=== PATIENT | female | born 1940 | race Caucasian/White ===

== ENCOUNTER 2019-09-22 22:35 | Observation (INO) ==
[2019-09-22] MEDS ORDERED: ASPIRIN CHEW 324 MG PO STA (23:23)
[2019-09-22] MEDS ORDERED: NITROGLYCERIN 2% OINTMENT 30GM TUBE EXT ONE (23:24)
[2019-09-22 23:33] LABS: Basophils # (auto) 0.02 K/uL (0-0.2); Basophils % (auto) 0.3 %; Eosinophils # (auto) 0.06 K/uL (0-0.5); Eosinophils % (auto) 0.8 %; Hematocrit (blood only) 38.9 % (37-47); Hemoglobin 13.8 g/dL (12.0-16.0); Immature Granulocytes # (auto) 0.02 K/uL (0.00-0.02); Immature Granulocytes % (auto) 0.3 %; Lymphocytes # (auto) 2.88 K/uL (1.2-3.4); Lymphocytes % (auto) 36.9 %; Mean Corpuscular Hemoglobin 33.6 pg (25-34); Mean Corpuscular Hgb Conc 35.5 g/dL (32-36); Mean Corpuscular Volume 94.6 fL (80-100); Mean Platelet Volume 9.5 fL (7.4-10.4); Monocytes # (auto) 0.71 K/uL (0.11-0.59); Monocytes % (auto) 9.1 %; Neutrophils # (auto) 4.12 K/uL (1.4-6.5); Neutrophils % (auto) 52.6 %; Platelet Count 228 K/uL (130-400); RDW Coefficient of Variation 13.1 % (11.5-14.5); Red Blood Count 4.11 M/uL (4.2-5.4); White Blood Count 7.81 K/uL (4.8-10.8)
[2019-09-22 23:41] LABS: Alanine Aminotransferase 44 U/L (12-78); Albumin Level 3.9 gm/dl (3.4-5.0); Aspartate Aminotransferase 22 U/L (15-37); BUN Creatinine Ratio 26.7 (10-20); Blood Urea Nitrogen 23 mg/dl (7-18); Calcium 8.7 mg/dl (8.5-10.1); Carbon Dioxide 24 mmol/L (21-32); Chloride 108 mmol/L (98-107); Est GFR (Non-African American) 64.7; Glucose 95 mg/dl (70-99); Lipase 141 U/L (73-393); Potassium 3.7 mmol/L (3.5-5.1); Prothrombin Time 10.8 Seconds (9.0-12.0); Sodium 140 mmol/L (136-145)
[2019-09-22 23:46] LABS: Albumin Globulin Ratio 1.1 (0.9-2); Alkaline Phosphatase 70 U/L (45-117); Bilirubin,Total 0.7 mg/dl (0.2-1); Globulin 3.5 gm/dl (2.5-4.0); Total Protein 7.4 gm/dl (6.4-8.2); Troponin I < 0.015 ng/ml (0-0.045)
--- NOTE | 2019-09-23 01:57 | Emergency Department Note ---
History of Present Illness General Chief complaint: Illness Stated complaint: DIZZY,SOB,MED CHANGE Time Seen by Provider: 09/22/19 22:58 Source: patient Mode of arrival: ambulatory Limitations: no limitations History of Present Illness Provider complaint: Dizziness, weakness, chest discomfort, shortness of breath Onset (ago): hour(s) 4 This patient is an 79-year-old female who presents to the emergency department with several hours of weakness, dizziness, shortness of breath and chest dis comfort. Patient states she called her son and asked him to call the ambulance for her because she felt it was time to "finally have this checked out." Patient states she did not have chest pain at the time but took a nitroglycerin tablet. She has a history of hypertension and seizures. The patient is concerned because her Keppra was recently switched from brand name to generic, she thinks this may be causing her symptoms. She admits that she does not know what aggravates her symptoms. She denies any current chest pain but upon sitting up for physical exam complained of slight burning. Patient denies any recent fevers, cough, abdominal pain, vomiting or diarrhea. Home Medications Home Medications Medication Instructions Recorded Confirmed Type levetiracetam [Keppra] 250 mg PO BID 02/22/19 09/22/19 History levothyroxine 88 mcg PO QAM 02/22/19 09/22/19 History amlodipine [Norvasc] 5 mg PO QAM 05/13/19 09/22/19 History lisinopril 20 mg PO QAM 05/13/19 09/22/19 History ferrous sulfate 325 mg PO QPM 06/29/19 09/22/19 History nitroglycerin 0.4 mg SUBLINGUAL UD PRN 09/22/19 09/22/19 History Allergies Allergy/AdvReac Type Severity Reaction Status Date / Time hydralazine Allergy Severe COULD NOT Verified 09/22/19 23:00 TALK OR BREATHE, EVERYTHING WENT TO BLACK atenolol [From Tenormin] Allergy Unknown Unknown Verified 09/22/19 23:00 Past Med/Surg History Medical History Anemia Chronic back pain Degenerative disc disease History of colon cancer 02/2019--sx Hypothyroidism Migraine Osteoarthritis Seizure last grand mal was in 2012--on keppra--follows with Dr. Dockery in [place] Surgical History History of bilateral salpingo-oophorectomy (BSO) History of colon resection 04/2019 @ [facility] – [place] d/t large mass History of colonoscopy with polypectomy History of hysterectomy History of sinus surgery History of wisdom tooth extraction Social History Preferred Language: Kinyarwanda Communication Ability: Effective Clinic Coordinator Required: No Beliefs That Will Affect Care: None Current Living Situation: Alone Feels Safe at Home: Yes Smoking Status: Never smoker Second Hand Exposure: Yes (father smoked/son smoked/brother smoked) ; Hx Alcohol Use: No Hx Substance Use: No Review of Systems See HPI for pertinent positives & negatives. and A total of 10 systems reviewed and were otherwise negative Physical Exam Vital Signs Vital Signs - 24 hr 09/22/19 22:39 09/22/19 23:00 09/22/19 23:14 Temperature 36.6 C Temperature Source Oral Pulse Rate 73 68 82 Pulse Rate from SpO2 Sensor 75 Pulse Rhythm Regular Regular Pulse Strength Normal Respiratory Rate 18 18 13 Respiratory Effort / Characteristics Non-Labored Spontaneous Respiratory Depth Normal Respiratory Pattern Regular Blood Pressure 204/84 H 195/85 H Blood Pressure Mean 124 115 Blood Pressure Position Sitting Pulse Oximetry 98 94 95 Oxygen Delivery Method Room Air Room Air Sepsis Recent Fever Within 48 Hours No Sepsis Action Taken by Nursing No Action Required 09/22/19 23:30 09/23/19 00:00 09/23/19 00:30 Temperature Temperature Source Pulse Rate 69 67 67 Pulse Rate from SpO2 Sensor 69 67 67 Pulse Rhythm Pulse Strength Respiratory Rate 21 21 14 Respiratory Effort / Characteristics Respiratory Depth Respiratory Pattern Blood Pressure 168/91 H 159/79 H 150/77 H Blood Pressure Mean 120 112 90 Blood Pressure Position Pulse Oximetry 98 97 97 Oxygen Delivery Method Sepsis Recent Fever Within 48 Hours Sepsis Action Taken by Nursing 09/23/19 01:00 09/23/19 01:30 09/23/19 02:00 Temperature Temperature Source Pulse Rate 73 69 70 Pulse Rate from SpO2 Sensor 73 70 70 Pulse Rhythm Pulse Strength Respiratory Rate 19 15 21 Respiratory Effort / Characteristics Respiratory Depth Respiratory Pattern Blood Pressure 156/83 H 149/81 H 163/85 H Blood Pressure Mean 98 104 105 Blood Pressure Position Pulse Oximetry 93 96 94 Oxygen Delivery Method Sepsis Recent Fever Within 48 Hours Sepsis Action Taken by Nursing Vital signs reviewed. Noted to be hypertensive General: Well-appearing 79 yo female, in no significant distress. HEENT: No scleral icterus, PERRLA, neck supple. Atraumatic. Cardiovascular: Regular rate and rhythm, no extra sounds. Pulmonary: Clear to auscultation bilaterally, normal work of breathing. Abdomen: Soft, nontender, nondistended, positive bowel sounds. Musculoskeletal: Atraumatic, no peripheral edema. Neurologic: Patient awake alert and oriented x 3, answers questions appropriately. Skin: Warm, dry, no rash Course Administered Medications Discontinued Medications Aspirin (Aspirin) 324 mg PO NOW STA Stop: 09/22/19 23:24 Last Admin: 09/22/19 23:32 Dose: 324 mg Documented by: [id number] Nitroglycerin (Nitro-Bid 2%) 1 inch EXT NOW ONE Stop: 09/22/19 23:25 Last Admin: 09/22/19 23:32 Dose: 1 inch Documented by: [id number] Medical Decision Making Differential Diagnosis Differential includes acute coronary syndrome, myocardial infarction, CVA, TIA, anemia, infection, pneumonia, UTI, pyelonephritis, poor nutrition, dehydration, electrolyte disturbance,hypoglycemia. Medical Records Attestation: I reviewed the patient's medical records. Home Medications Current Medication List: was personally reviewed by me Laboratory Data Attestation: I reviewed the patient's lab results. Result diagrams: 09/22/19 23:10 09/22/19 23:10 Lab Results 09/22/19 09/22/19 09/22/19 Range/Units 23:10 23:10 23:10 WBC 7.81 (4.8-10.8) K/uL RBC 4.11 L (4.2-5.4) M/uL Hgb 13.8 (12.0-16.0) g/dL Hct 38.9 (37-47) % MCV 94.6 (80-100) fL MCH 33.6 (25-34) pg MCHC 35.5 (32-36) g/dL RDW Std Deviation 45.0 (36.4-46.3) fL RDW Coeff of Valerie 13.1 (11.5-14.5) % Plt Count 228 (130-400) K/uL MPV 9.5 (7.4-10.4) fL Immature Gran % (Auto) 0.3 % Neut % (Auto) 52.6 % Lymph % (Auto) 36.9 % [place] % (Auto) 9.1 % Eos % (Auto) 0.8 % Baso % (Auto) 0.3 % Immature Gran # (Auto) 0.02 (0.00-0.02) K/uL Neut # (Auto) 4.12 (1.4-6.5) K/uL Lymph # (Auto) 2.88 (1.2-3.4) K/uL [place] # (Auto) 0.71 H (0.11-0.59) K/uL Eos # (Auto) 0.06 (0-0.5) K/uL Baso # (Auto) 0.02 (0-0.2) K/uL PT 10.8 (9.0-12.0) Seconds INR 1.0 (0.9-1.1) APTT 29.0 (21.0-31.0) Seconds PTT Ratio 1.0 Sodium 140 (136-145) mmol/L Potassium 3.7 (3.5-5.1) mmol/L Chloride 108 H (98-107) mmol/L Carbon Dioxide 24 (21-32) mmol/L Anion Gap 8.0 (3-11) BUN 23 H (7-18) mg/dl Creatinine 0.85 (0.6-1.2) mg/dl Est Cr Clr Drug Dosing Not Reportable Est GFR ( Amer) 75.0 Est GFR (Non-Af Amer) 64.7 BUN/Creatinine Ratio 26.7 H (10-20) Glucose 95 (70-99) mg/dl Calcium 8.7 (8.5-10.1) mg/dl Total Bilirubin 0.7 (0.2-1) mg/dl AST 22 (15-37) U/L ALT 44 (12-78) U/L Alkaline Phosphatase 70 (45-117) U/L Troponin I < 0.015 (0-0.045) ng/ml Total Protein 7.4 (6.4-8.2) gm/dl Albumin 3.9 (3.4-5.0) gm/dl Globulin 3.5 (2.5-4.0) gm/dl Albumin/Globulin Ratio 1.1 (0.9-2) Lipase 141 (73-393) U/L Urine Color Urine Appearance (Clear) Urine pH (4.5-7.5) Ur Specific [place] (1.000-1.030) Urine Protein (Negative) Urine Glucose (UA) (Negative) Urine Ketones (Negative) Urine Blood (Negative) Urine Nitrite (Negative) Urine Bilirubin (Negative) Urine Urobilinogen (Negative) Ur Leukocyte Esterase (Negative) Urine WBC (Auto) (0-5) /hpf Urine RBC (Auto) (0-4) /hpf U Hyaline Cast (Auto) (0-5) /lpf U Epithel Cells (Auto) (0-5) /lpf Urine Bacteria (Auto) (Negative) 09/22/19 Range/Units 23:10 WBC (4.8-10.8) K/uL RBC (4.2-5.4) M/uL Hgb (12.0-16.0) g/dL Hct (37-47) % MCV (80-100) fL MCH (25-34) pg MCHC (32-36) g/dL RDW Std Deviation (36.4-46.3) fL RDW Coeff of Valerie (11.5-14.5) % Plt Count (130-400) K/uL MPV (7.4-10.4) fL Immature Gran % (Auto) % Neut % (Auto) % Lymph % (Auto) % [place] % (Auto) % Eos % (Auto) % Baso % (Auto) % Immature Gran # (Auto) (0.00-0.02) K/uL Neut # (Auto) (1.4-6.5) K/uL Lymph # (Auto) (1.2-3.4) K/uL [place] # (Auto) (0.11-0.59) K/uL Eos # (Auto) (0-0.5) K/uL Baso # (Auto) (0-0.2) K/uL PT (9.0-12.0) Seconds INR (0.9-1.1) APTT (21.0-31.0) Seconds PTT Ratio Sodium (136-145) mmol/L Potassium (3.5-5.1) mmol/L Chloride (98-107) mmol/L Carbon Dioxide (21-32) mmol/L Anion Gap (3-11) BUN (7-18) mg/dl Creatinine (0.6-1.2) mg/dl Est Cr Clr Drug Dosing Est GFR ( Amer) Est GFR (Non-Af Amer) BUN/Creatinine Ratio (10-20) Glucose (70-99) mg/dl Calcium (8.5-10.1) mg/dl Total Bilirubin (0.2-1) mg/dl AST (15-37) U/L ALT (12-78) U/L Alkaline Phosphatase (45-117) U/L Troponin I (0-0.045) ng/ml Total Protein (6.4-8.2) gm/dl Albumin (3.4-5.0) gm/dl Globulin (2.5-4.0) gm/dl Albumin/Globulin Ratio (0.9-2) Lipase (73-393) U/L Urine Color Yellow Urine Appearance Clear (Clear) Urine pH 5.5 (4.5-7.5) Ur Specific [place] 1.022 (1.000-1.030) Urine Protein Negative (Negative) Urine Glucose (UA) Negative (Negative) Urine Ketones Negative (Negative) Urine Blood Negative (Negative) Urine Nitrite Negative (Negative) Urine Bilirubin Negative (Negative) Urine Urobilinogen Negative (Negative) Ur Leukocyte Esterase 2+ H (Negative) Urine WBC (Auto) >30 H (0-5) /hpf Urine RBC (Auto) 0-4 (0-4) /hpf U Hyaline Cast (Auto) 1-5 (0-5) /lpf U Epithel Cells (Auto) 20-30 H (0-5) /lpf Urine Bacteria (Auto) Negative (Negative) Imaging Data Attestation: I personally reviewed and interpreted this imaging study as follows: My Impression: Chest x-ray to my interpretation reveals no evidence of acute failure, infiltrate ECG Data Attestation: I personally reviewed and interpreted this ECG as follows: Indication: + chest pain Rate (beats per minute): 67 Rhythm: + sinus rhythm ECG Intervals/blocks: + First degree AV block and + Left bundle branch block ECG Stanton: + Left axis deviation ECG Findings: + Q waves (Inferior); no PACs and no PVCs Comparison ECG Date: from (05-13-19) Change: no significant change Blood Pressure Blood Pressure Findings: Elevated blood pressure Blood Pressure Disposition: further management by hospitalist MDM Narrative An order for cardiac monitoring was placed and the patient is found to be in a sinus rhythm with first-degree AV block at 68 bpm. This patient was evaluated and appeared to be in no significant distress. Patient was given 324 mg of aspirin to chew. IV access was obtained and laboratory work was drawn. The patient was placed on patient monitor. Chest x- ray was performed and reveals no evidence of acute abnormality. EKG reveals a left bundle branch block which is unchanged from previous. Laboratory work reveals a negative troponin. The patient will be evaluated by the hospitalist service for further evaluation and management. She is aware of the plan and agrees. Impression & Plan Hypertension, Substernal chest pain Discharge Plan Visit Data Chief Complaint: Illness Stated Complaint: DIZZY,SOB,MED CHANGE ED Provider: Maru Ruiz Discharge Problem: Hypertension, Substernal chest pain Discharge Instructions Interventions: ED Discharge Assessment Last Done: 09/23/19 04:01 Forms Stand Alone Forms: [employer] Prescriptions Prescriptions: No Action levothyroxine 88 mcg Tablet 88 mcg PO QAM RF: 0 levetiracetam [Keppra] 250 mg Tablet 250 mg PO BID RF: 0 lisinopril 20 mg tablet 20 mg PO QAM RF: 0 amlodipine [Norvasc] 5 mg tablet 5 mg PO QAM RF: 0 nitroglycerin 0.4 mg tablet, sublingual 0.4 mg sublingual UD PRN (Reason: Chest Pain) RF: 0 ferrous sulfate 325 mg (65 mg iron) Tablet 325 mg PO QPM RF: 0 Referrals Referrals: Akil Angela [Primary Care Provider] - Discharge Problem: Hypertension Qualifiers: Hypertension type: essential hypertension Qualified Code(s): I10 - Essential (primary) hypertension
[2019-09-23 02:06] LABS: Appearance Urine Clear (Clear); Bacteria Urine Automated Negative (Negative); Bilirubin Urine Negative (Negative); Blood Urine Negative (Negative); Color Urine Yellow; Epithelial Cell Urine Auto 20-30 /lpf (0-5); Glucose Urine UA Negative (Negative); Ketones Urine Negative (Negative); Leukocyte Esterase Urine 2+ (Negative); Nitrite Urine Negative (Negative); Protein Urine Negative (Negative); RBC Urine Automated 0-4 /hpf (0-4); Specific Gravity Urine 1.022 (1.000-1.030); Urobilinogen Urine Negative (Negative); WBC Urine Automated >30 /hpf (0-5); pH Urine 5.5 (4.5-7.5)
--- NOTE | 2019-09-23 02:50 | History & Physical Report ---
Date of Service September 23, 2019 Assessment & Plan (1) Chest pain: 79 yo F w/ pMHx. anemia, hypothyroid, migraines, and seizures presenting with shortness of breath the has been progressively worsening since April. EKG shows LBB that has been present on prior EKG's from April 2019. Nl Tropo cathryn, negative perfusion. History is consistent with anxiety attack but will want to rule out a cardiac origin. It is also possible that this could be a medication side effect since Amlodipine or Lisinopril were added recently, but this is less likely since she does not have symptoms consistent with angioedema. PE is less likely due to normal heart rate, no calf pain, cords, redness, and Homans negative. - serial Troponin levels to rule out ACS - consider low dose Benzodiazepine or Hydroxyzine for anxiety - Well's score of 1 for prior cancer, if concerns develop for PE consider CT chest DVT: Lovenox Diet: regular Code: full (2) Hypothyroidism: (3) History of colon cancer: (4) Anemia: (5) Seizure disorder: (6) Hypertension: History of Present Illness Chief Complaint: shortness of breath Primary Care Provider: Akil Angela Natasha Schrader is a 79 yo F w/ a pMHx. of colon cancer, anemia, hypothyroid, migraine, and seizures who is presenting for shortness of breath, dizziness, shaky and tingling in her feet. She started feeling short of breath at 7-10 PM. She has had this feeling before starting in April and it has occurred more frequently since then. She was sitting at her sofa when it happened. She described it as feeling like her throat is closing and felt that afraid. She was not able to catch her breath and was breathing fast. She did not have any associated chest pain. She had no swelling of her tongue or lips. She did not have pleuritic chest pain. She also brought up that she had chest pain last night w/o activity not related to eating that can last from hours to days. The pain is not worse while walking. She has seen Dr. Carter with Cardiology a couple months ago and was prescribed Nitroglycerine, which has not improving her symptoms when she takes it. Natasha Schrader has been anxious about a neighbor breaking into her house, she thinks that her neighbor may be making drugs. She has informed the police and they told her to get a -bolt. This causes her to be more anxious at night. Her also 2 years prior and she misses him. She has not thoughts of hurting herself. No tobacco use no ETOH use Prior EKG in May 13 2019 showed LBBB Allergies Allergy/AdvReac Type Severity Reaction Status Date / Time hydralazine Allergy Severe COULD NOT Verified 09/22/19 23:00 TALK OR BREATHE, EVERYTHING WENT TO BLACK atenolol [From Tenormin] Allergy Unknown Unknown Verified 09/22/19 23:00 Home Medications Home Medications Medication Instructions Recorded Confirmed Type levetiracetam [Keppra] 250 mg PO BID 02/22/19 09/22/19 History levothyroxine 88 mcg PO QAM 02/22/19 09/22/19 History amlodipine [Norvasc] 5 mg PO QAM 05/13/19 09/22/19 History lisinopril 20 mg PO QAM 05/13/19 09/22/19 History ferrous sulfate 325 mg PO QPM 06/29/19 09/22/19 History nitroglycerin 0.4 mg SUBLINGUAL UD PRN 09/22/19 09/22/19 History Past Med/Surg History Medical History Anemia Chronic back pain Degenerative disc disease History of colon cancer 02/2019--sx Hypothyroidism Migraine Osteoarthritis Seizure last grand mal was in 2012--on keppra--follows with Dr. 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 Beliefs That Will Affect Care: None Current Living Situation: Alone Feels Safe at Home: Yes Smoking Status: Never smoker Second Hand Exposure: Yes (father smoked/son smoked/brother smoked) ; Hx Alcohol Use: No Hx Substance Use: No Review of Systems Review of Systems: Constitutional: admits subjective fevers and chills at night with some sweating that has been going on for a long time, fatigue, denies nausea or vomiting, or change in weight not related to diet or exercise Neuro: Denies syncope, presyncope, slurring of speech, focal weakness ENT: admits sore throat Cardiac: admits chest pain (yesterday) but denies palpitation Pulmonary: admits cough with a small amount of while sputum that did not have an odor Heme: denies bruising GI: admits indigestion, diarrhea, constipation : denies urgency, frequency, or dysuria Physical Exam Constitutional: well developed and well nourished; no acute distress Eyes: PERRL, conjunctivae normal, anicteric sclerae ENMT: external ear and nose normal, oropharynx normal Neck: normal visual inspection Respiratory: normal respiratory effort, lungs clear to auscultation Cardiovascular: RRR, no murmur, no edema Vessels: no JVD Gastrointestinal (Abdomen): normal bowel sounds, soft, nontender, no hepatosplenomegaly Skin: no rashes, warm and dry Psychiatric: A+Ox3, euthymic affect Results & Data Results & Data ([facility]) Vital Signs (Past 12 Hours) Vital Signs Temp Pulse Resp BP Pulse Ox 09/23/19 01:30 69 15 149/81 H 96 09/23/19 01:00 73 19 156/83 H 93 09/23/19 00:30 67 14 150/77 H 97 09/23/19 00:00 67 21 159/79 H 97 09/22/19 23:30 69 21 168/91 H 98 09/22/19 23:14 82 13 195/85 H 95 09/22/19 23:00 68 18 94 09/22/19 22:39 36.6 C 73 18 204/84 H 98 Code Status & VTE Plan VTE Prophylaxis Plan VTE Prophylaxis will be ordered: Yes Supervising Physician Co-Signing Physician Notes Dr. Vargas Resident Activity Tracking Resident Involvement: Resident Care Provided Care Provided: Adult Hospital Medicine
--- NOTE | 2019-09-23 04:09 | Billing Data ---
Date of Service September 23, 2019 Coding Level of Care Code 13709 OBS Care - Level 2
[2019-09-23] MEDS ORDERED: MAGNESIUM HYDROXIDE SUSP 30 ML UDC PO PRN (04:33)
[2019-09-23] MEDS ORDERED: ACETAMINOPHEN 325 MG TAB PO PRN (04:33)
[2019-09-23] MEDS ORDERED: ONDANSETRON INJ 2 MG/ML 2 ML VIAL IV PRN (04:33)
[2019-09-23] MEDS ORDERED: ALUMINUM/MAGNESIUM SUSP 30 ML UDC PO PRN (04:33)
[2019-09-23] MEDS ORDERED: POLYETHYLENE (MIRALAX) 17 GM PACK PO PRN (04:33)
[2019-09-23] MEDS: PATIENT'S HEIGHT AND/OR WEIGHT NEEDED SCH ×2 (05:00→05:07)
[2019-09-23 05:28] LABS: Magnesium 2.1 mg/dl (1.8-2.4); Phosphorus 4.1 mg/dl (2.5-4.9); Troponin I < 0.015 ng/ml (0-0.045)
[2019-09-23] MEDS ORDERED: LEVOTHYROXINE SODIUM 88 MCG TABLET PO SCH (06:30)
--- NOTE | 2019-09-23 06:50 | XRay Report ---
XR chest 1V portable CLINICAL HISTORY: 79 years-old Female presenting with Chest Pain. TECHNIQUE: Portable upright AP view of the chest was obtained. COMPARISON: 05/13/2019. FINDINGS: Atherosclerosis of the aortic arch. Cardiac silhouette enlarged. No focal opacity. No large effusion or pneumothorax. Degenerative changes of the thoracic spine. Upper abdomen normal. IMPRESSION: 1. Cardiomegaly. No other convincing evidence of acute cardiopulmonary disease. ACT 112: Negative or not required by law. Electronically signed by: Quentin Live M.D. 09/23/2019 6:48 AM
[2019-09-23] MEDS ORDERED: ENOXAPARIN INJ 40 MG/0.4 ML SYR SQ SCH (08:00)
--- NOTE | 2019-09-23 08:47 | Electrocardiogram Report ---
Test Reason : Blood Pressure : / mmHG Vent. Rate : 067 BPM Atrial Rate : 067 BPM P-R Int : 236 ms QRS Dur : 144 ms QT Int : 438 ms P-R-T Axes : 056 -33 119 degrees QTc Int : 462 ms Sinus rhythm with 1st degree A-V block Left bundle branch block Abnormal ECG When compared with ECG of 13-MAY-2019 15:32, No significant change was found Confirmed by Seth Warren ([id number]) on 09/23/2019 8:47:28 AM Referred By: REFERRED SELF Confirmed By:Seth Warren
--- NOTE | 2019-09-23 08:58 | Electrocardiogram Report ---
Test Reason : Blood Pressure : / mmHG Vent. Rate : 066 BPM Atrial Rate : 066 BPM P-R Int : 238 ms QRS Dur : 146 ms QT Int : 458 ms P-R-T Axes : 066 -37 118 degrees QTc Int : 480 ms Sinus rhythm with 1st degree A-V block Left bundle branch block Abnormal ECG When compared with ECG of 22-SEP-2019 23:06, No significant change was found Confirmed by Seth Warren ([id number]) on 09/23/2019 8:58:08 AM Referred By: REFERRED SELF Confirmed By:Seth Warren
[2019-09-23] MEDS ORDERED: lisinopriL 20 MG TAB PO SCH (09:00)
[2019-09-23] MEDS ORDERED: AMLODIPINE BESYLATE 5 MG TAB PO SCH (09:00)
[2019-09-23] MEDS ORDERED: levETIRAcetam 250 MG TAB PO SCH (09:00)
--- NOTE | 2019-09-23 11:37 | XCELERA ---
[id number]
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
[2019-09-23] MEDS ORDERED: FERROUS SULFATE 325 MG TAB PO SCH (17:00)
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
== END 2019-09-23 18:29 | disposition home or self-care (01) ==
LOC: 2W 22:35 → ED 22:35 → SUATTDRO 09-23 03:19

== ENCOUNTER 2023-01-23 18:05 | Inpatient (IN) ==
--- NOTE | 2023-01-23 19:24 | Emergency Department Note ---
Impression & Plan AMS (altered mental status), Dementia ED Provider Note ED Provider Note NAME: JULIAN MCFADDEN AGE:82 SEX: Female : 1940 ARRIVES VIA: Police INFORMANT: Patient ED PROVIDER(s): Madhavi Hernandez DO CHIEF COMPLAINT: Altered mental status, unable to care for self this is an 82-year-old female brought in by police after family was concern for continued decline in her cognition and inability to care for self. Please have been called several times on the patient as she will wander into other people's property, and yesterday attempted to kidnap a 3-year-old from a local park. Son is her power of daycare director at bedside and states she also attempts to walk into oncoming traffic, she will not take her medications as prescribed. He states he has been trying to get her into a facility with the aid of her PCP for several years. No recent trauma or falls. PAST MEDICAL HISTORY:See Below PAST SURGICAL HISTORY:See Below FAMILY HISTORY:See Below SOCIAL HISTORY:See Below HOME MEDICATIONS:See Below ALLERGIES:See Below VITALS:See Below PHYSICAL EXAMINATION: GENERAL: alert, well appearing, well nourished, no distress, non-toxic EYE EXAM: normal conjunctiva, PERRL and EOM's grossly intact OROPHARYNX: no exudate, no erythema, lips, buccal mucosa, and tongue normal and mucous membranes are moist NECK: supple, no nuchal rigidity, no adenopathy, non-tender LUNGS: Clear to auscultation. Normal chest wall mechanics, no w/r/r HEART: no murmurs, S1 normal and S2 normal ABDOMEN: abdomen soft, non-tender, normo-active bowel sounds, no masses, no rebound or guarding. BACK: Back is symmetrical on inspection and there is no deformity, no midline tenderness, no CVA tenderness. SKIN: no rashes, petechiae, orbruising UPPER EXTREMITIES: upper extremities are grossly normal. FROM, nml pulses b/l. LOWER EXTREMITIES: No pitting edema. FROM, nml pulses b/l. NEURO EXAM: Normal sensorium, cranial nerves II-XII grossly intact, normal speech, no facial droop,nogross weakness of arms, no gross weakness of legs. Gross sensation intact. No ataxia. Vital Signs: reviewed and remarkable Differential Diagnosis: Infection, JESSICA, dehydration, electrolyte abnormality, CVA, ICH, worsening dementia, noncompliance, as well as others were considered MEDICAL DECISION MAKING: This is an 82-year-old female who presents emergency department with police after she was made a 302 due to endangering others. Family states she does have dementia and they have been trying to get her placed for several years. Labs are drawn and sent, IV established, EKG and chest x-ray performed at bedside interpreted by me and patient monitor on telemetry. She was given 0.5 mg of IV Ativan to help keep her, she had been attempting to leave the room in the department. Patient sent for CT head which was reassuring also. Urine collected and did not show obvious infection. Family in agreement with plan for inpatient treatment with ultimate placement in a long-term care facility. 302 denied by me as this is not psychiatric in nature and the patient would not benefit from primary mental health treatment. Consultation(s): 2201: Discussed with Dr. Vargas, [facility] hospitalist team. ER Treatment Provided: See below Diagnostics Interpreted By Me: -ECG: Normal sinus at 62, first-degree AV block, left axis, interventricular conduction delay, normal QTc, nonspecific ST/T wave changes; this is unchanged from January 05, 2023 -Cardiac Monitoring: An order was placed for continuous cardiac monitoring. The monitor shows a rate of 68 with normal sinus rhythm. -Laboratory studies: As stated above and show below. -Imaging studies: X-ray Chest: A single view study of the chest was reviewed and was negative for cardiomegaly, focal infiltrate, effusion, pulmonary edema, or w paola mediastinum. 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 BROWN Surgical History History of bilateral salpingo-oophorectomy (BSO) History of cataract surgery [place] of [place] [facility] [place] History of colonoscopy with polypectomy History of hysterectomy History of sinus surgery History of wisdom tooth extraction Family History Son Family history of diabetes mellitus Other No family history of adverse response to anesthesia Social History Smoking Status: Never smoker Second Hand Exposure: Yes (as a child); Do You Dip or Chew Tobacco: No; Hx Alcohol Use: No Hx Substance Use: No Preferred Language: Malaysian Communication Ability: Effective Chaperone Required: No Beliefs That Will Affect Care: None marital status: / Current Living Situation: Family Current Living Situation Comment: son and DIL live with pt How many Children do You have: 1 Feels Safe at Home: Yes Assistive Devices: Glasses Allergies Allergies Allergy/AdvReac Type Severity Reaction Status Date / Time hydralazine Allergy Severe COULD NOT Verified 12/26/22 11:23 TALK OR BREATHE, EVERYTHING WENT TO BLACK atenolol [From Tenormin] Allergy Unknown Unknown Verified 12/26/22 11:23 diclofenac [From Voltaren] Allergy Unknown DOES NOT Verified 12/26/22 11:23 KNOW REACTION Home Meds Home Medications Medication Instructions Recorded Confirmed amlodipine 5 mg tablet (Norvasc) 5 mg PO QAM 05/13/19 01/23/23 nitroglycerin 0.4 mg sublingual 0.4 mg sublingual UD PRN Chest Pain 09/22/19 01/23/23 tablet levothyroxine 100 mcg tablet 100 mcg PO QAM 12/13/22 01/23/23 levetiracetam 250 mg tablet 250 mg PO BID 01/23/23 01/23/23 quetiapine 25 mg tablet 25 mg PO DAILY 01/23/23 01/23/23 Previous Rx's Medication Instructions Recorded docusate sodium 100 mg capsule 100 mg PO DAILY #30 caps 06/12/22 (Colace) sennosides 8.6 mg capsule (senna) 8.6 mg PO DAILY PRN constipation 06/12/22 #30 caps aspirin 325 mg tablet 325 mg PO DAILY #30 tabs 01/05/23 Results & Data (ED) Vital Signs Vital Signs - 24 hr 01/23/23 18:07 01/23/23 18:41 01/23/23 20:00 Temperature 36.3 C L Temperature Source Oral Pulse Rate 75 Pulse Rate [Right] 67 Pulse Rhythm Regular Pulse Rhythm [Right] Pulse Strength Normal Respiratory Rate 20 17 Respiratory Effort / Characteristics Non-Labored Spontaneous Respiratory Depth Normal Blood Pressure 224/95 H Blood Pressure [Right Arm] 194/95 H Blood Pressure Mean 138 Blood Pressure Mean [Right Arm] 128 Blood Pressure Position Sitting Blood Pressure Position [Right Arm] Sitting Pulse Oximetry 98 97 Oxygen Delivery Method Room Air Room Air Room Air Sepsis Recent Fever Within 48 Hours No Sepsis New/Unexplained Change in Mental Status No Sepsis Action Taken by Nursing No Action Required 01/23/23 20:07 01/23/23 23:15 Temperature Temperature Source Pulse Rate Pulse Rate [Right] 62 Pulse Rhythm Pulse Rhythm [Right] Regular Pulse Strength Respiratory Rate 17 Respiratory Effort / Characteristics Respiratory Depth Normal Blood Pressure Blood Pressure [Right Arm] 168/73 H Blood Pressure Mean Blood Pressure Mean [Right Arm] 104 Blood Pressure Position Blood Pressure Position [Right Arm] Pulse Oximetry 95 Oxygen Delivery Method Room Air Sepsis Recent Fever Within 48 Hours Sepsis New/Unexplained Change in Mental Status Sepsis Action Taken by Nursing Laboratory Data 01/23/23 19:45 01/23/23 19:45 Lab Results 01/23/23 01/23/23 01/23/23 Range/Units 19:45 19:45 19:45 WBC 6.91 (4.8-10.8) K/ul RBC 3.99 L (4.20-5.40) M/uL Hgb 13.5 (12.0-16.0) g/dl Hct 38.0 (37.0-47.0) % MCV 95.2 (80.0-100.0) fL MCH 33.8 (25.0-34.0) pg MCHC 35.5 (32.0-36.0) g/dL RDW Std Deviation 42.9 (36.4-46.3) fL RDW Coeff of Valerie 12.3 (11.5-14.5) % Plt Count 219 (130-400) K/uL MPV 9.9 (9.4-12.4) fL Immature Gran % (Auto) 0.3 % Neut % (Auto) 57.7 % Lymph % (Auto) 30.4 % [place] % (Auto) 10.0 % Eos % (Auto) 1.2 % Baso % (Auto) 0.4 % Neut # (Auto) 3.99 (1.40-6.50) K/uL Lymph # (Auto) 2.10 (1.20-3.40) K/uL [place] # (Auto) 0.69 H (0.11-0.59) K/uL Eos # (Auto) 0.08 (0.00-0.50) K/uL Baso # (Auto) 0.03 (0.00-0.20) K/uL Immature Gran # (Auto) 0.02 (0.01-0.20) K/uL PT 10.9 (9.0-12.0) Seconds INR 1.0 (0.9-1.1) Sodium 135 L (136-145) mmol/L Potassium 3.7 (3.5-5.1) mmol/L Chloride 104 (98-107) mmol/L Carbon Dioxide 24 (21-32) mmol/L Anion Gap 7 (3-11) BUN 22 (6-23) mg/dl Creatinine 0.79 (0.6-1.2) mg/dl Est Cr Clr Drug Dosing 54.5 ml/min Est GFR ( Amer) 80.2 ml/min Est GFR (Non-Af Amer) 69.2 ml/min BUN/Creatinine Ratio 27.8 H (10-20) Glucose 115 H (70-99(Fasting)) mg/dl Calcium 8.8 (8.6-10.3) mg/dl Magnesium 2.1 (1.7-2.4) mg/dl Total Bilirubin 0.7 (0.2-1.0) mg/dl AST 16 (13-39) U/L ALT 15 (7-52) U/L Alkaline Phosphatase 54 (34-104) U/L Troponin I High Sens 4.9 (0-14) pg/ml Total Protein 6.5 (6.0-8.3) gm/dl Albumin 4.1 (3.4-5.0) gm/dl Globulin 2.4 L (2.5-4.0) gm/dl Albumin/Globulin Ratio 1.7 (0.9-2) Lipase 40 (11-82) U/L TSH (0.300-4.500) uIu/ml Free T4 (0.61-1.60) ng/dl Urine Color Urine Appearance (Clear) Urine pH (4.5-7.5) Ur Specific [place] (1.000-1.030) Urine Protein (Negative) Urine Glucose (UA) (Negative) Urine Ketones (Negative) Urine Blood (Negative) Urine Nitrite (Negative) Urine Bilirubin (Negative) Urine Urobilinogen (Negative) Ur Leukocyte Esterase (Negative) Urine WBC (Auto) (0-5) /hpf Urine RBC (Auto) (0-4) /hpf U Hyaline Cast (Auto) (0-5) /lpf U Epithel Cells (Auto) (0-5) /lpf Urine Bacteria (Auto) (Negative) Urine Opiates Screen (Neg) Ur Methadone, Qual (Neg) Urine Barbiturates (Neg) Ur Phencyclidine (PCP) (Neg) U Amphetamin/Meth Scrn (Neg) MDMA (Ecstasy) Screen (Neg) U Benzodiazepines Scrn (Neg) Ur Cocaine Metabolite (Neg) U Marijuana (THC) Screen (Neg) Ethyl Alcohol mg/dL (<10.0) mg/dl Lyme Disease IgG Ab (Negative) Lyme Disease IgM Ab (Negative) 01/23/23 01/23/23 01/23/23 Range/Units 19:45 19:45 19:45 WBC (4.8-10.8) K/ul RBC (4.20-5.40) M/uL Hgb (12.0-16.0) g/dl Hct (37.0-47.0) % MCV (80.0-100.0) fL MCH (25.0-34.0) pg MCHC (32.0-36.0) g/dL RDW Std Deviation (36.4-46.3) fL RDW Coeff of Valerie (11.5-14.5) % Plt Count (130-400) K/uL MPV (9.4-12.4) fL Immature Gran % (Auto) % Neut % (Auto) % Lymph % (Auto) % [place] % (Auto) % Eos % (Auto) % Baso % (Auto) % Neut # (Auto) (1.40-6.50) K/uL Lymph # (Auto) (1.20-3.40) K/uL [place] # (Auto) (0.11-0.59) K/uL Eos # (Auto) (0.00-0.50) K/uL Baso # (Auto) (0.00-0.20) K/uL Immature Gran # (Auto) (0.01-0.20) K/uL PT (9.0-12.0) Seconds INR (0.9-1.1) Sodium (136-145) mmol/L Potassium (3.5-5.1) mmol/L Chloride (98-107) mmol/L Carbon Dioxide (21-32) mmol/L Anion Gap (3-11) BUN (6-23) mg/dl Creatinine (0.6-1.2) mg/dl Est Cr Clr Drug Dosing ml/min Est GFR ( Amer) ml/min Est GFR (Non-Af Amer) ml/min BUN/Creatinine Ratio (10-20) Glucose (70-99(Fasting)) mg/dl Calcium (8.6-10.3) mg/dl Magnesium (1.7-2.4) mg/dl Total Bilirubin (0.2-1.0) mg/dl AST (13-39) U/L ALT (7-52) U/L Alkaline Phosphatase (34-104) U/L Troponin I High Sens (0-14) pg/ml Total Protein (6.0-8.3) gm/dl Albumin (3.4-5.0) gm/dl Globulin (2.5-4.0) gm/dl Albumin/Globulin Ratio (0.9-2) Lipase (11-82) U/L TSH 5.019 H (0.300-4.500) uIu/ml Free T4 0.81 (0.61-1.60) ng/dl Urine Color Urine Appearance (Clear) Urine pH (4.5-7.5) Ur Specific [place] (1.000-1.030) Urine Protein (Negative) Urine Glucose (UA) (Negative) Urine Ketones (Negative) Urine Blood (Negative) Urine Nitrite (Negative) Urine Bilirubin (Negative) Urine Urobilinogen (Negative) Ur Leukocyte Esterase (Negative) Urine WBC (Auto) (0-5) /hpf Urine RBC (Auto) (0-4) /hpf U Hyaline Cast (Auto) (0-5) /lpf U Epithel Cells (Auto) (0-5) /lpf Urine Bacteria (Auto) (Negative) Urine Opiates Screen (Neg) Ur Methadone, Qual (Neg) Urine Barbiturates (Neg) Ur Phencyclidine (PCP) (Neg) U Amphetamin/Meth Scrn (Neg) MDMA (Ecstasy) Screen (Neg) U Benzodiazepines Scrn (Neg) Ur Cocaine Metabolite (Neg) U Marijuana (THC) Screen (Neg) Ethyl Alcohol mg/dL < 10.0 (<10.0) mg/dl Lyme Disease IgG Ab Negative (Negative) Lyme Disease IgM Ab Negative (Negative) 01/23/23 01/23/23 Range/Units 21:20 21:20 WBC (4.8-10.8) K/ul RBC (4.20-5.40) M/uL Hgb (12.0-16.0) g/dl Hct (37.0-47.0) % MCV (80.0-100.0) fL MCH (25.0-34.0) pg MCHC (32.0-36.0) g/dL RDW Std Deviation (36.4-46.3) fL RDW Coeff of Valerie (11.5-14.5) % Plt Count (130-400) K/uL MPV (9.4-12.4) fL Immature Gran % (Auto) % Neut % (Auto) % Lymph % (Auto) % [place] % (Auto) % Eos % (Auto) % Baso % (Auto) % Neut # (Auto) (1.40-6.50) K/uL Lymph # (Auto) (1.20-3.40) K/uL [place] # (Auto) (0.11-0.59) K/uL Eos # (Auto) (0.00-0.50) K/uL Baso # (Auto) (0.00-0.20) K/uL Immature Gran # (Auto) (0.01-0.20) K/uL PT (9.0-12.0) Seconds INR (0.9-1.1) Sodium (136-145) mmol/L Potassium (3.5-5.1) mmol/L Chloride (98-107) mmol/L Carbon Dioxide (21-32) mmol/L Anion Gap (3-11) BUN (6-23) mg/dl Creatinine (0.6-1.2) mg/dl Est Cr Clr Drug Dosing ml/min Est GFR ( Amer) ml/min Est GFR (Non-Af Amer) ml/min BUN/Creatinine Ratio (10-20) Glucose (70-99(Fasting)) mg/dl Calcium (8.6-10.3) mg/dl Magnesium (1.7-2.4) mg/dl Total Bilirubin (0.2-1.0) mg/dl AST (13-39) U/L ALT (7-52) U/L Alkaline Phosphatase (34-104) U/L Troponin I High Sens (0-14) pg/ml Total Protein (6.0-8.3) gm/dl Albumin (3.4-5.0) gm/dl Globulin (2.5-4.0) gm/dl Albumin/Globulin Ratio (0.9-2) Lipase (11-82) U/L TSH (0.300-4.500) uIu/ml Free T4 (0.61-1.60) ng/dl Urine Color Yellow Urine Appearance Clear (Clear) Urine pH 6.5 (4.5-7.5) Ur Specific [place] 1.011 (1.000-1.030) Urine Protein Negative (Negative) Urine Glucose (UA) Negative (Negative) Urine Ketones Negative (Negative) Urine Blood Negative (Negative) Urine Nitrite Negative (Negative) Urine Bilirubin Negative (Negative) Urine Urobilinogen Negative (Negative) Ur Leukocyte Esterase 2+ H (Negative) Urine WBC (Auto) 10-30 H (0-5) /hpf Urine RBC (Auto) 0-4 (0-4) /hpf U Hyaline Cast (Auto) 0 (0-5) /lpf U Epithel Cells (Auto) 5-10 H (0-5) /lpf Urine Bacteria (Auto) Negative (Negative) Urine Opiates Screen Neg (Neg) Ur Methadone, Qual Neg (Neg) Urine Barbiturates Neg (Neg) Ur Phencyclidine (PCP) Neg (Neg) U Amphetamin/Meth Scrn Neg (Neg) MDMA (Ecstasy) Screen Neg (Neg) U Benzodiazepines Scrn Neg (Neg) Ur Cocaine Metabolite Neg (Neg) U Marijuana (THC) Screen Neg (Neg) Ethyl Alcohol mg/dL (<10.0) mg/dl Lyme Disease IgG Ab (Negative) Lyme Disease IgM Ab (Negative) Administered Medications Sodium Chloride (Nss) 1,000 mls @ 125 mls/hr IV .Q8H NEHEMIAS Stop: 02/22/23 21:59 Last Admin: 01/23/23 22:26 Dose: 125 mls/hr Documented By: WCS Discontinued Medications Lorazepam (Lorazepam 2 Mg/1 Ml Vial) 0.5 mg IV NOW STA Stop: 01/23/23 19:08 Last Admin: 01/23/23 19:50 Dose: 0.5 mg Documented By: S Imaging Data Radiologist's Impression: Chest X-Ray 01/23/23 18:35 SINGLE VIEW CHEST CLINICAL HISTORY: Change in mental status. FINDINGS: An AP, portable, upright chest radiograph is compared to study dated 01/05/2023. The heart is enlarged but noting atherosclerotic calcification of the thoracic aorta. The pulmonary vasculature is noncongested. Chronic interstitial thickening since the previous. There is mild bibasilar scarring/atelectasis. The lungs and pleural spaces are otherwise clear. No pneumothorax is seen. The skeletal structures are osteopenic. The bony thorax is grossly intact. IMPRESSION: Cardiomegaly with no active disease in the chest. ACT 112: Negative or not required by law. Electronically signed by: Emir Matthews M.D. 01/23/2023 10:[address] 01/23/23 18:35 CT SCAN OF THE BRAIN WITHOUT IV CONTRAST CLINICAL HISTORY: Change in mental status COMPARISON STUDY: CT of the brain dated 01/05/2023. TECHNIQUE: Unenhanced axial CT scan of the brain is performed from the vertex to the skull base. A dose lowering technique was utilized adhering to the principles of ALARA. CT DOSE: 703.85 mGy.cm FINDINGS: Brain parenchyma: There is age-related involutional change noting mild subcortical and periventricular microangiopathic disease. There is no hemorrhage, mass effect, or evidence of acute territorial ischemia by CT criteria. Gutierrez-white matter differentiation is preserved. No extra-axial fluid collection is seen. Ventricles, sulci, cisterns: Prominent secondary to involutional change. Intracranial vasculature: There is atherosclerotic calcification of the cavernous carotid and vertebral arteries. Calvarium: Unremarkable. Sinuses and mastoids: The paranasal sinuses are clear. The mastoid air cells are well pneumatized. Orbits: The bony orbits are grossly intact. There are bilateral ocular lens implants. IMPRESSION: There is no hemorrhage, mass effect, or evidence of acute territorial ischemia by CT criteria. ACT 112: Negative or not required by law. Electronically signed by: Emir Matthews M.D. 01/23/2023 9:58 PM Discharge Plan Visit Data Chief Complaint: Confusion ED Provider: Madhavi Hernandez Discharge Problem: AMS (altered mental status), Dementia Forms Stand Alone Forms: [facility] Prescriptions Prescriptions: No Action amlodipine [Norvasc] 5 mg tablet 5 mg PO QAM Rx Instructions: filled 11/19/22 for 90 days nitroglycerin 0.4 mg tablet, sublingual 0.4 mg sublingual UD PRN (Reason: Chest Pain) levothyroxine 100 mcg tablet 100 mcg PO QAM Rx Instructions: filled 11/12/22 for 90 days aspirin 325 mg tablet 325 mg PO DAILY Qty: 30 0RF Rx Instructions: Enteric-coated. With food quetiapine 25 mg tablet 25 mg PO DAILY levetiracetam 250 mg tablet 250 mg PO BID docusate sodium [Colace] 100 mg capsule 100 mg PO DAILY Qty: 30 0RF senna 8.6 mg capsule 8.6 mg PO DAILY PRN (Reason: constipation) Qty: 30 0RF Referrals Referrals: PCP,NO [Physician] -
[2023-01-23] MEDS: LORazepam 2 MG/1 ML VIAL IV STA (19:50)
[2023-01-23 20:07] LABS: Basophils # (auto) 0.03 K/uL (0.00-0.20); Basophils % (auto) 0.4 %; Eosinophils # (auto) 0.08 K/uL (0.00-0.50); Eosinophils % (auto) 1.2 %; Hemoglobin 13.5 g/dl (12.0-16.0); Immature Granulocytes # (auto) 0.02 K/uL (0.01-0.20); Immature Granulocytes % (auto) 0.3 %; Lymphocytes % (auto) 30.4 %; Mean Corpuscular Hemoglobin 33.8 pg (25.0-34.0); Mean Corpuscular Hgb Conc 35.5 g/dL (32.0-36.0); Mean Corpuscular Volume 95.2 fL (80.0-100.0); Mean Platelet Volume 9.9 fL (9.4-12.4); Monocytes # (auto) 0.69 K/uL (0.11-0.59); Neutrophils # (auto) 3.99 K/uL (1.40-6.50); Neutrophils % (auto) 57.7 %; Platelet Count 219 K/uL (130-400); RDW Coefficient of Variation 12.3 % (11.5-14.5); RDW Standard Deviation 42.9 fL (36.4-46.3); Red Blood Count 3.99 M/uL (4.20-5.40); White Blood Count 6.91 K/ul (4.8-10.8)
[2023-01-23 20:32] LABS: Troponin I High Sensitivity 4.9 pg/ml (0-14)
[2023-01-23 20:34] LABS: Albumin Level 4.1 gm/dl (3.4-5.0); Bilirubin,Total 0.7 mg/dl (0.2-1.0); Calcium 8.8 mg/dl (8.6-10.3); Magnesium 2.1 mg/dl (1.7-2.4); Potassium 3.7 mmol/L (3.5-5.1)
[2023-01-23 20:36] LABS: Lyme Ab IgG w/WB Rflx Negative (Negative); Lyme Ab IgM w/WB Rflx Negative (Negative)
[2023-01-23 20:40] LABS: Albumin Globulin Ratio 1.7 (0.9-2); BUN Creatinine Ratio 27.8 (10-20); Creatinine Clr Calc Pharmacy 54.5 ml/min; Est GFR (African American) 80.2 ml/min; Est GFR (Non-African American) 69.2 ml/min; Globulin 2.4 gm/dl (2.5-4.0); Thyroid Stimulating Hormone 5.019 uIu/ml (0.300-4.500); Total Protein 6.5 gm/dl (6.0-8.3)
[2023-01-23 20:44] LABS: Prothrombin Time 10.9 Seconds (9.0-12.0)
[2023-01-23 21:15] LABS: T4 Free Thyroxine 0.81 ng/dl (0.61-1.60)
--- NOTE | 2023-01-23 21:58 | CT Scan Report ---
CT SCAN OF THE BRAIN WITHOUT IV CONTRAST CLINICAL HISTORY: Change in mental status COMPARISON STUDY: CT of the brain dated 01/05/2023. TECHNIQUE: Unenhanced axial CT scan of the brain is performed from the vertex to the skull base. A do se lowering technique was utilized adhering to the principles of ALARA. CT DOSE: 703.85 mGy.cm FINDINGS: Brain parenchyma: There is age-related involutional change noting mild subcortical and periventricula r microangiopathic disease. There is no hemorrhage, mass effect, or evidence of acute territorial isc hemia by CT criteria. Gutierrez-white matter differentiation is preserved. No extra-axial fluid collection is seen. Ventricles, sulci, cisterns: Prominent secondary to involutional change. Intracranial vasculature: There is atherosclerotic calcification of the cavernous carotid and vertebr al arteries. Calvarium: Unremarkable. Sinuses and mastoids: The paranasal sinuses are clear. The mastoid air cells are well pneumatized. Orbits: The bony orbits are grossly intact. There are bilateral ocular lens implants. IMPRESSION: There is no hemorrhage, mass effect, or evidence of acute territorial ischemia by CT quynh chapman. ACT 112: Negative or not required by law. Electronically signed by: Emir Matthews M.D. 01/23/2023 9:58 PM
[2023-01-23 22:05] LABS: Appearance Urine Clear (Clear); Bacteria Urine Automated Negative (Negative); Bilirubin Urine Negative (Negative); Blood Urine Negative (Negative); Cast Urine Automated 0 /lpf (0-5); Color Urine Yellow; Glucose Urine UA Negative (Negative); Ketones Urine Negative (Negative); Leukocyte Esterase Urine 2+ (Negative); Nitrite Urine Negative (Negative); Protein Urine Negative (Negative); RBC Urine Automated 0-4 /hpf (0-4); Specific Gravity Urine 1.011 (1.000-1.030); Urobilinogen Urine Negative (Negative); pH Urine 6.5 (4.5-7.5)
--- NOTE | 2023-01-23 22:05 | XRay Report ---
SINGLE VIEW CHEST CLINICAL HISTORY: Change in mental status. FINDINGS: An AP, portable, upright chest radiograph is compared to study dated 01/05/2023. The heart i s enlarged but noting atherosclerotic calcification of the thoracic aorta. The pulmonary vasculature is noncongested. Chronic interstitial thickening since the previous. There is mild bibasilar scarring /atelectasis. The lungs and pleural spaces are otherwise clear. No pneumothorax is seen. The skeletal structures are osteopenic. The bony thorax is grossly intact. IMPRESSION: Cardiomegaly with no active disease in the chest. ACT 112: Negative or not required by law. Electronically signed by: Emir Matthews M.D. 01/23/2023 10:04 PM
[2023-01-23] MEDS: SODIUM CHLORIDE 0.9% 1,000 ML IV SCH (22:26)
[2023-01-23 22:30] LABS: Amphetamines+Metham, Urine Neg (Neg); Barbiturates, Urine Neg (Neg); Benzodiazepine, Urine Neg (Neg); Cocaine, Urine Neg (Neg); MDMA (Ecstacy), Urine Neg (Neg); Marijuana, Urine Neg (Neg); Methadone, Urine Neg (Neg); Opiate, Urine Neg (Neg); Phencyclidine, Urine Neg (Neg)
--- NOTE | 2023-01-23 22:50 | History & Physical Report ---
Date of Service January 23, 2023 Assessment & Plan (1) Dementia: (2) Seizure disorder: (3) Hypertension: (4) Hypothyroidism: (5) Patient incapable of making informed decisions: Plan 82 y/o female with PMH of HTN, seizures on keppra, late onset dementia with hallucinations and hypothyroidism.She was brought by police after family was concern about continue decline in her cognition and inability to take care of herself Late onset dementia with hallucinations -Acute on chronic -Patient has worsen over the years -incapable of making informed decision by his own -Will admit her on Med-surge -Case management consulted -PT/OT consulted -Seroquel was started on last PCP visit, patient hasn't been taken yet. Will start Seroquel 50 mg qhs -Will continue home medications Patient incapable of making decisions -Patient requires placement as per PCP note -no capable of making her own decision -as above hyponatremia acute finding Na: 135 NSS 125 ml/hr Follow labs am hypertension Will continue Amlodipine 5mg and Lisinopril 20 mg hypothyroidism will continue Synthroid 88mcg Code: full code DVT prophylaxis: Lovenox 40mg daily diet: [employer] Case management: yes PT/OT: yes History of Present Illness Primary Care Provider: Mara Bardales, DO 82 y/o female with PMH of HTN, seizures on keppra, late onset dementia with hallucinations and hypothyroidism.She was brought by police after family was concern about continue decline in her cognition and inability to take care of herself. Patient life by his own, police has been involved several times because she wander into the other people's property. Yesterday patient attempted to kidnap a 3 year old from a local park. Patient very unstable and incapable of making informed decisions. She will not take her medications as prescribed. Son is her power of insurance defense attorney had been trying to placed her on a facility for several years but unable to do it outpatient. As per PCP records patient requires placement, she is incapable of making informed decisions and is not safe to send her home or let her sign out AMA. PAtient evaluated at bed side found in no acute distress, disoriented x3, with her son. Ct head without any acute changes. CXR with no acute disease. Will admit patient for further management and evaluation of case management Allergies Allergy/AdvReac Type Severity Reaction Status Date / Time hydralazine Allergy Severe COULD NOT Verified 12/26/22 11:23 TALK OR BREATHE, EVERYTHING WENT TO BLACK atenolol [From Tenormin] Allergy Unknown Unknown Verified 12/26/22 11:23 diclofenac [From Voltaren] Allergy Unknown DOES NOT Verified 12/26/22 11:23 KNOW REACTION Home Medications Medication Instructions Recorded Confirmed Type amlodipine 5 mg tablet (Norvasc) 5 mg PO QAM 05/13/19 01/23/23 History nitroglycerin 0.4 mg sublingual 0.4 mg sublingual UD PRN Chest Pain 09/22/19 01/23/23 History tablet docusate sodium 100 mg capsule 100 mg PO DAILY #30 caps 06/12/22 01/23/23 Rx (Colace) sennosides 8.6 mg capsule (senna) 8.6 mg PO DAILY PRN constipation 06/12/22 01/23/23 Rx #30 caps levothyroxine 100 mcg tablet 100 mcg PO QAM 12/13/22 01/23/23 History aspirin 325 mg tablet 325 mg PO DAILY #30 tabs 01/05/23 01/23/23 Rx levetiracetam 250 mg tablet 250 mg PO BID 01/23/23 01/23/23 History quetiapine 25 mg tablet 25 mg PO DAILY 01/23/23 01/23/23 History Past Med/Surg History Medical History Chronic back pain Degenerative disc disease Hearing deficit History of anemia History of colon cancer 02/2019--sx HTN (hypertension) Hypothyroidism Memory problem 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 BROWN Surgical History History of bilateral salpingo-oophorectomy (BSO) History of cataract surgery History of colon resection 04/2019 @ [facility] [place] d/t large mass History of colonoscopy with polypectomy History of hysterectomy History of sinus surgery History of wisdom tooth extraction Family History Son Family history of diabetes mellitus Other No family history of adverse response to anesthesia Social History Smoking Status: Never smoker Second Hand Exposure: Yes (as a child); Do You Dip or Chew Tobacco: No; Hx Alcohol Use: Yes Hx Substance Use: No Preferred Language: Vietnamese Communication Ability: Effective Employment Recruiter Required: No Beliefs That Will Affect Care: Restoration Restoration Beliefs: PROTESTANT marital status: / Current Living Situation: Alone Current Living Situation Comment: son and DIL live with pt How many Children do You have: 1 Feels Safe at Home: Yes Assistive Devices: Cane Review of Systems Review of Systems: as per hpi Physical Exam Constitutional: WD/WN, vitals as above ENMT: external ear and nose normal, oropharynx normal Respiratory: normal respiratory effort, lungs clear to auscultation Cardiovascular: RRR, no murmur, no edema Gastrointestinal (Abdomen): normal bowel sounds, soft, nontender, no hepatosplenomegaly Neurologic: PERRL, EOMI, accommodation nl, no face palsy, no dysarthria Psychiatric: Orientation: alert; + not oriented x 3 Results & Data Results & Data Vital Signs (Past 12 Hours) Vital Signs Temp Pulse Pulse Resp BP BP Pulse Ox 01/23/23 20:00 01/23/23 18:41 67 17 194/95 H 97 01/23/23 18:07 36.3 C L 75 20 224/95 H 98 O2 Del Method 01/23/23 20:00 Room Air 01/23/23 18:41 Room Air 01/23/23 18:07 Room Air Supervising Physician Co-Signing Physician Notes Patient seen and examined, chart reviewed, case discussed with Dr. Melendez and I agree with the assessment and plan as above. 82yo female with dementia, progressive functional decline. Patient is unable to care for herself and has had continued functional decline. Patient with increasingly strange and unsafe behavior - recently tried to kidnap a 3 year old from a park. She presents with her son and [id number]. Son has been trying to arrange placement for his mother on an outpatient basis but has been having difficulty On exam patient is resting comfortably, NAD Skin - intact, no rash HEENT - NC/AT, MMM, Neck supple] Heart - +S1/S2, regular, no m/r/g Lungs - CTA Abd - soft, NT/ND Ext - warm, well perfused Labs and images reviewed 82yo female with progressive cognitive decline. No obvious reversible cause identified -Admit to medical -PT/OT, CM assessment for placement needs -Remainder as above Resident Activity Tracking Resident Involvement: Resident Care Provided Care Provided: Adult [facility]
[2023-01-24] MEDS ORDERED: ONDANSETRON INJ 2 MG/ML 2 ML VIAL IV PRN (01:14)
[2023-01-24] MEDS: LEVOTHYROXINE SODIUM 100 MCG TABLET PO SCH (05:24)
[2023-01-24] MEDS: ENOXAPARIN INJ 40 MG/0.4 ML SYR SQ SCH (05:26)
[2023-01-24 07:05] LABS: Mean Corpuscular Hemoglobin 33.2 pg (25.0-34.0); Mean Corpuscular Volume 94.8 fL (80.0-100.0); Mean Platelet Volume 9.8 fL (9.4-12.4); Platelet Count 225 K/uL (130-400); RDW Coefficient of Variation 12.2 % (11.5-14.5); RDW Standard Deviation 42.5 fL (36.4-46.3); Red Blood Count 4.22 M/uL (4.20-5.40); White Blood Count 6.98 K/ul (4.8-10.8)
[2023-01-24 07:22] LABS: Albumin Globulin Ratio 1.6 (0.9-2); Albumin Level 4.2 gm/dl (3.4-5.0); BUN Creatinine Ratio 22.6 (10-20); Calcium 8.6 mg/dl (8.6-10.3); Creatinine Clr Calc Pharmacy 67.3 ml/min; Est GFR (African American) 96.6 ml/min; Est GFR (Non-African American) 83.4 ml/min; Globulin 2.6 gm/dl (2.5-4.0); Potassium 3.3 mmol/L (3.5-5.1); Total Protein 6.8 gm/dl (6.0-8.3)
--- NOTE | 2023-01-24 08:42 | Hospitalist Progress Note ---
Date of Service January 24, 2023 Assessment & Plan (1) Dementia: Plan: 82 y/o female with PMH of HTN, seizures on keppra, late onset dementia with hallucinations and hypothyroidism, hx CRC cancer s/p resection Brought by police after family was concern about continue decline in her cognition and inability to take care of herself and possibly attempting to steal child (reports the child's mother was neglecting child/asked to sit on lap) Late onset dementia with hallucinations Acute on chronic, apparently worsened over the years. Incapable of making informed decision by themselves CT head negative for acute stroke on admission Seroquel started at PCP visit however patient hadn't started -patient reports poor sleep/on/off, possible depression w/ of 50+ years passing about 5 years ago. 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 The vessel is reconstituted distally, and this finding is of indeterminate chronicity. Discussed w/ Dr Jha, nothing to do except medical management/BP control/statin/antiplatelet -patient on aspirin 325mg daily, continued while inpatient -will check lipid panel/start atorvastatin 20mg HS for now/adjustment pending lipid panel in AM Remains on amlodipine 5mg BP control -- BPs better but still elevated APPEARS HAD BEEN ON LISINOPRIL IN THE PAST, NO RECENT FILLS. Will start 5mg PO daily/titrate as able Monitor (3) Seizure disorder: Plan: Seizures - hx of such, Na 135 on admission, ?if having episodes at home. no evidence on exam. continue home keppra (4) Hypothyroidism: Plan: Hypothyroidism TSH elevated to 5.019 but T4 wnl. Her Synthroid was increased to 100mcg on admission will decrease back to 88mcg daily, encourage compliance (5) Patient incapable of making informed decisions: Plan: Patient incapable of making decisions -Patient requires placement as per PCP note -no capable of making her own decision -as above (6) History of colon cancer: Plan: s/p resection ?need for MRI brain if needed Plan continued inpatient stay psych/liason consulted as well start statin/BP control given vertebral artery stenosis on prior imaging, check lipid panel in AM/adjustment in statin if needed attempting to get copy of most recent PCP note today for review will plan to call son for update this evening vs tomorrow pending course Admission and Anticipated Discharge Date Admission Date: January 23, 2023 Supervising Physician Co-Signing Physician Notes The patient was not seen by me. The chart was reviewed. Case discussed with JEREMY Hoang. Agree with assessment and plan Subjective Eval this afternoon, sitting up in chair eating lunch. Ok appetite, doesn't really like the chicken. She is aware people are worried about her safety, lives alone. She states she is in [employer], year 2022 but month is September. She reports when asked about possible depression, that she might have some depression but no SI/HI. She doesn't want this conversation shared with psych as it is "her business" however discussed needing further eval/treatment to see if she is able to safely return home. She notes poor sleep at baseline, but does get around 6 or so hours when all said and done but it is on/off sleep and not good quality. She mentions a gentleman's name, thought it was son. Asked further and she was talking about her , who about 5 years ago. They were ~50 years. No smoking history. Denies active drinking but did endorse she used to like to drink. Will plan to start thiamine replacement as well. Denies any fever/chills, chest pain, shortness of breath, abdominal pain. Appears to have abdominal hernia, no warmth/tenderness. Denies known surgery to [facility], however listed colon resection in her history. Hx colorectal ca. 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 The vessel is reconstituted distally, and this finding is of indeterminate chronicity." in December of this year but never agreed to admission. Physical Exam Physical Exam: elderly female sitting up in chair, eating lunch, NAD head normocephalic, atraumatic, mmm, trachea midline resp even/unlabored, diminished slightly in the bases without w/c/r, on room air cv- regular rate/rhythm, +systolic murmur, no pitting edema/calf tenderness gi- +BS, slight distension but soft/NT, +HERNIA left of midline, no warmth/erythema/tenderness to palpation gu- no castle msk/neuro- ambulating in the halls witnessed earlier, strength intact bilaterally, no slurred speech/facial droop psych- alert to person, knows in hospital in [place], but initially thought year 2002 vs 2022 and that the month was May wanting to get up out of bed/walk skin- no obvious lesions/rashes Results & Data Results & Data Vital Signs (Past 12 Hours) Vital Signs Temp Pulse Pulse Pulse Resp BP BP 01/24/23 08:14 36.5 C 67 20 176/69 H 01/24/23 01:11 36.6 C 62 18 01/24/23 00:53 59 L 18 155/86 H 01/24/23 00:20 58 L 18 01/23/23 23:15 62 17 BP Pulse Ox O2 Del Method 01/24/23 08:14 93 Room Air 01/24/23 01:11 188/74 H 92 Room Air 01/24/23 00:53 94 Room Air 01/24/23 00:20 95 Room Air 01/23/23 23:15 168/73 H 95 Room Air Laboratory Results 01/24/23 01/24/23 01/24/23 Range/Units 06:23 06:23 06:23 WBC 6.98 (4.8-10.8) K/ul RBC 4.22 (4.20-5.40) M/uL Hgb 14.0 (12.0-16.0) g/dl Hct 40.0 (37.0-47.0) % MCV 94.8 (80.0-100.0) fL MCH 33.2 (25.0-34.0) pg MCHC 35.0 (32.0-36.0) g/dL RDW Std Deviation 42.5 (36.4-46.3) fL RDW Coeff of Valerie 12.2 (11.5-14.5) % Plt Count 225 (130-400) K/uL MPV 9.8 (9.4-12.4) fL Immature Gran % (Auto) % Neut % (Auto) % Lymph % (Auto) % [place] % (Auto) % Eos % (Auto) % Baso % (Auto) % Neut # (Auto) (1.40-6.50) K/uL Lymph # (Auto) (1.20-3.40) K/uL [place] # (Auto) (0.11-0.59) K/uL Eos # (Auto) (0.00-0.50) K/uL Baso # (Auto) (0.00-0.20) K/uL Immature Gran # (Auto) (0.01-0.20) K/uL PT (9.0-12.0) Seconds INR (0.9-1.1) Sodium 138 (136-145) mmol/L Potassium 3.3 L (3.5-5.1) mmol/L Chloride 107 (98-107) mmol/L Carbon Dioxide 22 (21-32) mmol/L Anion Gap 9 (3-11) BUN 14 (6-23) mg/dl Creatinine 0.62 (0.6-1.2) mg/dl Est Cr Clr Drug Dosing 67.3 ml/min Est GFR ( Amer) 96.6 ml/min Est GFR (Non-Af Amer) 83.4 ml/min BUN/Creatinine Ratio 22.6 H (10-20) Glucose 138 H (70-99(Fasting)) mg/dl Calcium 8.6 (8.6-10.3) mg/dl Magnesium 2.0 (1.7-2.4) mg/dl Total Bilirubin 1.0 (0.2-1.0) mg/dl AST 17 (13-39) U/L ALT 16 (7-52) U/L Alkaline Phosphatase 52 (34-104) U/L Troponin I High Sens (0-14) pg/ml Total Protein 6.8 (6.0-8.3) gm/dl Albumin 4.2 (3.4-5.0) gm/dl Globulin 2.6 (2.5-4.0) gm/dl Albumin/Globulin Ratio 1.6 (0.9-2) Lipase (11-82) U/L Vitamin B12 211 (180-914) pg/ml TSH (0.300-4.500) uIu/ml Free T4 (0.61-1.60) ng/dl Free T3 (2.3-4.2) pg/ml Urine Color Urine Appearance (Clear) Urine pH (4.5-7.5) Ur Specific [place] (1.000-1.030) Urine Protein (Negative) Urine Glucose (UA) (Negative) Urine Ketones (Negative) Urine Blood (Negative) Urine Nitrite (Negative) Urine Bilirubin (Negative) Urine Urobilinogen (Negative) Ur Leukocyte Esterase (Negative) Urine WBC (Auto) (0-5) /hpf Urine RBC (Auto) (0-4) /hpf U Hyaline Cast (Auto) (0-5) /lpf U Epithel Cells (Auto) (0-5) /lpf Urine Bacteria (Auto) (Negative) Urine Opiates Screen (Neg) Ur Methadone, Qual (Neg) Urine Barbiturates (Neg) Ur Phencyclidine (PCP) (Neg) U Amphetamin/Meth Scrn (Neg) MDMA (Ecstasy) Screen (Neg) U Benzodiazepines Scrn (Neg) Ur Cocaine Metabolite (Neg) U Marijuana (THC) Screen (Neg) Ethyl Alcohol mg/dL (<10.0) mg/dl Lyme Disease IgG Ab (Negative) Lyme Disease IgM Ab (Negative) 01/23/23 01/23/23 01/23/23 Range/Units 21:20 21:20 19:45 WBC (4.8-10.8) K/ul RBC (4.20-5.40) M/uL Hgb (12.0-16.0) g/dl Hct (37.0-47.0) % MCV (80.0-100.0) fL MCH (25.0-34.0) pg MCHC (32.0-36.0) g/dL RDW Std Deviation (36.4-46.3) fL RDW Coeff of Valerie (11.5-14.5) % Plt Count (130-400) K/uL MPV (9.4-12.4) fL Immature Gran % (Auto) % Neut % (Auto) % Lymph % (Auto) % [place] % (Auto) % Eos % (Auto) % Baso % (Auto) % Neut # (Auto) (1.40-6.50) K/uL Lymph # (Auto) (1.20-3.40) K/uL [place] # (Auto) (0.11-0.59) K/uL Eos # (Auto) (0.00-0.50) K/uL Baso # (Auto) (0.00-0.20) K/uL Immature Gran # (Auto) (0.01-0.20) K/uL PT (9.0-12.0) Seconds INR (0.9-1.1) Sodium (136-145) mmol/L Potassium (3.5-5.1) mmol/L Chloride (98-107) mmol/L Carbon Dioxide (21-32) mmol/L Anion Gap (3-11) BUN (6-23) mg/dl Creatinine (0.6-1.2) mg/dl Est Cr Clr Drug Dosing ml/min Est GFR ( Amer) ml/min Est GFR (Non-Af Amer) ml/min BUN/Creatinine Ratio (10-20) Glucose (70-99(Fasting)) mg/dl Calcium (8.6-10.3) mg/dl Magnesium (1.7-2.4) mg/dl Total Bilirubin (0.2-1.0) mg/dl AST (13-39) U/L ALT (7-52) U/L Alkaline Phosphatase (34-104) U/L Troponin I High Sens (0-14) pg/ml Total Protein (6.0-8.3) gm/dl Albumin (3.4-5.0) gm/dl Globulin (2.5-4.0) gm/dl Albumin/Globulin Ratio (0.9-2) Lipase (11-82) U/L Vitamin B12 (180-914) pg/ml TSH (0.300-4.500) uIu/ml Free T4 (0.61-1.60) ng/dl Free T3 2.93 (2.3-4.2) pg/ml Urine Color Yellow Urine Appearance Clear (Clear) Urine pH 6.5 (4.5-7.5) Ur Specific [place] 1.011 (1.000-1.030) Urine Protein Negative (Negative) Urine Glucose (UA) Negative (Negative) Urine Ketones Negative (Negative) Urine Blood Negative (Negative) Urine Nitrite Negative (Negative) Urine Bilirubin Negative (Negative) Urine Urobilinogen Negative (Negative) Ur Leukocyte Esterase 2+ H (Negative) Urine WBC (Auto) 10-30 H (0-5) /hpf Urine RBC (Auto) 0-4 (0-4) /hpf U Hyaline Cast (Auto) 0 (0-5) /lpf U Epithel Cells (Auto) 5-10 H (0-5) /lpf Urine Bacteria (Auto) Negative (Negative) Urine Opiates Screen Neg (Neg) Ur Methadone, Qual Neg (Neg) Urine Barbiturates Neg (Neg) Ur Phencyclidine (PCP) Neg (Neg) U Amphetamin/Meth Scrn Neg (Neg) MDMA (Ecstasy) Screen Neg (Neg) U Benzodiazepines Scrn Neg (Neg) Ur Cocaine Metabolite Neg (Neg) U Marijuana (THC) Screen Neg (Neg) Ethyl Alcohol mg/dL (<10.0) mg/dl Lyme Disease IgG Ab (Negative) Lyme Disease IgM Ab (Negative) 01/23/23 01/23/23 01/23/23 Range/Units 19:45 19:45 19:45 WBC (4.8-10.8) K/ul RBC (4.20-5.40) M/uL Hgb (12.0-16.0) g/dl Hct (37.0-47.0) % MCV (80.0-100.0) fL MCH (25.0-34.0) pg MCHC (32.0-36.0) g/dL RDW Std Deviation (36.4-46.3) fL RDW Coeff of Valerie (11.5-14.5) % Plt Count (130-400) K/uL MPV (9.4-12.4) fL Immature Gran % (Auto) % Neut % (Auto) % Lymph % (Auto) % [place] % (Auto) % Eos % (Auto) % Baso % (Auto) % Neut # (Auto) (1.40-6.50) K/uL Lymph # (Auto) (1.20-3.40) K/uL [place] # (Auto) (0.11-0.59) K/uL Eos # (Auto) (0.00-0.50) K/uL Baso # (Auto) (0.00-0.20) K/uL Immature Gran # (Auto) (0.01-0.20) K/uL PT (9.0-12.0) Seconds INR (0.9-1.1) Sodium (136-145) mmol/L Potassium (3.5-5.1) mmol/L Chloride (98-107) mmol/L Carbon Dioxide (21-32) mmol/L Anion Gap (3-11) BUN (6-23) mg/dl Creatinine (0.6-1.2) mg/dl Est Cr Clr Drug Dosing ml/min Est GFR ( Amer) ml/min Est GFR (Non-Af Amer) ml/min BUN/Creatinine Ratio (10-20) Glucose (70-99(Fasting)) mg/dl Calcium (8.6-10.3) mg/dl Magnesium (1.7-2.4) mg/dl Total Bilirubin (0.2-1.0) mg/dl AST (13-39) U/L ALT (7-52) U/L Alkaline Phosphatase (34-104) U/L Troponin I High Sens (0-14) pg/ml Total Protein (6.0-8.3) gm/dl Albumin (3.4-5.0) gm/dl Globulin (2.5-4.0) gm/dl Albumin/Globulin Ratio (0.9-2) Lipase (11-82) U/L Vitamin B12 (180-914) pg/ml TSH 5.019 H (0.300-4.500) uIu/ml Free T4 0.81 (0.61-1.60) ng/dl Free T3 (2.3-4.2) pg/ml Urine Color Urine Appearance (Clear) Urine pH (4.5-7.5) Ur Specific [place] (1.000-1.030) Urine Protein (Negative) Urine Glucose (UA) (Negative) Urine Ketones (Negative) Urine Blood (Negative) Urine Nitrite (Negative) Urine Bilirubin (Negative) Urine Urobilinogen (Negative) Ur Leukocyte Esterase (Negative) Urine WBC (Auto) (0-5) /hpf Urine RBC (Auto) (0-4) /hpf U Hyaline Cast (Auto) (0-5) /lpf U Epithel Cells (Auto) (0-5) /lpf Urine Bacteria (Auto) (Negative) Urine Opiates Screen (Neg) Ur Methadone, Qual (Neg) Urine Barbiturates (Neg) Ur Phencyclidine (PCP) (Neg) U Amphetamin/Meth Scrn (Neg) MDMA (Ecstasy) Screen (Neg) U Benzodiazepines Scrn (Neg) Ur Cocaine Metabolite (Neg) U Marijuana (THC) Screen (Neg) Ethyl Alcohol mg/dL < 10.0 (<10.0) mg/dl Lyme Disease IgG Ab Negative (Negative) Lyme Disease IgM Ab Negative (Negative) 01/23/23 01/23/23 01/23/23 Range/Units 19:45 19:45 19:45 WBC 6.91 (4.8-10.8) K/ul RBC 3.99 L (4.20-5.40) M/uL Hgb 13.5 (12.0-16.0) g/dl Hct 38.0 (37.0-47.0) % MCV 95.2 (80.0-100.0) fL MCH 33.8 (25.0-34.0) pg MCHC 35.5 (32.0-36.0) g/dL RDW Std Deviation 42.9 (36.4-46.3) fL RDW Coeff of Valerie 12.3 (11.5-14.5) % Plt Count 219 (130-400) K/uL MPV 9.9 (9.4-12.4) fL Immature Gran % (Auto) 0.3 % Neut % (Auto) 57.7 % Lymph % (Auto) 30.4 % [place] % (Auto) 10.0 % Eos % (Auto) 1.2 % Baso % (Auto) 0.4 % Neut # (Auto) 3.99 (1.40-6.50) K/uL Lymph # (Auto) 2.10 (1.20-3.40) K/uL [place] # (Auto) 0.69 H (0.11-0.59) K/uL Eos # (Auto) 0.08 (0.00-0.50) K/uL Baso # (Auto) 0.03 (0.00-0.20) K/uL Immature Gran # (Auto) 0.02 (0.01-0.20) K/uL PT 10.9 (9.0-12.0) Seconds INR 1.0 (0.9-1.1) Sodium 135 L (136-145) mmol/L Potassium 3.7 (3.5-5.1) mmol/L Chloride 104 (98-107) mmol/L Carbon Dioxide 24 (21-32) mmol/L Anion Gap 7 (3-11) BUN 22 (6-23) mg/dl Creatinine 0.79 (0.6-1.2) mg/dl Est Cr Clr Drug Dosing 54.5 ml/min Est GFR ( Amer) 80.2 ml/min Est GFR (Non-Af Amer) 69.2 ml/min BUN/Creatinine Ratio 27.8 H (10-20) Glucose 115 H (70-99(Fasting)) mg/dl Calcium 8.8 (8.6-10.3) mg/dl Magnesium 2.1 (1.7-2.4) mg/dl Total Bilirubin 0.7 (0.2-1.0) mg/dl AST 16 (13-39) U/L ALT 15 (7-52) U/L Alkaline Phosphatase 54 (34-104) U/L Troponin I High Sens 4.9 (0-14) pg/ml Total Protein 6.5 (6.0-8.3) gm/dl Albumin 4.1 (3.4-5.0) gm/dl Globulin 2.4 L (2.5-4.0) gm/dl Albumin/Globulin Ratio 1.7 (0.9-2) Lipase 40 (11-82) U/L Vitamin B12 (180-914) pg/ml TSH (0.300-4.500) uIu/ml Free T4 (0.61-1.60) ng/dl Free T3 (2.3-4.2) pg/ml Urine Color Urine Appearance (Clear) Urine pH (4.5-7.5) Ur Specific [place] (1.000-1.030) Urine Protein (Negative) Urine Glucose (UA) (Negative) Urine Ketones (Negative) Urine Blood (Negative) Urine Nitrite (Negative) Urine Bilirubin (Negative) Urine Urobilinogen (Negative) Ur Leukocyte Esterase (Negative) Urine WBC (Auto) (0-5) /hpf Urine RBC (Auto) (0-4) /hpf U Hyaline Cast (Auto) (0-5) /lpf U Epithel Cells (Auto) (0-5) /lpf Urine Bacteria (Auto) (Negative) Urine Opiates Screen (Neg) Ur Methadone, Qual (Neg) Urine Barbiturates (Neg) Ur Phencyclidine (PCP) (Neg) U Amphetamin/Meth Scrn (Neg) MDMA (Ecstasy) Screen (Neg) U Benzodiazepines Scrn (Neg) Ur Cocaine Metabolite (Neg) U Marijuana (THC) Screen (Neg) Ethyl Alcohol mg/dL (<10.0) mg/dl Lyme Disease IgG Ab (Negative) Lyme Disease IgM Ab (Negative) Diagnostic Findings Chest X-Ray 01/23/23 18:35 SINGLE VIEW CHEST CLINICAL HISTORY: Change in mental status. FINDINGS: An AP, portable, upright chest radiograph is compared to study dated 01/05/2023. The heart is enlarged but noting atherosclerotic calcification of the thoracic aorta. The pulmonary vasculature is noncongested. Chronic interstitial thickening since the previous. There is mild bibasilar scarring/atelectasis. The lungs and pleural spaces are otherwise clear. No pneumothorax is seen. The skeletal structures are osteopenic. The bony thorax is grossly intact. IMPRESSION: Cardiomegaly with no active disease in the chest. ACT 112: Negative or not required by law. Electronically signed by: Emir Matthews M.D. 01/23/2023 10:[address] 01/23/23 18:35 CT SCAN OF THE BRAIN WITHOUT IV CONTRAST CLINICAL HISTORY: Change in mental status COMPARISON STUDY: CT of the brain dated 01/05/2023. TECHNIQUE: Unenhanced axial CT scan of the brain is performed from the vertex to the skull base. A dose lowering technique was utilized adhering to the principles of ALARA. CT DOSE: 703.85 mGy.cm FINDINGS: Brain parenchyma: There is age-related involutional change noting mild subcortical and periventricular microangiopathic disease. There is no hemorrhage, mass effect, or evidence of acute territorial ischemia by CT criteria. Gutierrez-white matter differentiation is preserved. No extra-axial fluid collection is seen. Ventricles, sulci, cisterns: Prominent secondary to involutional change. Intracranial vasculature: There is atherosclerotic calcification of the cavernous carotid and vertebral arteries. Calvarium: Unremarkable. Sinuses and mastoids: The paranasal sinuses are clear. The mastoid air cells are well pneumatized. Orbits: The bony orbits are grossly intact. There are bilateral ocular lens implants. IMPRESSION: There is no hemorrhage, mass effect, or evidence of acute territorial ischemia by CT criteria. ACT 112: Negative or not required by law. Electronically signed by: Emir Matthews M.D. 01/23/2023 9:58 PM PG Care Time/CCT Total # of Minutes Spent Total Time Spent with Patient: Total time spent is greater than 50% in coordination of care (as documented) at patient's floor/unit and/or counseling patient: Coding Level of Care Code 69464 SUB INP/OBS CARE 3/50MIN Diagnoses Dementia F03.90 Hypertension I10 Seizure disorder G40.909 Hypothyroidism E03.9 Patient incapable of making informed decisions Z78.9 History of colon cancer Z85.038
--- NOTE | 2023-01-24 08:43 | Electrocardiogram Report ---
Test Reason : Blood Pressure : / mmHG Vent. Rate : 062 BPM Atrial Rate : 062 BPM P-R Int : 256 ms QRS Dur : 144 ms QT Int : 448 ms P-R-T Axes : 064 -36 117 degrees QTc Int : 454 ms Sinus rhythm with 1st degree A-V block Left axis deviation Left bundle branch block Inferior infarct , age undetermined Abnormal ECG When compared with ECG of 05-JAN-2023 16:20, Inferior infarct is now Present Confirmed by Mauricio Navarrete ([id number]) on 01/24/2023 8:43:38 AM Referred By: REFERRED SELF Confirmed By:Mauricio Navarrete
[2023-01-24] MEDS: levETIRAcetam 250 MG TAB PO SCH (09:30)
[2023-01-24] MEDS: DOCUSATE SODIUM 100 MG CAP PO SCH (09:30)
[2023-01-24] MEDS: amLODIPine BESYLATE 5 MG TAB PO SCH (09:30)
[2023-01-24] MEDS: ASPIRIN 325 MG ECTAB PO SCH (09:30)
[2023-01-24] MEDS: POTASSIUM CHLORIDE PWD 20 MEQ PACK PO ONE (10:08)
--- NOTE | 2023-01-24 15:31 | XRay Report ---
KUB CLINICAL HISTORY: Constipation. FINDINGS: 2 AP, portable, supine abdominal radiographs are compared to study dated 03/11/2019 and cor related with abdominal CT dated 06/01/2022. There is a nonobstructed abdominal bowel gas pattern. Ther e is rectosigmoid fecal retention noted in mild to moderate colonic fecal retention. No evidence of i ntraperitoneal free air is seen on these supine images. Suture material projects over the right midab domen. There are no abnormal abdominal calcifications. The skeletal structures are osteopenic and david ear intact. Moderate lumbosacral spondylosis is observed. IMPRESSION: No acute abnormality is identified. See above. Electronically signed by: Emir Matthews M.D. 01/24/2023 3:29 PM
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
[2023-01-24] MEDS: lisinopril 5 MG TAB PO SCH (16:19)
[2023-01-24] MEDS: OLANZapine 10 MG/2.1 ML SDV IM STA (16:28)
[2023-01-24] MEDS: ATORVASTATIN 20 MG TAB PO SCH (19:25)
[2023-01-24] MEDS: QUEtiapine FUMARATE 25 MG TABLET PO SCH (19:25)
[2023-01-24] MEDS: MELATONIN 3 MG TAB PO SCH (19:25)
[2023-01-24] MEDS: THIAMINE HCL 200 MG in SODIUM CHLORIDE 0.9% 50 ML IV SCH (19:25)
--- NOTE | 2023-01-24 19:47 | Billing Data ---
Date of Service January 23, 2023 Coding Level of Care Code 51528 INT INP/OBS CARE
[2023-01-25] MEDS: ACETAMINOPHEN 325 MG TAB PO PRN (03:34)
[2023-01-25] MEDS ORDERED: LEVOTHYROXINE SODIUM 88 MCG TABLET PO SCH (06:30)
--- NOTE | 2023-01-25 08:08 | Hospitalist Progress Note ---
Date of Service January 25, 2023 Assessment & Plan (1) Dementia: Plan: 82 y/o female with PMH of HTN, seizures on keppra, late onset dementia with hallucinations and hypothyroidism, hx CRC cancer s/p resection Brought by police after family was concern about continue decline in her cognition and inability to take care of herself and possibly attempting to steal child (reports the child's mother was neglecting child/asked to sit on lap) Late onset dementia with hallucinations Acute on chronic, apparently worsened over the years. Incapable of making informed decision by themselves CT head negative for acute stroke on admission Seroquel started at PCP visit however patient hadn't started -patient reports poor sleep/on/off, possible depression w/ of 50+ years passing about 5 years ago. -plan to start seroquel 50mg HS for tonight , will add melatonin 3mg HS as well TSH checked, elevated but normal T4/t3 - continue home dose Synthroid B12 checked, LOW end of normal at 211 -- to prevent irritation with IM injection will start 1000mcg daily --> would continue at discharge Check KUB to r/o constipation contributing as well (does have large abd hernia to L midline, no warmth/erythema/tenderness reported - hx crc s/p resection per chart) added miralax, continue. monitor BM. 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 Depressed affect today, messaged psych for additional assistance Discussed w/ son last evening, events of manipulation over the past several years, well documented. See notes in physical chart from son. Reviewed outpt PCP note w/ resident service/PSH and documented at length patient without decision making capacity/unable to make decisions herself, unable to leave. 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 The vessel is reconstituted distally, and this finding is of indeterminate chronicity. Remains on amlodipine 5mg Discussed w/ Dr Jha, nothing to do except medical management/BP control/statin/antiplatelet APPEARED HAD BEEN ON LISINOPRIL IN THE PAST, NO RECENT FILLS. --> Started Lisinopril 5mg PO daily for now Asked RN to provide this morning BP 144/83 Continue aspirin 325mg as already on at home (unclear if was taking though as she does not know her medication) Lipid panel w/ elevated TRG 188, cholesterol 185, LDL 116 will increase atorvastatin to 40mg HS for tonight given elevation BP control -- BPs better but still elevated -- monitor/further adjustments as needed (3) Seizure disorder: Plan: Seizures hx of such, Na 135 on admission, ?if having episodes at home. no evidence on exam. continue home keppra Na 137 on repeat (4) Hypothyroidism: Plan: Hypothyroidism TSH elevated to 5.019 but T4 wnl. Continue Synthroid 100mcg daily, ensure taking properly (5) Patient incapable of making informed decisions: Plan: Patient incapable of making decisions -Patient requires placement as per PCP note -no capable of making her own decision -as above (6) History of colon cancer: Plan: s/p resection ?need for MRI brain if needed to r/o mets causing this however appears acute on chronic issue w/ paranoid/behavioral issues underlying, psych consulted as above Plan continued inpatient stay, continue seroquel/melatonin HS, psych consulted started statin/BP control given as above -- increased statin given lipid panel and vertebral artery stenosis on prior imaging updated son evening 01/24 -of note, him and will be visiting but other family out of state have all requested patient not visit them/issues in the past/fights etc. Copied son's report of reported interactions/issues with patient on chart including multiple interactions with police (patient well known to multiple police departments, attempted to abduct 3yo from park, harassing little league/etc) PT/OT consulted CM to follow, benefit from locked dementia unit Admission and Anticipated Discharge Date Admission Date: January 23, 2023 Supervising Physician Co-Signing Physician Notes The patient was not seen by me. The chart was reviewed. Case discussed with JEREMY Hoang. Agree with assessment and plan Subjective eval this morning around 1130, resting in bed. took seroquel/melatonin last night and did get some sleep. depressed affect, reports she thinks she took her pills but I discussed RN said she declined. ENcouraged her to take as elevated BP can make her feel poorly. She is depressed about still being in the hospital. Messaged psych as well for update/further recs appreciated. Physical Exam Physical Exam: elderly female resting in bed, withdrawn/depressed affect, does not really want to participate in much ROS/interactive, no slurred speech/facial droop, said she tok her medications this morning but discussed she did not and RN to administer head normocephalic, atraumatic, mmm, trachea midline resp even/unlabored, diminished slightly in the bases without w/c/r, on room air cv- regular rate/rhythm, +systolic murmur, no pitting edema/calf tenderness gi- +BS, slight distension but soft/NT, +HERNIA left of midline, no warmth/erythema/tenderness to palpation gu- no castle msk/neuro- ambulating in the halls witnessed earlier, strength intact bilaterally, no slurred speech/facial droop psych- alert to person, knows in [facility] [employer], not oriented to time/events, dementia, no SI/HI reported but depressed/withdrawn affect skin- no obvious lesions/rashes Results & Data Results & Data Vital Signs (Past 12 Hours) Vital Signs Temp Pulse Resp BP Pulse Ox O2 Del Method 01/24/23 21:51 36.5 C 66 16 169/83 H 96 Room Air Laboratory Results 01/25/23 01/25/23 01/25/23 Range/Units 09:19 09:19 09:19 WBC 5.95 (4.8-10.8) K/ul RBC 4.12 L (4.20-5.40) M/uL Hgb 13.6 (12.0-16.0) g/dl Hct 39.2 (37.0-47.0) % MCV 95.1 (80.0-100.0) fL MCH 33.0 (25.0-34.0) pg MCHC 34.7 (32.0-36.0) g/dL RDW Std Deviation 43.4 (36.4-46.3) fL RDW Coeff of Valerie 12.5 (11.5-14.5) % Plt Count 206 (130-400) K/uL MPV 9.6 (9.4-12.4) fL Sodium 137 (136-145) mmol/L Potassium 3.6 (3.5-5.1) mmol/L Chloride 105 (98-107) mmol/L Carbon Dioxide 24 (21-32) mmol/L Anion Gap 8 (3-11) BUN 17 (6-23) mg/dl Creatinine 0.86 (0.6-1.2) mg/dl Est Cr Clr Drug Dosing 48.5 ml/min Est GFR ( Amer) 72.4 ml/min Est GFR (Non-Af Amer) 62.5 ml/min BUN/Creatinine Ratio 19.8 (10-20) Glucose 139 H (70-99(Fasting)) mg/dl Estimat Average Glucose Pending Hemoglobin A1c Pending Calcium 8.6 (8.6-10.3) mg/dl Total Bilirubin 1.0 (0.2-1.0) mg/dl AST 18 (13-39) U/L ALT 18 (7-52) U/L Alkaline Phosphatase 49 (34-104) U/L Total Protein 6.4 (6.0-8.3) gm/dl Albumin 3.9 (3.4-5.0) gm/dl Globulin 2.5 (2.5-4.0) gm/dl Albumin/Globulin Ratio 1.6 (0.9-2) Triglycerides 188 H (0-150) mg/dl Cholesterol 185 (0-200) mg/dl LDL Cholesterol, Calc 116 mg/dl VLDL Cholesterol, Calc 38 H (0-30) mg/dl HDL Cholesterol 31 mg/dl Cholesterol/HDL Ratio 6.0 H (0-5) Vitamin B1 Folate (>5.38) ng/ml 01/25/23 01/25/23 Range/Units 09:19 09:19 WBC (4.8-10.8) K/ul RBC (4.20-5.40) M/uL Hgb (12.0-16.0) g/dl Hct (37.0-47.0) % MCV (80.0-100.0) fL MCH (25.0-34.0) pg MCHC (32.0-36.0) g/dL RDW Std Deviation (36.4-46.3) fL RDW Coeff of Valerie (11.5-14.5) % Plt Count (130-400) K/uL MPV (9.4-12.4) fL Sodium (136-145) mmol/L Potassium (3.5-5.1) mmol/L Chloride (98-107) mmol/L Carbon Dioxide (21-32) mmol/L Anion Gap (3-11) BUN (6-23) mg/dl Creatinine (0.6-1.2) mg/dl Est Cr Clr Drug Dosing ml/min Est GFR ( Amer) ml/min Est GFR (Non-Af Amer) ml/min BUN/Creatinine Ratio (10-20) Glucose (70-99(Fasting)) mg/dl Estimat Average Glucose Hemoglobin A1c Calcium (8.6-10.3) mg/dl Total Bilirubin (0.2-1.0) mg/dl AST (13-39) U/L ALT (7-52) U/L Alkaline Phosphatase (34-104) U/L Total Protein (6.0-8.3) gm/dl Albumin (3.4-5.0) gm/dl Globulin (2.5-4.0) gm/dl Albumin/Globulin Ratio (0.9-2) Triglycerides (0-150) mg/dl Cholesterol (0-200) mg/dl LDL Cholesterol, Calc mg/dl VLDL Cholesterol, Calc (0-30) mg/dl HDL Cholesterol mg/dl Cholesterol/HDL Ratio (0-5) Vitamin B1 Pending Folate 15.28 (>5.38) ng/ml PG Care Time/CCT Total # of Minutes Spent Total Time Spent with Patient: Total time spent is greater than 50% in coordination of care (as documented) at patient's floor/unit and/or counseling patient: Coding Level of Care Code 11002 SUB INP/OBS CARE 3/50MIN Diagnoses Dementia F03.90 Hypertension I10 Seizure disorder G40.909 Hypothyroidism E03.9 Patient incapable of making informed decisions Z78.9 History of colon cancer Z85.038
[2023-01-25 09:37] LABS: Hematocrit (blood only) 39.2 % (37.0-47.0); Hemoglobin 13.6 g/dl (12.0-16.0); Mean Corpuscular Hgb Conc 34.7 g/dL (32.0-36.0); Mean Corpuscular Volume 95.1 fL (80.0-100.0); Mean Platelet Volume 9.6 fL (9.4-12.4); Platelet Count 206 K/uL (130-400); RDW Coefficient of Variation 12.5 % (11.5-14.5); RDW Standard Deviation 43.4 fL (36.4-46.3); Red Blood Count 4.12 M/uL (4.20-5.40); White Blood Count 5.95 K/ul (4.8-10.8)
[2023-01-25 09:56] LABS: Albumin Globulin Ratio 1.6 (0.9-2); Albumin Level 3.9 gm/dl (3.4-5.0); BUN Creatinine Ratio 19.8 (10-20); Calcium 8.6 mg/dl (8.6-10.3); Creatinine Clr Calc Pharmacy 48.5 ml/min; Est GFR (African American) 72.4 ml/min; Est GFR (Non-African American) 62.5 ml/min; Globulin 2.5 gm/dl (2.5-4.0); Potassium 3.6 mmol/L (3.5-5.1); Total Protein 6.4 gm/dl (6.0-8.3)
[2023-01-25] MEDS: LEVOTHYROXINE SODIUM 100 MCG TABLET PO SCH (11:32)
[2023-01-25] MEDS: CYANOCOBALAMIN (B-12) 500 MCG TABLET PO SCH (11:36)
[2023-01-25] MEDS: POLYETHYLENE (MIRALAX) 17 GM PACK PO SCH (13:43)
[2023-01-25] MEDS: ATORVASTATIN 40 MG TAB PO SCH (19:44)
[2023-01-26 07:32] LABS: Hematocrit (blood only) 37.3 % (37.0-47.0); Hemoglobin 13.3 g/dl (12.0-16.0); Mean Corpuscular Hemoglobin 33.5 pg (25.0-34.0); Mean Corpuscular Hgb Conc 35.7 g/dL (32.0-36.0); Mean Platelet Volume 9.8 fL (9.4-12.4); Platelet Count 193 K/uL (130-400); RDW Coefficient of Variation 12.6 % (11.5-14.5); RDW Standard Deviation 43.4 fL (36.4-46.3); Red Blood Count 3.97 M/uL (4.20-5.40); White Blood Count 7.89 K/ul (4.8-10.8)
[2023-01-26 07:47] LABS: Estimated Average Glucose 111 mg/dl; Hemoglobin A1C 5.5 % (4.5-5.6)
[2023-01-26 07:51] LABS: Albumin Globulin Ratio 1.5 (0.9-2); Albumin Level 3.7 gm/dl (3.4-5.0); BUN Creatinine Ratio 27.2 (10-20); Bilirubin,Total 0.9 mg/dl (0.2-1.0); Calcium 8.4 mg/dl (8.6-10.3); Creatinine Clr Calc Pharmacy 51.5 ml/min; Est GFR (African American) 77.8 ml/min; Est GFR (Non-African American) 67.2 ml/min; Globulin 2.5 gm/dl (2.5-4.0); Potassium 4.1 mmol/L (3.5-5.1); Total Protein 6.2 gm/dl (6.0-8.3)
--- NOTE | 2023-01-26 08:37 | Hospitalist Progress Note ---
Date of Service January 26, 2023 Assessment & Plan (1) Dementia: Plan: 82 y/o female with PMH of HTN s/eizures on keppra, late onset dementia with hallucinations and hypothyroidism, hx CRC cancer s/p resection Brought by police after family was concern about continue decline in her cognition and inability to take care of herself and possibly attempting to steal child (reports the child's mother was neglecting child/asked to sit on lap) Late onset dementia with hallucinations Acute on chronic, apparently worsened over the years. Incapable of making informed decision by themselves CT head negative for acute stroke on admission Seroquel started at PCP visit however patient hadn't started -patient reports poor sleep/on/off, possible depression w/ of 50+ years passing about 5 years ago. -plan to start seroquel 50mg HS TSH wnl B12 LOW normal at 211 --> PO started and would continue at dc. 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 See notes in physical chart from son. Reviewed outpt PCP note w/ resident service/PSH and documented at length patient without decision making capacity/unable to make decisions herself, unable to leave. Continue seroquel 50mg HS, melatonin 3mg HS Depressed affect but slept well, cooperative with exam today. Lisinopril continued at 5mg, added for BP control, statin for stenosis intracranial vertebral artery Fall precautions DVT proph: Lovenox SQ PT/OT consulted, CM to follow. 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 The vessel is reconstituted distally, and this finding is of indeterminate chronicity. Discussed w/ Dr Jha, nothing to do except medical management/BP control/statin/antiplatelet Remains on amlodipine 5mg Was on lisinopril in the past, restarted at 5mg daily Continue ASA as already on (unclear if previously was taking) Lipid panel w/ elevated LDL/TRG- statin added/would continue at dc BPs improved/stable Currently 147/73 this morning but will monitor for need for further adjustments (3) Seizure disorder: Plan: Seizures hx of such, Na 135 on admission, ?if having episodes at home. no evidence on exam. continue home keppra Na 137 on repeat (4) Hypothyroidism: Plan: Hypothyroidism TSH elevated to 5.019 but T4 wnl. Continue Synthroid 100mcg daily, ensure taking properly (5) Patient incapable of making informed decisions: Plan: Patient incapable of making decisions -Patient requires placement as per PCP note -no capable of making her own decision -as above (6) History of colon cancer: Plan: s/p resection ?need for MRI brain if needed to r/o mets causing this however appears acute on chronic issue w/ paranoid/behavioral issues underlying, psych consulted as above Plan continued inpatient stay, continue seroquel/melatonin HS, psych consulted started statin/BP control given as above -- increased statin given lipid panel and vertebral artery stenosis on prior imaging BPs controlled, seems calmer/more cooperative but still skeptical of medical care. Unsafe to return home by herself at present time. Outpatient provider with extensive capacity assessment and patient without capacity at present. PT/OT/CM to follow Admission and Anticipated Discharge Date Admission Date: January 23, 2023 Supervising Physician Co-Signing Physician Notes The patient was not seen by me. The chart was reviewed. Case discussed with JEREMY Hoang. Agree with assessment and plan Subjective Went to bathroom on the floor, wanting to take a nap. Doesn't want meds in IV, thiamine switched to oral. Reports good sleep overnight, just feeling "blah" but that she feels like this a lot of days at home. Witnessed aide getting up to use restroom. Got back to the chair without much issue and is currently sitting up and waiting for lunch. Reports she is hungry at present. Discussed can call kitchen if needed for any changes to her meals as wanted/able to provide. DIscussed about talking with someone about depression/starting medication. She inquires "why would I want to do that". I asked about depression since her 's passing, which she replies "well that was 5 years ago". Discussed if she changes her mind or is feeling depressed that we have resources. Seems more calm during encounter, less agitation but does not like excessive questioning. Physical Exam Physical Exam: elderly female sitting up in chair, just got back from bathroom, depressed affect but more calm/cooperative head normocephalic, atraumatic, mmm, trachea midline resp even/unlabored, diminished slightly in the bases without w/c/r, on room air cv- regular rate/rhythm, +systolic murmur, no pitting edema/calf tenderness gi- +BS, slight distension but soft/NT, +HERNIA left of midline, no warmth/erythema/tenderness to palpation gu- no castle msk/neuro- ambulating in the halls witnessed earlier, strength intact bilaterally, no slurred speech/facial droop psych- alert to person, knows in [facility] [employer], not oriented to time/events, dementia, no SI/HI reported but depressed/withdrawn affect skin- no obvious lesions/rashes Results & Data Results & Data Vital Signs (Past 12 Hours) Vital Signs Temp Pulse Resp BP Pulse Ox O2 Del Method 01/26/23 08:15 36.5 C 63 16 147/73 H 95 Room Air 01/25/23 20:48 36.6 C 67 16 119/69 94 Room Air Laboratory Results 01/26/23 01/26/23 01/25/23 Range/Units 06:38 06:38 09:19 WBC 7.89 (4.8-10.8) K/ul RBC 3.97 L (4.20-5.40) M/uL Hgb 13.3 (12.0-16.0) g/dl Hct 37.3 (37.0-47.0) % MCV 94.0 (80.0-100.0) fL MCH 33.5 (25.0-34.0) pg MCHC 35.7 (32.0-36.0) g/dL RDW Std Deviation 43.4 (36.4-46.3) fL RDW Coeff of Valerie 12.6 (11.5-14.5) % Plt Count 193 (130-400) K/uL MPV 9.8 (9.4-12.4) fL Sodium 137 (136-145) mmol/L Potassium 4.1 (3.5-5.1) mmol/L Chloride 108 H (98-107) mmol/L Carbon Dioxide 24 (21-32) mmol/L Anion Gap 5 (3-11) BUN 22 (6-23) mg/dl Creatinine 0.81 (0.6-1.2) mg/dl Est Cr Clr Drug Dosing 51.5 ml/min Est GFR ( Amer) 77.8 ml/min Est GFR (Non-Af Amer) 67.2 ml/min BUN/Creatinine Ratio 27.2 H (10-20) Glucose 85 (70-99(Fasting)) mg/dl Estimat Average Glucose 111 mg/dl Hemoglobin A1c 5.5 (4.5-5.6) % Calcium 8.4 L (8.6-10.3) mg/dl Total Bilirubin 0.9 (0.2-1.0) mg/dl AST 17 (13-39) U/L ALT 17 (7-52) U/L Alkaline Phosphatase 48 (34-104) U/L Total Protein 6.2 (6.0-8.3) gm/dl Albumin 3.7 (3.4-5.0) gm/dl Globulin 2.5 (2.5-4.0) gm/dl Albumin/Globulin Ratio 1.5 (0.9-2) Triglycerides (0-150) mg/dl Cholesterol (0-200) mg/dl LDL Cholesterol, Calc mg/dl VLDL Cholesterol, Calc (0-30) mg/dl HDL Cholesterol mg/dl Cholesterol/HDL Ratio (0-5) Vitamin B1 Folate (>5.38) ng/ml 01/25/23 01/25/23 01/25/23 Range/Units 09:19 09:19 09:19 WBC 5.95 (4.8-10.8) K/ul RBC 4.12 L (4.20-5.40) M/uL Hgb 13.6 (12.0-16.0) g/dl Hct 39.2 (37.0-47.0) % MCV 95.1 (80.0-100.0) fL MCH 33.0 (25.0-34.0) pg MCHC 34.7 (32.0-36.0) g/dL RDW Std Deviation 43.4 (36.4-46.3) fL RDW Coeff of Valerie 12.5 (11.5-14.5) % Plt Count 206 (130-400) K/uL MPV 9.6 (9.4-12.4) fL Sodium 137 (136-145) mmol/L Potassium 3.6 (3.5-5.1) mmol/L Chloride 105 (98-107) mmol/L Carbon Dioxide 24 (21-32) mmol/L Anion Gap 8 (3-11) BUN 17 (6-23) mg/dl Creatinine 0.86 (0.6-1.2) mg/dl Est Cr Clr Drug Dosing 48.5 ml/min Est GFR ( Amer) 72.4 ml/min Est GFR (Non-Af Amer) 62.5 ml/min BUN/Creatinine Ratio 19.8 (10-20) Glucose 139 H (70-99(Fasting)) mg/dl Estimat Average Glucose mg/dl Hemoglobin A1c (4.5-5.6) % Calcium 8.6 (8.6-10.3) mg/dl Total Bilirubin 1.0 (0.2-1.0) mg/dl AST 18 (13-39) U/L ALT 18 (7-52) U/L Alkaline Phosphatase 49 (34-104) U/L Total Protein 6.4 (6.0-8.3) gm/dl Albumin 3.9 (3.4-5.0) gm/dl Globulin 2.5 (2.5-4.0) gm/dl Albumin/Globulin Ratio 1.6 (0.9-2) Triglycerides 188 H (0-150) mg/dl Cholesterol 185 (0-200) mg/dl LDL Cholesterol, Calc 116 mg/dl VLDL Cholesterol, Calc 38 H (0-30) mg/dl HDL Cholesterol 31 mg/dl Cholesterol/HDL Ratio 6.0 H (0-5) Vitamin B1 Folate 15.28 (>5.38) ng/ml 01/25/23 Range/Units 09:19 WBC (4.8-10.8) K/ul RBC (4.20-5.40) M/uL Hgb (12.0-16.0) g/dl Hct (37.0-47.0) % MCV (80.0-100.0) fL MCH (25.0-34.0) pg MCHC (32.0-36.0) g/dL RDW Std Deviation (36.4-46.3) fL RDW Coeff of Valerie (11.5-14.5) % Plt Count (130-400) K/uL MPV (9.4-12.4) fL Sodium (136-145) mmol/L Potassium (3.5-5.1) mmol/L Chloride (98-107) mmol/L Carbon Dioxide (21-32) mmol/L Anion Gap (3-11) BUN (6-23) mg/dl Creatinine (0.6-1.2) mg/dl Est Cr Clr Drug Dosing ml/min Est GFR ( Amer) ml/min Est GFR (Non-Af Amer) ml/min BUN/Creatinine Ratio (10-20) Glucose (70-99(Fasting)) mg/dl Estimat Average Glucose mg/dl Hemoglobin A1c (4.5-5.6) % Calcium (8.6-10.3) mg/dl Total Bilirubin (0.2-1.0) mg/dl AST (13-39) U/L ALT (7-52) U/L Alkaline Phosphatase (34-104) U/L Total Protein (6.0-8.3) gm/dl Albumin (3.4-5.0) gm/dl Globulin (2.5-4.0) gm/dl Albumin/Globulin Ratio (0.9-2) Triglycerides (0-150) mg/dl Cholesterol (0-200) mg/dl LDL Cholesterol, Calc mg/dl VLDL Cholesterol, Calc (0-30) mg/dl HDL Cholesterol mg/dl Cholesterol/HDL Ratio (0-5) Vitamin B1 Pending Folate (>5.38) ng/ml PG Care Time/CCT Total # of Minutes Spent Total Time Spent with Patient: Total time spent is greater than 50% in coordination of care (as documented) at patient's floor/unit and/or counseling patient: Coding Level of Care Code 24712 SUB INP/OBS CARE 2/35MIN Diagnoses Dementia F03.90 Hypertension I10 Seizure disorder G40.909 Hypothyroidism E03.9 Patient incapable of making informed decisions Z78.9 History of colon cancer Z85.038
[2023-01-26] MEDS: THIAMINE HCL 100 MG TAB PO SCH (20:05)
[2023-01-27 07:18] LABS: Hematocrit (blood only) 37.7 % (37.0-47.0); Hemoglobin 13.4 g/dl (12.0-16.0); Mean Corpuscular Hemoglobin 33.9 pg (25.0-34.0); Mean Corpuscular Hgb Conc 35.5 g/dL (32.0-36.0); Mean Corpuscular Volume 95.4 fL (80.0-100.0); Mean Platelet Volume 9.3 fL (9.4-12.4); Platelet Count 202 K/uL (130-400); RDW Coefficient of Variation 12.6 % (11.5-14.5); RDW Standard Deviation 43.8 fL (36.4-46.3); Red Blood Count 3.95 M/uL (4.20-5.40); White Blood Count 5.75 K/ul (4.8-10.8)
[2023-01-27 08:15] LABS: Albumin Globulin Ratio 1.5 (0.9-2); Albumin Level 3.8 gm/dl (3.4-5.0); BUN Creatinine Ratio 22.2 (10-20); Bilirubin,Total 0.8 mg/dl (0.2-1.0); Calcium 8.4 mg/dl (8.6-10.3); Creatinine Clr Calc Pharmacy 51.5 ml/min; Est GFR (African American) 77.8 ml/min; Est GFR (Non-African American) 67.2 ml/min; Globulin 2.5 gm/dl (2.5-4.0); Potassium 4.1 mmol/L (3.5-5.1); Total Protein 6.3 gm/dl (6.0-8.3)
[2023-01-27] MEDS: SENNA 8.6 MG TAB PO PRN (08:18)
--- NOTE | 2023-01-27 19:19 | Hospitalist Progress Note ---
Date of Service January 27, 2023 Assessment & Plan (1) Dementia: Plan: Ongoing hallucinations in the setting of baseline dementia. Had been admitted after she was brought by police to [facility] due to family concern about continued cognitive decline and inability to take care of herself. Also there was a report of her trying to kidnap a child? Patient remains w/o capacity. Continue seroquel 50mg HS, melatonin 3mg HS. If daytime hallucinations remain consider small AM dose of seroquel. Most recent EKG with normal QTc. (2) Hypertension: Plan: Remains on amlodipine 5mg and lisinopril 5mg daily BPs reasonably controlled today No changes in meds (3) Seizure disorder: Plan: Continue keppra No recent seizures by report (4) Hypothyroidism: Plan: Continue Synthroid 100mcg daily Most recent TSH was 5 Would check another TSH in a few weeks after she has been compliant with such due to hospitalization and ultimately needing placement (5) Patient incapable of making informed decisions: Plan: Patient without capacity (6) History of colon cancer: Plan: s/p resection in the past (7) Vertebral artery stenosis: Plan: cont asa cont statin Plan DVT proph - lovenox daily dispo planning for placement appreciate SW assistance Admission and Anticipated Discharge Date Admission Date: January 23, 2023 Subjective unable to provide any meaningful history she was confused, stating "God is taking me today" she pointed to the TV - the relaxation channel was one (it was a waterfall scene) - and she stated that God was talking through the TV she asked to say a prayer she also asked that "Father Chandu" be contacted from the local [employer] [facility] she reported feeling poorly but could not tell me details Review of Systems Review of Systems: Unobtainable due to cognitive status Physical Exam Physical Exam: gen - lying still in bed looking up at the ceiling, confused mouth - MM slightly dry heart - RRR, s1 s2 lungs - CTA b/l abd - soft NT ND BS+ ext - no edema, pulses 2+ b/l psych - oriented to person only Results & Data Results & Data Vital Signs (Past 12 Hours) Vital Signs Temp Pulse Resp BP Pulse Ox O2 Del Method 01/27/23 14:43 36.4 C L 63 18 148/78 H 93 Room Air 01/27/23 09:01 Room Air 01/27/23 08:17 36.3 C L 58 L 16 153/81 H 96 Room Air Laboratory Results Laboratory Results - last 24 hr 01/27/23 01/27/23 06:50 06:50 WBC 5.75 RBC 3.95 L Hgb 13.4 Hct 37.7 MCV 95.4 MCH 33.9 MCHC 35.5 RDW Std Deviation 43.8 RDW Coeff of Valerie 12.6 Plt Count 202 MPV 9.3 L Sodium 138 Potassium 4.1 Chloride 109 H Carbon Dioxide 24 Anion Gap 5 BUN 18 Creatinine 0.81 Est Cr Clr Drug Dosing 51.5 Est GFR ( Amer) 77.8 Est GFR (Non-Af Amer) 67.2 BUN/Creatinine Ratio 22.2 H Glucose 86 Calcium 8.4 L Total Bilirubin 0.8 AST 16 ALT 17 Alkaline Phosphatase 46 Total Protein 6.3 Albumin 3.8 Globulin 2.5 Albumin/Globulin Ratio 1.5 PG Care Time/CCT Total # of Minutes Spent Total Time Spent with Patient: Total time spent is greater than 50% in coordination of care (as documented) at patient's floor/unit and/or counseling patient: Coding Level of Care Code 51317 SUB INP/OBS CARE 2/35MIN Diagnoses Dementia F03.90 Hypertension I10 Seizure disorder G40.909 Hypothyroidism E03.9 Patient incapable of making informed decisions Z78.9 History of colon cancer Z85.038 Vertebral artery stenosis I65.09
[2023-01-28 07:41] LABS: Albumin Level 3.8 gm/dl (3.4-5.0); Bilirubin,Total 0.7 mg/dl (0.2-1.0); Calcium 8.6 mg/dl (8.6-10.3); Potassium 4.2 mmol/L (3.5-5.1)
[2023-01-28 07:47] LABS: Albumin Globulin Ratio 1.5 (0.9-2); BUN Creatinine Ratio 20.5 (10-20); Creatinine Clr Calc Pharmacy 57.2 ml/min; Est GFR (African American) 88.3 ml/min; Est GFR (Non-African American) 76.2 ml/min; Globulin 2.6 gm/dl (2.5-4.0); Total Protein 6.4 gm/dl (6.0-8.3)
[2023-01-28 08:17] LABS: Hematocrit (blood only) 39.9 % (37.0-47.0); Hemoglobin 13.7 g/dl (12.0-16.0); Mean Corpuscular Hemoglobin 33.4 pg (25.0-34.0); Mean Corpuscular Hgb Conc 34.3 g/dL (32.0-36.0); Mean Corpuscular Volume 97.3 fL (80.0-100.0); Mean Platelet Volume 9.7 fL (9.4-12.4); Platelet Count 209 K/uL (130-400); RDW Coefficient of Variation 12.5 % (11.5-14.5); RDW Standard Deviation 44.9 fL (36.4-46.3); White Blood Count 6.89 K/ul (4.8-10.8)
--- NOTE | 2023-01-28 20:45 | Hospitalist Progress Note ---
Date of Service January 28, 2023 Assessment & Plan (1) Dementia: Plan: Ongoing hallucinations and agitation in the setting of baseline dementia. Earlier today apparently she was seeing her in the room (has been several years). These hallucinations continue despite use of seroquel at HS. Had been admitted after she was brought by police to [facility] due to family concern about continued cognitive decline and inability to take care of herself. Also there was a report of her trying to kidnap a child? Staff here at [facility] called the police and confirmed there are NO outstanding charges against the patient. Patient remains w/o capacity. Continue seroquel 50mg HS, melatonin 3mg HS. Add AM dose of seroquel - 25mg. Most recent EKG with normal QTc. (2) Hypertension: Plan: Remains on amlodipine 5mg and lisinopril 5mg daily BPs remain high Increase lisinopril to 10mg daily consider clonidine - this may help with agitation as well (3) Seizure disorder: Plan: Continue keppra No recent seizures by report (4) Hypothyroidism: Plan: Continue Synthroid 100mcg daily Most recent TSH was 5 Would check another TSH in a few weeks after she has been compliant with such due to hospitalization and ultimately needing placement (5) Patient incapable of making informed decisions: Plan: Patient without capacity (6) History of colon cancer: Plan: s/p resection in the past (7) Vertebral artery stenosis: Plan: cont asa cont statin Plan DVT proph - lovenox daily dispo planning for placement appreciate SW assistance son updated at bedside today labs remain stable Admission and Anticipated Discharge Date Admission Date: January 23, 2023 Subjective patient slept overnight per staff however, throughout the day today, she has been agitated walking the hallways constantly asking to leave/go home when I came to see her she said "are you the Cruz?" she asked me why she couldn't leave she did not realize she was in the hospital son was at bedside eating fair Review of Systems 2 Review of Systems: GI - denies abd pain pulm - denies cough or dyspnea Physical Exam Physical Exam: gen - sitting in chair, anxious, talking fast at times, confused mouth - MMM heart - RRR, s1 s2 lungs - CTA b/l abd - soft NT ND BS+ ext - no edema, pulses 2+ b/l psych - oriented to person only Results & Data Results & Data Vital Signs (Past 12 Hours) Vital Signs Temp Pulse Resp BP Pulse Ox O2 Del Method 01/28/23 19:55 36.4 C 65 16 153/78 H 96 Room Air 01/28/23 15:27 36.4 C L 61 18 136/69 98 Room Air Laboratory Results Laboratory Results - last 24 hr 01/28/23 01/28/23 07:13 07:13 WBC 6.89 RBC 4.10 L Hgb 13.7 Hct 39.9 MCV 97.3 MCH 33.4 MCHC 34.3 RDW Std Deviation 44.9 RDW Coeff of Valerie 12.5 Plt Count 209 MPV 9.7 Sodium 138 Potassium 4.2 Chloride 109 H Carbon Dioxide 23 Anion Gap 6 BUN 15 Creatinine 0.73 Est Cr Clr Drug Dosing 57.2 Est GFR ( Amer) 88.3 Est GFR (Non-Af Amer) 76.2 BUN/Creatinine Ratio 20.5 H Glucose 83 Calcium 8.6 Total Bilirubin 0.7 AST 21 ALT 20 Alkaline Phosphatase 53 Total Protein 6.4 Albumin 3.8 Globulin 2.6 Albumin/Globulin Ratio 1.5 PG Care Time/CCT Total # of Minutes Spent Total Time Spent with Patient: Total time spent is greater than 50% in coordination of care (as documented) at patient's floor/unit and/or counseling patient: Coding Level of Care Code 82839 SUB INP/OBS CARE 2/35MIN Diagnoses Dementia F03.90 Hypertension I10 Seizure disorder G40.909 Hypothyroidism E03.9 Patient incapable of making informed decisions Z78.9 History of colon cancer Z85.038 Vertebral artery stenosis I65.09
[2023-01-29] MEDS: QUEtiapine FUMARATE 25 MG TABLET PO SCH (11:18)
--- NOTE | 2023-01-29 20:43 | Hospitalist Progress Note ---
Date of Service January 29, 2023 Assessment & Plan (1) Dementia: Plan: Earlier in the stay had visual hallucinations and agitation in the setting of baseline dementia. Improved with seroquel 25mg AM and seroquel 50mg HS. Had been admitted after she was brought by police to [facility] due to family concern about continued cognitive decline and inability to take care of herself. Also there was a report of her trying to kidnap a child? Staff here at [facility] called the police and confirmed there are NO outstanding charges against the patient. Patient remains w/o capacity. Continue seroquel 50mg HS, melatonin 3mg HS, and AM dose of seroquel 25mg. Most recent EKG with normal QTc. Will recheck QTc on EKG tomorrow. No changes in meds today. (2) Hypertension: Plan: BPs slowly improving with larger dose of lisinopril 10mg and amlodipine 5mg (3) Seizure disorder: Plan: Continue keppra No recent seizures by report (4) Hypothyroidism: Plan: Continue Synthroid 100mcg daily Most recent TSH was 5 Would check another TSH in a few weeks after she has been compliant with such due to hospitalization and ultimately needing placement (5) Patient incapable of making informed decisions: Plan: Patient without capacity (6) History of colon cancer: Plan: s/p resection in the past (7) Vertebral artery stenosis: Plan: cont asa cont statin Plan DVT proph - lovenox daily attempted to call pt's son, Juan, this evening phone rang and range - unable to leave message; no one answered per case management she may have a bed at [facility] tomorrow Admission and Anticipated Discharge Date Admission Date: January 23, 2023 Subjective per nursing staff - due to use of seroquel 25mg this am - the day was more calm for Ms Schrader still impulsive at times but pleasant and cooperative eating ok last BM 01/27/23 during my rounds she was resting in bed stated she was "terrible" - she reported feeling this way because "she's still here - I want to go home" denies pain in any location Review of Systems Review of Systems: GI - no abd pain/nausea or emesis pulm - no cough/congestion/dyspnea CV - no orthopnea/no chest pain Physical Exam Physical Exam: gen - resting comfortably in bed, NAD, pleasant, cooperative mouth - MMM heart - RRR, s1 s2 lungs - CTA b/l abd - soft NT ND BS+ ext - no edema, pulses 2+ b/l psych - oriented to person only Results & Data Results & Data Vital Signs (Past 12 Hours) Vital Signs Temp Pulse Resp BP BP Pulse Ox O2 Del Method 01/29/23 20:17 36.4 C L 67 18 153/88 H 95 Room Air 01/29/23 15:27 36.4 C L 67 18 166/76 H 98 Room Air 01/29/23 10:29 144/75 H PG Care Time/CCT Total # of Minutes Spent Total Time Spent with Patient: Total time spent is greater than 50% in coordination of care (as documented) at patient's floor/unit and/or counseling patient: Coding Level of Care Code 53928 SUB INP/OBS CARE 1/25MIN Diagnoses Dementia F03.90 Hypertension I10 Seizure disorder G40.909 Hypothyroidism E03.9 Patient incapable of making informed decisions Z78.9 History of colon cancer Z85.038 Vertebral artery stenosis I65.09
[2023-01-30] MEDS: lisinopril 10 MG TAB PO SCH (09:51)
[2023-01-30] MEDS: SENNA 8.6 MG TAB PO SCH (11:39)
--- NOTE | 2023-01-30 18:43 | Hospitalist Progress Note ---
Date of Service January 30, 2023 Assessment & Plan (1) Dementia: Plan: Earlier in the stay had visual hallucinations and agitation in the setting of baseline dementia. Improved with seroquel 25mg AM and seroquel 50mg HS. Had been admitted after she was brought by police to [facility] due to family concern about continued cognitive decline and inability to take care of herself. Also there was a report of her trying to kidnap a child? Staff here at [facility] called the police and confirmed there are NO outstanding charges against the patient. Patient remains w/o capacity. Continue seroquel 50mg HS, melatonin 3mg HS, and AM dose of seroquel 25mg. Most recent EKG with normal QTc. EKG today - QTc is mildly longer (470s) but is acceptable. LBBB is chronic/old. No changes in meds today. (2) Hypertension: Plan: BPs again labile If BPs are still high tomorrow increase amlodipine to 10mg/day Cont lisinopril 10mg/day (3) Seizure disorder: Plan: Continue keppra No recent seizures by report (4) Hypothyroidism: Plan: Continue Synthroid 100mcg daily Most recent TSH was 5 Would check another TSH in a few weeks after she has been compliant with such due to hospitalization and ultimately needing placement (5) Patient incapable of making informed decisions: Plan: Patient without capacity (6) History of colon cancer: Plan: s/p resection in the past (7) Vertebral artery stenosis: Plan: cont asa cont statin Plan DVT proph - lovenox daily called & spoke with pt's son Juna by phone today update given completed a [id number] today with pt's insurance, [employer] unfortunately skilled care was DENIED by insurance case management made aware to [facility] dementia unit on 02/02/23 Admission and Anticipated Discharge Date Admission Date: January 23, 2023 Subjective patient was lying in bed during the visit she knew she was in the hospital she could not tell me why she was here she thought it was Thursday she kept asking "why can't I go home?" tried to explain that she hadn't been doing well at home and that she needed to get additional help she was perseverating on this topic denied any physical complaints Physical Exam Physical Exam: gen - resting comfortably in bed, NAD, cooperative with the exam mouth - MMM heart - RRR, s1 s2, no murmur lungs - CTA b/l abd - soft NT ND BS+ ext - no edema, pulses 2+ b/l psych - oriented to person only and place Results & Data Results & Data Vital Signs (Past 12 Hours) Vital Signs Temp Pulse Resp BP Pulse Ox O2 Del Method 01/30/23 14:29 36.4 C L 65 16 180/85 H 98 Room Air 01/30/23 08:24 36.6 C 65 16 110/71 95 Room Air Laboratory Results Laboratory Results - last 24 hr 01/25/23 09:19 Vitamin B1 80 H PG Care Time/CCT Total # of Minutes Spent Total Time Spent with Patient: Total time spent is greater than 50% in coordination of care (as documented) at patient's floor/unit and/or counseling patient: Coding Level of Care Code 08245 SUB INP/OBS CARE 2/35MIN Diagnoses Dementia F03.90 Hypertension I10 Seizure disorder G40.909 Hypothyroidism E03.9 Patient incapable of making informed decisions Z78.9 History of colon cancer Z85.038 Vertebral artery stenosis I65.09
[2023-01-30] MEDS: OLANZapine 10 MG/2.1 ML SDV IM PRN (19:40)
[2023-01-31] MEDS: OLANZapine 10 MG/2.1 ML SDV IM STA (00:26)
[2023-01-31] MEDS: amLODIPine BESYLATE 5 MG TAB PO ONE (09:10)
--- NOTE | 2023-01-31 09:19 | Electrocardiogram Report ---
Test Reason : Blood Pressure : / mmHG Vent. Rate : 067 BPM Atrial Rate : 067 BPM P-R Int : 250 ms QRS Dur : 144 ms QT Int : 450 ms P-R-T Axes : 075 -26 119 degrees QTc Int : 475 ms Sinus rhythm with sinus arrhythmia with 1st degree A-V block Left bundle branch block Abnormal ECG When compared with ECG of 23-JAN-2023 20:03, No significant change was found Confirmed by Seth Warren ([id number] on 01/31/2023 9:18:40 AM Referred By: REFERRED SELF Confirmed By:Seth Warren
--- NOTE | 2023-01-31 17:44 | Hospitalist Progress Note ---
Date of Service January 31, 2023 Assessment & Plan (1) Dementia: Plan: Earlier in the stay had visual hallucinations and agitation in the setting of baseline dementia. She improved with seroquel 25mg AM and seroquel 50mg HS. Unfortunately she had agitation overnight requiring IM zyprexa. Required such again this am. Nurses report she had refused ALL of her night-time PO meds last night. Will await any recommendations from psych. Continue seroquel 50mg HS, melatonin 3mg HS, and AM dose of seroquel 25mg. Most recent EKG with normal QTc. EKG today - QTc is mildly longer (470s) but is acceptable. LBBB is chronic/old. Had been admitted after she was brought by police to [facility] due to family concern about continued cognitive decline and inability to take care of herself. Also there was a report of her trying to kidnap a child at a local park? Staff here at [facility] called the police and confirmed there are NO outstanding charges against the patient. (2) Dementia with behavioral disturbance: Plan: see above plan to give her HS dose of seroquel at 7-730pm rather than 9pm (3) Hypertension: Plan: BPs remain labile and high Increase amlodipine to 10mg daily Cont lisinopril (4) Seizure disorder: Plan: Continue keppra No recent seizures by report (5) Hypothyroidism: Plan: Continue Synthroid 100mcg daily Most recent TSH was 5 Would check another TSH in a few weeks after she has been compliant with such due to hospitalization and ultimately needing placement (6) Patient incapable of making informed decisions: Plan: Patient without capacity (7) History of colon cancer: Plan: s/p resection in the past (8) Vertebral artery stenosis: Plan: cont asa cont statin Plan DVT proph - lovenox daily called & spoke with pt's son Juan by phone on 01/30/23 update given completed a [id number] with pt's insurance, [employer], on 01/30/23 unfortunately skilled care was DENIED by insurance case management made aware however, she will have a bed in the [facility] dementia unit on 02/02/23 Admission and Anticipated Discharge Date Admission Date: January 23, 2023 Subjective overnight patient was agitated requiring IM doses of zyprexa she kept telling the nurses that she wanted to go home/wanted to leave she ultimately did calm down and went to sleep in the middle of the night this am, however, she is again agitated telling staff she wants to leave when I arrived to her room she was standing by the door she said "come on, let's go" the psychiatric nurse was present and mentioned she had just received IM zyprexa again Review of Systems Review of Systems: Unobtainable due to cognitive status Physical Exam Physical Exam: gen - NAD, standing in the room, ultimately walked back to the bed mouth - MMM heart - RRR, s1 s2, no murmur lungs - CTA b/l abd - soft NT ND BS+ ext - no edema, pulses 2+ b/l psych - oriented to person only today, was cooperative with the exam Results & Data Results & Data Vital Signs (Past 12 Hours) Vital Signs Temp Pulse Resp BP Pulse Ox O2 Del Method 01/31/23 15:08 36.4 C L 75 14 128/71 97 Room Air 01/31/23 06:59 36.5 C 64 18 194/73 H 94 Room Air PG Care Time/CCT Total # of Minutes Spent Total Time Spent with Patient: Total time spent is greater than 50% in coordination of care (as documented) at patient's floor/unit and/or counseling patient: Coding Level of Care Code 96285 SUB INP/OBS CARE 2/35MIN Diagnoses Dementia F03.90 Dementia with behavioral disturbance F03.918 Hypertension I10 Seizure disorder G40.909 Hypothyroidism E03.9 Patient incapable of making informed decisions Z78.9 History of colon cancer Z85.038 Vertebral artery stenosis I65.09
[2023-02-01] MEDS: amLODIPine BESYLATE 5 MG TAB PO SCH (08:17)
[2023-02-01 08:21] LABS: BUN Creatinine Ratio 18.5 (10-20); Calcium 8.7 mg/dl (8.6-10.3); Creatinine Clr Calc Pharmacy 64.2 ml/min; Est GFR (African American) 95.2 ml/min; Est GFR (Non-African American) 82.1 ml/min
--- NOTE | 2023-02-01 20:18 | Hospitalist Progress Note ---
Date of Service February 01, 2023 Assessment & Plan (1) Dementia: Plan: Earlier in the stay had visual hallucinations and agitation in the setting of baseline dementia. She improved with seroquel 25mg AM and seroquel 50mg HS. Unfortunately she had agitation on 01/30 PM and 01/31 AM requiring IM zyprexa. Did not need any prn IM zyprexa overnight though. She was cooperative throughout the day today and during my visit. Continue seroquel 50mg HS, melatonin 3mg HS, and AM dose of seroquel 25mg. Most recent EKG with normal QTc. Repeat EKG - QTc is mildly longer (470s) but is acceptable. LBBB is chronic/old. Had been admitted after she was brought by police to [facility] due to family concern about continued cognitive decline and inability to take care of herself. Also there was a report of her trying to kidnap a child at a local park? Staff here at [facility] called the police and confirmed there are NO outstanding charges against the patient. (2) Dementia with behavioral disturbance: Plan: see above (3) Hypertension: Plan: BPs remain labile and high Increased amlodipine to 10mg daily Bps improved Cont lisinopril (4) Seizure disorder: Plan: Continue keppra No recent seizures by report (5) Hypothyroidism: Plan: Continue Synthroid 100mcg daily Most recent TSH was 5 Certainly w/ her dementia could have missed a few doses at home Would check another TSH in a few weeks and increase her synthroid if necessary at that time (6) Patient incapable of making informed decisions: Plan: Patient without capacity (7) History of colon cancer: Plan: s/p resection in the past (8) Vertebral artery stenosis: Plan: cont asa cont statin Plan DVT proph - lovenox daily called & spoke with pt's son Juan by phone on 01/30/23 update given completed a [id number] with pt's insurance, [employer], on 01/30/23 unfortunately skilled care was DENIED by insurance case management made aware however, she will have a bed in the [facility] dementia unit on 02/02/23 Admission and Anticipated Discharge Date Admission Date: January 23, 2023 Subjective no issues overnight was resting in bed during visit thinks I am a prosthetic lab technician, but knows she is in "[facility]" again asks about discharge denies complaints of pain in any location eating well last BM 01/31 (large) overnight did not require any prn IM antipsychotics Physical Exam Physical Exam: gen - NAD, laying in bed comfortably, oriented to person/place/year but confused mouth - MMM heart - RRR, s1 s2, no murmur lungs - CTA b/l abd - soft NT ND BS+ ext - no edema, pulses 2+ b/l psych - cooperative, no agitation Results & Data Results & Data Vital Signs (Past 12 Hours) Vital Signs Temp Pulse Resp BP Pulse Ox O2 Del Method 02/01/23 15:00 36.6 C 68 18 110/54 L 97 Room Air Laboratory Results Laboratory Results - last 24 hr 02/01/23 07:45 Sodium 138 Potassium 4.0 Chloride 109 H Carbon Dioxide 25 Anion Gap 4 BUN 12 Creatinine 0.65 Est Cr Clr Drug Dosing 64.2 Est GFR ( Amer) 95.2 Est GFR (Non-Af Amer) 82.1 BUN/Creatinine Ratio 18.5 Glucose 89 Calcium 8.7 PG Care Time/CCT Total # of Minutes Spent Total Time Spent with Patient: Total time spent is greater than 50% in coordination of care (as documented) at patient's floor/unit and/or counseling patient: Coding Level of Care Code 90010 SUB INP/OBS CARE 1/25MIN Diagnoses Dementia F03.90 Dementia with behavioral disturbance F03.918 Hypertension I10 Seizure disorder G40.909 Hypothyroidism E03.9 Patient incapable of making informed decisions Z78.9 History of colon cancer Z85.038 Vertebral artery stenosis I65.09
--- NOTE | 2023-02-03 07:09 | Hospitalist Progress Note ---
Date of Service February 02, 2023 Assessment & Plan (1) Dementia: Plan: Earlier in the stay had significant visual hallucinations and agitation in the setting of baseline dementia. Still has these symptoms but overall improved with seroquel 25mg AM and seroquel 50mg HS. Unfortunately she had agitation on 915 PM and 916 AM requiring IM zyprexa. Did not need any prn IM zyprexa since then, however. She was cooperative throughout the day today and during my visit. Continue seroquel 50mg HS, melatonin 3mg HS, and AM dose of seroquel 25mg. Most recent EKG with normal QTc. Repeat EKG - QTc is mildly longer (470s) but is acceptable. LBBB is chronic/old. Had been admitted after she was brought by police to [facility] due to family concern about continued cognitive decline and inability to take care of herself. Also there was a report of her trying to kidnap a child at a local park? Staff here at [facility] called the police and confirmed there are NO outstanding charges against the patient. (2) Dementia with behavioral disturbance: Plan: see above (3) Hypertension: Plan: BPs had been high/labile Increased amlodipine to 10mg daily - Bps improved Cont lisinopril (4) Seizure disorder: Plan: Continue keppra No recent seizures by report (5) Hypothyroidism: Plan: Continue Synthroid 100mcg daily Most recent TSH was 5 Certainly w/ her dementia could have missed a few doses at home Would check another TSH in a few weeks and increase her synthroid if necessary at that time (6) Patient incapable of making informed decisions: Plan: Patient without capacity (7) History of colon cancer: Plan: s/p resection in the past (8) Vertebral artery stenosis: Plan: cont asa cont statin Plan DVT proph - lovenox daily we were hopeful for [facility] dementia unit placement today but this did not occur pt's son reports he met with admin at [facility] today - there are considerable financial barriers at this time to allow placement placement will be delayed as a result Admission and Anticipated Discharge Date Admission Date: January 23, 2023 Subjective patient sitting in chair by the window during my visit she got up from the chair on her own accord without any balance issues or difficulty denies any complaints she is pleasantly confused cooperative during the visit while I was visiting with her the pt's son and daughter in law arrived for a visit son reports that due to financial issues there will be a considerable delay in getting her to [facility] Review of Systems Review of Systems: neuro - denies headache cv - denies chest pain pulm - no dyspnea GI - no pain psych - reports distress because she "saw her today and they won't let me go see him" (he is ) Physical Exam Physical Exam: gen - NAD, sitting in chair by window, oriented to person/place but otherwise confused; she keeps thinking that I am a cushion padder and that I am there to give her blessings mouth - MMM heart - RRR, s1 s2, no murmur lungs - CTA b/l abd - soft NT ND BS+; hernia present - reducible, nontender over this region ext - no edema, pulses 2+ b/l psych - cooperative, no agitation - but confused Results & Data Results & Data Vital Signs (Past 12 Hours) Vital Signs Temp Pulse Pulse Resp BP Pulse Ox O2 Del Method 02/02/23 20:19 36.2 C L 79 16 153/77 H 94 Room Air 02/02/23 14:09 36.6 C 70 18 165/66 H 97 Room Air 02/02/23 07:20 36.6 C 62 16 147/78 H 94 Room Air PG Care Time/CCT Total # of Minutes Spent Total Time Spent with Patient: Total time spent is greater than 50% in coordination of care (as documented) at patient's floor/unit and/or counseling patient: Coding Level of Care Code 30663 SUB INP/OBS CARE 1/25MIN Diagnoses Dementia F03.90 Dementia with behavioral disturbance F03.918 Hypertension I10 Seizure disorder G40.909 Hypothyroidism E03.9 Patient incapable of making informed decisions Z78.9 History of colon cancer Z85.038 Vertebral artery stenosis I65.09
--- NOTE | 2023-02-03 16:07 | Hospitalist Progress Note ---
Date of Service February 03, 2023 Assessment & Plan (1) Dementia: Plan: Earlier in the stay had significant visual hallucinations and agitation in the setting of baseline dementia. Still has these symptoms but overall improved with seroquel 25mg AM and seroquel 50mg HS. Unfortunately she had agitation on 915 PM and 16 AM requiring IM zyprexa. Did not need any prn IM zyprexa since then, however. She was cooperative throughout the day today and during my visit. Continue seroquel 50mg HS, melatonin 3mg HS, and AM dose of seroquel 25mg. Most recent EKG with normal QTc. Repeat EKG - QTc is mildly longer (470s) but is acceptable. LBBB is chronic/old. Had been admitted after she was brought by police to [facility] due to family concern about continued cognitive decline and inability to take care of herself. Also there was a report of her trying to kidnap a child at a local park? Staff here at [facility] called the police and confirmed there are NO outstanding charges against the patient. (2) Dementia with behavioral disturbance: Plan: see above (3) Hypertension: Plan: BPs had been high/labile Increased amlodipine to 10mg daily - Bps improved Cont lisinopril (4) Seizure disorder: Plan: Continue keppra No recent seizures by report (5) Hypothyroidism: Plan: Continue Synthroid 100mcg daily Most recent TSH was 5 Certainly w/ her dementia could have missed a few doses at home Would check another TSH in a few weeks and increase her synthroid if necessary at that time (6) Patient incapable of making informed decisions: Plan: Patient without capacity (7) History of colon cancer: Plan: s/p resection in the past (8) Vertebral artery stenosis: Plan: cont asa cont statin Plan DVT proph - lovenox daily ct manager working on placement Admission and Anticipated Discharge Date Admission Date: January 23, 2023 Subjective patient is not able to hold a conversation but does not appear to be in any distress. Mumbling mostly unintelligibly Review of Systems Review of Systems: All systems reviewed & are unremarkable except as noted in Subjective Physical Exam Physical Exam: general: Awake, mumbling mostly unintelligibly Heart: S1, S2/regular rate and rhythm, no murmur rubs or gallops Lungs: Clear to auscultation bilaterally. Normal effort Abdomen: Soft/nontender/nondistended. No hepatosplenomegaly Extremities: No clubbing/cyanosis. No edema Behavior: Appropriate, cooperative Results & Data Results & Data Vital Signs (Past 12 Hours) Vital Signs Temp Pulse Resp BP Pulse Ox O2 Del Method 02/03/23 15:56 37 C 72 18 145/76 H 97 Room Air 02/03/23 08:18 36.6 C 67 18 133/73 92 Room Air PG Care Time/CCT Total # of Minutes Spent Total Time Spent with Patient: Total time spent is greater than 50% in coordination of care (as documented) at patient's floor/unit and/or counseling patient: Coding Level of Care Code 77400 SUB INP/OBS CARE 2/35MIN Diagnoses Dementia F03.90 Dementia with behavioral disturbance F03.918 Hypertension I10 Seizure disorder G40.909 Hypothyroidism E03.9 Patient incapable of making informed decisions Z78.9 History of colon cancer Z85.038 Vertebral artery stenosis I65.09
--- NOTE | 2023-02-04 15:16 | Hospitalist Progress Note ---
Date of Service February 04, 2023 Assessment & Plan (1) Dementia: Plan: Earlier in the stay had significant visual hallucinations and agitation in the setting of baseline dementia. Still has these symptoms but overall improved with seroquel 25mg AM and seroquel 50mg HS. Unfortunately she had agitation on 915 PM and 16 AM requiring IM zyprexa. Did not need any prn IM zyprexa since then, however. She was cooperative throughout the day today and during my visit. Continue seroquel 50mg HS, melatonin 3mg HS, and AM dose of seroquel 25mg. Most recent EKG with normal QTc. Repeat EKG - QTc is mildly longer (470s) but is acceptable. LBBB is chronic/old. Had been admitted after she was brought by police to [facility] due to family concern about continued cognitive decline and inability to take care of herself. Also there was a report of her trying to kidnap a child at a local park? Staff here at [facility] called the police and confirmed there are NO outstanding charges against the patient. (2) Dementia with behavioral disturbance: Plan: see above (3) Hypertension: Plan: BPs had been high/labile Increased amlodipine to 10mg daily - Bps improved but still with some high numbers Cont lisinopril (4) Seizure disorder: Plan: Continue keppra No recent seizures by report (5) Hypothyroidism: Plan: Continue Synthroid 100mcg daily Most recent TSH was 5 Certainly w/ her dementia could have missed a few doses at home Would check another TSH in a few weeks and increase her synthroid if necessary at that time (6) Patient incapable of making informed decisions: Plan: Patient without capacity (7) History of colon cancer: Plan: s/p resection in the past (8) Vertebral artery stenosis: Plan: cont asa cont statin Plan DVT proph - lovenox daily wholesale manager working on placement Admission and Anticipated Discharge Date Admission Date: January 23, 2023 Subjective Patient has no complaints today. Pleasantly confused. Review of Systems Review of Systems: All systems reviewed & are unremarkable except as noted in Subjective Physical Exam Physical Exam: general: Awake, mumbling, pleasantly confused. She says that she saw her today on top of the roof of the next building when she looked out of the window Heart: S1, S2/regular rate and rhythm, no murmur rubs or gallops Lungs: Clear to auscultation bilaterally. Normal effort Abdomen: Soft/nontender/nondistended. No hepatosplenomegaly Extremities: No clubbing/cyanosis. No edema Behavior: Appropriate, cooperative Results & Data Results & Data Vital Signs (Past 12 Hours) Vital Signs Temp Pulse Resp BP Pulse Ox O2 Del Method 02/04/23 15:01 36.6 C 73 16 171/84 H 97 Room Air 02/04/23 07:43 36.6 C 64 16 133/74 97 Room Air PG Care Time/CCT Total # of Minutes Spent Total Time Spent with Patient: Total time spent is greater than 50% in coordination of care (as documented) at patient's floor/unit and/or counseling patient: Coding Level of Care Code 93320 SUB INP/OBS CARE 2/35MIN Diagnoses Dementia F03.90 Dementia with behavioral disturbance F03.918 Hypertension I10 Seizure disorder G40.909 Hypothyroidism E03.9 Patient incapable of making informed decisions Z78.9 History of colon cancer Z85.038 Vertebral artery stenosis I65.09
--- NOTE | 2023-02-05 14:57 | Hospitalist Progress Note ---
Date of Service February 05, 2023 Assessment & Plan (1) Dementia: Plan: Earlier in the stay had significant visual hallucinations and agitation in the setting of baseline dementia. Still has these symptoms but overall improved with seroquel 25mg AM and seroquel 50mg HS. Unfortunately she had agitation on 915 PM and 16 AM requiring IM zyprexa. Did not need any prn IM zyprexa since then, however. She was cooperative throughout the day today and during my visit. Continue seroquel 50mg HS, melatonin 3mg HS, and AM dose of seroquel 25mg. Most recent EKG with normal QTc. Repeat EKG - QTc is mildly longer (470s) but is acceptable. LBBB is chronic/old. Had been admitted after she was brought by police to [facility] due to family concern about continued cognitive decline and inability to take care of herself. Also there was a report of her trying to kidnap a child at a local park? Staff here at [facility] called the police and confirmed there are NO outstanding charges against the patient. (2) Dementia with behavioral disturbance: Plan: see above (3) Hypertension: Plan: BPs had been high/labile Increased amlodipine to 10mg daily - Bps improved but still with some high numbers Cont lisinopril (4) Seizure disorder: Plan: Continue keppra No recent seizures by report (5) Hypothyroidism: Plan: Continue Synthroid 100mcg daily Most recent TSH was 5 Certainly w/ her dementia could have missed a few doses at home Would check another TSH in a few weeks and increase her synthroid if necessary at that time (6) Patient incapable of making informed decisions: Plan: Patient without capacity (7) History of colon cancer: Plan: s/p resection in the past (8) Vertebral artery stenosis: Plan: cont asa cont statin Plan DVT proph - lovenox daily ict managers working on placement Admission and Anticipated Discharge Date Admission Date: January 23, 2023 Subjective Patient feels well. Denies chest pain or shortness of breath. Review of Systems Review of Systems: All systems reviewed & are unremarkable except as noted in Subjective Physical Exam Physical Exam: general: Awake, mumbling, pleasantly confused. She says that she saw her today on top of the roof of the next building when she looked out of the window Heart: S1, S2/regular rate and rhythm, no murmur rubs or gallops Lungs: Clear to auscultation bilaterally. Normal effort Abdomen: Soft/nontender/nondistended. No hepatosplenomegaly Extremities: No clubbing/cyanosis. No edema Behavior: Appropriate, cooperative Results & Data Results & Data Vital Signs (Past 12 Hours) Vital Signs Temp Pulse Resp BP Pulse Ox O2 Del Method 02/05/23 14:09 36.5 C 69 16 105/53 L 96 Room Air 02/05/23 07:13 36.5 C 63 17 113/64 94 Room Air PG Care Time/CCT Total # of Minutes Spent Total Time Spent with Patient: Total time spent is greater than 50% in coordination of care (as documented) at patient's floor/unit and/or counseling patient: Coding Level of Care Code 80982 SUB INP/OBS CARE 1/25MIN Diagnoses Dementia F03.90 Dementia with behavioral disturbance F03.918 Hypertension I10 Seizure disorder G40.909 Hypothyroidism E03.9 Patient incapable of making informed decisions Z78.9 History of colon cancer Z85.038 Vertebral artery stenosis I65.09
--- NOTE | 2023-02-06 16:30 | Hospitalist Progress Note ---
Date of Service February 06, 2023 Assessment & Plan (1) Dementia: Plan: Earlier in the stay had significant visual hallucinations and agitation in the setting of baseline dementia. Still has these symptoms but overall improved with seroquel 25mg AM and seroquel 50mg HS. Unfortunately she had agitation on 915 PM and 16 AM requiring IM zyprexa. Did not need any prn IM zyprexa since then, however. She was cooperative throughout the day today and during my visit. Continue seroquel 50mg HS, melatonin 3mg HS, and AM dose of seroquel 25mg. Most recent EKG with normal QTc. Repeat EKG - QTc is mildly longer (470s) but is acceptable. LBBB is chronic/old. Had been admitted after she was brought by police to [facility] due to family concern about continued cognitive decline and inability to take care of herself. Also there was a report of her trying to kidnap a child at a local park? Staff here at [facility] called the police and confirmed there are NO outstanding charges against the patient. (2) Dementia with behavioral disturbance: Plan: see above (3) Hypertension: Plan: BPs had been high/labile Increased amlodipine to 10mg daily - Bps improved but still with some high numbers Cont lisinopril (4) Seizure disorder: Plan: Continue keppra No recent seizures by report (5) Hypothyroidism: Plan: Continue Synthroid 100mcg daily Most recent TSH was 5 Certainly w/ her dementia could have missed a few doses at home Would check another TSH in a few weeks and increase her synthroid if necessary at that time (6) Patient incapable of making informed decisions: Plan: Patient without capacity (7) History of colon cancer: Plan: s/p resection in the past (8) Vertebral artery stenosis: Plan: cont asa cont statin Plan DVT proph - lovenox daily manager export working on placement Admission and Anticipated Discharge Date Admission Date: January 23, 2023 Subjective when asked if there was anything bothering her today. She stated, "you all are ". Patient was not as friendly today with me. Not particularly agitated though. Review of Systems Review of Systems: All systems reviewed & are unremarkable except as noted in Subjective Physical Exam Physical Exam: Patient did not allow me to examine her General appearance: Awake, conversant, sitting on the bedside chair. Appearing calm and composed. However making some hostile remarks. Not agitated. Results & Data Results & Data Vital Signs (Past 12 Hours) Vital Signs Temp Pulse Resp BP Pulse Ox O2 Del Method 02/06/23 08:31 36.9 C 74 16 137/80 96 Room Air PG Care Time/CCT Total # of Minutes Spent Total Time Spent with Patient: Total time spent is greater than 50% in coordination of care (as documented) at patient's floor/unit and/or counseling patient: Coding Level of Care Code 11735 SUB INP/OBS CARE 06/11MIN Diagnoses Dementia F03.90 Dementia with behavioral disturbance F03.918 Hypertension I10 Seizure disorder G40.909 Hypothyroidism E03.9 Patient incapable of making informed decisions Z78.9 History of colon cancer Z85.038 Vertebral artery stenosis I65.09
--- NOTE | 2023-02-07 11:57 | Hospitalist Progress Note ---
Date of Service February 07, 2023 Assessment & Plan (1) Dementia: Plan: Earlier in the stay had significant visual hallucinations and agitation in the setting of baseline dementia. Still has these symptoms but overall improved with seroquel 25mg AM and seroquel 50mg HS. Unfortunately she had agitation on 915 PM and 16 AM requiring IM zyprexa. Did not need any prn IM zyprexa since then, however. She was cooperative throughout the day today and during my visit. Continue seroquel 50mg HS, melatonin 3mg HS, and AM dose of seroquel 25mg. Most recent EKG with normal QTc. Repeat EKG - QTc is mildly longer (470s) but is acceptable. LBBB is chronic/old. Had been admitted after she was brought by police to [facility] due to family concern about continued cognitive decline and inability to take care of herself. Also there was a report of her trying to kidnap a child at a local park? Staff here at [facility] called the police and confirmed there are NO outstanding charges against the patient. (2) Dementia with behavioral disturbance: Plan: see above (3) Hypertension: Plan: BPs had been high/labile Increased amlodipine to 10mg daily Cont lisinopril (4) Seizure disorder: Plan: Continue keppra No recent seizures by report (5) Hypothyroidism: Plan: Continue Synthroid 100mcg daily Most recent TSH was 5 Certainly w/ her dementia could have missed a few doses at home Would check another TSH in a few weeks and increase her synthroid if necessary at that time (6) Patient incapable of making informed decisions: Plan: Patient without capacity (7) History of colon cancer: Plan: s/p resection in the past (8) Vertebral artery stenosis: Plan: cont asa cont statin Plan DVT proph - lovenox daily operations project manager working on placement Admission and Anticipated Discharge Date Admission Date: January 23, 2023 Subjective patient does not have any major complaints. Denies any chest pain or shortness of breath. She allowed me to examine her today Review of Systems Review of Systems: All systems reviewed & are unremarkable except as noted in Subjective Physical Exam Physical Exam: general: Awake, conversant Heart: S1, S2/regular rate and rhythm, no murmur rubs or gallops Lungs: Clear to auscultation bilaterally. Normal effort Abdomen: Soft/nontender/nondistended. No hepatosplenomegaly Extremities: No clubbing/cyanosis. No edema Behavior: Appropriate, cooperative Results & Data Results & Data Vital Signs (Past 12 Hours) Vital Signs Temp Pulse Resp BP Pulse Ox O2 Del Method 02/07/23 07:57 36.5 C 70 18 138/70 97 Room Air PG Care Time/CCT Total # of Minutes Spent Total Time Spent with Patient: Total time spent is greater than 50% in coordination of care (as documented) at patient's floor/unit and/or counseling patient: Coding Level of Care Code 03238 SUB INP/OBS CARE 2/35MIN Diagnoses Dementia F03.90 Dementia with behavioral disturbance F03.918 Hypertension I10 Seizure disorder G40.909 Hypothyroidism E03.9 Patient incapable of making informed decisions Z78.9 History of colon cancer Z85.038 Vertebral artery stenosis I65.09
--- NOTE | 2023-02-08 13:35 | Hospitalist Progress Note ---
Date of Service February 08, 2023 Assessment & Plan (1) Dementia: Plan: Earlier in the stay had significant visual hallucinations and agitation in the setting of baseline dementia. Still has these symptoms but overall improved with seroquel 25mg AM and seroquel 50mg HS. Unfortunately she had agitation on 915 PM and 16 AM requiring IM zyprexa. Did not need any prn IM zyprexa since then, however. She was cooperative throughout the day today and during my visit. Continue seroquel 50mg HS, melatonin 3mg HS, and AM dose of seroquel 25mg. Most recent EKG with normal QTc. Repeat EKG - QTc is mildly longer (470s) but is acceptable. LBBB is chronic/old. Had been admitted after she was brought by police to [facility] due to family concern about continued cognitive decline and inability to take care of herself. Also there was a report of her trying to kidnap a child at a local park? Staff here at [facility] called the police and confirmed there are NO outstanding charges against the patient. (2) Dementia with behavioral disturbance: Plan: see above (3) Hypertension: Plan: BPs had been high/labile Increased amlodipine to 10mg daily Cont lisinopril (4) Seizure disorder: Plan: Continue keppra No recent seizures by report (5) Hypothyroidism: Plan: Continue Synthroid 100mcg daily Most recent TSH was 5 Certainly w/ her dementia could have missed a few doses at home Would check another TSH in a few weeks and increase her synthroid if necessary at that time (6) Patient incapable of making informed decisions: Plan: Patient without capacity (7) History of colon cancer: Plan: s/p resection in the past (8) Vertebral artery stenosis: Plan: cont asa cont statin Plan DVT proph - lovenox daily control officer manager working on placement Admission and Anticipated Discharge Date Admission Date: January 23, 2023 Subjective patient feels well Review of Systems Review of Systems: All systems reviewed & are unremarkable except as noted in Subjective Physical Exam Physical Exam: general: sleeping, easily arousable Heart: S1, S2/regular rate and rhythm, no murmur rubs or gallops Lungs: Clear to auscultation bilaterally. Normal effort Abdomen: Soft/nontender/nondistended. No hepatosplenomegaly Extremities: No clubbing/cyanosis. No edema Behavior: Appropriate, cooperative Results & Data Results & Data Vital Signs (Past 12 Hours) Vital Signs Temp Pulse Resp BP Pulse Ox O2 Del Method 02/08/23 08:08 36.3 C L 74 18 149/81 H 96 Room Air PG Care Time/CCT Total # of Minutes Spent Total Time Spent with Patient: Total time spent is greater than 50% in coordination of care (as documented) at patient's floor/unit and/or counseling patient: Coding Level of Care Code 75920 SUB INP/OBS CARE 2/35MIN Diagnoses Dementia F03.90 Dementia with behavioral disturbance F03.918 Hypertension I10 Seizure disorder G40.909 Hypothyroidism E03.9 Patient incapable of making informed decisions Z78.9 History of colon cancer Z85.038 Vertebral artery stenosis I65.09
--- NOTE | 2023-02-09 15:09 | Hospitalist Progress Note ---
Date of Service February 09, 2023 Assessment & Plan (1) Dementia: Plan: Earlier in the stay had significant visual hallucinations and agitation in the setting of baseline dementia. Had been admitted after she was brought by police to [facility] due to family concern about continued cognitive decline and inability to take care of herself. Also there was a report of her trying to kidnap a child at a local park? Staff here at [facility] called the police and confirmed there are NO outstanding charges against the patient. Unfortunately she had agitation on 01/30 PM and 01/31 AM requiring IM zyprexa. Did not need any prn IM zyprexa since then, however. Remains cooperative Overall improved with seroquel 25mg AM and seroquel 50mg HS. Continue seroquel 50mg HS, melatonin 3mg HS, and AM dose of seroquel 25mg. Most recent EKG with normal QTc. Repeat EKG - QTc is mildly longer (470s) but is acceptable. LBBB is chronic/old. (2) Dementia with behavioral disturbance: Plan: see above (3) Hypertension: Plan: BPs now controlled with increased dose of amlodipine to 10mg daily Cont lisinopril (4) Seizure disorder: Plan: Continue keppra No recent seizures by report (5) Hypothyroidism: Plan: Continue Synthroid 100mcg daily Most recent TSH was 5 Certainly w/ her dementia could have missed a few doses at home Would check another TSH in a few weeks and increase her synthroid if necessary a t that time (6) Patient incapable of making informed decisions: Plan: Patient without capacity (7) History of colon cancer: Plan: s/p resection in the past (8) Vertebral artery stenosis: Plan: cont asa cont statin Plan DVT proph - lovenox daily duty manager working on placement-[employer] approved, awaiting acceptance at [facility] Admission and Anticipated Discharge Date Admission Date: January 23, 2023 Subjective Pt anxious to be discharged to home Denies pain or any other problems. Is eating, moving bowels Physical Exam Physical Exam: Pt would not let me touch her for physical exam-states "I don't see why it's any of your business what my heart sounds like." Constitutional: WD/WN, vitals as above Respiratory: normal respiratory effort Results & Data Results & Data Vital Signs (Past 12 Hours) Vital Signs Temp Pulse Pulse Resp BP Pulse Ox O2 Del Method 02/09/23 14:06 36.5 C 70 17 132/78 97 Room Air 02/09/23 08:14 36.7 C 64 16 126/72 93 Room Air PG Care Time/CCT Total # of Minutes Spent Total Time Spent with Patient: Total time spent is greater than 50% in coordination of care (as documented) at patient's floor/unit and/or counseling patient: Coding Level of Care Code 99311 SUB INP/OBS CARE 06/11MIN Diagnoses Dementia F03.90 Dementia with behavioral disturbance F03.918 Hypertension I10 Seizure disorder G40.909 Hypothyroidism E03.9 Patient incapable of making informed decisions Z78.9 History of colon cancer Z85.038 Vertebral artery stenosis I65.09
--- NOTE | 2023-02-10 13:08 | Hospitalist Progress Note ---
Date of Service February 10, 2023 Assessment & Plan (1) Syncope: Plan: Occurred while moving bowels after getting up quickly from bed and running to toilet with loose bowels on floor Likely orthostatic hypotension as cause given atypical antipsychotics CT head neg, ECG without ischemia, trop neg, labs otherwise fairly unremarkable Avoid getting up quickly atypical antipsychotics known for causing orthostasis but unfortunately she is needing these for her significant dementia with behavioral disturbance 1:1 as needed to prevent falls -trend troponin x more -monitor on tele (2) Dementia: Plan: Earlier in the stay had significant visual hallucinations and agitation in the setting of baseline dementia. Had been admitted after she was brought by police to [facility] due to family concern about continued cognitive decline and inability to take care of herself. Also there was a report of her trying to kidnap a child at a local park? Staff here at [facility] called the police and confirmed there are NO outstanding charges against the patient. Unfortunately she had agitation on 01/30 PM and 01/31 AM requiring IM zyprexa. Needed more IM Zyprexa on evening of 02/09 and AM of 02/10 for significant cait tation Overall improved with seroquel 25mg AM and seroquel 50mg HS. Continue seroquel 50mg HS, melatonin 3mg HS, and AM dose of seroquel 25mg. Most recent EKG with normal QTc.LBBB is chronic/old. (3) Dementia with behavioral disturbance: Plan: see above (4) Hypertension: Plan: BPs now controlled with increased dose of amlodipine to 10mg daily Cont lisinopril (5) Seizure disorder: Plan: Continue keppra No recent seizures by report do not suspect seizure during episode of syncope on 02/10 (6) Hypothyroidism: Plan: Continue Synthroid 100mcg daily Most recent TSH was 5 Certainly w/ her dementia could have missed a few doses at home Would check another TSH in a few weeks and increase her synthroid if necessary at that time (7) Patient incapable of making informed decisions: Plan: Patient without capacity (8) History of colon cancer: Plan: s/p resection in the past CT head here neg for mets (9) Vertebral artery stenosis: Plan: cont asa cont statin Plan DVT proph - lovenox daily 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 A code purple was called. I came within a couple of minutes and patient was brought from bathroom to the bed where she had a pulse, was breathing but was lethargic. She was moaning and did respond to some questions. BP was 150s systolic, glucose 128, HR 70s in NSR on monitor. She was noted by the RN with her in the bathroom that she said she felt like she was going to pass out right before the even happened. ECG with LBBB, 1st degree AVB in SR, no ischemic changes. Labs drawn and rev iewed, nothing of great significance. CT head reviewed and neg for acute. After about 10-15 min, she was more awake and alert and said "I don't feel well." She was given a bolus of NS 1L, vitals remained stable, and was transferred to PCU. Of note, this AM she was given IM Zyprexa for significant agitation Physical Exam Constitutional: well developed and + lethargic; no acute distress Eyes: PERRL, conjunctivae normal, anicteric sclerae Respiratory: normal respiratory effort, lungs clear to auscultation Cardiovascular: RRR, no murmur, no edema Gastrointestinal (Abdomen): normal bowel sounds, soft, nontender, no hepatosplenomegaly Neurologic: CN's II-XI intact bilaterally and moves all extremities; no focal motor deficits Psychiatric: Orientation: alert and oriented to person Results & Data Results & Data Vital Signs (Past 12 Hours) Vital Signs Temp Pulse Resp BP Pulse Ox O2 Del Method 02/10/23 08:03 36.4 C L 64 15 147/66 H 96 Room Air Laboratory Results CBC, CMP, troponin, magnesium reviewed PG Care Time/CCT Total # of Minutes Spent Total Time Spent with Patient: Total time spent is greater than 50% in coordination of care (as documented) at patient's floor/unit and/or counseling patient: Coding Level of Care Code 64898 SUB INP/OBS CARE 3/50MIN Diagnoses Syncope R55 Dementia F03.90 Dementia with behavioral disturbance F03.918 Hypertension I10 Seizure disorder G40.909 Hypothyroidism E03.9 Patient incapable of making informed decisions Z78.9 History of colon cancer Z85.038 Vertebral artery stenosis I65.09
[2023-02-10] MEDS: SODIUM CHLORIDE 0.9% 1,000 ML IV ONE (13:42)
[2023-02-10 13:43] LABS: Basophils # (auto) 0.06 K/uL (0.00-0.20); Basophils % (auto) 0.5 %; Eosinophils # (auto) 0.17 K/uL (0.00-0.50); Eosinophils % (auto) 1.4 %; Hematocrit (blood only) 40.2 % (37.0-47.0); Hemoglobin 14.3 g/dl (12.0-16.0); Immature Granulocytes # (auto) 0.04 K/uL (0.01-0.20); Immature Granulocytes % (auto) 0.3 %; Lymphocytes # (auto) 4.62 K/uL (1.20-3.40); Lymphocytes % (auto) 39.1 %; Mean Corpuscular Hemoglobin 33.8 pg (25.0-34.0); Mean Corpuscular Hgb Conc 35.6 g/dL (32.0-36.0); Mean Platelet Volume 9.4 fL (9.4-12.4); Monocytes # (auto) 0.97 K/uL (0.11-0.59); Monocytes % (auto) 8.2 %; Neutrophils # (auto) 5.97 K/uL (1.40-6.50); Neutrophils % (auto) 50.5 %; Platelet Count 261 K/uL (130-400); RDW Coefficient of Variation 12.2 % (11.5-14.5); RDW Standard Deviation 42.7 fL (36.4-46.3); Red Blood Count 4.23 M/uL (4.20-5.40); White Blood Count 11.83 K/ul (4.8-10.8)
[2023-02-10 13:46] LABS: Albumin Globulin Ratio 1.6 (0.9-2); Albumin Level 4.6 gm/dl (3.4-5.0); BUN Creatinine Ratio 14.6 (10-20); Bilirubin,Total 0.7 mg/dl (0.2-1.0); Creatinine Clr Calc Pharmacy 50.9 ml/min; Est GFR (African American) 76.7 ml/min; Est GFR (Non-African American) 66.2 ml/min; Globulin 2.8 gm/dl (2.5-4.0); Magnesium 2.1 mg/dl (1.7-2.4); Potassium 3.4 mmol/L (3.5-5.1); Total Protein 7.4 gm/dl (6.0-8.3)
[2023-02-10 13:50] LABS: Troponin I High Sensitivity 5.3 pg/ml (0-14)
--- NOTE | 2023-02-10 13:57 | CT Scan Report ---
CT OF THE HEAD WITHOUT CONTRAST CLINICAL HISTORY: Syncope. COMPARISON STUDY: Head CT January 23, 2023. CT DOSE: 547.75 mGy.cm TECHNIQUE: Helical axial images of the head were obtained without IV contrast. Automated exposure con trol was utilized for the study. A dose lowering technique was utilized adhering to the principles o f ALARA. FINDINGS: No acute intracranial hemorrhage, midline shift or mass effect is present. The ventricular system is stable. White matter hypodensities are unchanged and favor small vessel disease. The basal cisterns are patent. No extra-axial collections are present. There are no findings to suggest acute d ural sinus thrombosis or acute territorial infarct. No significant calvarial abnormalities are presen t. Visualized portions of the sinuses and mastoid air cells are clear. IMPRESSION: No acute intracranial findings. No change in appearance of the brain. ACT 112: Negative or not required by law. Electronically signed by: Milton John M.D. 02/10/2023 1:55 PM
[2023-02-11] MEDS: QUEtiapine FUMARATE 25 MG TABLET PO SCH (08:25)
--- NOTE | 2023-02-11 12:18 | Hospitalist Progress Note ---
Date of Service February 11, 2023 Assessment & Plan (1) Dementia: Plan: Earlier in the stay had significant visual hallucinations and agitation in the setting of baseline dementia. Had been admitted after she was brought by police to [facility] due to family concern about continued cognitive decline and inability to take care of herself. Also there was a report of her trying to kidnap a child at a local park? Staff here at [facility] called the police and confirmed there are NO outstanding charges against the patient. Unfortunately she had agitation on 01/30 PM and 01/31 AM requiring IM zyprexa. 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 [facility] (2) Syncope: Plan: Occurred while moving bowels after getting up quickly from bed and running to toilet with loose bowels on floor Likely orthostatic hypotension as cause given atypical antipsychotics CT head neg, ECG without ischemia, trop neg, labs otherwise fairly unremarkable Avoid getting up quickly atypical antipsychotics known for causing orthostasis but unfortunately she is needing these for her significant dementia with behavioral disturbance -no significant events on tele x 24 hrs -can downgrade off tele (3) Dementia with behavioral disturbance: Plan: see above (4) Hypertension: Plan: BPs now controlled with increased dose of amlodipine to 10mg daily Cont lisinopril (5) Seizure disorder: Plan: Continue keppra No recent seizures by report do not suspect seizure during episode of syncope on 02/10 (6) Hypothyroidism: Plan: Continue Synthroid 100mcg daily Most recent TSH was 5 Certainly w/ her dementia could have missed a few doses at home Would check another TSH in a few weeks and increase her synthroid if necessary at that time (7) Patient incapable of making informed decisions: Plan: Patient without capacity (8) History of colon cancer: Plan: s/p resection in the past CT head here neg for mets (9) Vertebral artery stenosis: Plan: cont asa cont statin Plan DVT proph - lovenox daily 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 Discussed care with son Juan on 02/11. He is working on gathering up all the financial records needed by [facility] Admission and Anticipated Discharge Date Admission Date: January 23, 2023 Subjective Pt feeling very well today, no outbursts or agitation, not requiring a 1:1. SHe has been ambulating around the [place] with nurses. Tele with one burst of PAT and otherwise SR normal rates 1st degree AVB Physical Exam Constitutional: WD/WN, vitals as above well developed; no acute distress Respiratory: normal respiratory effort, lungs clear to auscultation normal respiratory effort Cardiovascular: RRR, no murmur, no edema Gastrointestinal (Abdomen): normal bowel sounds, soft, nontender, no hepatosplenomegaly Neurologic: moves all extremities; no focal motor deficits Psychiatric: Orientation: alert and oriented to person Results & Data Results & Data Vital Signs (Past 12 Hours) Vital Signs Temp Pulse Pulse Resp BP Pulse Ox O2 Del Method 02/11/23 11:33 36.6 C 74 20 127/69 95 Room Air 02/11/23 09:35 Room Air 02/11/23 08:08 36.7 C 71 18 141/65 H 94 Room Air 02/11/23 07:43 76 02/11/23 04:22 36.6 C 71 20 163/6 H 96 Room Air Laboratory Results no labs PG Care Time/CCT Total # of Minutes Spent Total Time Spent with Patient: Total time spent is greater than 50% in coordination of care (as documented) at patient's floor/unit and/or counseling patient: Coding Level of Care Code 57002 SUB INP/OBS CARE 1/25MIN Diagnoses Dementia F03.90 Syncope R55 Dementia with behavioral disturbance F03.918 Hypertension I10 Seizure disorder G40.909 Hypothyroidism E03.9 Patient incapable of making informed decisions Z78.9 History of colon cancer Z85.038 Vertebral artery stenosis I65.09
--- NOTE | 2023-02-12 14:26 | Hospitalist Progress Note ---
Date of Service February 12, 2023 Assessment & Plan (1) Dementia: Plan: Earlier in the stay had significant visual hallucinations and agitation in the setting of baseline dementia. Had been admitted after she was brought by police to [facility] due to family concern about continued cognitive decline and inability to take care of herself. Also there was a report of her trying to kidnap a child at a local park? Staff here at [facility] called the police and confirmed there are NO outstanding charges against the patient. Unfortunately she had agitation on 01/30 PM and 01/31 AM requiring IM zyprexa. 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 [facility] (2) Syncope: Plan: Occurred while moving bowels after getting up quickly from bed and running to toilet with loose bowels on floor Likely orthostatic hypotension as cause given atypical antipsychotics CT head neg, ECG without ischemia, trop neg, labs otherwise fairly unremarkable Avoid getting up quickly atypical antipsychotics known for causing orthostasis but unfortunately she is needing these for her significant dementia with behavioral disturbance -no significant events on tele x 24 hrs - downgraded off tele (3) Dementia with behavioral disturbance: Plan: see above (4) Hypertension: Plan: BPs now controlled with increased dose of amlodipine to 10mg daily Cont lisinopril (5) Seizure disorder: Plan: Continue keppra No recent seizures by report do not suspect seizure during episode of syncope on 02/10 (6) Hypothyroidism: Plan: Continue Synthroid 100mcg daily Most recent TSH was 5 Certainly w/ her dementia could have missed a few doses at home Would check another TSH in a few weeks and increase her synthroid if necessary at that time (7) Patient incapable of making informed decisions: Plan: Patient without capacity (8) History of colon cancer: Plan: s/p resection in the past CT head here neg for mets (9) Vertebral artery stenosis: Plan: cont asa cont statin Plan DVT proph - lovenox daily 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 Discussed care with son Juan on 02/11. He is working on gathering up all the financial records needed by [facility] Admission and Anticipated Discharge Date Admission Date: January 23, 2023 Subjective Pt ambulating halls frequently, on 1:! because she wandered down to the elevators today. SHe is very pleasant, confused, shows me a card from her cousin with a flower delivery and asks how they knew she was in the hospital. Asks me if she was here to have surgery. Denies lightheadedness, pain. Physical Exam Constitutional: WD/WN, vitals as above well developed; no acute distress Respiratory: normal respiratory effort, lungs clear to auscultation normal respiratory effort Cardiovascular: RRR, no murmur, no edema Neurologic: moves all extremities; no focal motor deficits Psychiatric: Orientation: alert and oriented to person Results & Data Results & Data Vital Signs (Past 12 Hours) Vital Signs Temp Pulse Resp BP Pulse Ox O2 Del Method 02/12/23 08:08 37 C 79 20 126/77 96 Room Air PG Care Time/CCT Total # of Minutes Spent Total Time Spent with Patient: Total time spent is greater than 50% in coordination of care (as documented) at patient's floor/unit and/or counseling patient: Coding Level of Care Code 46984 SUB INP/OBS CARE 06/11MIN Diagnoses Dementia F03.90 Syncope R55 Dementia with behavioral disturbance F03.918 Hypertension I10 Seizure disorder G40.909 Hypothyroidism E03.9 Patient incapable of making informed decisions Z78.9 History of colon cancer Z85.038 Vertebral artery stenosis I65.09
--- NOTE | 2023-02-12 22:16 | Electrocardiogram Report ---
Test Reason : Blood Pressure : / mmHG Vent. Rate : 071 BPM Atrial Rate : 071 BPM P-R Int : 214 ms QRS Dur : 144 ms QT Int : 460 ms P-R-T Axes : 087 043 129 degrees QTc Int : 499 ms Sinus rhythm with 1st degree A-V block Left bundle branch block Abnormal ECG When compared with ECG of 30-JAN-2023 14:55, No significant change Confirmed by Alvaro Simpson ([id number]) on 02/12/2023 10:16:26 PM Referred By: REFERRED SELF Confirmed By:Alvaro Simpson
--- NOTE | 2023-02-13 18:39 | Hospitalist Progress Note ---
Date of Service February 13, 2023 Assessment & Plan (1) Dementia: Plan: Earlier in the stay had significant visual hallucinations and agitation in the setting of baseline dementia. Had been admitted after she was brought by police to [facility] due to family concern about continued cognitive decline and inability to take care of herself. Also there was a report of her trying to kidnap a child at a local park? Staff here at [facility] called the police and confirmed there are NO outstanding charges against the patient. She had agitation on 01/30 PM and 01/31 AM requiring IM zyprexa., then needed more IM Zyprexa on evening of 02/09 and AM of 02/10 for significant agitation Had episode of orthostasis with syncope after getting up quickly to go to the bathroom on 02/10 -doing well now on increased dose of seroquel 50mg bid, no agitation in many days -Continue melatonin 3mg HS -continue to promote good sleep/wake cycles, provide supportive care, ambulate frequently -[place] [facility] [place] (2) Syncope: Plan: Occurred while moving bowels after getting up quickly from bed and running to toilet with loose bowels on floor Likely orthostatic hypotension as cause given atypical antipsychotics CT head neg, ECG without ischemia, trop neg, labs otherwise fairly unremarkable Avoid getting up quickly atypical antipsychotics known for causing orthostasis but unfortunately she is needing these for her significant dementia with behavioral disturbance -no significant events on tele x 24 hrs - downgraded off tele (3) Dementia with behavioral disturbance: Plan: see above (4) Hypertension: Plan: BPs now controlled with increased dose of amlodipine to 10mg daily Cont lisinopril (5) Seizure disorder: Plan: Continue keppra No recent seizures by report do not suspect seizure during episode of syncope on 02/10 (6) Hypothyroidism: Plan: Continue Synthroid 100mcg daily Most recent TSH was 5 Certainly w/ her dementia could have missed a few doses at home Would check another TSH in a few weeks and increase her synthroid if necessary at that time (7) Patient incapable of making informed decisions: Plan: Patient without capacity (8) History of colon cancer: Plan: s/p resection in the past CT head here neg for mets (9) Vertebral artery stenosis: Plan: cont asa cont statin Plan DVT proph - lovenox daily document imaging manager working on placement-PASSR approved, awaiting acceptance at [facility]. Discussed care with son Juan on 02/11. He is working on gathering up all the financial records needed by [facility] Admission and Anticipated Discharge Date Admission Date: January 23, 2023 Subjective Patient was seen literally dancing down the hallway today while taking a walk with the nurses. SHe was very friendly, pleasantly confused. No complaints Physical Exam Constitutional: WD/WN, vitals as above well developed; no acute distress Respiratory: normal respiratory effort Neurologic: moves all extremities; no focal motor deficits Psychiatric: Orientation: alert and oriented to person Results & Data Results & Data Vital Signs (Past 12 Hours) Vital Signs Temp Pulse Resp BP Pulse Ox O2 Del Method 02/13/23 14:41 36.5 C 78 16 137/85 96 Room Air 02/13/23 07:41 36.5 C 81 16 148/86 H 96 Room Air PG Care Time/CCT Total # of Minutes Spent Total Time Spent with Patient: Total time spent is greater than 50% in coordination of care (as documented) at patient's floor/unit and/or counseling patient: Coding Level of Care Code 53147 SUB INP/OBS CARE 1/25MIN Diagnoses Dementia F03.90 Syncope R55 Dementia with behavioral disturbance F03.918 Hypertension I10 Seizure disorder G40.909 Hypothyroidism E03.9 Patient incapable of making informed decisions Z78.9 History of colon cancer Z85.038 Vertebral artery stenosis I65.09
--- NOTE | 2023-02-14 13:42 | Hospitalist Progress Note ---
Date of Service February 14, 2023 Assessment & Plan (1) Dementia: Plan: Earlier in the stay had significant visual hallucinations and agitation in the setting of baseline dementia. Had been admitted after she was brought by police to [facility] due to family concern about continued cognitive decline and inability to take care of herself. Also there was a report of her trying to kidnap a child at a local park? Staff here at [facility] called the police and confirmed there are NO outstanding charges against the patient. She had agitation on 01/30 PM and 01/31 AM requiring IM zyprexa., then needed more IM Zyprexa on evening of 02/09 and AM of 02/10 for significant agitation Had episode of orthostasis with syncope after getting up quickly to go to the bathroom on 02/10 -doing well now on increased dose of seroquel 50mg bid, no agitation in many days -Continue melatonin 3mg HS -continue to promote good sleep/wake cycles, provide supportive care, ambulate frequently -awaiting placement shelter at [facility] (2) Syncope: Plan: Occurred while moving bowels after getting up quickly from bed and running to toilet with loose bowels on floor Likely orthostatic hypotension as cause given atypical antipsychotics CT head neg, ECG without ischemia, trop neg, labs otherwise fairly unremarkable Avoid getting up quickly atypical antipsychotics known for causing orthostasis but unfortunately she is needing these for her significant dementia with behavioral disturbance -no significant events on tele x 24 hrs - downgraded off tele (3) Dementia with behavioral disturbance: Plan: see above (4) Hypertension: Plan: BPs now controlled with increased dose of amlodipine to 10mg daily Cont lisinopril (5) Seizure disorder: Plan: Continue keppra No recent seizures by report do not suspect seizure during episode of syncope on 02/10 (6) Hypothyroidism: Plan: Continue Synthroid 100mcg daily Most recent TSH was 5 Certainly w/ her dementia could have missed a few doses at home Would check another TSH in a few weeks and increase her synthroid if necessary at that time (7) Patient incapable of making informed decisions: Plan: Patient without capacity (8) History of colon cancer: Plan: s/p resection in the past CT head here neg for mets (9) Vertebral artery stenosis: Plan: cont asa cont statin Plan DVT proph - lovenox daily production 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 Care discussed with son Juan on 02/11. He is working on gathering up all the financial records needed by [facility] Admission and Anticipated Discharge Date Admission Date: January 23, 2023 Subjective Reports no concerns this morning other than feeling cold. Denies any lightheadedness/dizziness, chest pain, shortness of breath, GI or concerns Review of Systems Review of Systems: Per subjective Physical Exam Physical Exam: General: Well-appearing, NAD Cardiovascular: RRR, no M/R/G Pulmonary: CTAB, no W/R/R Abdomen: Soft, NT/ND, no guarding Extremities: Moving all extremities, no pedal edema Integumentary: No suspicious rash or lesion on exposed skin Neurologic: Alert and interactive Psychiatric: Appropriate mood/affect Results & Data Results & Data Vital Signs (Past 12 Hours) Vital Signs Temp Pulse Resp BP Pulse Ox O2 Del Method 02/14/23 07:27 36.5 C 65 16 137/77 96 Room Air Laboratory Results Mild leukocytosis at 11.8, mild drop in potassium to 3.4, glucose 139 PG Care Time/CCT Total # of Minutes Spent Total Time Spent with Patient: Total time spent is greater than 50% in coordination of care (as documented) at patient's floor/unit and/or counseling patient: Coding Level of Care Code 58254 SUB INP/OBS CARE 06/11MIN Diagnoses Dementia F03.90 Syncope R55 Dementia with behavioral disturbance F03.918 Hypertension I10 Seizure disorder G40.909 Hypothyroidism E03.9 Patient incapable of making informed decisions Z78.9 History of colon cancer Z85.038 Vertebral artery stenosis I65.09
--- NOTE | 2023-02-15 17:26 | Hospitalist Progress Note ---
Date of Service February 15, 2023 Assessment & Plan (1) Dementia: Plan: Earlier in the stay had significant visual hallucinations and agitation in the setting of baseline dementia. Had been admitted after she was brought by police to [facility] due to family concern about continued cognitive decline and inability to take care of herself. Also there was a report of her trying to kidnap a child at a local park? Staff here at [facility] called the police and confirmed there are NO outstanding charges against the patient. She had agitation on 01/30 PM and 01/31 AM requiring IM zyprexa., then needed more IM Zyprexa on evening of 02/09 and AM of 02/10 for significant agitation Had episode of orthostasis with syncope after getting up quickly to go to the bathroom on 02/10 -doing well now on increased dose of seroquel 50mg bid, no agitation in many days -Continue melatonin 3mg HS -continue to promote good sleep/wake cycles, provide supportive care, ambulate frequently -awaiting placement senior care at [facility] (2) Syncope: Plan: Occurred while moving bowels after getting up quickly from bed and running to toilet with loose bowels on floor Likely orthostatic hypotension as cause given atypical antipsychotics CT head neg, ECG without ischemia, trop neg, labs otherwise fairly unremarkable Avoid getting up quickly atypical antipsychotics known for causing orthostasis but unfortunately she is needing these for her significant dementia with behavioral disturbance -no significant events on tele x 24 hrs - downgraded off tele (3) Dementia with behavioral disturbance: Plan: see above (4) Hypertension: Plan: BPs now controlled with increased dose of amlodipine to 10mg daily Cont lisinopril (5) Seizure disorder: Plan: Continue keppra No recent seizures by report do not suspect seizure during episode of syncope on 02/10 (6) Hypothyroidism: Plan: Continue Synthroid 100mcg daily Most recent TSH was 5 Certainly w/ her dementia could have missed a few doses at home Would check another TSH in a few weeks and increase her synthroid if necessary at that time (7) Patient incapable of making informed decisions: Plan: Patient without capacity (8) History of colon cancer: Plan: s/p resection in the past CT head here neg for mets (9) Vertebral artery stenosis: Plan: cont asa cont statin Plan DVT proph - [facility] daily services account manager working on placement-[facility] approved, awaiting acceptance at [facility]. Care discussed with son Juan on 02/11. He is working on gathering up all the financial records needed by [facility] Admission and Anticipated Discharge Date Admission Date: January 23, 2023 Subjective No acute concerns this morning, sleeping restfully in bed. Denies lightheadedness/dizziness, chest pain, shortness of breath, GI or concerns Review of Systems Review of Systems: Per subject Physical Exam Physical Exam: General: Well-appearing, NAD Cardiovascular: RRR, no M/R/G Pulmonary: CTAB, no W/R/R Abdomen: Soft, NT/ND, no guarding Extremities: Moving all extremities, no pedal edema Integumentary: No suspicious rash or lesion on exposed skin Neurologic: Alert and interactive Psychiatric: Appropriate mood/affect Results & Data Results & Data Vital Signs (Past 12 Hours) Vital Signs Temp Pulse Pulse Resp BP Pulse Ox O2 Del Method 02/15/23 15:01 36.3 C L 72 16 115/69 95 Room Air 02/15/23 07:41 36.2 C L 65 16 134/74 96 Room Air PG Care Time/CCT Total # of Minutes Spent Total Time Spent with Patient: Total time spent is greater than 50% in coordination of care (as documented) at patient's floor/unit and/or counseling patient: Coding Level of Care Code 35183 SUB INP/OBS CARE 06/11MIN Diagnoses Dementia F03.90 Syncope R55 Dementia with behavioral disturbance F03.918 Hypertension I10 Seizure disorder G40.909 Hypothyroidism E03.9 Patient incapable of making informed decisions Z78.9 History of colon cancer Z85.038 Vertebral artery stenosis I65.09
--- NOTE | 2023-02-16 17:24 | Hospitalist Progress Note ---
Date of Service February 16, 2023 Assessment & Plan (1) Dementia: Plan: Earlier in the stay had significant visual hallucinations and agitation in the setting of baseline dementia. Now on scheduled doses of Seroquel which seems to be helping considerably. Continue supportive care (2) Syncope: Plan: Occurred during bowel movement getting up quickly from bed and running to toilet with loose bowels on floor. Likely orthostatic hypotension as cause. Head CT and EKG unremarkable. No recurrence. (3) Dementia with behavioral disturbance: Plan: Improved with addition of Seroquel (4) Hypertension: Plan: Stable. Continue amlodipine and lisinopril (5) Seizure disorder: Plan: Stable. Continue keppra (6) Hypothyroidism: Plan: Stable. Continue Synthroid replacement therapy (7) Patient incapable of making informed decisions: Plan: Patient without capacity for decision-making (8) History of colon cancer: Plan: s/p resection in the past . Stable. No intervention necessary at this time (9) Vertebral artery stenosis: Plan: Stable. Continue aspirin and statin therapy Plan Hopeful discharge to [facility] when arrangements are finalized Admission and Anticipated Discharge Date Admission Date: January 23, 2023 Subjective Alert. Pleasant. [facility] placement pending. Blood pressure acceptable and fluctuating up and down. Amlodipine was uptitrated this admission. She is now on scheduled dosing of Seroquel which seems to be controlling her behavior Review of Systems Review of Systems: Constitutional-no fever or chills ENT-no blurred vision, no double vision, no epistaxis, no sore throat Respiratory-no cough, no wheezing, no shortness of breath Cardiac-no palpitations, no chest pain, no syncope GI-no nausea, vomiting, diarrhea, melena, hematochezia -no urinary retention, no urinary incontinence, no dysuria, no hematuria Musculoskeletal-no joint pain, no muscle tenderness Skin-no bruising, no rashes, no pruritus Neuro-no isolated weakness, no paresthesia, no weakness Psych-no depression, no anxiety Physical Exam Physical Exam: General-alert and oriented x3, no fevers, no chills HEENT-head atraumatic and normocephalic, pupils equal and reactive to light, extraocular muscles intact Neck-no lymphadenopathy or thyromegaly, trachea midline Chest-clear to auscultation percussion. No rales wheezing or rhonchi Cardiac-regular rate and rhythm, normal S1 and S2 Abdomen-normal bowel sounds, nontender, no hepatosplenomegaly Extremities-no cyanosis, clubbing, or edema Neuro-cranial nerves II through XII intact, motor and sensory function within normal limits, strength symmetrical, no focal deficits Psych-normal affect, normal mood Results & Data Results & Data Vital Signs (Past 12 Hours) Vital Signs Temp Pulse Resp BP BP Pulse Ox O2 Del Method 02/16/23 15:25 36.7 C 73 18 157/72 H 96 Room Air 02/16/23 07:51 36.4 C L 67 15 158/81 H 96 Room Air Laboratory Results 02/10/23 12:58 02/10/23 12:58 PG Care Time/CCT Total # of Minutes Spent Total Time Spent with Patient: Total time spent is greater than 50% in coordination of care (as documented) at patient's floor/unit and/or counseling patient: Coding Level of Care Code 54848 SUB INP/OBS CARE 3/50MIN Diagnoses Dementia F03.90 Syncope R55 Dementia with behavioral disturbance F03.918 Hypertension I10 Seizure disorder G40.909 Hypothyroidism E03.9 Patient incapable of making informed decisions Z78.9 History of colon cancer Z85.038 Vertebral artery stenosis I65.09
[2023-02-17 06:02] LABS: Basophils # (auto) 0.04 K/uL (0.00-0.20); Basophils % (auto) 0.5 %; Eosinophils # (auto) 0.21 K/uL (0.00-0.50); Eosinophils % (auto) 2.7 %; Hematocrit (blood only) 37.6 % (37.0-47.0); Immature Granulocytes # (auto) 0.02 K/uL (0.01-0.20); Immature Granulocytes % (auto) 0.3 %; Lymphocytes # (auto) 2.19 K/uL (1.20-3.40); Lymphocytes % (auto) 27.8 %; Mean Corpuscular Hemoglobin 33.2 pg (25.0-34.0); Mean Corpuscular Hgb Conc 34.6 g/dL (32.0-36.0); Mean Corpuscular Volume 96.2 fL (80.0-100.0); Mean Platelet Volume 9.5 fL (9.4-12.4); Monocytes # (auto) 0.73 K/uL (0.11-0.59); Monocytes % (auto) 9.3 %; Neutrophils % (auto) 59.4 %; Platelet Count 232 K/uL (130-400); RDW Coefficient of Variation 12.4 % (11.5-14.5); Red Blood Count 3.91 M/uL (4.20-5.40); White Blood Count 7.89 K/ul (4.8-10.8)
[2023-02-17 06:20] LABS: BUN Creatinine Ratio 13.5 (10-20); Calcium 8.6 mg/dl (8.6-10.3); Creatinine Clr Calc Pharmacy 51.8 ml/min; Est GFR (African American) 86.8 ml/min; Est GFR (Non-African American) 74.9 ml/min; Potassium 3.6 mmol/L (3.5-5.1)
[2023-02-17] MEDS: OLANZapine 10 MG/2.1 ML SDV IM PRN (13:37)
--- NOTE | 2023-02-17 14:58 | Hospitalist Progress Note ---
Date of Service February 17, 2023 Assessment & Plan (1) Dementia: Plan: With agitation. Continue Seroquel. She required additional intramuscular Zyprexa today, February 17. Continue supportive care (2) Syncope: Plan: Occurred during bowel movement getting up quickly from bed and running to toilet with loose bowels on floor. Likely orthostatic hypotension as cause. Head CT and EKG unremarkable. No recurrence. (3) Dementia with behavioral disturbance: Plan: Improved with addition of Seroquel . Zyprexa IM as needed (4) Hypertension: Plan: Stable. Continue amlodipine and lisinopril (5) Seizure disorder: Plan: Stable. Continue keppra (6) Hypothyroidism: Plan: Stable. Continue Synthroid replacement therapy (7) Patient incapable of making informed decisions: Plan: Patient without capacity for decision-making (8) History of colon cancer: Plan: s/p resection in the past . Stable. No intervention necessary at this time (9) Vertebral artery stenosis: Plan: Stable. Continue aspirin and statin therapy Plan Hopeful discharge to [facility] when arrangements are finalized Admission and Anticipated Discharge Date Admission Date: January 23, 2023 Subjective Alert. She is somewhat more agitated today and attempting to leave the room. She required a dose of Zyprexa. She remains on Seroquel. Case management seems to be having difficulty getting the necessary financial information from the son which is needed for eventual placement at [facility]. Mild hypokalemia has been corrected. Review of Systems Review of Systems: Constitutional-no fever or chills ENT-no blurred vision, no double vision, no epistaxis, no sore throat Respiratory-no cough, no wheezing, no shortness of breath Cardiac-no palpitations, no chest pain, no syncope GI-no nausea, vomiting, diarrhea, melena, hematochezia -no urinary retention, no urinary incontinence, no dysuria, no hematuria Musculoskeletal-no joint pain, no muscle tenderness Skin-no bruising, no rashes, no pruritus Neuro-no isolated weakness, no paresthesia, no weakness Psych-dementia with agitation Physical Exam Physical Exam: General-alert and oriented x3, no fevers, no chills HEENT-head atraumatic and normocephalic, pupils equal and reactive to light, extraocular muscles intact Neck-no lymphadenopathy or thyromegaly, trachea midline Chest-clear to auscultation percussion. No rales wheezing or rhonchi Cardiac-regular rate and rhythm, normal S1 and S2 Abdomen-normal bowel sounds, nontender, no hepatosplenomegaly Extremities-no cyanosis, clubbing, or edema Neuro-cranial nerves II through XII intact, motor and sensory function within normal limits, strength symmetrical, no focal deficits Psych-dementia with agitation Results & Data Results & Data Vital Signs (Past 12 Hours) Vital Signs Temp Pulse Resp BP Pulse Ox O2 Del Method 02/17/23 07:44 36.6 C 69 16 158/72 H 96 Room Air Laboratory Results 02/17/23 05:16 02/17/23 05:16 PG Care Time/CCT Total # of Minutes Spent Total Time Spent with Patient: Total time spent is greater than 50% in coordination of care (as documented) at patient's floor/unit and/or counseling patient: Coding Level of Care Code 45394 SUB INP/OBS CARE 2/35MIN Diagnoses Dementia F03.90 Syncope R55 Dementia with behavioral disturbance F03.918 Hypertension I10 Seizure disorder G40.909 Hypothyroidism E03.9 Patient incapable of making informed decisions Z78.9 History of colon cancer Z85.038 Vertebral artery stenosis I65.09
--- NOTE | 2023-02-18 16:55 | Hospitalist Progress Note ---
Date of Service February 18, 2023 Assessment & Plan (1) Dementia: Plan: With agitation. Seroquel dosage uptitrated today, February 19. She required additional intramuscular Zyprexa on February 17. Continue supportive care (2) Syncope: Plan: Occurred during bowel movement getting up quickly from bed and running to toilet with loose bowels on floor. Likely orthostatic hypotension as cause. Head CT and EKG unremarkable. No recurrence. (3) Dementia with behavioral disturbance: Plan: Improved with addition of Seroquel . Zyprexa IM as needed (4) Hypertension: Plan: Stable. Continue amlodipine and lisinopril (5) Seizure disorder: Plan: Stable. Continue keppra (6) Hypothyroidism: Plan: Stable. Continue Synthroid replacement therapy (7) Patient incapable of making informed decisions: Plan: Patient without capacity for decision-making (8) History of colon cancer: Plan: s/p resection in the past . Stable. No intervention necessary at this time (9) Vertebral artery stenosis: Plan: Stable. Continue aspirin and statin therapy Plan Hopeful discharge to [facility] when arrangements are finalized Admission and Anticipated Discharge Date Admission Date: January 23, 2023 Subjective Seroquel increased to 75 mg twice daily dosing to help with agitation. Awaiting eventual placement at the [facility] lockdown unit. Otherwise stable Review of Systems Review of Systems: Constitutional-no fever or chills ENT-no blurred vision, no double vision, no epistaxis, no sore throat Respiratory-no cough, no wheezing, no shortness of breath Cardiac-no palpitations, no chest pain, no syncope GI-no nausea, vomiting, diarrhea, melena, hematochezia -no urinary retention, no urinary incontinence, no dysuria, no hematuria Musculoskeletal-no joint pain, no muscle tenderness Skin-no bruising, no rashes, no pruritus Neuro-no isolated weakness, no paresthesia, no weakness Psych-dementia with agitation Physical Exam Physical Exam: General-alert and oriented x3, no fevers, no chills HEENT-head atraumatic and normocephalic, pupils equal and reactive to light, extraocular muscles intact Neck-no lymphadenopathy or thyromegaly, trachea midline Chest-clear to auscultation percussion. No rales wheezing or rhonchi Cardiac-regular rate and rhythm, normal S1 and S2 Abdomen-normal bowel sounds, nontender, no hepatosplenomegaly Extremities-no cyanosis, clubbing, or edema Neuro-cranial nerves II through XII intact, motor and sensory function within normal limits, strength symmetrical, no focal deficits Psych-dementia with agitation Results & Data Results & Data Vital Signs (Past 12 Hours) Vital Signs Temp Pulse Resp BP Pulse Ox O2 Del Method 02/18/23 06:55 36.4 C L 65 18 145/77 H 97 Room Air Laboratory Results 02/17/23 05:16 02/17/23 05:16 PG Care Time/CCT Total # of Minutes Spent Total Time Spent with Patient: Total time spent is greater than 50% in coordination of care (as documented) at patient's floor/unit and/or counseling patient: Coding Level of Care Code 90307 SUB INP/OBS CARE 3/50MIN Diagnoses Dementia F03.90 Syncope R55 Dementia with behavioral disturbance F03.918 Hypertension I10 Seizure disorder G40.909 Hypothyroidism E03.9 Patient incapable of making informed decisions Z78.9 History of colon cancer Z85.038 Vertebral artery stenosis I65.09
[2023-02-18] MEDS: QUEtiapine FUMARATE 25 MG TABLET PO SCH (20:27)
--- NOTE | 2023-02-19 16:19 | Hospitalist Progress Note ---
Date of Service February 19, 2023 Assessment & Plan (1) Dementia: Plan: With agitation. Seroquel dosage uptitrated on February 19. She has required additional intramuscular Zyprexa. Continue supportive care. Nursing states there have been no issues today however. (2) Syncope: Plan: Occurred during bowel movement getting up quickly from bed and running to toilet with loose bowels on floor. Likely orthostatic hypotension as cause. Head CT and EKG unremarkable. No recurrence. (3) Dementia with behavioral disturbance: Plan: Improved with addition of Seroquel . Zyprexa IM as needed (4) Hypertension: Plan: Lisinopril dosage uptitrated today, February 20. Continue amlodipine (5) Seizure disorder: Plan: Stable. Continue keppra (6) Hypothyroidism: Plan: Stable. Continue Synthroid replacement therapy (7) Patient incapable of making informed decisions: Plan: Patient without capacity for decision-making (8) History of colon cancer: Plan: s/p resection in the past . Stable. No intervention necessary at this time (9) Vertebral artery stenosis: Plan: Stable. Continue aspirin and statin therapy Plan Hopeful discharge to [facility] when arrangements are finalized Admission and Anticipated Discharge Date Admission Date: January 23, 2023 Subjective Awake. She is slightly lethargic from medication for her dementia with cait tation but otherwise stable. Lisinopril has been uptitrated for better blood pressure control. [facility] placement is pending. Review of Systems Review of Systems: Constitutional-no fever or chills ENT-no blurred vision, no double vision, no epistaxis, no sore throat Respiratory-no cough, no wheezing, no shortness of breath Cardiac-no palpitations, no chest pain, no syncope GI-no nausea, vomiting, diarrhea, melena, hematochezia -no urinary retention, no urinary incontinence, no dysuria, no hematuria Musculoskeletal-no joint pain, no muscle tenderness Skin-no bruising, no rashes, no pruritus Neuro-no isolated weakness, no paresthesia, no weakness Psych-dementia with agitation Physical Exam Physical Exam: General-alert and oriented x3, no fevers, no chills HEENT-head atraumatic and normocephalic, pupils equal and reactive to light, extraocular muscles intact Neck-no lymphadenopathy or thyromegaly, trachea midline Chest-clear to auscultation percussion. No rales wheezing or rhonchi Cardiac-regular rate and rhythm, normal S1 and S2 Abdomen-normal bowel sounds, nontender, no hepatosplenomegaly Extremities-no cyanosis, clubbing, or edema Neuro-cranial nerves II through XII intact, motor and sensory function within normal limits, strength symmetrical, no focal deficits Psych-dementia with agitation Results & Data Results & Data Vital Signs (Past 12 Hours) Vital Signs Temp Pulse Resp BP BP Pulse Ox O2 Del Method 02/19/23 15:43 36.3 C L 73 18 138/62 97 Room Air 02/19/23 07:13 36.4 C L 68 18 168/78 H 97 Room Air Laboratory Results 02/17/23 05:16 02/17/23 05:16 PG Care Time/CCT Total # of Minutes Spent Total Time Spent with Patient: Total time spent is greater than 50% in coordination of care (as documented) at patient's floor/unit and/or counseling patient: Coding Level of Care Code 10830 SUB INP/OBS CARE 3/50MIN Diagnoses Dementia F03.90 Syncope R55 Dementia with behavioral disturbance F03.918 Hypertension I10 Seizure disorder G40.909 Hypothyroidism E03.9 Patient incapable of making informed decisions Z78.9 History of colon cancer Z85.038 Vertebral artery stenosis I65.09
[2023-02-20] MEDS: lisinopril 20 MG TAB PO SCH (09:46)
--- NOTE | 2023-02-20 15:55 | Hospitalist Progress Note ---
Date of Service February 20, 2023 Assessment & Plan (1) Dementia: Plan: With agitation. Seroquel dosage uptitrated on February 19. She has required additional intramuscular Zyprexa. Continue supportive care. (2) Syncope: Plan: Occurred during bowel movement getting up quickly from bed and running to toilet with loose bowels on floor. Likely orthostatic hypotension as cause. Head CT and EKG unremarkable. No recurrence. (3) Dementia with behavioral disturbance: Plan: Improved with addition of Seroquel . Zyprexa IM as needed (4) Hypertension: Plan: Lisinopril dosage uptitrated on February 20. Continue amlodipine . Blood pressure is acceptable (5) Seizure disorder: Plan: Stable. Continue keppra (6) Hypothyroidism: Plan: Stable. Continue Synthroid replacement therapy (7) Patient incapable of making informed decisions: Plan: Patient without capacity for decision making (8) History of colon cancer: Plan: s/p resection in the past . Stable. No intervention necessary at this time (9) Vertebral artery stenosis: Plan: Stable. Continue aspirin and statin therapy Plan Hopeful discharge to [facility] when arrangements are finalized Admission and Anticipated Discharge Date Admission Date: January 23, 2023 Subjective Stable overall. Awaiting final arrangements for eventual placement at [facility] dementia unit Review of Systems Review of Systems: Constitutional-no fever or chills ENT-no blurred vision, no double vision, no epistaxis, no sore throat Respiratory-no cough, no wheezing, no shortness of breath Cardiac-no palpitations, no chest pain, no syncope GI-no nausea, vomiting, diarrhea, melena, hematochezia -no urinary retention, no urinary incontinence, no dysuria, no hematuria Musculoskeletal-no joint pain, no muscle tenderness Skin-no bruising, no rashes, no pruritus Neuro-no isolated weakness, no paresthesia, no weakness Psych-dementia with agitation Physical Exam Physical Exam: General-alert and oriented x3, no fevers, no chills HEENT-head atraumatic and normocephalic, pupils equal and reactive to light, ex traocular muscles intact Neck-no lymphadenopathy or thyromegaly, trachea midline Chest-clear to auscultation percussion. No rales wheezing or rhonchi Cardiac-regular rate and rhythm, normal S1 and S2 Abdomen-normal bowel sounds, nontender, no hepatosplenomegaly Extremities-no cyanosis, clubbing, or edema Neuro-cranial nerves II through XII intact, motor and sensory function within normal limits, strength symmetrical, no focal deficits Psych-dementia with agitation Results & Data Results & Data Vital Signs (Past 12 Hours) Vital Signs Temp Pulse Resp BP Pulse Ox O2 Del Method 02/20/23 07:15 36.5 C 70 16 162/83 H 98 Room Air Laboratory Results 02/17/23 05:16 02/17/23 05:16 PG Care Time/CCT Total # of Minutes Spent Total Time Spent with Patient: Total time spent is greater than 50% in coordination of care (as documented) at patient's floor/unit and/or counseling patient: Coding Level of Care Code 42597 SUB INP/OBS CARE 2/35MIN Diagnoses Dementia F03.90 Syncope R55 Dementia with behavioral disturbance F03.918 Hypertension I10 Seizure disorder G40.909 Hypothyroidism E03.9 Patient incapable of making informed decisions Z78.9 History of colon cancer Z85.038 Vertebral artery stenosis I65.09
--- NOTE | 2023-02-21 14:39 | Hospitalist Progress Note ---
Date of Service February 21, 2023 Assessment & Plan (1) Dementia: Plan: With agitation. Seroquel dosage uptitrated on February 19 and doing very well. She has not required additional intramuscular Zyprexa since 02/17. Continue supportive care. (2) Syncope: Plan: Occurred during bowel movement getting up quickly from bed and running to toilet with loose bowels on floor. Likely orthostatic hypotension as cause. Head CT and EKG unremarkable. No recurrence. (3) Hypertension: Plan: Lisinopril dosage uptitrated on February 20. BPs remain slightly elevated but asymptomatic Continue amlodipine Follow renal function with labs in 1 week around 02/27 (4) Seizure disorder: Plan: Stable. Continue keppra (5) Hypothyroidism: Plan: Stable. Continue Synthroid replacement therapy (6) Patient incapable of making informed decisions: Plan: Patient without capacity for decision making (7) History of colon cancer: Plan: s/p resection in the past . Stable. No intervention necessary at this time (8) Vertebral artery stenosis: Plan: Stable. Continue aspirin and statin therapy Plan Hopeful discharge to [facility] when arrangements are finalized Admission and Anticipated Discharge Date Admission Date: January 23, 2023 Subjective Pt sleeping and RN asked that I not wake her up because she had just laid down for a nap after being quite physically active all morning. No concerns as per nursing, taking pills, eating, no acut eissues. Physical Exam Constitutional: WD/WN, vitals as above no acute distress Respiratory: normal respiratory effort Results & Data Results & Data Vital Signs (Past 12 Hours) Vital Signs Temp Pulse Resp BP BP Pulse Ox O2 Del Method 02/21/23 07:44 36.6 C 69 16 178/79 H 176/80 H 97 Room Air PG Care Time/CCT Total # of Minutes Spent Total Time Spent with Patient: Total time spent is greater than 50% in coordination of care (as documented) at patient's floor/unit and/or counseling patient: Coding Level of Care Code 63829 SUB INP/OBS CARE 1/25MIN Diagnoses Dementia F03.90 Syncope R55 Hypertension I10 Seizure disorder G40.909 Hypothyroidism E03.9 Patient incapable of making informed decisions Z78.9 History of colon cancer Z85.038 Vertebral artery stenosis I65.09
--- NOTE | 2023-02-22 17:33 | Hospitalist Progress Note ---
Date of Service February 22, 2023 Assessment & Plan (1) Dementia: Plan: With agitation. Seroquel dosage uptitrated on February 19 and doing very well. She has not required additional intramuscular Zyprexa since 02/17. Continue supportive care. (2) Syncope: Plan: Occurred during bowel movement getting up quickly from bed and running to toilet with loose bowels on floor. Likely orthostatic hypotension as cause. Head CT and EKG unremarkable. No recurrence. (3) Hypertension: Plan: Lisinopril dosage uptitrated on February 20. BPs remain slightly elevated but asymptomatic Continue amlodipine Follow renal function with labs in 1 week around 02/27 (4) Seizure disorder: Plan: Stable. Continue keppra (5) Hypothyroidism: Plan: Stable. Continue Synthroid replacement therapy (6) Patient incapable of making informed decisions: Plan: Patient without capacity for decision making (7) History of colon cancer: Plan: s/p resection in the past . Stable. No intervention necessary at this time (8) Vertebral artery stenosis: Plan: Stable. Continue aspirin and statin therapy Plan Hopeful discharge to [facility] when arrangements are finalized Admission and Anticipated Discharge Date Admission Date: January 23, 2023 Subjective Pt doing well today, RN reports she has not been agitated at all and has actually been ringing the [facility] for assistance when needed. Pt denies problems. Had a large BM today Physical Exam Constitutional: WD/WN, vitals as above well developed; no acute distress Respiratory: normal respiratory effort, lungs clear to auscultation Cardiovascular: RRR, no murmur, no edema Gastrointestinal (Abdomen): normal bowel sounds, soft, nontender, no hepatosplenomegaly Neurologic: moves all extremities; no focal motor deficits Psychiatric: Orientation: alert and oriented to person Results & Data Results & Data Vital Signs (Past 12 Hours) Vital Signs Temp Pulse Resp BP Pulse Ox O2 Del Method 02/22/23 15:01 36.3 C L 75 16 116/67 94 Room Air 02/22/23 08:04 36.7 C 69 15 150/82 H 96 Room Air PG Care Time/CCT Total # of Minutes Spent Total Time Spent with Patient: Total time spent is greater than 50% in coordination of care (as documented) at patient's floor/unit and/or counseling patient: Coding Level of Care Code 07924 SUB INP/OBS CARE 1/25MIN Diagnoses Dementia F03.90 Syncope R55 Hypertension I10 Seizure disorder G40.909 Hypothyroidism E03.9 Patient incapable of making informed decisions Z78.9 History of colon cancer Z85.038 Vertebral artery stenosis I65.09
--- NOTE | 2023-02-23 17:00 | Hospitalist Progress Note ---
Date of Service February 23, 2023 Assessment & Plan (1) Dementia: Plan: With agitation. Seroquel dosage uptitrated on February 19 and doing very well. She has not required additional intramuscular Zyprexa since 02/17. Continue supportive care. (2) Syncope: Plan: Occurred during bowel movement getting up quickly from bed and running to toilet with loose bowels on floor. Likely orthostatic hypotension as cause. Head CT and EKG unremarkable. No recurrence. (3) Hypertension: Plan: Lisinopril dosage uptitrated on February 20. BPs remain slightly elevated but asymptomatic Continue amlodipine Follow renal function with labs in 1 week around 02/27 (4) Seizure disorder: Plan: Stable. Continue keppra (5) Hypothyroidism: Plan: Stable. Continue Synthroid replacement therapy (6) Patient incapable of making informed decisions: Plan: Patient without capacity for decision making (7) History of colon cancer: Plan: s/p resection in the past . Stable. No intervention necessary at this time (8) Vertebral artery stenosis: Plan: Stable. Continue aspirin and statin therapy Plan Hopeful discharge to [facility] when arrangements are finalized Admission and Anticipated Discharge Date Admission Date: January 23, 2023 Subjective no acute issues Physical Exam Constitutional: WD/WN, vitals as above well developed; no acute distress Respiratory: normal respiratory effort Neurologic: moves all extremities; no focal motor deficits Psychiatric: Orientation: alert and oriented to person Results & Data Results & Data Vital Signs (Past 12 Hours) Vital Signs Temp Pulse Resp BP BP Pulse Ox O2 Del Method 02/23/23 15:30 36.8 C 71 16 104/63 97 Room Air 02/23/23 07:31 36.6 C 68 16 148/80 H 96 Room Air PG Care Time/CCT Total # of Minutes Spent Total Time Spent with Patient: Total time spent is greater than 50% in coordination of care (as documented) at patient's floor/unit and/or counseling patient: Coding Level of Care Code 39300 SUB INP/OBS CARE 25MIN Diagnoses Dementia F03.90 Syncope R55 Hypertension I10 Seizure disorder G40.909 Hypothyroidism E03.9 Patient incapable of making informed decisions Z78.9 History of colon cancer Z85.038 Vertebral artery stenosis I65.09
--- NOTE | 2023-02-24 19:23 | Hospitalist Progress Note ---
Date of Service February 24, 2023 Assessment & Plan (1) Dementia: Plan: With agitation. Seroquel dosage uptitrated on February 19 and doing very well. She has not required additional intramuscular Zyprexa since 02/17. Continue supportive care. (2) Syncope: Plan: Occurred during bowel movement getting up quickly from bed and running to toilet with loose bowels on floor. Likely orthostatic hypotension as cause. Head CT and EKG unremarkable. No recurrence. (3) Hypertension: Plan: Lisinopril dosage uptitrated on February 20. BPs remain slightly elevated but asymptomatic Continue amlodipine Follow renal function with labs in 1 week around 02/27 (4) Seizure disorder: Plan: Stable. Continue keppra (5) Hypothyroidism: Plan: Stable. Continue Synthroid replacement therapy (6) Patient incapable of making informed decisions: Plan: Patient without capacity for decision making (7) History of colon cancer: Plan: s/p resection in the past . Stable. No intervention necessary at this time (8) Vertebral artery stenosis: Plan: Stable. Continue aspirin and statin therapy Plan Hopeful discharge to [facility] when arrangements are finalized Admission and Anticipated Discharge Date Admission Date: January 23, 2023 Subjective no acute issues Physical Exam Physical Exam: Pt would not let me touch her for physical exam-states "I don't see why it's any of your business what my heart sounds like." Constitutional: WD/WN, vitals as above well developed; no acute distress Respiratory: normal respiratory effort, lungs clear to auscultation normal respiratory effort Cardiovascular: RRR, no murmur, no edema Neurologic: moves all extremities; no focal motor deficits Psychiatric: Orientation: alert and oriented to person Results & Data Results & Data Vital Signs (Past 12 Hours) Vital Signs Temp Pulse Resp BP Pulse Ox O2 Del Method 02/24/23 19:20 36.5 C 72 14 119/72 95 Room Air 02/24/23 16:11 147/81 H 02/24/23 15:17 36.3 C L 74 16 100 Room Air 02/24/23 07:47 36.8 C 67 16 124/82 95 Room Air PG Care Time/CCT Total # of Minutes Spent Total Time Spent with Patient: Total time spent is greater than 50% in coordination of care (as documented) at patient's floor/unit and/or counseling patient: Coding Level of Care Code 14868 SUB INP/OBS CARE 06/11MIN Diagnoses Dementia F03.90 Syncope R55 Hypertension I10 Seizure disorder G40.909 Hypothyroidism E03.9 Patient incapable of making informed decisions Z78.9 History of colon cancer Z85.038 Vertebral artery stenosis I65.09
--- NOTE | 2023-02-25 14:41 | Hospitalist Progress Note ---
Date of Service February 25, 2023 Assessment & Plan (1) Dementia: Plan: With agitation. Seroquel dosage uptitrated on February 19 and doing very well. She has not required additional intramuscular Zyprexa since 02/17. Continue supportive care. (2) Syncope: Plan: Occurred during bowel movement getting up quickly from bed and running to toilet with loose bowels on floor. Likely orthostatic hypotension as cause. Head CT and EKG unremarkable. No recurrence. (3) Hypertension: Plan: Lisinopril dosage uptitrated on February 20. BPs remain slightly elevated but asymptomatic Continue amlodipine Follow renal function with labs in 1 week around 02/27 (4) Seizure disorder: Plan: Stable. Continue keppra (5) Hypothyroidism: Plan: Stable. Continue Synthroid replacement therapy (6) Patient incapable of making informed decisions: Plan: Patient without capacity for decision making (7) History of colon cancer: Plan: s/p resection in the past . Stable. No intervention necessary at this time (8) Vertebral artery stenosis: Plan: Stable. Continue aspirin and statin therapy Plan Hopeful discharge to [facility] when arrangements are finalized Admission and Anticipated Discharge Date Admission Date: January 23, 2023 Subjective no acute issues, sleeping and I did not wake her Physical Exam Constitutional: WD/WN, vitals as above well developed; no acute distress Respiratory: normal respiratory effort Results & Data Results & Data Vital Signs (Past 12 Hours) Vital Signs Temp Pulse Resp BP Pulse Ox O2 Del Method 02/25/23 07:17 36.5 C 71 16 138/78 95 Room Air PG Care Time/CCT Total # of Minutes Spent Total Time Spent with Patient: Total time spent is greater than 50% in coordination of care (as documented) at patient's floor/unit and/or counseling patient: Coding Level of Care Code 68033 SUB INP/OBS CARE 1/25MIN Diagnoses Dementia F03.90 Syncope R55 Hypertension I10 Seizure disorder G40.909 Hypothyroidism E03.9 Patient incapable of making informed decisions Z78.9 History of colon cancer Z85.038 Vertebral artery stenosis I65.09
--- NOTE | 2023-02-26 12:31 | Hospitalist Progress Note ---
Date of Service February 26, 2023 Assessment & Plan (1) Dementia: Plan: With agitation. Seroquel dosage uptitrated on February 19 and doing very well. She has not required additional intramuscular Zyprexa since 02/17. Continue supportive care. (2) Syncope: Plan: Occurred during bowel movement getting up quickly from bed and running to toilet with loose bowels on floor. Likely orthostatic hypotension as cause. Head CT and EKG unremarkable. No recurrence. With mild left sided rib pain not concerning-ordered tylenol (3) Hypertension: Plan: Lisinopril dosage uptitrated on February 20. BPs remain slightly elevated but asymptomatic Continue amlodipine Follow renal function with labs occasionally-will check around 02/27 (4) Seizure disorder: Plan: Stable. Continue keppra (5) Hypothyroidism: Plan: Stable. Continue Synthroid replacement therapy (6) Patient incapable of making informed decisions: Plan: Patient without capacity for decision making (7) History of colon cancer: Plan: s/p resection in the past . Stable. No intervention necessary at this time (8) Vertebral artery stenosis: Plan: Stable. Continue aspirin and statin therapy Plan Hopeful discharge to [facility] when arrangements are finalized Admission and Anticipated Discharge Date Admission Date: January 23, 2023 Subjective Has some mild pain in left side of lower ribs since this AM. Moving bowels, eating, no complaints otherwise Physical Exam Constitutional: WD/WN, vitals as above well developed; no acute distress Respiratory: normal respiratory effort, lungs clear to auscultation Cardiovascular: RRR, no murmur, no edema Chest (Breasts): Additional Comments: no TTP over left ribs, no masses or ecchymosis Gastrointestinal (Abdomen): normal bowel sounds, soft, nontender, no hepatosplenomegaly Neurologic: moves all extremities; no focal motor deficits Psychiatric: Orientation: alert and oriented to person Results & Data Results & Data Vital Signs (Past 12 Hours) Vital Signs Temp Pulse Resp BP Pulse Ox O2 Del Method 02/26/23 09:46 37.0 C 78 16 155/73 H 97 Room Air PG Care Time/CCT Total # of Minutes Spent Total Time Spent with Patient: Total time spent is greater than 50% in coordination of care (as documented) at patient's floor/unit and/or counseling patient: Coding Level of Care Code 29989 SUB INP/OBS CARE 06/11MIN Diagnoses Dementia F03.90 Syncope R55 Hypertension I10 Seizure disorder G40.909 Hypothyroidism E03.9 Patient incapable of making informed decisions Z78.9 History of colon cancer Z85.038 Vertebral artery stenosis I65.09
[2023-02-27 09:07] LABS: Basophils # (auto) 0.06 K/uL (0.00-0.20); Basophils % (auto) 0.9 %; Eosinophils % (auto) 2.9 %; Hematocrit (blood only) 36.7 % (37.0-47.0); Hemoglobin 12.9 g/dl (12.0-16.0); Immature Granulocytes # (auto) 0.03 K/uL (0.01-0.20); Immature Granulocytes % (auto) 0.4 %; Lymphocytes # (auto) 2.23 K/uL (1.20-3.40); Mean Corpuscular Hemoglobin 33.6 pg (25.0-34.0); Mean Corpuscular Hgb Conc 35.1 g/dL (32.0-36.0); Mean Corpuscular Volume 95.6 fL (80.0-100.0); Mean Platelet Volume 9.7 fL (9.4-12.4); Monocytes # (auto) 0.69 K/uL (0.11-0.59); Monocytes % (auto) 9.9 %; Neutrophils # (auto) 3.75 K/uL (1.40-6.50); Neutrophils % (auto) 53.9 %; Platelet Count 215 K/uL (130-400); RDW Coefficient of Variation 12.4 % (11.5-14.5); RDW Standard Deviation 43.5 fL (36.4-46.3); Red Blood Count 3.84 M/uL (4.20-5.40); White Blood Count 6.96 K/ul (4.8-10.8)
[2023-02-27 09:46] LABS: BUN Creatinine Ratio 16.3 (10-20); Calcium 8.8 mg/dl (8.6-10.3); Creatinine Clr Calc Pharmacy 44.6 ml/min; Est GFR (African American) 72.4 ml/min; Est GFR (Non-African American) 62.5 ml/min
--- NOTE | 2023-02-27 16:33 | Hospitalist Progress Note ---
Date of Service February 27, 2023 Assessment & Plan (1) Dementia: Plan: With agitation. Seroquel dosage uptitrated on February 19 and doing very well. She has not required additional intramuscular Zyprexa recently. Continue supportive care. (2) Syncope: Plan: Occurred during bowel movement getting up quickly from bed and running to toilet with loose bowels on floor. Likely orthostatic hypotension as cause. Head CT and EKG unremarkable. No recurrence. (3) Hypertension: Plan: Lisinopril dosage uptitrated on February 20. BP and heart rate are acceptable. Continue amlodipine . (4) Seizure disorder: Plan: Stable. Continue keppra (5) Hypothyroidism: Plan: Stable. Continue Synthroid replacement therapy (6) Patient incapable of making informed decisions: Plan: Patient without capacity for decision making (7) History of colon cancer: Plan: s/p resection in the past . Stable. No intervention necessary at this time (8) Vertebral artery stenosis: Plan: Stable. Continue aspirin and statin therapy Plan Hopeful discharge to [facility] when arrangements are finalized Admission and Anticipated Discharge Date Admission Date: January 23, 2023 Subjective Alert. Ambulating in the hallway. No new problems. Awaiting placement. Blood pressure and heart rate are acceptable. Seroquel appears to be working nicely to control her agitation. Review of Systems Review of Systems: Constitutional-no fever or chills ENT-no blurred vision, no double vision, no epistaxis, no sore throat Respiratory-no cough, no wheezing, no shortness of breath Cardiac-no palpitations, no chest pain, no syncope GI-no nausea, vomiting, diarrhea, melena, hematochezia -no urinary retention, no urinary incontinence, no dysuria, no hematuria Musculoskeletal-no joint pain, no muscle tenderness Skin-no bruising, no rashes, no pruritus Neuro-no isolated weakness, no paresthesia, no weakness Psych-dementia with agitation Physical Exam Physical Exam: General-alert and oriented x3, no fevers, no chills HEENT-head atraumatic and normocephalic, pupils equal and reactive to light, extraocular muscles intact Neck-no lymphadenopathy or thyromegaly, trachea midline Chest-clear to auscultation percussion. No rales wheezing or rhonchi Cardiac-regular rate and rhythm, normal S1 and S2 Abdomen-normal bowel sounds, nontender, no hepatosplenomegaly Extremities-no cyanosis, clubbing, or edema Neuro-cranial nerves II through XII intact, motor and sensory function within normal limits, strength symmetrical, no focal deficits Psych-dementia with agitation Results & Data Results & Data Vital Signs (Past 12 Hours) Vital Signs Temp Pulse Resp BP Pulse Ox O2 Del Method 02/27/23 15:27 36.3 C L 77 18 96/51 L 94 Room Air 02/27/23 07:53 36.6 C 67 18 112/66 95 Room Air Laboratory Results 02/27/23 07:39 02/27/23 07:39 PG Care Time/CCT Total # of Minutes Spent Total Time Spent with Patient: Total time spent is greater than 50% in coordination of care (as documented) at patient's floor/unit and/or counseling patient: Coding Level of Care Code 93161 SUB INP/OBS CARE 2/35MIN Diagnoses Dementia F03.90 Syncope R55 Hypertension I10 Seizure disorder G40.909 Hypothyroidism E03.9 Patient incapable of making informed decisions Z78.9 History of colon cancer Z85.038 Vertebral artery stenosis I65.09
--- NOTE | 2023-02-28 14:03 | Hospitalist Progress Note ---
Date of Service February 28, 2023 Assessment & Plan (1) Dementia: Plan: With agitation. Seroquel dosage uptitrated on February 19 and doing very well. She has not required additional intramuscular Zyprexa recently. Continue supportive care. (2) Syncope: Plan: Occurred during bowel movement getting up quickly from bed and running to toilet with loose bowels on floor. Likely orthostatic hypotension as cause. Head CT and EKG unremarkable. No recurrence. (3) Hypertension: Plan: Lisinopril dosage uptitrated on February 20. BP and heart rate are acceptable. Continue amlodipine . (4) Seizure disorder: Plan: Stable. Continue keppra (5) Hypothyroidism: Plan: Stable. Continue Synthroid replacement therapy (6) Patient incapable of making informed decisions: Plan: Patient without capacity for decision making (7) History of colon cancer: Plan: s/p resection in the past . Stable. No intervention necessary at this time (8) Vertebral artery stenosis: Plan: Stable. Continue aspirin and statin therapy Plan Will discharge to [facility] dementia lockdown unit when arrangements are finalized. Apparently [facility] is no longer an option. Admission and Anticipated Discharge Date Admission Date: January 23, 2023 Subjective Alert. She refused her medications this morning but took them this afternoon when I presented them to her. She believes her mother is hospitalized in her room down the hallway. Review of Systems Review of Systems: Constitutional-no fever or chills ENT-no blurred vision, no double vision, no epistaxis, no sore throat Respiratory-no cough, no wheezing, no shortness of breath Cardiac-no palpitations, no chest pain, no syncope GI-no nausea, vomiting, diarrhea, melena, hematochezia -no urinary retention, no urinary incontinence, no dysuria, no hematuria Musculoskeletal-no joint pain, no muscle tenderness Skin-no bruising, no rashes, no pruritus Neuro-no isolated weakness, no paresthesia, no weakness Psych-dementia with agitation Physical Exam Physical Exam: General-alert and oriented x3, no fevers, no chills HEENT-head atraumatic and normocephalic, pupils equal and reactive to light, extraocular muscles intact Neck-no lymphadenopathy or thyromegaly, trachea midline Chest-clear to auscultation percussion. No rales wheezing or rhonchi Cardiac-regular rate and rhythm, normal S1 and S2 Abdomen-normal bowel sounds, nontender, no hepatosplenomegaly Extremities-no cyanosis, clubbing, or edema Neuro-cranial nerves II through XII intact, motor and sensory function within normal limits, strength symmetrical, no focal deficits Psych-dementia with agitation Results & Data Results & Data Vital Signs (Past 12 Hours) Vital Signs Temp Pulse Resp BP Pulse Ox O2 Del Method 02/28/23 08:07 37 C 69 16 123/76 97 Room Air Laboratory Results 02/27/23 07:39 02/27/23 07:39 PG Care Time/CCT Total # of Minutes Spent Total Time Spent with Patient: Total time spent is greater than 50% in coordination of care (as documented) at patient's floor/unit and/or counseling patient: Coding Level of Care Code 05229 SUB INP/OBS CARE 2/35MIN Diagnoses Dementia F03.90 Syncope R55 Hypertension I10 Seizure disorder G40.909 Hypothyroidism E03.9 Patient incapable of making informed decisions Z78.9 History of colon cancer Z85.038 Vertebral artery stenosis I65.09
--- NOTE | 2023-03-01 14:19 | Hospitalist Progress Note ---
Date of Service March 01, 2023 Assessment & Plan (1) Dementia: Plan: With agitation. Seroquel dosage uptitrated on February 19 and doing very well. She has not required additional intramuscular Zyprexa recently. Continue supportive care. (2) Syncope: Plan: Occurred during bowel movement getting up quickly from bed and running to toilet with loose bowels on floor. Likely orthostatic hypotension as cause. Head CT and EKG unremarkable. No recurrence. (3) Hypertension: Plan: Lisinopril dosage uptitrated on February 20. BP and heart rate are now acceptable. Continue amlodipine . (4) Seizure disorder: Plan: Stable. Continue keppra (5) Hypothyroidism: Plan: Stable. Continue Synthroid replacement therapy (6) Patient incapable of making informed decisions: Plan: Patient without capacity for decision making (7) History of colon cancer: Plan: s/p resection in the past . Stable. No intervention necessary at this time (8) Vertebral artery stenosis: Plan: Stable. Continue aspirin and statin therapy Plan Will discharge to [facility] dementia lockdown unit when arrangements are finalized. Apparently [facility] is no longer an option. Admission and Anticipated Discharge Date Admission Date: January 23, 2023 Subjective Stable overall. No new problems. It appears she will only take her morning medications if I am in the room. Review of Systems Review of Systems: Constitutional-no fever or chills ENT-no blurred vision, no double vision, no epistaxis, no sore throat Respiratory-no cough, no wheezing, no shortness of breath Cardiac-no palpitations, no chest pain, no syncope GI-no nausea, vomiting, diarrhea, melena, hematochezia -no urinary retention, no urinary incontinence, no dysuria, no hematuria Musculoskeletal-no joint pain, no muscle tenderness Skin-no bruising, no rashes, no pruritus Neuro-no isolated weakness, no paresthesia, no weakness Psych-oriented to name only Physical Exam Physical Exam: General-alert and oriented x3, no fevers, no chills HEENT-head atraumatic and normocephalic, pupils equal and reactive to light, extraocular muscles intact Neck-no lymphadenopathy or thyromegaly, trachea midline Chest-clear to auscultation percussion. No rales wheezing or rhonchi Cardiac-regular rate and rhythm, normal S1 and S2 Abdomen-normal bowel sounds, nontender, no hepatosplenomegaly Extremities-no cyanosis, clubbing, or edema Neuro-cranial nerves II through XII intact, motor and sensory function within normal limits, strength symmetrical, no focal deficits Psych-oriented to name only Results & Data Results & Data Vital Signs (Past 12 Hours) Vital Signs Temp Pulse Pulse Resp BP BP Pulse Ox 03/01/23 14:10 36.4 C L 77 16 148/75 H 98 03/01/23 05:59 36.4 C L 64 16 125/70 93 O2 Del Method 03/01/23 14:10 Room Air 03/01/23 05:59 Room Air Laboratory Results 02/27/23 07:39 02/27/23 07:39 PG Care Time/CCT Total # of Minutes Spent Total Time Spent with Patient: Total time spent is greater than 50% in coordination of care (as documented) at patient's floor/unit and/or counseling patient: Coding Level of Care Code 84076 SUB INP/OBS CARE 2/35MIN Diagnoses Dementia F03.90 Syncope R55 Hypertension I10 Seizure disorder G40.909 Hypothyroidism E03.9 Patient incapable of making informed decisions Z78.9 History of colon cancer Z85.038 Vertebral artery stenosis I65.09
--- NOTE | 2023-03-02 14:49 | Hospitalist Progress Note ---
Date of Service March 02, 2023 Assessment & Plan (1) Dementia: Plan: With agitation. Seroquel dosage uptitrated on February 19 and doing very well. She has not required additional intramuscular Zyprexa recently. Continue supportive care. (2) Syncope: Plan: Occurred during bowel movement getting up quickly from bed and running to toilet with loose bowels on floor. Likely orthostatic hypotension as cause. Head CT and EKG unremarkable. No recurrence. (3) Hypertension: Plan: Lisinopril dosage uptitrated on February 20. BP and heart rate are now acceptable. Continue amlodipine . (4) Seizure disorder: Plan: Stable. Continue keppra (5) Hypothyroidism: Plan: Stable. Continue Synthroid replacement therapy (6) Patient incapable of making informed decisions: Plan: Patient without capacity for decision making (7) History of colon cancer: Plan: s/p resection in the past . Stable. No intervention necessary at this time (8) Vertebral artery stenosis: Plan: Stable. Continue aspirin and statin therapy Plan Will discharge to [facility] dementia lockdown unit when arrangements are finalized. Apparently [facility] is no longer an option. Admission and Anticipated Discharge Date Admission Date: January 23, 2023 Subjective Alert. Pleasantly confused. She took her oral medications without me being present today. Review of Systems Review of Systems: Constitutional-no fever or chills ENT-no blurred vision, no double vision, no epistaxis, no sore throat Respiratory-no cough, no wheezing, no shortness of breath Cardiac-no palpitations, no chest pain, no syncope GI-no nausea, vomiting, diarrhea, melena, hematochezia -no urinary retention, no urinary incontinence, no dysuria, no hematuria Musculoskeletal-no joint pain, no muscle tenderness Skin-no bruising, no rashes, no pruritus Neuro-no isolated weakness, no paresthesia, no weakness Psych-oriented to name only Physical Exam Physical Exam: General-alert and oriented x3, no fevers, no chills HEENT-head atraumatic and normocephalic, pupils equal and reactive to light, extraocular muscles intact Neck-no lymphadenopathy or thyromegaly, trachea midline Chest-clear to auscultation percussion. No rales wheezing or rhonchi Cardiac-regular rate and rhythm, normal S1 and S2 Abdomen-normal bowel sounds, nontender, no hepatosplenomegaly Extremities-no cyanosis, clubbing, or edema Neuro-cranial nerves II through XII intact, motor and sensory function within normal limits, strength symmetrical, no focal deficits Psych-oriented to name only Results & Data Results & Data Vital Signs (Past 12 Hours) Vital Signs Temp Pulse Resp BP Pulse Ox O2 Del Method 03/02/23 14:07 36.4 C L 69 16 110/57 L 96 Room Air 03/02/23 07:18 36.4 C L 70 18 131/72 96 Room Air Laboratory Results 02/27/23 07:39 02/27/23 07:39 PG Care Time/CCT Total # of Minutes Spent Total Time Spent with Patient: Total time spent is greater than 50% in coordination of care (as documented) at patient's floor/unit and/or counseling patient: Coding Level of Care Code 94069 SUB INP/OBS CARE 2/35MIN Diagnoses Dementia F03.90 Syncope R55 Hypertension I10 Seizure disorder G40.909 Hypothyroidism E03.9 Patient incapable of making informed decisions Z78.9 History of colon cancer Z85.038 Vertebral artery stenosis I65.09
--- NOTE | 2023-03-03 15:54 | Hospitalist Progress Note ---
Date of Service March 03, 2023 Assessment & Plan (1) Dementia: Plan: With agitation. Seroquel dosage uptitrated on February 19. She requires IM Zyprexa once in a while. Continue supportive care. (2) Syncope: Plan: Occurred during bowel movement getting up quickly from bed and running to toilet with loose bowels on floor. Likely orthostatic hypotension as cause. Head CT and EKG unremarkable. No recurrence. (3) Hypertension: Plan: Lisinopril dosage uptitrated on February 20. BP and heart rate are now acceptable. Continue amlodipine. (4) Seizure disorder: Plan: Stable. Continue keppra (5) Hypothyroidism: Plan: Stable. Continue Synthroid replacement therapy (6) Patient incapable of making informed decisions: Plan: Patient without capacity for decision making (7) History of colon cancer: Plan: s/p resection in the past . Stable. No intervention necessary at this time (8) Vertebral artery stenosis: Plan: Stable. Continue aspirin and statin therapy Plan Will discharge to [facility] dementia lockdown unit when arrangements are finalized. Apparently [facility] is no longer an option. Admission and Anticipated Discharge Date Admission Date: January 23, 2023 Subjective Alert. Occasional uncooperative episodes. Overall she is stable Review of Systems Review of Systems: Constitutional-no fever or chills ENT-no blurred vision, no double vision, no epistaxis, no sore throat Respiratory-no cough, no wheezing, no shortness of breath Cardiac-no palpitations, no chest pain, no syncope GI-no nausea, vomiting, diarrhea, melena, hematochezia -no urinary retention, no urinary incontinence, no dysuria, no hematuria Musculoskeletal-no joint pain, no muscle tenderness Skin-no bruising, no rashes, no pruritus Neuro-no isolated weakness, no paresthesia, no weakness Psych-oriented to name only Physical Exam Physical Exam: General-alert and oriented x3, no fevers, no chills HEENT-head atraumatic and normocephalic, pupils equal and reactive to light, extraocular muscles intact Neck-no lymphadenopathy or thyromegaly, trachea midline Chest-clear to auscultation percussion. No rales wheezing or rhonchi Cardiac-regular rate and rhythm, normal S1 and S2 Abdomen-normal bowel sounds, nontender, no hepatosplenomegaly Extremities-no cyanosis, clubbing, or edema Neuro-cranial nerves II through XII intact, motor and sensory function within normal limits, strength symmetrical, no focal deficits Psych-oriented to name only Results & Data Results & Data Vital Signs (Past 12 Hours) Vital Signs Temp Pulse Resp BP Pulse Ox O2 Del Method 03/03/23 07:25 36.3 C L 73 18 139/71 95 Room Air Laboratory Results 02/27/23 07:39 02/27/23 07:39 PG Care Time/CCT Total # of Minutes Spent Total Time Spent with Patient: Total time spent is greater than 50% in coordination of care (as documented) at patient's floor/unit and/or counseling patient: Coding Level of Care Code 10479 SUB INP/OBS CARE 2/35MIN Diagnoses Dementia F03.90 Syncope R55 Hypertension I10 Seizure disorder G40.909 Hypothyroidism E03.9 Patient incapable of making informed decisions Z78.9 History of colon cancer Z85.038 Vertebral artery stenosis I65.09
--- NOTE | 2023-03-04 15:38 | Hospitalist Progress Note ---
Date of Service March 04, 2023 Assessment & Plan (1) Dementia: Plan: With agitation. Seroquel dosage uptitrated on February 19. She requires IM Zyprexa once in a while. Continue supportive care. (2) Syncope: Plan: Occurred during bowel movement getting up quickly from bed and running to toilet with loose bowels on floor. Likely orthostatic hypotension as cause. Head CT and EKG unremarkable. No recurrence. (3) Hypertension: Plan: Lisinopril dosage uptitrated on February 20. BP and heart rate are now acceptable. Continue amlodipine. (4) Seizure disorder: Plan: Stable. Continue keppra (5) Hypothyroidism: Plan: Stable. Continue Synthroid replacement therapy (6) Patient incapable of making informed decisions: Plan: Patient without capacity for decision making (7) History of colon cancer: Plan: s/p resection in the past . Stable. No intervention necessary at this time (8) Vertebral artery stenosis: Plan: Stable. Continue aspirin and statin therapy Plan Will discharge to [facility] dementia lockdown unit when arrangements are finalized. Apparently [facility] is no longer an option. Admission and Anticipated Discharge Date Admission Date: January 23, 2023 Subjective Alert. No new problems Review of Systems Review of Systems: Constitutional-no fever or chills ENT-no blurred vision, no double vision, no epistaxis, no sore throat Respiratory-no cough, no wheezing, no shortness of breath Cardiac-no palpitations, no chest pain, no syncope GI-no nausea, vomiting, diarrhea, melena, hematochezia -no urinary retention, no urinary incontinence, no dysuria, no hematuria Musculoskeletal-no joint pain, no muscle tenderness Skin-no bruising, no rashes, no pruritus Neuro-no isolated weakness, no paresthesia, no weakness Psych-oriented to name only Physical Exam Physical Exam: General-alert and oriented x3, no fevers, no chills HEENT-head atraumatic and normocephalic, pupils equal and reactive to light, extraocular muscles intact Neck-no lymphadenopathy or thyromegaly, trachea midline Chest-clear to auscultation percussion. No rales wheezing or rhonchi Cardiac-regular rate and rhythm, normal S1 and S2 Abdomen-normal bowel sounds, nontender, no hepatosplenomegaly Extremities-no cyanosis, clubbing, or edema Neuro-cranial nerves II through XII intact, motor and sensory function within normal limits, strength symmetrical, no focal deficits Psych-oriented to name only Results & Data Results & Data Vital Signs (Past 12 Hours) Vital Signs Temp Pulse Resp BP Pulse Ox O2 Del Method 03/04/23 10:40 36.6 C 71 17 155/79 H 97 Room Air Laboratory Results 02/27/23 07:39 02/27/23 07:39 PG Care Time/CCT Total # of Minutes Spent Total Time Spent with Patient: Total time spent is greater than 50% in coordination of care (as documented) at patient's floor/unit and/or counseling patient: Coding Level of Care Code 06033 SUB INP/OBS CARE 2/35MIN Diagnoses Dementia F03.90 Syncope R55 Hypertension I10 Seizure disorder G40.909 Hypothyroidism E03.9 Patient incapable of making informed decisions Z78.9 History of colon cancer Z85.038 Vertebral artery stenosis I65.09
--- NOTE | 2023-03-05 12:39 | Hospitalist Progress Note ---
Date of Service March 05, 2023 Assessment & Plan (1) Dementia: Plan: With agitation. Seroquel dosage uptitrated on February 19. She requires IM Zyprexa once in a while. Continue supportive care. (2) Syncope: Plan: Occurred during bowel movement getting up quickly from bed and running to toilet with loose bowels on floor. Likely orthostatic hypotension as cause. Head CT and EKG unremarkable. No recurrence. (3) Hypertension: Plan: Lisinopril dosage uptitrated on February 20. BP and heart rate are now acceptable. Continue amlodipine. (4) Seizure disorder: Plan: Stable. Continue keppra (5) Hypothyroidism: Plan: Stable. Continue Synthroid replacement therapy (6) Patient incapable of making informed decisions: Plan: Patient without capacity for decision making (7) History of colon cancer: Plan: s/p resection in the past . Stable. No intervention necessary at this time (8) Vertebral artery stenosis: Plan: Stable. Continue aspirin and statin therapy Plan [facility] discharge to [facility] when arrangements are finalized. Apparently [facility] is no longer an option. Admission and Anticipated Discharge Date Admission Date: January 23, 2023 Subjective The patient is sleeping at the time of my rounds. Nursing staff reports no new problems Review of Systems Review of Systems: Constitutional-no fever or chills ENT-no blurred vision, no double vision, no epistaxis, no sore throat Respiratory-no cough, no wheezing, no shortness of breath Cardiac-no palpitations, no chest pain, no syncope GI-no nausea, vomiting, diarrhea, melena, hematochezia -no urinary retention, no urinary incontinence, no dysuria, no hematuria Musculoskeletal-no joint pain, no muscle tenderness Skin-no bruising, no rashes, no pruritus Neuro-no isolated weakness, no paresthesia, no weakness Psych-oriented to name only Physical Exam Physical Exam: General-sleeping. No fevers HEENT-head atraumatic and normocephalic Neck-no lymphadenopathy or thyromegaly, trachea midline Chest-clear to auscultation anteriorly Cardiac-regular rate and rhythm, normal S1 and S2 Abdomen-normal bowel sounds, no distention Extremities-no edema Neuro-sleeping. Cannot assess Psych-sleeping. Cannot assess Results & Data Results & Data Vital Signs (Past 12 Hours) Vital Signs Temp Pulse Resp BP Pulse Ox O2 Del Method 03/05/23 08:25 36.8 C 70 18 138/66 95 Room Air Laboratory Results 02/27/23 07:39 02/27/23 07:39 PG Care Time/CCT Total # of Minutes Spent Total Time Spent with Patient: Total time spent is greater than 50% in coordination of care (as documented) at patient's floor/unit and/or counseling patient: Coding Level of Care Code 79319 SUB INP/OBS CARE 2/35MIN Diagnoses Dementia F03.90 Syncope R55 Hypertension I10 Seizure disorder G40.909 Hypothyroidism E03.9 Patient incapable of making informed decisions Z78.9 History of colon cancer Z85.038 Vertebral artery stenosis I65.09
--- NOTE | 2023-03-06 08:03 | Hospitalist Progress Note ---
Date of Service March 06, 2023 Assessment & Plan (1) Dementia: Plan: With agitation. Seroquel dosage uptitrated on February 19 (on 75mg BID at present). She has required IM Zyprexa once in a while (last dose 02/17). Continue supportive care. awaiting placement *RESUMED HOME ASPIRIN/STATIN THERAPY FELL OFF JUL (2) Syncope: Plan: Occurred during bowel movement getting up quickly from bed and running to toilet with loose bowels on floor. Likely orthostatic hypotension as cause. Head CT and EKG unremarkable. No recurrence. (3) Hypertension: Plan: Lisinopril dosage uptitrated on February 20. BP and heart rate are now acceptable. Continue amlodipine. (4) Seizure disorder: Plan: Stable. Continue keppra (5) Hypothyroidism: Plan: Stable. Continue Synthroid replacement therapy (6) Patient incapable of making informed decisions: Plan: Patient without capacity for decision making (7) History of colon cancer: Plan: s/p resection in the past . Stable. No intervention necessary at this time (8) Vertebral artery stenosis: Plan: Stable. Continue aspirin and statin therapy Patient has had aspirin on her medication list however given continued inpatient stay appears have dropped off. Will resume Plan Will discharge to [facility] dementia lockdown unit when arrangements are finalized. Apparently [facility] is no longer an option. [employer] [place] CM this afternoon about options given ongoing inpatient stay Admission and Anticipated Discharge Date Admission Date: January 23, 2023 Subjective Eval this morning, no acute events. Napping after breakfast. Ongoing search for placement -- touching base w/ CM about options. Physical Exam Physical Exam: General-sleeping. No fevers HEENT-head atraumatic and normocephalic Neck-no lymphadenopathy or thyromegaly, trachea midline Chest-clear to auscultation anteriorly Cardiac-regular rate and rhythm, normal S1 and S2 Abdomen-normal bowel sounds, no distention Extremities-no edema Neuro-sleeping. Cannot assess Psych-sleeping. Cannot assess Results & Data Results & Data Vital Signs (Past 12 Hours) Vital Signs Temp Pulse Resp BP Pulse Ox O2 Del Method 03/06/23 07:17 36.4 C L 66 16 145/78 H 94 Room Air 03/05/23 20:43 Room Air PG Care Time/CCT Total # of Minutes Spent Total Time Spent with Patient: Total time spent is greater than 50% in coordination of care (as documented) at patient's floor/unit and/or counseling patient: Coding Level of Care Code 99910 SUB INP/OBS CARE 06/11MIN Diagnoses Dementia F03.90 Syncope R55 Hypertension I10 Seizure disorder G40.909 Hypothyroidism E03.9 Patient incapable of making informed decisions Z78.9 History of colon cancer Z85.038 Vertebral artery stenosis I65.09
[2023-03-06] MEDS: ASPIRIN/ALUM/MAGNES/CAL CARB 325 MG TAB PO SCH (12:20)
[2023-03-06] MEDS: ATORVASTATIN 40 MG TAB PO SCH (21:33)
--- NOTE | 2023-03-07 07:48 | Hospitalist Progress Note ---
Date of Service March 07, 2023 Assessment & Plan (1) Dementia: Plan: With agitation. Seroquel dosage uptitrated on February 19 (on 75mg BID at present). She has required IM Zyprexa once in a while (last dose 02/17). Continue supportive care. awaiting placement *RESUMED HOME ASPIRIN/STATIN THERAPY (2) Syncope: Plan: Occurred during bowel movement getting up quickly from bed and running to toilet with loose bowels on floor. Likely orthostatic hypotension as cause. Head CT and EKG unremarkable. No recurrence. (3) Hypertension: Plan: Lisinopril dosage uptitrated on February 20. BP and heart rate are now acceptable. Continue amlodipine. (4) Seizure disorder: Plan: Stable. Continue keppra (5) Hypothyroidism: Plan: Stable. Continue Synthroid replacement therapy (6) Patient incapable of making informed decisions: Plan: Patient without capacity for decision making (7) History of colon cancer: Plan: s/p resection in the past . Stable. No intervention necessary at this time (8) Vertebral artery stenosis: Plan: Stable. Continue aspirin and statin therapy Patient has had aspirin on her medication list however given continued inpatient stay appears have dropped off. resumed 03/06 Plan Will discharge to [facility] dementia lockdown unit when arrangements are finalized. Apparently [facility] is no longer an option. [employer] [place] CM this afternoon about options given ongoing inpatient stay -- ongoing issues/search Admission and Anticipated Discharge Date Admission Date: January 23, 2023 Subjective eval this morning, no acute issues. ongoing placement issues. Physical Exam Physical Exam: General- WN/WD female, resting in bed, NAD HEENT: head normocephalic, atraumatic, mmm, trachea midline Resp: even/unlabored, on room air CV: RRR, no significant m/r/g or edema GI: +BS, soft/NT MSK/Neuro: nonfocal Psych: alert to person/place, dementia at baseline \ Results & Data Results & Data Vital Signs (Past 12 Hours) Vital Signs Temp Pulse Resp BP Pulse Ox O2 Del Method 03/06/23 21:33 Room Air 03/06/23 20:49 36.5 C 73 18 159/78 H 98 Room Air PG Care Time/CCT Total # of Minutes Spent Total Time Spent with Patient: Total time spent is greater than 50% in coordination of care (as documented) at patient's floor/unit and/or counseling patient: Coding Level of Care Code 52332 SUB INP/OBS CARE Diagnoses Dementia F03.90 Syncope R55 Hypertension I10 Seizure disorder G40.909 Hypothyroidism E03.9 Patient incapable of making informed decisions Z78.9 History of colon cancer Z85.038 Vertebral artery stenosis I65.09
--- NOTE | 2023-03-08 07:54 | Hospitalist Progress Note ---
Date of Service March 08, 2023 Assessment & Plan (1) Dementia: Plan: With agitation. Seroquel dosage uptitrated on February 19 (on 75mg BID at present). She has required IM Zyprexa once in a while (last dose 02/17). Continue supportive care. awaiting placement *RESUMED HOME ASPIRIN/STATIN THERAPY (2) Syncope: Plan: Occurred during bowel movement getting up quickly from bed and running to toilet with loose bowels on floor. Likely orthostatic hypotension as cause. Head CT and EKG unremarkable. No recurrence. (3) Hypertension: Plan: Lisinopril dosage uptitrated on February 20. BP and heart rate are now acceptable. Continue amlodipine. (4) Seizure disorder: Plan: Stable. Continue keppra (5) Hypothyroidism: Plan: Stable. Continue Synthroid replacement therapy (6) Patient incapable of making informed decisions: Plan: Patient without capacity for decision making (7) History of colon cancer: Plan: s/p resection in the past . Stable. No intervention necessary at this time (8) Vertebral artery stenosis: Plan: Stable. Continue aspirin and statin therapy Patient has had aspirin on her medication list however given continued inpatient stay appears have dropped off- resumed 03/06 Plan Will discharge to [facility] dementia lockdown unit when arrangements are finalized. [facility] no longer option, CM following -- ongoing search/issues with placement Periodically check timing for medications to given extended LOS Admission and Anticipated Discharge Date Admission Date: January 23, 2023 Subjective eval this morning, no acute events overnight, no need for further zyprexa since earlier this month. ongoing bed search/placement issues Physical Exam Physical Exam: General- WN/WD female, resting in bed, NAD HEENT: head normocephalic, atraumatic, mmm, trachea midline Resp: even/unlabored, on room air CV: RRR, no significant m/r/g or edema GI: +BS, soft/NT MSK/Neuro: nonfocal Psych: alert to person/place, dementia at baseline Results & Data Results & Data Vital Signs (Past 12 Hours) Vital Signs Temp Pulse Resp BP BP Pulse Ox O2 Del Method 03/08/23 07:18 36.4 C L 60 18 171/82 H 95 Room Air 03/07/23 20:09 36.7 C 80 18 148/78 H 95 Room Air PG Care Time/CCT Total # of Minutes Spent Total Time Spent with Patient: Total time spent is greater than 50% in coordination of care (as documented) at patient's floor/unit and/or counseling patient: Coding Level of Care Code 98135 SUB INP/OBS CARE 1/25MIN Diagnoses Dementia F03.90 Syncope R55 Hypertension I10 Seizure disorder G40.909 Hypothyroidism E03.9 Patient incapable of making informed decisions Z78.9 History of colon cancer Z85.038 Vertebral artery stenosis I65.09
--- NOTE | 2023-03-09 18:09 | Hospitalist Progress Note ---
Date of Service March 09, 2023 Assessment & Plan (1) Dementia: Plan: With agitation. Seroquel dosage uptitrated on February 19 (on 75mg BID at present). She has required IM Zyprexa once in a while (last dose 02/17). Continue supportive care. awaiting placement (2) Syncope: Plan: Occurred during bowel movement getting up quickly from bed and running to toilet with loose bowels on floor. Likely orthostatic hypotension as cause. Head CT and EKG unremarkable. No recurrence. (3) Hypertension: Plan: Lisinopril dosage uptitrated on February 20. BP and heart rate are now acceptable. Restart amlodipine which fell off the list on 03/02 as BPs are elevated-start back at 5mg daily instead of previous 10mg (4) Seizure disorder: Plan: Stable. Continue keppra (5) Hypothyroidism: Plan: Stable. Continue Synthroid replacement therapy (6) Patient incapable of making informed decisions: Plan: Patient without capacity for decision making (7) History of colon cancer: Plan: s/p resection in the past . Stable. No intervention necessary at this time (8) Vertebral artery stenosis: Plan: Stable. Continue aspirin and statin therapy Plan Will discharge to SN[facility] dementia lockdown unit when arrangements are finalized. CM following -- ongoing search/issues with placement Periodically check timing for medications to given extended LOS Admission and Anticipated Discharge Date Admission Date: January 23, 2023 Subjective No complaints. Is sad that no one came to visit her today Physical Exam Constitutional: WD/WN, vitals as above well developed; no acute distress Respiratory: normal respiratory effort, lungs clear to auscultation Cardiovascular: RRR, no murmur, no edema Gastrointestinal (Abdomen): normal bowel sounds, soft, nontender, no hepatosplenomegaly Neurologic: moves all extremities Psychiatric: Orientation: alert and oriented to person Results & Data Results & Data Vital Signs (Past 12 Hours) Vital Signs Temp Pulse Resp BP Pulse Ox O2 Del Method 03/09/23 07:30 Room Air 03/09/23 07:23 37 C 70 18 164/84 H 96 Room Air PG Care Time/CCT Total # of Minutes Spent Total Time Spent with Patient: Total time spent is greater than 50% in coordination of care (as documented) at patient's floor/unit and/or counseling patient: Coding Level of Care Code 56043 SUB INP/OBS CARE Diagnoses Dementia F03.90 Syncope R55 Hypertension I10 Seizure disorder G40.909 Hypothyroidism E03.9 Patient incapable of making informed decisions Z78.9 History of colon cancer Z85.038 Vertebral artery stenosis I65.09
[2023-03-10] MEDS: amLODIPine BESYLATE 5 MG TAB PO SCH (07:38)
--- NOTE | 2023-03-10 18:30 | Hospitalist Progress Note ---
Date of Service March 10, 2023 Assessment & Plan (1) Dementia: Plan: With agitation. Seroquel dosage uptitrated on February 19 (on 75mg BID at present). She has required IM Zyprexa once in a while (last dose 02/17). Continue supportive care. awaiting placement (2) Syncope: Plan: Occurred during bowel movement getting up quickly from bed and running to toilet with loose bowels on floor. Likely orthostatic hypotension as cause. Head CT and EKG unremarkable. No recurrence. (3) Hypertension: Plan: Lisinopril dosage uptitrated on February 20. Restarted amlodipine which fell off the list on 03/02 as BPs are elevated- started back at 5mg daily instead of previous 10mg--> BPs look better (4) Seizure disorder: Plan: Stable. Continue keppra (5) Hypothyroidism: Plan: Stable. Continue Synthroid replacement therapy (6) Patient incapable of making informed decisions: Plan: Patient without capacity for decision making (7) History of colon cancer: Plan: s/p resection in the past . Stable. No intervention necessary at this time (8) Vertebral artery stenosis: Plan: Stable. Continue aspirin and statin therapy Plan Will discharge to SNF dementia lockdown unit when arrangements are finalized. CM following -- ongoing search/issues with placement Periodically check timing for medications to given extended LOS Admission and Anticipated Discharge Date Admission Date: January 23, 2023 Subjective no acute issues Physical Exam Constitutional: WD/WN, vitals as above no acute distress Respiratory: normal respiratory effort Neurologic: moves all extremities; no focal motor deficits Psychiatric: Orientation: alert and oriented to person Results & Data Results & Data Vital Signs (Past 12 Hours) Vital Signs Temp Pulse Resp BP Pulse Ox O2 Del Method 03/10/23 16:19 36.6 C 70 16 130/63 93 Room Air 03/10/23 07:20 36.5 C 63 16 188/75 H 97 Room Air PG Care Time/CCT Total # of Minutes Spent Total Time Spent with Patient: Total time spent is greater than 50% in coordination of care (as documented) at patient's floor/unit and/or counseling patient: Coding Level of Care Code 05596 SUB INP/OBS CARE 1/25MIN Diagnoses Dementia F03.90 Syncope R55 Hypertension I10 Seizure disorder G40.909 Hypothyroidism E03.9 Patient incapable of making informed decisions Z78.9 History of colon cancer Z85.038 Vertebral artery stenosis I65.09
[2023-03-10] MEDS ORDERED: ONDANSETRON 4 MG OD TAB PO PRN (21:44)
--- NOTE | 2023-03-11 16:09 | Hospitalist Progress Note ---
Date of Service March 11, 2023 Assessment & Plan (1) Dementia: Plan: With agitation. Seroquel dosage uptitrated on February 19 (on 75mg BID at present). She has required IM Zyprexa once in a while (last dose 02/17). Continue supportive care. awaiting placement (2) Syncope: Plan: Occurred during bowel movement getting up quickly from bed and running to toilet with loose bowels on floor. Likely orthostatic hypotension as cause. Head CT and EKG unremarkable. No recurrence. (3) Hypertension: Plan: Lisinopril dosage uptitrated on February 20. BPs remain elevated since resuming amlodipine 5mg daily for last 2 days Increase back to 10mg amlodipine monitor BPs (4) Seizure disorder: Plan: Stable. Continue keppra (5) Hypothyroidism: Plan: Stable. Continue Synthroid replacement therapy (6) Patient incapable of making informed decisions: Plan: Patient without capacity for decision making (7) History of colon cancer: Plan: s/p resection in the past . Stable. No intervention necessary at this time (8) Vertebral artery stenosis: Plan: Stable. Continue aspirin and statin therapy Plan Will discharge to SNF dementia lockdown unit when arrangements are finalized. CM following -- ongoing search/issues with placement Periodically check timing for medications to given extended LOS Admission and Anticipated Discharge Date Admission Date: January 23, 2023 Subjective Pt requesting coffee, wandering around her room, no concerns. Physical Exam Constitutional: WD/WN, vitals as above well developed; no acute distress Respiratory: normal respiratory effort Neurologic: moves all extremities; no focal motor deficits Psychiatric: Orientation: alert and oriented to person Results & Data Results & Data Vital Signs (Past 12 Hours) Vital Signs Temp Pulse Resp BP BP Pulse Ox O2 Del Method 03/11/23 16:00 36.6 C 70 18 182/79 H 96 Room Air 03/11/23 08:21 36.7 C 89 20 176/77 H 94 Room Air PG Care Time/CCT Total # of Minutes Spent Total Time Spent with Patient: Total time spent is greater than 50% in coordination of care (as documented) at patient's floor/unit and/or counseling patient: Coding Level of Care Code 16443 SUB INP/OBS CARE 06/11MIN Diagnoses Dementia F03.90 Syncope R55 Hypertension I10 Seizure disorder G40.909 Hypothyroidism E03.9 Patient incapable of making informed decisions Z78.9 History of colon cancer Z85.038 Vertebral artery stenosis I65.09
[2023-03-12] MEDS: amLODIPine BESYLATE 5 MG TAB PO SCH (08:46)
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
--- NOTE | 2023-03-13 13:13 | Hospitalist Progress Note ---
Date of Service March 13, 2023 Assessment & Plan (1) Dementia: Plan: With agitation. Seroquel dosage uptitrated on February 19 (on 75mg BID at present). She has required IM Zyprexa once in a while (last dose 02/17). Continue supportive care. awaiting placement (2) Syncope: Plan: Occurred during bowel movement getting up quickly from bed and running to toilet with loose bowels on floor. Likely orthostatic hypotension as cause. Head CT and EKG unremarkable. No recurrence. (3) Hypertension: Plan: Lisinopril dosage uptitrated on February 20. BPs remain elevated since resuming amlodipine 10mg daily monitor BPs consider increasing lisinopril (4) Seizure disorder: Plan: Stable. Continue keppra (5) Hypothyroidism: Plan: Stable. Continue Synthroid replacement therapy (6) Patient incapable of making informed decisions: Plan: Patient without capacity for decision making (7) History of colon cancer: Plan: s/p resection in the past . Stable. No intervention necessary at this time (8) Vertebral artery stenosis: Plan: Stable. Continue aspirin and statin therapy Plan Will discharge to SNF dementia lockdown unit when arrangements are finalized. CM following -- ongoing search/issues with placement Periodically check timing for medications to given extended LOS Admission and Anticipated Discharge Date Admission Date: January 23, 2023 Subjective Pt upset that the roof outside her window is so dirty. Wants to go outside and clean it Physical Exam Constitutional: WD/WN, vitals as above well developed; no acute distress Respiratory: normal respiratory effort Neurologic: CN's II-XI intact bilaterally and moves all extremities; no focal motor deficits Psychiatric: Orientation: alert and oriented to person Results & Data Results & Data Vital Signs (Past 12 Hours) Vital Signs Temp Pulse Resp BP Pulse Ox O2 Del Method 03/13/23 07:53 Room Air 03/13/23 07:28 36.8 C 65 18 173/80 H 97 Room Air PG Care Time/CCT Total # of Minutes Spent Total Time Spent with Patient: Total time spent is greater than 50% in coordination of care (as documented) at patient's floor/unit and/or counseling patient: Coding Level of Care Code 76108 SUB INP/OBS CARE 1/25MIN Diagnoses Dementia F03.90 Syncope R55 Hypertension I10 Seizure disorder G40.909 Hypothyroidism E03.9 Patient incapable of making informed decisions Z78.9 History of colon cancer Z85.038 Vertebral artery stenosis I65.09
--- NOTE | 2023-03-14 13:07 | Hospitalist Progress Note ---
Date of Service March 14, 2023 Assessment & Plan (1) Dementia: Plan: With agitation. Seroquel dosage uptitrated on February 19 (on 75mg BID at present). She has required IM Zyprexa once in a while (last dose 02/17). Continue supportive care. awaiting placement (2) Syncope: Plan: Occurred during bowel movement getting up quickly from bed and running to toilet with loose bowels on floor. Likely orthostatic hypotension as cause. Head CT and EKG unremarkable. No recurrence. (3) Hypertension: Plan: Lisinopril dosage uptitrated on February 20. BPs now normal since resuming amlodipine 10mg daily which had fallen off her med list monitor BPs consider increasing lisinopril again if needed (4) Seizure disorder: Plan: Stable. Continue keppra (5) Hypothyroidism: Plan: Stable. Continue Synthroid replacement therapy (6) Patient incapable of making informed decisions: Plan: Patient without capacity for decision making (7) History of colon cancer: Plan: s/p resection in the past . Stable. No intervention necessary at this time (8) Vertebral artery stenosis: Plan: Stable. Continue aspirin and statin therapy Plan Will discharge to SNF dementia lockdown unit when arrangements are finalized. CM following -- ongoing search/issues with placement Periodically check timing for medications to given extended LOS Admission and Anticipated Discharge Date Admission Date: January 23, 2023 Subjective "I want to go upstairs and go to bed." Feels tired. Otherwise no acute issues Physical Exam Constitutional: WD/WN, vitals as above well developed; no acute distress Respiratory: normal respiratory effort, lungs clear to auscultation normal respiratory effort Cardiovascular: RRR, no murmur, no edema Neurologic: moves all extremities; no focal motor deficits Psychiatric: Orientation: alert and oriented to person Results & Data Results & Data Vital Signs (Past 12 Hours) Vital Signs Temp Pulse Resp BP Pulse Ox O2 Del Method 03/14/23 07:45 Room Air 03/14/23 07:10 36.6 C 65 16 132/70 96 Room Air PG Care Time/CCT Total # of Minutes Spent Total Time Spent with Patient: Total time spent is greater than 50% in coordination of care (as documented) at patient's floor/unit and/or counseling patient: Coding Level of Care Code 40299 SUB INP/OBS CARE 1/25MIN Diagnoses Dementia F03.90 Syncope R55 Hypertension I10 Seizure disorder G40.909 Hypothyroidism E03.9 Patient incapable of making informed decisions Z78.9 History of colon cancer Z85.038 Vertebral artery stenosis I65.09
--- NOTE | 2023-03-15 12:39 | Hospitalist Progress Note ---
Date of Service March 15, 2023 Assessment & Plan (1) Dementia: Plan: With agitation. Seroquel dosage uptitrated on February 19. She requires IM Zyprexa once in a while. Continue supportive care. (2) Syncope: Plan: Occurred during bowel movement getting up quickly from bed and running to toilet with loose bowels on floor. Likely orthostatic hypotension as cause. Head CT and EKG unremarkable. No recurrence. (3) Hypertension: Plan: Lisinopril dosage uptitrated on February 20. BP and heart rate are now acceptable. Continue amlodipine. (4) Seizure disorder: Plan: Stable. Continue keppra (5) Hypothyroidism: Plan: Stable. Continue Synthroid replacement therapy (6) Patient incapable of making informed decisions: Plan: Patient without capacity for decision making (7) History of colon cancer: Plan: s/p resection in the past . Stable. No intervention necessary at this time (8) Vertebral artery stenosis: Plan: Stable. Continue aspirin and statin therapy Plan Will discharge to [facility] dementia lockdown unit when arrangements are finalized. Apparently [facility] is no longer an option. Admission and Anticipated Discharge Date Admission Date: January 23, 2023 Subjective No new problems per nursing staff. Sleeping at the time of my rounds. Placement proceedings continue per case management Review of Systems Review of Systems: Constitutional-no fever or chills ENT-no blurred vision, no double vision, no epistaxis, no sore throat Respiratory-no cough, no wheezing, no shortness of breath Cardiac-no palpitations, no chest pain, no syncope GI-no nausea, vomiting, diarrhea, melena, hematochezia -no urinary retention, no urinary incontinence, no dysuria, no hematuria Musculoskeletal-no joint pain, no muscle tenderness Skin-no bruising, no rashes, no pruritus Neuro-no isolated weakness, no paresthesia, no weakness Psych-oriented to name only Physical Exam Physical Exam: General-sleeping. No fevers HEENT-head atraumatic and normocephalic Neck-no lymphadenopathy or thyromegaly, trachea midline Chest-clear to auscultation anteriorly Cardiac-regular rate and rhythm, normal S1 and S2 Abdomen-normal bowel sounds, no distention Extremities-no edema Neuro-sleeping. Cannot assess Psych-sleeping. Cannot assess Results & Data Results & Data Vital Signs (Past 12 Hours) Vital Signs Temp Pulse Resp BP Pulse Ox O2 Del Method 03/15/23 07:09 Room Air 03/15/23 06:57 36.5 C 69 16 147/74 H 96 Room Air Laboratory Results 02/27/23 07:39 02/27/23 07:39 PG Care Time/CCT Total # of Minutes Spent Total Time Spent with Patient: Total time spent is greater than 50% in coordination of care (as documented) at patient's floor/unit and/or counseling patient: Coding Level of Care Code 34554 SUB INP/OBS CARE 2/35MIN Diagnoses Dementia F03.90 Syncope R55 Hypertension I10 Seizure disorder G40.909 Hypothyroidism E03.9 Patient incapable of making informed decisions Z78.9 History of colon cancer Z85.038 Vertebral artery stenosis I65.09
--- NOTE | 2023-03-16 11:36 | Hospitalist Progress Note ---
Date of Service March 16, 2023 Assessment & Plan (1) Dementia: Plan: With agitation. Seroquel dosage uptitrated on February 19. She requires IM Zyprexa once in a while. Continue supportive care. (2) Syncope: Plan: Occurred during bowel movement getting up quickly from bed and running to toilet with loose bowels on floor. Likely orthostatic hypotension as cause. Head CT and EKG unremarkable. No recurrence. (3) Hypertension: Plan: Lisinopril dosage uptitrated on February 20. BP and heart rate are now acceptable. Continue amlodipine. (4) Seizure disorder: Plan: Stable. Continue keppra (5) Hypothyroidism: Plan: Stable. Continue Synthroid replacement therapy (6) Patient incapable of making informed decisions: Plan: Patient without capacity for decision making (7) History of colon cancer: Plan: s/p resection in the past . Stable. No intervention necessary at this time (8) Vertebral artery stenosis: Plan: Stable. Continue aspirin and statin therapy Plan Will discharge to SNF dementia lockdown unit when arrangements are finalized. Apparently [facility] is no longer an option. Admission and Anticipated Discharge Date Admission Date: January 23, 2023 Subjective Asleep at the time of my rounds. Nursing staff states there are no acute problems Review of Systems Review of Systems: Constitutional-no fever or chills ENT-no blurred vision, no double vision, no epistaxis, no sore throat Respiratory-no cough, no wheezing, no shortness of breath Cardiac-no palpitations, no chest pain, no syncope GI-no nausea, vomiting, diarrhea, melena, hematochezia -no urinary retention, no urinary incontinence, no dysuria, no hematuria Musculoskeletal-no joint pain, no muscle tenderness Skin-no bruising, no rashes, no pruritus Neuro-no isolated weakness, no paresthesia, no weakness Psych-oriented to name only Physical Exam Physical Exam: General-sleeping. No fevers HEENT-head atraumatic and normocephalic Neck-no lymphadenopathy or thyromegaly, trachea midline Chest-clear to auscultation anteriorly Cardiac-regular rate and rhythm, normal S1 and S2 Abdomen-normal bowel sounds, no distention Extremities-no edema Neuro-sleeping. Cannot assess Psych-sleeping. Cannot assess Results & Data Results & Data Vital Signs (Past 12 Hours) Vital Signs Temp Pulse Resp BP Pulse Ox O2 Del Method 03/16/23 08:30 Room Air 03/16/23 08:10 36.2 C L 70 16 154/80 H 95 Room Air Laboratory Results 02/27/23 07:39 02/27/23 07:39 PG Care Time/CCT Total # of Minutes Spent Total Time Spent with Patient: Total time spent is greater than 50% in coordination of care (as documented) at patient's floor/unit and/or counseling patient: Coding Level of Care Code 45131 SUB INP/OBS CARE 2/35MIN Diagnoses Dementia F03.90 Syncope R55 Hypertension I10 Seizure disorder G40.909 Hypothyroidism E03.9 Patient incapable of making informed decisions Z78.9 History of colon cancer Z85.038 Vertebral artery stenosis I65.09
--- NOTE | 2023-03-17 15:13 | Hospitalist Progress Note ---
Date of Service March 17, 2023 Assessment & Plan (1) Dementia: Plan: With agitation. Seroquel dosage uptitrated on February 19. She requires IM Zyprexa rarely. Continue supportive care. (2) Syncope: Plan: Occurred during bowel movement getting up quickly from bed and running to toilet with loose bowels on floor. Likely orthostatic hypotension as cause. Head CT and EKG unremarkable. No recurrence. (3) Hypertension: Plan: Lisinopril dosage uptitrated on February 20. BP and heart rate are now acceptable. Continue amlodipine. (4) Seizure disorder: Plan: Stable. Continue keppra (5) Hypothyroidism: Plan: Stable. Continue Synthroid replacement therapy (6) Patient incapable of making informed decisions: Plan: Patient without capacity for decision making (7) History of colon cancer: Plan: s/p resection in the past . Stable. No intervention necessary at this time (8) Vertebral artery stenosis: Plan: Stable. Continue aspirin and statin therapy Plan Will discharge to [facility] dementia lockdown unit when arrangements are finalized. [facility] is no longer an option. [facility] Admission and Anticipated Discharge Date Admission Date: January 23, 2023 Subjective No new problems. Medically stable. She is sleeping again is at the time of my rounds. Nursing states that she is not always sleeping however and ambulates in the hallway without difficulty. Review of Systems Review of Systems: Constitutional-no fever or chills ENT-no blurred vision, no double vision, no epistaxis, no sore throat Respiratory-no cough, no wheezing, no shortness of breath Cardiac-no palpitations, no chest pain, no syncope GI-no nausea, vomiting, diarrhea, melena, hematochezia -no urinary retention, no urinary incontinence, no dysuria, no hematuria Musculoskeletal-no joint pain, no muscle tenderness Skin-no bruising, no rashes, no pruritus Neuro-no isolated weakness, no paresthesia, no weakness Psych-oriented to name only Physical Exam Physical Exam: General-sleeping. No fevers HEENT-head atraumatic and normocephalic Neck-no lymphadenopathy or thyromegaly, trachea midline Chest-clear to auscultation anteriorly Cardiac-regular rate and rhythm, normal S1 and S2 Abdomen-normal bowel sounds, no distention Extremities-no edema Neuro-sleeping. Cannot assess Psych-sleeping. Cannot assess Results & Data Results & Data Vital Signs (Past 12 Hours) Vital Signs Temp Pulse Resp BP Pulse Ox O2 Del Method 03/17/23 09:00 36.5 C 71 16 144/75 H 96 Room Air Laboratory Results 02/27/23 07:39 02/27/23 07:39 PG Care Time/CCT Total # of Minutes Spent Total Time Spent with Patient: Total time spent is greater than 50% in coordination of care (as documented) at patient's floor/unit and/or counseling patient: Coding Level of Care Code 58429 SUB INP/OBS CARE 2/35MIN Diagnoses Dementia F03.90 Syncope R55 Hypertension I10 Seizure disorder G40.909 Hypothyroidism E03.9 Patient incapable of making informed decisions Z78.9 History of colon cancer Z85.038 Vertebral artery stenosis I65.09
--- NOTE | 2023-03-18 12:33 | Psychiatric Progress Note ---
Date of Service March 18, 2023 Impression / Recommendations Impression 82 yo woman with cognitive decline resulting in personality change (irritability, paranoia) and wandering (likely sundowning) which has improved with scheduled use of Seroquel. 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 03/18/2023: Psychiatry asked to see Natasha again as a potential SNF placement wondered about need for inpatient geriatric psychiatry. At this time her psychiatric medications are stable and have not required any dose adjustments in almost a month. Encouragingly with po titration of Seroquel, which she has tolerated well without evidence for any current side effects, she has not required any IM doses of medication for agitation/behavioral disturbance since February 17. Note all antipsychotic medications carry black box warning for increased risk of all-cause mortality in setting of dementia so risk/benefit profile should continue to be weighed over time, especially once she is in a stable living environment at eventual SNF. Additionally there is no evidence for acute paranoia on exam and she reports stable mood with no current evidence for irritability. Agree with plan for SNF given dementia with wandering necessitating secure placement for safety. Overall, I spent a total of 35 minutes with this case including review of chart records, review of labwork, direct evaluation of the patient at bedside, discussion of the patient with case management and with the hospitalist provider, discussion with the psychiatric liason during clinical rounds and documentation in the electronic health record. (1) Dementia: (2) Seizure disorder: Plan -Continue Seroquel 75mg po BID -she does not meet criteria for a 302 as her inability to care for self is related to major cognitive disorder -There is no current rationale for geriatric psychiatry placement given improvement behavioral control with adjustments of her psychiatric medications and she has not required any psychiatric medication adjustments in almost one month (which is quite impressive given the stimulating environment of the hospital with frequent changes in caregivers/RNs/staff and providers). -Agree with use of olanzapine 5mg IM for acute behavioral emergency Interval History Identifying Information 82 yo female from [place] with multiple contacts with police/ED for disorganized behavior in the community. Chief Complaint "What do you want? Are you going to sing to me?". Subjective Subjective Patient was seen & assessed and interval progress reviewed. Since initial psychiatry consult on 01/24/2023 she has required titration of her Seroquel po (last adjusted on 02/19/2023, currently on 75mg BID po) for agitation associated with her dementia and previously required IM olanzapine but none since 02/17/2023 (so for almost one month). She has remained consistently confused. Today is oriented only to self. Tells me our location is "that place where people who play games comes here". States her mood is "doing good" and denies any medication issues though does feel "tired" sometimes but cannot tell me if she's been sleeping. Asks me "do you think I'm stupid" when asked orientation questions but pleasant overall and responds to questions about what she is watching on TV and is observed eating her lunch. Physical Exam Psychiatric Orientation: alert, oriented to person and cooperative; + not oriented to place and + not oriented to time Apperance: appropriately groomed Eye Contact: good eye contact Motor Behavior: no abnormal motor movements Speech: normal rate/rhythm/volume of speech Affect: + constricted affect Mood: no depressed mood, no anxious mood and no irritable mood Thought Process: + looseness of associations and + concrete thought process Thought Content: reality based without delusions Suicidal Thoughts: denies suicidal thoughts Homicidal Thoughts: denies homicidal thoughts Hallucinations: no auditory hallucinations and no visual hallucinations Cognition: attention grossly intact and language grossly intact Estimated Intelligence: consistent with education level Insight: + poor insight Judgment: + poor judgement Vital Signs (Past 24 Hours) Last Vital Signs Temp 36.5 C 03/18/23 07:50 Pulse 62 03/18/23 07:50 Resp 16 03/18/23 07:50 BP 161/81 H 03/18/23 07:50 Pulse Ox 96 03/18/23 07:50 O2 Del Method Room Air 03/18/23 07:50 O2 Flow Rate 3 02/10/23 13:09 Results & Data ([facility]) Current Inpatient Medications Current Inpatient Medications: Current Inpatient Medications Acetaminophen (Acetaminophen 325 Mg Tab) 650 mg PO Q4H PRN PRN Reason: pain/fever Stop: 03/26/23 17:33 Last Admin: 03/09/23 20:51 Dose: 650 mg Amlodipine Besylate (Amlodipine Besylate 5 Mg Tab) 10 mg PO QAM NEHEMIAS Stop: 04/11/23 08:59 Last Admin: 03/18/23 07:48 Dose: 10 mg Aspirin Buffered (Aspirin/Alum/Magnes/Bradley Carb 325 Mg Tab) 325 mg PO QAM [facility] Stop: 04/05/23 10:59 Last Admin: 03/18/23 07:48 Dose: 325 mg Atorvastatin Calcium (Atorvastatin 40 Mg Tab) 40 mg PO HS [facility] Stop: 04/05/23 20:59 Last Admin: 03/17/23 20:14 Dose: 40 mg Levetiracetam (Levetiracetam 250 Mg Tab) 250 mg PO BID [facility] Stop: 03/27/23 17:38 Last Admin: 03/18/23 07:48 Dose: 250 mg Levothyroxine Sodium (Levothyroxine Sodium 100 Mcg Tablet) 100 mcg PO DAILYBB [facility] Stop: 03/27/23 17:38 Last Admin: 03/18/23 07:48 Dose: 100 mcg Lisinopril (Lisinopril 20 Mg Tab) 20 mg PO QAM [facility] Stop: 03/22/23 08:59 Last Admin: 03/18/23 07:49 Dose: 20 mg Olanzapine (Olanzapine 10 Mg/2.1 Ml Sdv) 5 mg IM Q6H PRN PRN Reason: agitation Stop: 03/27/23 17:38 Last Admin: 02/17/23 13:37 Dose: 5 mg Ondansetron HCl (Ondansetron 4 Mg Od Tab) 4 mg PO Q4H PRN PRN Reason: Nausea And Vomiting Stop: 04/09/23 21:43 Quetiapine Fumarate (Quetiapine Fumarate 25 Mg Tablet) 75 mg PO BID [facility] Stop: 03/20/23 20:59 Last Admin: 03/18/23 07:49 Dose: 75 mg
--- NOTE | 2023-03-18 13:31 | Hospitalist Progress Note ---
Date of Service March 18, 2023 Assessment & Plan (1) Dementia: Plan: With agitation. Seroquel dosage uptitrated on February 19. She requires IM Zyprexa rarely. Continue supportive care. (2) Syncope: Plan: Occurred during bowel movement getting up quickly from bed and running to toilet with loose bowels on floor. Likely orthostatic hypotension as cause. Head CT and EKG unremarkable. No recurrence. (3) Hypertension: Plan: Lisinopril dosage uptitrated on February 20. BP and heart rate are now acceptable. Continue amlodipine. (4) Seizure disorder: Plan: Stable. Continue keppra (5) Hypothyroidism: Plan: Stable. Continue Synthroid replacement therapy (6) Patient incapable of making informed decisions: Plan: Patient without capacity for decision making (7) History of colon cancer: Plan: s/p resection in the past . Stable. No intervention necessary at this time (8) Vertebral artery stenosis: Plan: Stable. Continue aspirin and statin therapy Plan Will discharge to [facility] dementia lockdown unit when arrangements are finalized. [facility] is no longer an option. [facility] remains a po ssibility. However, they have requested inpatient psychiatric treatment before they will accept her. Psychiatry has been asked to reevaluate the patient Admission and Anticipated Discharge Date Admission Date: January 23, 2023 Subjective Alert. No distress. [facility] has requested inpatient psychiatric treatment before they will accept her. Psychiatry consult again to see if this is feasible. Blood pressure and heart rate acceptable. She remains on Seroquel. Review of Systems Review of Systems: Constitutional-no fever or chills ENT-no blurred vision, no double vision, no epistaxis, no sore throat Respiratory-no cough, no wheezing, no shortness of breath Cardiac-no palpitations, no chest pain, no syncope GI-no nausea, vomiting, diarrhea, melena, hematochezia -no urinary retention, no urinary incontinence, no dysuria, no hematuria Musculoskeletal-no joint pain, no muscle tenderness Skin-no bruising, no rashes, no pruritus Neuro-no isolated weakness, no paresthesia, no weakness Psych-oriented to name only Physical Exam Physical Exam: General-alert. No fevers, no chills HEENT-head atraumatic and normocephalic, pupils equal and reactive to light, extraocular muscles intact Neck-no lymphadenopathy or thyromegaly, trachea midline Chest-clear to auscultation percussion. No rales wheezing or rhonchi Cardiac-regular rate and rhythm, normal S1 and S2 Abdomen-normal bowel sounds, nontender, no hepatosplenomegaly Extremities-no cyanosis, clubbing, or edema Neuro-cranial nerves II through XII intact, motor and sensory function within normal limits, strength symmetrical, no focal deficits Psych-normal affect, normal mood Results & Data Results & Data Vital Signs (Past 12 Hours) Vital Signs Temp Pulse Resp BP Pulse Ox O2 Del Method 03/18/23 07:50 36.5 C 62 16 161/81 H 96 Room Air Laboratory Results 02/27/23 07:39 02/27/23 07:39 PG Care Time/CCT Total # of Minutes Spent Total Time Spent with Patient: Total time spent is greater than 50% in coordination of care (as documented) at patient's floor/unit and/or counseling patient: Coding Level of Care Code 35062 SUB INP/OBS CARE 2/35MIN Diagnoses Dementia F03.90 Syncope R55 Hypertension I10 Seizure disorder G40.909 Hypothyroidism E03.9 Patient incapable of making informed decisions Z78.9 History of colon cancer Z85.038 Vertebral artery stenosis I65.09
--- NOTE | 2023-03-19 16:09 | Hospitalist Progress Note ---
Date of Service March 19, 2023 Assessment & Plan (1) Dementia: Plan: With agitation. Seroquel dosage uptitrated on February 19. She requires IM Zyprexa rarely. Continue supportive care. Psychiatry has reevaluated the patient and determined that there is no indication for inpatient psychiatric treatment at this time. (2) Syncope: Plan: Occurred during bowel movement getting up quickly from bed and running to toilet with loose bowels on floor. Likely orthostatic hypotension as cause. Head CT and EKG unremarkable. No recurrence. (3) Hypertension: Plan: Lisinopril dosage uptitrated on February 20. BP and heart rate are now acceptable. Continue amlodipine. (4) Seizure disorder: Plan: Stable. Continue keppra (5) Hypothyroidism: Plan: Stable. Continue Synthroid replacement therapy (6) Patient incapable of making informed decisions: Plan: Patient without capacity for decision making (7) History of colon cancer: Plan: s/p resection in the past . Stable. No intervention necessary at this time (8) Vertebral artery stenosis: Plan: Stable. Continue aspirin and statin therapy Plan Will discharge to [facility] dementia lockdown unit when arrangements are finalized. [facility] is no longer an option. [facility] placement remains a possibility. Psychiatry reevaluated the patient and determined that inpatient psychiatric treatment is not indicated at this time Admission and Anticipated Discharge Date Admission Date: January 23, 2023 Subjective Alert. No new problems. She is walking the hallways independently and made a statement to me that she believes her roommate . Psychiatry has reevaluated her and there is no current indication for inpatient psychiatric treatment. She remains on Seroquel. Placement proceedings continue. Review of Systems 2 Review of Systems: Constitutional-no fever or chills ENT-no blurred vision, no double vision, no epistaxis, no sore throat Respiratory-no cough, no wheezing, no shortness of breath Cardiac-no palpitations, no chest pain, no syncope GI-no nausea, vomiting, diarrhea, melena, hematochezia -no urinary retention, no urinary incontinence, no dysuria, no hematuria Musculoskeletal-no joint pain, no muscle tenderness Skin-no bruising, no rashes, no pruritus Neuro-no isolated weakness, no paresthesia, no weakness Psych-oriented to name only Physical Exam 2 Physical Exam: General-alert. No fevers, no chills HEENT-head atraumatic and normocephalic, pupils equal and reactive to light, extraocular muscles intact Neck-no lymphadenopathy or thyromegaly, trachea midline Chest-clear to auscultation percussion. No rales wheezing or rhonchi Cardiac-regular rate and rhythm, normal S1 and S2 Abdomen-normal bowel sounds, nontender, no hepatosplenomegaly Extremities-no cyanosis, clubbing, or edema Neuro-cranial nerves II through XII intact, motor and sensory function within normal limits, strength symmetrical, no focal deficits Psych-normal affect, normal mood Results & Data Results & Data Vital Signs (Past 12 Hours) Vital Signs Temp Pulse Resp BP Pulse Ox O2 Del Method 03/19/23 14:10 36.7 C 68 16 93/55 L 97 Room Air 03/19/23 07:07 36.9 C 61 17 136/75 95 Room Air Laboratory Results 02/27/23 07:39 02/27/23 07:39 PG Care Time/CCT Total # of Minutes Spent Total Time Spent with Patient: Total time spent is greater than 50% in coordination of care (as documented) at patient's floor/unit and/or counseling patient: Coding Level of Care Code 53242 SUB INP/OBS CARE 2/35MIN Diagnoses Dementia F03.90 Syncope R55 Hypertension I10 Seizure disorder G40.909 Hypothyroidism E03.9 Patient incapable of making informed decisions Z78.9 History of colon cancer Z85.038 Vertebral artery stenosis I65.09
--- NOTE | 2023-03-20 14:47 | Hospitalist Progress Note ---
Date of Service March 20, 2023 Assessment & Plan (1) Dementia: Plan: With agitation. Seroquel dosage uptitrated on February 19. She requires IM Zyprexa rarely. Continue supportive care. Psychiatry has reevaluated the patient and determined that there is no indication for inpatient psychiatric treatment at this time. (2) Syncope: Plan: Occurred during bowel movement getting up quickly from bed and running to toilet with loose bowels on floor. Likely orthostatic hypotension as cause. Head CT and EKG unremarkable. No recurrence. (3) Hypertension: Plan: Lisinopril dosage uptitrated on February 20. BP and heart rate are now acceptable. Continue amlodipine. (4) Seizure disorder: Plan: Stable. Continue keppra (5) Hypothyroidism: Plan: Stable. Continue Synthroid replacement therapy (6) Patient incapable of making informed decisions: Plan: Patient without capacity for decision making (7) History of colon cancer: Plan: s/p resection in the past . Stable. No intervention necessary at this time (8) Vertebral artery stenosis: Plan: Stable. Continue aspirin and statin therapy Plan Will discharge to [facility] dementia lockdown unit when arrangements are finalized. [facility] is no longer an option. [facility] placement remains a possibility. Psychiatry reevaluated the patient and determined that inpatient psychiatric treatment is not indicated at this time Admission and Anticipated Discharge Date Admission Date: January 23, 2023 Subjective She is complaining of a headache this morning. Otherwise no significant changes. Vital signs are stable. Awaiting placement. Review of Systems 2 Review of Systems: Constitutional-no fever or chills ENT-no blurred vision, no double vision, no epistaxis, no sore throat Respiratory-no cough, no wheezing, no shortness of breath Cardiac-no palpitations, no chest pain, no syncope GI-no nausea, vomiting, diarrhea, melena, hematochezia -no urinary retention, no urinary incontinence, no dysuria, no hematuria Musculoskeletal-no joint pain, no muscle tenderness Skin-no bruising, no rashes, no pruritus Neuro-no isolated weakness, no paresthesia, no weakness Psych-oriented to name only Physical Exam 2 Physical Exam: General-alert. No fevers, no chills HEENT-head atraumatic and normocephalic, pupils equal and reactive to light, extraocular muscles intact Neck-no lymphadenopathy or thyromegaly, trachea midline Chest-clear to auscultation percussion. No rales wheezing or rhonchi Cardiac-regular rate and rhythm, normal S1 and S2 Abdomen-normal bowel sounds, nontender, no hepatosplenomegaly Extremities-no cyanosis, clubbing, or edema Neuro-cranial nerves II through XII intact, motor and sensory function within normal limits, strength symmetrical, no focal deficits Psych-normal affect, normal mood Results & Data Results & Data Vital Signs (Past 12 Hours) Vital Signs Temp Pulse Resp BP Pulse Ox O2 Del Method 03/20/23 13:53 36.3 C L 74 17 128/68 98 Room Air 03/20/23 07:47 36.5 C 65 16 115/73 94 Room Air Laboratory Results 02/27/23 07:39 02/27/23 07:39 PG Care Time/CCT Total # of Minutes Spent Total Time Spent with Patient: Total time spent is greater than 50% in coordination of care (as documented) at patient's floor/unit and/or counseling patient: Coding Level of Care Code 13943 SUB INP/OBS CARE 2/35MIN Diagnoses Dementia F03.90 Syncope R55 Hypertension I10 Seizure disorder G40.909 Hypothyroidism E03.9 Patient incapable of making informed decisions Z78.9 History of colon cancer Z85.038 Vertebral artery stenosis I65.09
[2023-03-20] MEDS: QUEtiapine FUMARATE 25 MG TABLET PO SCH (20:47)
--- NOTE | 2023-03-21 12:02 | Hospitalist Progress Note ---
Date of Service March 21, 2023 Assessment & Plan (1) Dementia: Plan: With agitation. Seroquel dosage uptitrated on February 19. She requires IM Zyprexa rarely. Continue supportive care. Psychiatry has reevaluated the patient and determined that there is no indication for inpatient psychiatric treatment at this time. (2) Syncope: Plan: Occurred during bowel movement getting up quickly from bed and running to toilet with loose bowels on floor. Likely orthostatic hypotension as cause. Head CT and EKG unremarkable. No recurrence. (3) Hypertension: Plan: Lisinopril dosage uptitrated on February 20. BP and heart rate are now acceptable. Continue amlodipine. (4) Seizure disorder: Plan: Stable. Continue keppra (5) Hypothyroidism: Plan: Stable. Continue Synthroid replacement therapy (6) Patient incapable of making informed decisions: Plan: Patient without capacity for decision making (7) History of colon cancer: Plan: s/p resection in the past . Stable. No intervention necessary at this time (8) Vertebral artery stenosis: Plan: Stable. Continue aspirin and statin therapy Plan Will discharge to [facility] dementia lockdown unit when arrangements are finalized. [facility] is no longer an option. [facility] placement remains a possibility. Psychiatry reevaluated the patient and determined that inpatient psychiatric treatment is not indicated at this time Admission and Anticipated Discharge Date Admission Date: January 23, 2023 Subjective Alert. Oriented to name. No new problems. Headache that was present yesterday, March 20, has resolved. She is in good spirits. Review of Systems 2 Review of Systems: Constitutional-no fever or chills ENT-no blurred vision, no double vision, no epistaxis, no sore throat Respiratory-no cough, no wheezing, no shortness of breath Cardiac-no palpitations, no chest pain, no syncope GI-no nausea, vomiting, diarrhea, melena, hematochezia -no urinary retention, no urinary incontinence, no dysuria, no hematuria Musculoskeletal-no joint pain, no muscle tenderness Skin-no bruising, no rashes, no pruritus Neuro-no isolated weakness, no paresthesia, no weakness Psych-oriented to name only Physical Exam 2 Physical Exam: General-alert. No fevers, no chills HEENT-head atraumatic and normocephalic, pupils equal and reactive to light, extraocular muscles intact Neck-no lymphadenopathy or thyromegaly, trachea midline Chest-clear to auscultation percussion. No rales wheezing or rhonchi Cardiac-regular rate and rhythm, normal S1 and S2 Abdomen-normal bowel sounds, nontender, no hepatosplenomegaly Extremities-no cyanosis, clubbing, or edema Neuro-cranial nerves II through XII intact, motor and sensory function within normal limits, strength symmetrical, no focal deficits Psych-normal affect, normal mood Results & Data Results & Data Vital Signs (Past 12 Hours) Vital Signs Temp Pulse Resp BP Pulse Ox O2 Del Method 03/21/23 07:45 36.8 C 64 17 152/75 H 98 Room Air Laboratory Results 02/27/23 07:39 02/27/23 07:39 PG Care Time/CCT Total # of Minutes Spent Total Time Spent with Patient: Total time spent is greater than 50% in coordination of care (as documented) at patient's floor/unit and/or counseling patient: Coding Level of Care Code 64726 SUB INP/OBS CARE 2/35MIN Diagnoses Dementia F03.90 Syncope R55 Hypertension I10 Seizure disorder G40.909 Hypothyroidism E03.9 Patient incapable of making informed decisions Z78.9 History of colon cancer Z85.038 Vertebral artery stenosis I65.09
--- NOTE | 2023-03-21 12:17 | Psychiatric Progress Note ---
Date of Service March 21, 2023 Impression / Recommendations Impression 82 yo woman with cognitive decline resulting in personality change (irritability, paranoia) and wandering (likely sundowning) which has improved with scheduled use of Seroquel. 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 03/21/2023: calm this am, occasional breakthrough on current dosing of Seroquel but no clear pattern on time. Overall, I spent a total of 35 minutes with this case including review of chart records, review of labwork, direct evaluation of the patient at bedside, discussion with the psychiatric liason during clinical rounds and documentation in the electronic health record. (1) Dementia: (2) Seizure disorder: Plan -Continue Seroquel 75mg po qam, increase hs dose to 100 mg. Interval History Identifying Information 82 yo female from [place] with multiple contacts with police/ED for disorganized behavior in the community. Chief Complaint intermittent restlessness Review of Systems Notes patient denies ANNE/N/V. Believes she is sleeping well. Subjective Subjective Patient was seen & assessed and interval progress reviewed with nursing. Patient had issues with increased paranoia overnight 03/20/23 as confused and reactive to nursing upon redirect. Zyprexa prn given yesterday midday. Rest of day was oriented to self/place and tolerating diet, etc. Physical Exam Psychiatric Orientation: alert, oriented to person and cooperative Apperance: appropriately groomed Eye Contact: good eye contact Motor Behavior: no abnormal motor movements Speech: normal rate/rhythm/volume of speech Affect: euthymic affect Mood: no depressed mood, no anxious mood and no irritable mood Thought Process: + concrete thought process Thought Content: no delusions Suicidal Thoughts: denies suicidal thoughts Homicidal Thoughts: denies homicidal thoughts Hallucinations: no auditory hallucinations and no visual hallucinations Cognition: attention grossly intact and language grossly intact Insight: + poor insight Judgment: + poor judgement Vital Signs (Past 24 Hours) Last Vital Signs Temp 36.8 C 03/21/23 07:45 Pulse 64 03/21/23 07:45 Resp 17 03/21/23 07:45 BP 152/75 H 03/21/23 07:45 Pulse Ox 98 03/21/23 07:45 O2 Del Method Room Air 03/21/23 07:45 O2 Flow Rate 3 02/10/23 13:09 Results & Data ([facility]) Current Inpatient Medications Current Inpatient Medications: Current Inpatient Medications Acetaminophen (Acetaminophen 325 Mg Tab) 650 mg PO Q4H PRN PRN Reason: pain/fever Stop: 03/26/23 17:33 Last Admin: 03/09/23 20:51 Dose: 650 mg Amlodipine Besylate (Amlodipine Besylate 5 Mg Tab) [facility] Stop: 04/11/23 08:59 Last Admin: 03/21/23 08:22 Dose: 10 mg Aspirin Buffered (Aspirin/Alum/Magnes/Bradley Carb 325 Mg Tab) 325 mg PO QAM [facility] Stop: 04/05/23 10:59 Last Admin: 03/21/23 08:23 Dose: 325 mg Atorvastatin Calcium (Atorvastatin 40 Mg Tab) 40 mg PO HS [facility] Stop: 04/05/23 20:59 Last Admin: 03/20/23 20:36 Dose: 40 mg Levetiracetam (Levetiracetam 250 Mg Tab) 250 mg PO BID [facility] Stop: 03/27/23 17:38 Last Admin: 03/21/23 08:23 Dose: 250 mg Levothyroxine Sodium (Levothyroxine Sodium 100 Mcg Tablet) 100 mcg PO DAILYBB [facility] Stop: 03/27/23 17:38 Last Admin: 03/21/23 06:30 Dose: 100 mcg Lisinopril (Lisinopril 20 Mg Tab) 20 mg [facility] Stop: 03/22/23 08:59 Last Admin: 03/21/23 08:23 Dose: 20 mg Olanzapine (Olanzapine 10 Mg/2.1 Ml Sdv) 5 mg IM Q6H PRN PRN Reason: agitation Stop: 03/27/23 17:38 Last Admin: 02/17/23 13:37 Dose: 5 mg Ondansetron HCl (Ondansetron 4 Mg Od Tab) 4 mg PO Q4H PRN PRN Reason: Nausea And Vomiting Stop: 04/09/23 21:43 Quetiapine Fumarate (Quetiapine Fumarate 25 Mg Tablet) 75 mg PO QAM [facility] Stop: 04/21/23 08:59 Quetiapine Fumarate (Quetiapine Fumarate 100 Mg Tablet) 100 mg PO HS [facility] Stop: 04/20/23 20:59
[2023-03-21] MEDS: QUEtiapine FUMARATE 100 MG TABLET PO SCH (21:53)
[2023-03-22] MEDS: QUEtiapine FUMARATE 25 MG TABLET PO SCH (09:04)
[2023-03-22] MEDS: POLYETHYLENE (MIRALAX) 17 GM PACK PO SCH ×2 (11:13→20:23)
[2023-03-22] MEDS: lisinopril 20 MG TAB PO SCH (11:13)
--- NOTE | 2023-03-22 12:17 | Hospitalist Progress Note ---
Date of Service March 22, 2023 Assessment & Plan (1) Dementia: Plan: With agitation. Seroquel dosage uptitrated on February 19. She requires IM Zyprexa rarely. Continue supportive care. Psychiatry has reevaluated the patient and determined that there is no indication for inpatient psychiatric treatment at this time. (2) Syncope: Plan: Occurred during bowel movement getting up quickly from bed and running to toilet with loose bowels on floor. Likely orthostatic hypotension as cause. Head CT and EKG unremarkable. No recurrence. (3) Hypertension: Plan: Lisinopril dosage uptitrated on February 20. BP and heart rate are now acceptable. Continue amlodipine. (4) Seizure disorder: Plan: Stable. Continue keppra (5) Hypothyroidism: Plan: Stable. Continue Synthroid replacement therapy (6) Patient incapable of making informed decisions: Plan: Patient without capacity for decision making (7) History of colon cancer: Plan: s/p resection in the past . Stable. No intervention necessary at this time (8) Vertebral artery stenosis: Plan: Stable. Continue aspirin and statin therapy Plan Will discharge to [facility] dementia lockdown unit when arrangements are finalized. [facility] is no longer an option. [facility] placement remains a possibility. Psychiatry reevaluated the patient and determined that inpatient psychiatric treatment is not indicated at this time Admission and Anticipated Discharge Date Admission Date: January 23, 2023 Subjective Complaining of constipation. Otherwise stable. Colace added. MiraLAX increased to twice daily dosing Review of Systems 2 Review of Systems: Constitutional-no fever or chills ENT-no blurred vision, no double vision, no epistaxis, no sore throat Respiratory-no cough, no wheezing, no shortness of breath Cardiac-no palpitations, no chest pain, no syncope GI-no nausea, vomiting, diarrhea, melena, hematochezia. She is complaining of constipation -no urinary retention, no urinary incontinence, no dysuria, no hematuria Musculoskeletal-no joint pain, no muscle tenderness Skin-no bruising, no rashes, no pruritus Neuro-no isolated weakness, no paresthesia, no weakness Psych-oriented to name only Physical Exam 2 Physical Exam: General-alert. No fevers, no chills HEENT-head atraumatic and normocephalic, pupils equal and reactive to light, extraocular muscles intact Neck-no lymphadenopathy or thyromegaly, trachea midline Chest-clear to auscultation percussion. No rales wheezing or rhonchi Cardiac-regular rate and rhythm, normal S1 and S2 Abdomen-normal bowel sounds, nontender, no hepatosplenomegaly Extremities-no cyanosis, clubbing, or edema Neuro-cranial nerves II through XII intact, motor and sensory function within normal limits, strength symmetrical, no focal deficits Psych-normal affect, normal mood Results & Data Results & Data Vital Signs (Past 12 Hours) Vital Signs Temp Pulse Resp BP Pulse Ox O2 Del Method 03/22/23 07:17 36.5 C 73 16 136/72 96 Room Air Laboratory Results 02/27/23 07:39 02/27/23 07:39 PG Care Time/CCT Total # of Minutes Spent Total Time Spent with Patient: Total time spent is greater than 50% in coordination of care (as documented) at patient's floor/unit and/or counseling patient: Coding Level of Care Code 90997 SUB INP/OBS CARE 2/35MIN Diagnoses Dementia F03.90 Syncope R55 Hypertension I10 Seizure disorder G40.909 Hypothyroidism E03.9 Patient incapable of making informed decisions Z78.9 History of colon cancer Z85.038 Vertebral artery stenosis I65.09
[2023-03-22] MEDS: DOCUSATE SODIUM 100 MG CAP PO SCH (12:48)
--- NOTE | 2023-03-23 11:02 | Hospitalist Progress Note ---
Date of Service March 23, 2023 Assessment & Plan (1) Dementia: Plan: With agitation. Seroquel dosage uptitrated on February 19. She requires IM Zyprexa rarely. Continue supportive care. Psychiatry has reevaluated the patient and determined that there is no indication for inpatient psychiatric treatment at this time. (2) Syncope: Plan: Occurred during bowel movement getting up quickly from bed and running to toilet with loose bowels on floor. Likely orthostatic hypotension as cause. Head CT and EKG unremarkable. No recurrence. (3) Hypertension: Plan: Lisinopril dosage uptitrated on February 20. BP and heart rate are now acceptable. Continue amlodipine. (4) Seizure disorder: Plan: Stable. Continue keppra (5) Hypothyroidism: Plan: Stable. Continue Synthroid replacement therapy (6) Patient incapable of making informed decisions: Plan: Patient without capacity for decision making (7) History of colon cancer: Plan: s/p resection in the past . Stable. No intervention necessary at this time (8) Vertebral artery stenosis: Plan: Stable. Continue aspirin and statin therapy Plan Will discharge to [facility] dementia lockdown unit when arrangements are finalized. [facility] is no longer an option. [facility] placement remains a possibility. Psychiatry reevaluated the patient and determined that inpatient psychiatric treatment is not indicated at this time Admission and Anticipated Discharge Date Admission Date: January 23, 2023 Subjective Patient reports no new complaints. Review of Systems Review of Systems: All systems reviewed & are unremarkable except as noted in HPI & below Physical Exam Physical Exam: General-alert. No fevers, no chills HEENT-head atraumatic and normocephalic, pupils equal and reactive to light, extraocular muscles intact Neck-no lymphadenopathy or thyromegaly, trachea midline Chest-clear to auscultation percussion. No rales wheezing or rhonchi Cardiac-regular rate and rhythm, normal S1 and S2 Abdomen-normal bowel sounds, nontender, no hepatosplenomegaly Extremities-no cyanosis, clubbing, or edema Neuro-cranial nerves II through XII intact, motor and sensory function within normal limits, strength symmetrical, no focal deficits Psych-normal affect, normal mood Results & Data Results & Data Vital Signs (Past 12 Hours) Vital Signs Temp Pulse Resp BP Pulse Ox O2 Del Method 03/23/23 08:34 36.4 C L 70 18 156/74 H 95 Room Air 03/23/23 07:41 Room Air PG Care Time/CCT Total # of Minutes Spent Total Time Spent with Patient: Total time spent is greater than 50% in coordination of care (as documented) at patient's floor/unit and/or counseling patient: Coding Level of Care Code 07214 SUB INP/OBS CARE 2/35MIN Diagnoses Dementia F03.90 Syncope R55 Hypertension I10 Seizure disorder G40.909 Hypothyroidism E03.9 Patient incapable of making informed decisions Z78.9 History of colon cancer Z85.038 Vertebral artery stenosis I65.09
--- NOTE | 2023-03-23 13:22 | Communication Note ---
Date of Service: March 23, 2023 Hs Seroquel increased 03/21. Nursing notes reflect cooperative with care. BP reviewed. Awaiting placement per CM.
--- NOTE | 2023-03-24 21:44 | Hospitalist Progress Note ---
Date of Service March 24, 2023 Assessment & Plan (1) Dementia: Plan: With agitation. Seroquel dosage uptitrated on February 19. She requires IM Zyprexa rarely. Continue supportive care. Psychiatry has reevaluated the patient and determined that there is no indication for inpatient psychiatric treatment at this time. Awaiting placement. (2) Syncope: Plan: Occurred during bowel movement getting up quickly from bed and running to toilet with loose bowels on floor. Likely orthostatic hypotension as cause. Head CT and EKG unremarkable. No recurrence. (3) Hypertension: Plan: Lisinopril dosage uptitrated on February 20. BP and heart rate are now acceptable. Continue amlodipine. (4) Seizure disorder: Plan: Stable. Continue keppra (5) Hypothyroidism: Plan: Stable. Continue Synthroid replacement therapy (6) Patient incapable of making informed decisions: Plan: Patient without capacity for decision making (7) History of colon cancer: Plan: s/p resection in the past . Stable. No intervention necessary at this time (8) Vertebral artery stenosis: Plan: Stable. Continue aspirin and statin therapy Plan Will discharge to [facility] dementia lockdown unit when arrangements are finalized. [facility] is no longer an option. [facility] placement remains a possibility. Psychiatry reevaluated the patient and determined that inpatient psychiatric treatment is not indicated at this time Admission and Anticipated Discharge Date Admission Date: January 23, 2023 Subjective Patient is resting in bed. No new complaints. Review of Systems Review of Systems: All systems reviewed & are unremarkable except as noted in HPI & below Physical Exam Physical Exam: General-alert. No fevers, no chills HEENT-head atraumatic and normocephalic, pupils equal and reactive to light, extraocular muscles intact Neck-no lymphadenopathy or thyromegaly, trachea midline Chest-clear to auscultation percussion. No rales wheezing or rhonchi Cardiac-regular rate and rhythm, normal S1 and S2 Abdomen-normal bowel sounds, nontender, no hepatosplenomegaly Extremities-no cyanosis, clubbing, or edema Neuro-cranial nerves II through XII intact, motor and sensory function within normal limits, strength symmetrical, no focal deficits Psych-normal affect, normal mood Results & Data Results & Data Vital Signs (Past 12 Hours) Vital Signs Temp Pulse Resp BP Pulse Ox O2 Del Method 03/24/23 20:00 36.6 C 77 18 157/77 H 97 Room Air PG Care Time/CCT Total # of Minutes Spent Total Time Spent with Patient: Total time spent is greater than 50% in coordination of care (as documented) at patient's floor/unit and/or counseling patient: Coding Level of Care Code 91198 SUB INP/OBS CARE 2/35MIN Diagnoses Dementia F03.90 Syncope R55 Hypertension I10 Seizure disorder G40.909 Hypothyroidism E03.9 Patient incapable of making informed decisions Z78.9 History of colon cancer Z85.038 Vertebral artery stenosis I65.09
--- NOTE | 2023-03-25 19:22 | Hospitalist Progress Note ---
Date of Service March 25, 2023 Assessment & Plan (1) Dementia: Plan: With agitation. Seroquel dosage uptitrated on February 19. She requires IM Zyprexa rarely. Continue supportive care. Psychiatry has reevaluated the patient and determined that there is no indication for inpatient psychiatric treatment at this time. Awaiting placement. (2) Syncope: Plan: Occurred during bowel movement getting up quickly from bed and running to toilet with loose bowels on floor. Likely orthostatic hypotension as cause. Head CT and EKG unremarkable. No recurrence. (3) Hypertension: Plan: Lisinopril dosage uptitrated on February 20. BP and heart rate are now acceptable. Continue amlodipine. (4) Seizure disorder: Plan: Stable. Continue keppra (5) Hypothyroidism: Plan: Stable. Continue Synthroid replacement therapy (6) Patient incapable of making informed decisions: Plan: Patient without capacity for decision making (7) History of colon cancer: Plan: s/p resection in the past . Stable. No intervention necessary at this time (8) Vertebral artery stenosis: Plan: Stable. Continue aspirin and statin therapy Plan Will discharge to [facility] dementia lockdown unit when arrangements are finalized. [facility] is no longer an option. [facility] placement remains a possibility. Psychiatry reevaluated the patient and determined that inpatient psychiatric treatment is not indicated at this time Admission and Anticipated Discharge Date Admission Date: January 23, 2023 Results & Data Results & Data Vital Signs (Past 12 Hours) Vital Signs Temp Pulse Resp BP Pulse Ox O2 Del Method 03/25/23 09:15 97.3 F L 67 16 158/80 H 97 Room Air PG Care Time/CCT Total # of Minutes Spent Total Time Spent with Patient: Total time spent is greater than 50% in coordination of care (as documented) at patient's floor/unit and/or counseling patient: Coding Diagnoses Dementia F03.90 Syncope R55 Hypertension I10 Seizure disorder G40.909 Hypothyroidism E03.9 Patient incapable of making informed decisions Z78.9 History of colon cancer Z85.038 Vertebral artery stenosis I65.09
--- NOTE | 2023-03-25 22:31 | Hospitalist Progress Note ---
Date of Service March 25, 2023 Assessment & Plan (1) Dementia: Plan: With agitation. Seroquel dosage uptitrated on February 19. She requires IM Zyprexa rarely. Continue supportive care. Psychiatry has reevaluated the patient and determined that there is no indication for inpatient psychiatric treatment at this time. Awaiting placement. (2) Syncope: Plan: Occurred during bowel movement getting up quickly from bed and running to toilet with loose bowels on floor. Likely orthostatic hypotension as cause. Head CT and EKG unremarkable. No recurrence. (3) Hypertension: Plan: Lisinopril dosage uptitrated on February 20. BP and heart rate are now acceptable. Continue amlodipine. (4) Seizure disorder: Plan: Stable. Continue keppra (5) Hypothyroidism: Plan: Stable. Continue Synthroid replacement therapy (6) Patient incapable of making informed decisions: Plan: Patient without capacity for decision making (7) History of colon cancer: Plan: s/p resection in the past . Stable. No intervention necessary at this time (8) Vertebral artery stenosis: Plan: Stable. Continue aspirin and statin therapy Plan Will discharge to [facility] dementia lockdown unit when arrangements are finalized. [facility] is no longer an option. [facility] placement remains a possibility. Psychiatry reevaluated the patient and determined that inpatient psychiatric treatment is not indicated at this time Admission and Anticipated Discharge Date Admission Date: January 23, 2023 Subjective Patient reports no new symptoms. Review of Systems Review of Systems: All systems reviewed & are unremarkable except as noted in HPI & below Physical Exam Physical Exam: General-alert. No fevers, no chills HEENT-head atraumatic and normocephalic Chest-clear to auscultation percussion Cardiac-regular rate and rhythm, normal S1 and S2 PG Care Time/CCT Total # of Minutes Spent Total Time Spent with Patient: Total time spent is greater than 50% in coordination of care (as documented) at patient's floor/unit and/or counseling patient: Coding Level of Care Code 03957 SUB INP/OBS CARE 1/25MIN Diagnoses Dementia F03.90 Syncope R55 Hypertension I10 Seizure disorder G40.909 Hypothyroidism E03.9 Patient incapable of making informed decisions Z78.9 History of colon cancer Z85.038 Vertebral artery stenosis I65.09
--- NOTE | 2023-03-26 07:18 | Hospitalist Progress Note ---
Date of Service March 26, 2023 Assessment & Plan (1) Dementia: Plan: With agitation. Seroquel dosage uptitrated on February 19. She requires IM Zyprexa rarely. Continue supportive care. Psychiatry has reevaluated the patient and determined that there is no indication for inpatient psychiatric treatment at this time. Awaiting placement. (2) Syncope: Plan: Occurred during bowel movement getting up quickly from bed and running to toilet with loose bowels on floor. Likely orthostatic hypotension as cause. Head CT and EKG unremarkable. No recurrence. (3) Hypertension: Plan: Lisinopril dosage uptitrated on February 20. BP and heart rate are now acceptable. Continue amlodipine. (4) Seizure disorder: Plan: Stable. Continue keppra (5) Hypothyroidism: Plan: Stable. Continue Synthroid replacement therapy (6) Patient incapable of making informed decisions: Plan: Patient without capacity for decision making (7) History of colon cancer: Plan: s/p resection in the past . Stable. No intervention necessary at this time (8) Vertebral artery stenosis: Plan: Stable. Continue aspirin and statin therapy Plan Will look to discharge to [facility] dementia lockdown unit when arrangements are finalized. Admission and Anticipated Discharge Date Admission Date: January 23, 2023 Subjective pt is confused and looking typically offers a contrary response. disposition is the issue as need for a locked unit and lack of local options, she has dementia and typically would benefit from wandering in a safe environment to get out her restless energy Physical Exam Physical Exam: pt is alert and not oriented to place or time typically confabulated the conversation and answers to questions cardiac exam is regular lungs are clear Results & Data Results & Data Vital Signs (Past 12 Hours) Vital Signs O2 Del Method 03/25/23 20:42 Room Air PG Care Time/CCT Total # of Minutes Spent Total Time Spent with Patient: Total time spent is greater than 50% in coordination of care (as documented) at patient's floor/unit and/or counseling patient: Coding Level of Care Code 89302 SUB INP/OBS CARE 2/35MIN Diagnoses Dementia F03.90 Syncope R55 Primary hypertension I10 Hypertension type: primary hypertension Seizure disorder G40.909 Hypothyroidism, unspecified type E03.9 Hypothyroidism type: unspecified Patient incapable of making informed decisions Z78.9 History of colon cancer Z85.038 Vertebral artery stenosis I65.09 (3) Hypertension Hypertension type: primary hypertension Qualified Code(s): I10 - Essential (primary) hypertension (5) Hypothyroidism Hypothyroidism type: unspecified Qualified Code(s): E03.9 - Hypothyroidism, unspecified
[2023-03-26] MEDS: ACETAMINOPHEN 325 MG TAB PO PRN (21:59)
--- NOTE | 2023-03-27 05:13 | Communication Note ---
Date of Service: March 27, 2023 interim progress reviewed, remains calmer/more cooperative following increase in Seroquel. No prns.
--- NOTE | 2023-03-27 17:30 | Hospitalist Progress Note ---
Date of Service March 27, 2023 Assessment & Plan (1) Dementia: Plan: agitation now resolved, not needing prn meds, . Seroquel dosage uptitrated on February 19. She requires IM Zyprexa rarely. Continue supportive care. Psychiatry has reevaluated the patient and determined that there is no indication for inpatient psychiatric treatment at this time. quetiapine 75 mg am, 100mg pm Awaiting placement. (2) Syncope: Plan: Occurred during bowel movement getting up quickly from bed and running to toilet with loose bowels on floor. Likely orthostatic hypotension as cause. Head CT and EKG unremarkable. No recurrence. (3) Hypertension: Plan: Lisinopril dosage uptitrated on February 20. BP and heart rate are now acceptable. Continue amlodipine. (4) Seizure disorder: Plan: Stable. Continue keppra (5) Hypothyroidism: Plan: Stable. Continue Synthroid replacement therapy (6) Patient incapable of making informed decisions: Plan: Patient without capacity for decision making (7) History of colon cancer: Plan: s/p resection in the past . Stable. No intervention necessary at this time (8) Vertebral artery stenosis: Plan: Stable. Continue aspirin and statin therapy Plan Will look to discharge to SNF dementia lockdown unit when arrangements are finalized. Admission and Anticipated Discharge Date Admission Date: January 23, 2023 Subjective pt is confused now is more cooperative not oriented to place or time, not requiring additional behavior controlling medications disposition is the issue as need for a locked unit and lack of local options, she has dementia and typically would benefit from wandering in a safe environment to get out her restless energy Physical Exam Physical Exam: pt is alert and not oriented to place or time typically confabulated the conversation and answers to questions cardiac exam is regular lungs are clear Results & Data Results & Data Vital Signs (Past 12 Hours) Vital Signs Temp Pulse Resp BP BP Pulse Ox O2 Del Method 03/27/23 14:41 97.9 F 77 16 116/67 93 Room Air 03/27/23 08:08 98.4 F 68 17 145/73 H 95 Room Air PG Care Time/CCT Total # of Minutes Spent Total Time Spent with Patient: Total time spent is greater than 50% in coordination of care (as documented) at patient's floor/unit and/or counseling patient: Coding Level of Care Code 33181 SUB INP/OBS CARE 1/25MIN Diagnoses Dementia F03.90 Syncope R55 Primary hypertension I10 Hypertension type: primary hypertension Seizure disorder G40.909 Hypothyroidism, unspecified type E03.9 Hypothyroidism type: unspecified Patient incapable of making informed decisions Z78.9 History of colon cancer Z85.038 Vertebral artery stenosis I65.09 (3) Hypertension Hypertension type: primary hypertension Qualified Code(s): I10 - Essential (primary) hypertension (5) Hypothyroidism Hypothyroidism type: unspecified Qualified Code(s): E03.9 - Hypothyroidism, unspecified
[2023-03-27] MEDS: levETIRAcetam 250 MG TAB PO SCH (21:08)
[2023-03-28] MEDS: LEVOTHYROXINE SODIUM 100 MCG TABLET PO SCH (05:55)
--- NOTE | 2023-03-28 13:39 | Hospitalist Progress Note ---
Date of Service March 28, 2023 Assessment & Plan (1) Dementia: Plan: agitation now resolved, not needing prn meds, . Seroquel dosage uptitrated on February 19. now reidrectable and cooperative Continue supportive care. Psychiatry has reevaluated the patient and determined that there is no indication for inpatient psychiatric treatment at this time. quetiapine 75 mg am, 100mg pm Awaiting placement, would benefit from a closed unit to be able to ambulate in safe environment (2) Syncope: Plan: Occurred during bowel movement getting up quickly from bed and running to toilet with loose bowels on floor. Likely orthostatic hypotension as cause. Head CT and EKG unremarkable. No recurrence. (3) Hypertension: Plan: Lisinopril dosage uptitrated on February 20. BP and heart rate are now acceptable. Continue amlodipine. (4) Seizure disorder: Plan: Stable. Continue keppra (5) Hypothyroidism: Plan: Stable. Continue Synthroid replacement therapy (6) Patient incapable of making informed decisions: Plan: Patient without capacity for decision making (7) History of colon cancer: Plan: s/p resection in the past . Stable. No intervention necessary at this time (8) Vertebral artery stenosis: Plan: Stable. Continue aspirin and statin therapy Plan Will look to discharge to SNF dementia lockdown unit when arrangements are finalized. Admission and Anticipated Discharge Date Admission Date: January 23, 2023 Subjective pleasantly confused, responsive, cooperative easily redirectable no focal complaints Physical Exam Physical Exam: pt is alert and not oriented to place or time states she OK and has no requests cardiac exam is regular lungs are clear Results & Data Results & Data Vital Signs (Past 12 Hours) Vital Signs Temp Pulse Pulse Resp BP BP Pulse Ox 03/28/23 11:57 97.9 F 75 19 110/64 93 03/28/23 08:13 122/73 03/28/23 07:21 98.1 F 71 16 103/57 L 94 O2 Del Method 03/28/23 11:57 Room Air 03/28/23 08:13 03/28/23 07:21 Room Air PG Care Time/CCT Total # of Minutes Spent Total Time Spent with Patient: Total time spent is greater than 50% in coordination of care (as documented) at patient's floor/unit and/or counseling patient: Coding Level of Care Code 47907 SUB INP/OBS CARE 1/25MIN Diagnoses Dementia F03.90 Syncope R55 Primary hypertension I10 Hypertension type: primary hypertension Seizure disorder G40.909 Hypothyroidism, unspecified type E03.9 Hypothyroidism type: unspecified Patient incapable of making informed decisions Z78.9 History of colon cancer Z85.038 Vertebral artery stenosis I65.09 (3) Hypertension Hypertension type: primary hypertension Qualified Code(s): I10 - Essential (primary) hypertension (5) Hypothyroidism Hypothyroidism type: unspecified Qualified Code(s): E03.9 - Hypothyroidism, unspecified
[2023-03-29] MEDS ORDERED: TRIAMCINOLONE ACET 0.5% CR 15 GM TUBE EXT PRN (01:24)
--- NOTE | 2023-03-29 15:27 | Hospitalist Progress Note ---
Date of Service March 29, 2023 Assessment & Plan (1) Dementia: Plan: agitation now resolved, not needing prn meds, . Seroquel dosage uptitrated on February 19. now reidrectable and cooperative Continue supportive care. Psychiatry has reevaluated the patient and determined that there is no indication for inpatient psychiatric treatment at this time. quetiapine 75 mg am, 100mg pm Awaiting placement, would benefit from a closed unit to be able to ambulate in safe environment (2) Syncope: Plan: Occurred during bowel movement getting up quickly from bed and running to toilet with loose bowels on floor. Likely orthostatic hypotension as cause. Head CT and EKG unremarkable. No recurrence. (3) Hypertension: Plan: Lisinopril dosage uptitrated on February 20. BP and heart rate are now acceptable. Continue amlodipine. (4) Seizure disorder: Plan: Stable. Continue keppra (5) Hypothyroidism: Plan: Stable. Continue Synthroid replacement therapy (6) Patient incapable of making informed decisions: Plan: Patient without capacity for decision making (7) History of colon cancer: Plan: s/p resection in the past . Stable. No intervention necessary at this time (8) Vertebral artery stenosis: Plan: Stable. Continue aspirin and statin therapy Plan Will look to discharge to SNF dementia lockdown unit when arrangements are finalized. Admission and Anticipated Discharge Date Admission Date: January 23, 2023 Subjective pleasantly confused, responsive, cooperative easily redirectable no focal complaints seems to be accepting of her surrounding s Physical Exam Physical Exam: pt is alert and not oriented to place or time states she OK and has no requests cardiac exam is regular lungs are clear Results & Data Results & Data Vital Signs (Past 12 Hours) Vital Signs Temp Pulse Resp BP Pulse Ox O2 Del Method 03/29/23 15:22 97.9 F 82 18 108/61 96 Room Air 03/29/23 07:51 98.1 F 72 16 165/83 H 98 Room Air PG Care Time/CCT Total # of Minutes Spent Total Time Spent with Patient: Total time spent is greater than 50% in coordination of care (as documented) at patient's floor/unit and/or counseling patient: Coding Level of Care Code 36169 SUB INP/OBS CARE 1/25MIN Diagnoses Dementia F03.90 Syncope R55 Primary hypertension I10 Hypertension type: primary hypertension Seizure disorder G40.909 Hypothyroidism, unspecified type E03.9 Hypothyroidism type: unspecified Patient incapable of making informed decisions Z78.9 History of colon cancer Z85.038 Vertebral artery stenosis I65.09 (3) Hypertension Hypertension type: primary hypertension Qualified Code(s): I10 - Essential (primary) hypertension (5) Hypothyroidism Hypothyroidism type: unspecified Qualified Code(s): E03.9 - Hypothyroidism, unspecified
--- NOTE | 2023-03-30 19:19 | Hospitalist Progress Note ---
Date of Service March 30, 2023 Assessment & Plan (1) Dementia: Plan: agitation now resolved, not needing prn meds, . Seroquel dosage uptitrated on February 19. now reidrectable and cooperative Continue supportive care. Psychiatry has reevaluated the patient and determined that there is no indication for inpatient psychiatric treatment at this time. quetiapine 75 mg am, 100mg pm Awaiting placement, would benefit from a closed unit to be able to ambulate in safe environment (2) Syncope: Plan: Occurred during bowel movement getting up quickly from bed and running to toilet with loose bowels on floor. Likely orthostatic hypotension as cause. Head CT and EKG unremarkable. No recurrence. (3) Hypertension: Plan: Lisinopril dosage uptitrated on February 20. BP and heart rate are now acceptable. Continue amlodipine. (4) Seizure disorder: Plan: Stable. Continue keppra (5) Hypothyroidism: Plan: Stable. Continue Synthroid replacement therapy (6) Patient incapable of making informed decisions: Plan: Patient without capacity for decision making (7) History of colon cancer: Plan: s/p resection in the past . Stable. No intervention necessary at this time (8) Vertebral artery stenosis: Plan: Stable. Continue aspirin and statin therapy Plan Will look to discharge to SNF dementia lockdown unit when arrangements are finalized. Admission and Anticipated Discharge Date Admission Date: January 23, 2023 Subjective pleasantly confused, responsive, cooperative ambulating in room, easily redirectable no focal complaints seems to be accepting of her surroundings Physical Exam Physical Exam: pt is alert and not oriented to place or time states she OK and has no requests other than one million dollars cardiac exam is regular lungs are clear Results & Data Results & Data Vital Signs (Past 12 Hours) Vital Signs Temp Pulse Resp BP Pulse Ox O2 Del Method 03/30/23 15:28 97.9 F 79 16 139/80 96 Room Air 03/30/23 08:19 97.5 F L 64 16 148/79 H 94 Room Air PG Care Time/CCT Total # of Minutes Spent Total Time Spent with Patient: Total time spent is greater than 50% in coordination of care (as documented) at patient's floor/unit and/or counseling patient: Coding Level of Care Code 06870 SUB INP/OBS CARE /25MIN Diagnoses Dementia F03.90 Syncope R55 Primary hypertension I10 Hypertension type: primary hypertension Seizure disorder G40.909 Hypothyroidism, unspecified type E03.9 Hypothyroidism type: unspecified Patient incapable of making informed decisions Z78.9 History of colon cancer Z85.038 Vertebral artery stenosis I65.09 (3) Hypertension Hypertension type: primary hypertension Qualified Code(s): I10 - Essential (primary) hypertension (5) Hypothyroidism Hypothyroidism type: unspecified Qualified Code(s): E03.9 - Hypothyroidism, unspecified
--- NOTE | 2023-03-31 19:33 | Hospitalist Progress Note ---
Date of Service March 31, 2023 Assessment & Plan (1) Dementia: Plan: agitation now resolved, not needing prn meds, . Seroquel dosage uptitrated on February 19. now reidrectable and cooperative Continue supportive care. Psychiatry has reevaluated the patient and determined that there is no indication for inpatient psychiatric treatment at this time. quetiapine 75 mg am, 100mg pm Awaiting placement, would benefit from a closed unit to be able to ambulate in safe environment no new changes 03/31/23 (2) Syncope: Plan: Occurred during bowel movement getting up quickly from bed and running to toilet with loose bowels on floor. Likely orthostatic hypotension as cause. Head CT and EKG unremarkable. No recurrence. (3) Hypertension: Plan: Lisinopril dosage uptitrated on February 20. BP and heart rate are now acceptable. Continue amlodipine. (4) Seizure disorder: Plan: Stable. Continue keppra (5) Hypothyroidism: Plan: Stable. Continue Synthroid replacement therapy (6) Patient incapable of making informed decisions: Plan: Patient without capacity for decision making (7) History of colon cancer: Plan: s/p resection in the past . Stable. No intervention necessary at this time (8) Vertebral artery stenosis: Plan: Stable. Continue aspirin and statin therapy Plan Will look to discharge to SNF dementia lockdown unit when arrangements are finalized. Admission and Anticipated Discharge Date Admission Date: January 23, 2023 Subjective pleasantly confused, responsive, cooperative ambulating in room, easily redirectable no focal complaints seems to be accepting of her surroundings Physical Exam Physical Exam: pt is alert and not oriented to place or time states she OK and has no requests other than one million dollars cardiac exam is regular lungs are clear Results & Data Results & Data Vital Signs (Past 12 Hours) Vital Signs Temp Pulse Resp BP Pulse Ox O2 Del Method 03/31/23 07:38 97.5 F L 68 18 170/82 H 95 Room Air PG Care Time/CCT Total # of Minutes Spent Total Time Spent with Patient: Total time spent is greater than 50% in coordination of care (as documented) at patient's floor/unit and/or counseling patient: Coding Level of Care Code 90662 SUB INP/OBS CARE 1/25MIN Diagnoses Dementia F03.90 Syncope R55 Primary hypertension I10 Hypertension type: primary hypertension Seizure disorder G40.909 Hypothyroidism, unspecified type E03.9 Hypothyroidism type: unspecified Patient incapable of making informed decisions Z78.9 History of colon cancer Z85.038 Vertebral artery stenosis I65.09 (3) Hypertension Hypertension type: primary hypertension Qualified Code(s): I10 - Essential (primary) hypertension (5) Hypothyroidism Hypothyroidism type: unspecified Qualified Code(s): E03.9 - Hypothyroidism, unspecified
--- NOTE | 2023-04-01 17:17 | Hospitalist Progress Note ---
Date of Service April 01, 2023 Assessment & Plan (1) Dementia: Plan: agitation now resolved, not needing prn meds, . Seroquel dosage uptitrated on February 19. now reidrectable and cooperative Continue supportive care. Psychiatry has reevaluated the patient and determined that there is no indication for inpatient psychiatric treatment at this time. quetiapine 75 mg am, 100mg pm Awaiting placement, would benefit from a closed unit to be able to ambulate in safe environment no new changes 04/01/23we will order labs for the anticipating discharge in the next few days (2) Syncope: Plan: Occurred during bowel movement getting up quickly from bed and running to toilet with loose bowels on floor. Likely orthostatic hypotension as cause. Head CT and EKG unremarkable. No recurrence. (3) Hypertension: Plan: Lisinopril dosage uptitrated on February 20. BP and heart rate are now acceptable. Continue amlodipine. (4) Seizure disorder: Plan: Stable. Continue keppra (5) Hypothyroidism: Plan: Stable. Continue Synthroid replacement therapy (6) Patient incapable of making informed decisions: Plan: Patient without capacity for decision making (7) History of colon cancer: Plan: s/p resection in the past . Stable. No intervention necessary at this time (8) Vertebral artery stenosis: Plan: Stable. Continue aspirin and statin therapy Plan Will look to discharge to SNF dementia lockdown unit when arrangements are finalized. Admission and Anticipated Discharge Date Admission Date: January 23, 2023 Subjective Natasha continues to be persistently pleasant she has no issues with wandering she has been remaining in her room does walk about her room freely without support does perform activities of daily living toileting and bathing without much support Still awaiting final decision on placement and likely memory impaired unit Physical Exam Physical Exam: Awake alert appropriate. May be mildly sedated from her Seroquel dosing. Conversant actually makes a few jokes at times Card exam is regular she is able to lay flat lungs are clear Is not oriented that she is at hospital but is very pleasant takes direction response to commands Results & Data Results & Data Vital Signs (Past 12 Hours) Vital Signs Temp Pulse Resp BP Pulse Ox O2 Del Method 04/01/23 08:50 97.7 F 74 18 168/89 H 97 Room Air PG Care Time/CCT Total # of Minutes Spent Total Time Spent with Patient: Total time spent is greater than 50% in coordination of care (as documented) at patient's floor/unit and/or counseling patient: Coding Level of Care Code None Diagnoses Dementia F03.90 Syncope R55 Primary hypertension I10 Hypertension type: primary hypertension Seizure disorder G40.909 Hypothyroidism, unspecified type E03.9 Hypothyroidism type: unspecified Patient incapable of making informed decisions Z78.9 History of colon cancer Z85.038 Vertebral artery stenosis I65.09 (3) Hypertension Hypertension type: primary hypertension Qualified Code(s): I10 - Essential (primary) hypertension (5) Hypothyroidism Hypothyroidism type: unspecified Qualified Code(s): E03.9 - Hypothyroidism, unspecified
[2023-04-02 08:05] LABS: Hematocrit (blood only) 38.3 % (37.0-47.0); Mean Corpuscular Hemoglobin 33.2 pg (25.0-34.0); Mean Corpuscular Hgb Conc 33.9 g/dL (32.0-36.0); Platelet Count 216 K/uL (130-400); RDW Coefficient of Variation 12.2 % (11.5-14.5); RDW Standard Deviation 44.2 fL (36.4-46.3); Red Blood Count 3.91 M/uL (4.20-5.40); White Blood Count 7.84 K/ul (4.8-10.8)
[2023-04-02 08:30] LABS: Albumin Globulin Ratio 1.7 (0.9-2); Albumin Level 4.2 gm/dl (3.4-5.0); BUN Creatinine Ratio 23.9 (10-20); Bilirubin,Total 0.6 mg/dl (0.2-1.0); Calcium 9.3 mg/dl (8.6-10.3); Creatinine Clr Calc Pharmacy 60.7 ml/min; Est GFR (African American) 91.3 ml/min; Est GFR (Non-African American) 78.8 ml/min; Globulin 2.5 gm/dl (2.5-4.0); Potassium 4.1 mmol/L (3.5-5.1); Total Protein 6.7 gm/dl (6.0-8.3)
--- NOTE | 2023-04-02 13:59 | Hospitalist Progress Note ---
Date of Service April 02, 2023 Assessment & Plan (1) Dementia: Plan: agitation now resolved, not needing prn meds, . Seroquel dosage uptitrated throughout her stay-remains redirectable and cooperative Psychiatry has reevaluated the patient and determined that there is no indication for inpatient psychiatric treatment at this time. -continue quetiapine 75 mg am, 100mg pm -Awaiting placement, would benefit from a closed unit to be able to ambulate in safe environment -Continue supportive care (2) Syncope: Plan: Occurred during bowel movement getting up quickly from bed and running to toilet with loose bowels on floor in early Octiber Likely orthostatic hypotension as cause. Head CT and EKG unremarkable. No recurrence. (3) Hypertension: Plan: Lisinopril dosage uptitrated on February 20. Amlodipine also uptitrated BPs now controlled renal function normal on labs 04/02 (4) Seizure disorder: Plan: Stable. Continue keppra (5) Hypothyroidism: Plan: Stable. Continue Synthroid replacement therapy TSH 5 in 01/2023 but likely questionable compliance due to dementia with meds at home Plan to recheck TSH in a couple of months (6) Patient incapable of making informed decisions: Plan: Patient without capacity for decision making (7) History of colon cancer: Plan: s/p resection in the past . Stable. No intervention necessary at this time Continue to monitor bowel function (8) Vertebral artery stenosis: Plan: Stable. Continue aspirin and statin therapy Plan Will look to discharge to SNF dementia lockdown unit when arrangements are finalized. Numerous referrals have been made and pt here with prolonged stay due to inability to find halfway placement Admission and Anticipated Discharge Date Admission Date: January 23, 2023 Subjective Pt sleeping and I did not wake her. No issues as per cupola charger Physical Exam Constitutional: WD/WN, vitals as above well developed; no acute distress Respiratory: normal respiratory effort Results & Data Results & Data Vital Signs (Past 12 Hours) Vital Signs Temp Pulse Resp BP Pulse Ox O2 Del Method 04/02/23 07:05 36.4 C L 65 18 130/72 96 Room Air Laboratory Results CBC, CMP reviewed PG Care Time/CCT Total # of Minutes Spent Total Time Spent with Patient: Total time spent is greater than 50% in coordination of care (as documented) at patient's floor/unit and/or counseling patient: Coding Level of Care Code 81258 SUB INP/OBS CARE Diagnoses Dementia F03.90 Syncope R55 Primary hypertension I10 Hypertension type: primary hypertension Seizure disorder G40.909 Hypothyroidism, unspecified type E03.9 Hypothyroidism type: unspecified Patient incapable of making informed decisions Z78.9 History of colon cancer Z85.038 Vertebral artery stenosis I65.09 (3) Hypertension Hypertension type: primary hypertension Qualified Code(s): I10 - Essential (primary) hypertension (5) Hypothyroidism Hypothyroidism type: unspecified Qualified Code(s): E03.9 - Hypothyroidism, unspecified
--- NOTE | 2023-04-03 18:35 | Hospitalist Progress Note ---
Date of Service April 03, 2023 Assessment & Plan (1) Dementia: Plan: agitation now resolved, not needing prn meds, . Seroquel dosage uptitrated throughout her stay-remains redirectable and cooperative Psychiatry has reevaluated the patient and determined that there is no indication for inpatient psychiatric treatment at this time. -continue quetiapine 75 mg am, 100mg pm -Awaiting placement, would benefit from a closed unit to be able to ambulate in safe environment -Continue supportive care (2) Syncope: Plan: Occurred during bowel movement getting up quickly from bed and running to toilet with loose bowels on floor in early Octiber Likely orthostatic hypotension as cause. Head CT and EKG unremarkable. No recurrence. (3) Hypertension: Plan: Lisinopril dosage uptitrated on February 20. Amlodipine also uptitrated BPs now controlled renal function normal on labs 04/02 (4) Seizure disorder: Plan: Stable. Continue keppra (5) Hypothyroidism: Plan: Stable. Continue Synthroid replacement therapy TSH 5 in 01/2023 but likely questionable compliance due to dementia with meds at home Plan to recheck TSH in a couple of months (6) Patient incapable of making informed decisions: Plan: Patient without capacity for decision making (7) History of colon cancer: Plan: s/p resection in the past . Stable. No intervention necessary at this time Continue to monitor bowel function (8) Vertebral artery stenosis: Plan: Stable. Continue aspirin and statin therapy Plan Will look to discharge to SNF dementia lockdown unit when arrangements are finalized. Numerous referrals have been made and pt here with prolonged stay due to inability to find skilled nursing placement Admission and Anticipated Discharge Date Admission Date: January 23, 2023 Subjective No acute issues Physical Exam Constitutional: WD/WN, vitals as above no acute distress Respiratory: normal respiratory effort Results & Data Results & Data Vital Signs (Past 12 Hours) Vital Signs Temp Pulse Resp BP Pulse Ox O2 Del Method 04/03/23 15:34 36.4 C L 75 16 116/69 93 Room Air 04/03/23 07:12 36.7 C 74 16 127/71 95 Room Air PG Care Time/CCT Total # of Minutes Spent Total Time Spent with Patient: Total time spent is greater than 50% in coordination of care (as documented) at patient's floor/unit and/or counseling patient: Coding Level of Care Code 51023 SUB INP/OBS CARE 06/11MIN Diagnoses Dementia F03.90 Syncope R55 Primary hypertension I10 Hypertension type: primary hypertension Seizure disorder G40.909 Hypothyroidism, unspecified type E03.9 Hypothyroidism type: unspecified Patient incapable of making informed decisions Z78.9 History of colon cancer Z85.038 Vertebral artery stenosis I65.09 (3) Hypertension Hypertension type: primary hypertension Qualified Code(s): I10 - Essential (primary) hypertension (5) Hypothyroidism Hypothyroidism type: unspecified Qualified Code(s): E03.9 - Hypothyroidism, unspecified
--- NOTE | 2023-04-04 12:10 | Hospitalist Progress Note ---
Date of Service April 04, 2023 Assessment & Plan (1) Dementia: Plan: agitation now resolved, not needing prn meds, . Seroquel dosage uptitrated throughout her stay-remains redirectable and cooperative Psychiatry has reevaluated the patient and determined that there is no indication for inpatient psychiatric treatment at this time. -continue quetiapine 75 mg am, 100mg pm -Awaiting placement, would benefit from a closed unit to be able to ambulate in safe environment -Continue supportive care (2) Syncope: Plan: Occurred during bowel movement getting up quickly from bed and running to toilet with loose bowels on floor in early Octiber Likely orthostatic hypotension as cause. Head CT and EKG unremarkable. No recurrence. (3) Hypertension: Plan: Lisinopril dosage uptitrated on February 20. Amlodipine also uptitrated BPs now controlled renal function normal on labs 04/02 (4) Seizure disorder: Plan: Stable. Continue keppra (5) Hypothyroidism: Plan: Stable. Continue Synthroid replacement therapy TSH 5 in 01/2023 but likely questionable compliance due to dementia with meds at home Plan to recheck TSH in a couple of months (6) Patient incapable of making informed decisions: Plan: Patient without capacity for decision making (7) History of colon cancer: Plan: s/p resection in the past . Stable. No intervention necessary at this time Continue to monitor bowel function (8) Vertebral artery stenosis: Plan: Stable. Continue aspirin and statin therapy Plan Will look to discharge to SNF dementia lockdown unit when arrangements are finalized. Numerous referrals have been made and pt here with prolonged stay due to inability to find skilled nursing placement Admission and Anticipated Discharge Date Admission Date: January 23, 2023 Subjective No acute issues, feels well, no pain. Is eating her lunch Physical Exam Constitutional: WD/WN, vitals as above no acute distress Respiratory: normal respiratory effort Neurologic: moves all extremities; no focal motor deficits Psychiatric: Orientation: alert and oriented to person Results & Data Results & Data Vital Signs (Past 12 Hours) Vital Signs Temp Pulse Resp BP Pulse Ox O2 Del Method 04/04/23 06:58 36.5 C 71 16 139/73 96 Room Air PG Care Time/CCT Total # of Minutes Spent Total Time Spent with Patient: Total time spent is greater than 50% in coordination of care (as documented) at patient's floor/unit and/or counseling patient: Coding Level of Care Code 69974 SUB INP/OBS CARE Diagnoses Dementia F03.90 Syncope R55 Primary hypertension I10 Hypertension type: primary hypertension Seizure disorder G40.909 Hypothyroidism, unspecified type E03.9 Hypothyroidism type: unspecified Patient incapable of making informed decisions Z78.9 History of colon cancer Z85.038 Vertebral artery stenosis I65.09 (3) Hypertension Hypertension type: primary hypertension Qualified Code(s): I10 - Essential (primary) hypertension (5) Hypothyroidism Hypothyroidism type: unspecified Qualified Code(s): E03.9 - Hypothyroidism, unspecified
--- NOTE | 2023-04-05 12:06 | Hospitalist Progress Note ---
Date of Service April 05, 2023 Assessment & Plan (1) Dementia: Plan: Agitation now resolved, not needing prn meds for over a month. Seroquel dosage uptitrated throughout her stay-remains redirectable and cooperative Psychiatry has reevaluated the patient and determined that there is no indication for inpatient psychiatric treatment at this time. -continue quetiapine 75 mg am, 100mg pm -Awaiting placement, would benefit from a closed unit to be able to ambulate in safe environment -Continue supportive care (2) Syncope: Plan: Occurred during bowel movement getting up quickly from bed and running to toilet with loose bowels on floor in early Octiber Likely orthostatic hypotension as cause. Head CT and EKG unremarkable. No recurrence. (3) Hypertension: Plan: Lisinopril dosage uptitrated on February 20. Amlodipine also uptitrated BPs now controlled renal function normal on labs 04/02 (4) Seizure disorder: Plan: Stable. Continue keppra (5) Hypothyroidism: Plan: Stable. Continue Synthroid replacement therapy TSH 5 in 01/2023 but likely questionable compliance due to dementia with meds at home Plan to recheck TSH in a couple of months (6) Patient incapable of making informed decisions: Plan: Patient without capacity for decision making (7) History of colon cancer: Plan: s/p resection in the past . Stable. No intervention necessary at this time Continue to monitor bowel function (8) Vertebral artery stenosis: Plan: Stable. Continue aspirin and statin therapy Plan Will look to discharge to [facility] dementia lockdown unit when arrangements are finalized. Numerous referrals have been made and pt here with prolonged stay due to inability to find intermodal dispatcher placement Admission and Anticipated Discharge Date Admission Date: January 23, 2023 Subjective Pt reports feeling "miserable" but can't explain why. Denies pain, denies nausea, is eating lunch. She does admit to being tired and when asked if she is sad, she says "I guess so." Otherwise no acute events Physical Exam Constitutional: well developed; no acute distress Respiratory: normal respiratory effort, lungs clear to auscultation Cardiovascular: RRR, no murmur, no edema Neurologic: moves all extremities; no focal motor deficits Psychiatric: Orientation: alert and oriented to person Results & Data Results & Data Vital Signs (Past 12 Hours) Vital Signs Temp Pulse Resp BP Pulse Ox O2 Del Method 04/05/23 06:57 36.5 C 74 16 163/77 H 97 Room Air PG Care Time/CCT Total # of Minutes Spent Total Time Spent with Patient: Total time spent is greater than 50% in coordination of care (as documented) at patient's floor/unit and/or counseling patient: Coding Level of Care Code 44651 SUB INP/OBS CARE /25MIN Diagnoses Dementia F03.90 Syncope R55 Primary hypertension I10 Hypertension type: primary hypertension Seizure disorder G40.909 Hypothyroidism, unspecified type E03.9 Hypothyroidism type: unspecified Patient incapable of making informed decisions Z78.9 History of colon cancer Z85.038 Vertebral artery stenosis I65.09 (3) Hypertension Hypertension type: primary hypertension Qualified Code(s): I10 - Essential (primary) hypertension (5) Hypothyroidism Hypothyroidism type: unspecified Qualified Code(s): E03.9 - Hypothyroidism, unspecified
--- NOTE | 2023-04-06 19:33 | Hospitalist Progress Note ---
Date of Service April 06, 2023 Assessment & Plan (1) Dementia: Plan: Agitation now resolved, not needing prn meds for over a month. Seroquel dosage uptitrated throughout her stay-remains redirectable and cooperative Psychiatry has reevaluated the patient and determined that there is no indication for inpatient psychiatric treatment at this time. -continue quetiapine 75 mg am, 100mg pm -Awaiting placement, would benefit from a closed unit to be able to ambulate in safe environment -Continue supportive care (2) Syncope: Plan: Occurred during bowel movement getting up quickly from bed and running to toilet with loose bowels on floor in early Octiber Likely orthostatic hypotension as cause. Head CT and EKG unremarkable. No recurrence. (3) Hypertension: Plan: Lisinopril dosage uptitrated on February 20. Amlodipine also uptitrated BPs now controlled renal function normal on labs 04/02 (4) Seizure disorder: Plan: Stable. Continue keppra (5) Hypothyroidism: Plan: Stable. Continue Synthroid replacement therapy TSH 5 in 01/2023 but likely questionable compliance due to dementia with meds at home Plan to recheck TSH in a couple of months (6) Patient incapable of making informed decisions: Plan: Patient without capacity for decision making (7) History of colon cancer: Plan: s/p resection in the past . Stable. No intervention necessary at this time Continue to monitor bowel function (8) Vertebral artery stenosis: Plan: Stable. Continue aspirin and statin therapy Plan Will look to discharge to [facility] dementia lockdown unit when arrangements are finalized. Numerous referrals have been made and pt here with prolonged stay due to inability to find intermediate manager placement Admission and Anticipated Discharge Date Admission Date: January 23, 2023 Subjective no acute issues Physical Exam Constitutional: WD/WN, vitals as above no acute distress Respiratory: normal respiratory effort Psychiatric: Orientation: alert and oriented to person PG Care Time/CCT Total # of Minutes Spent Total Time Spent with Patient: Total time spent is greater than 50% in coordination of care (as documented) at patient's floor/unit and/or counseling patient: Coding Level of Care Code 10825 SUB INP/OBS CARE 1/25MIN Diagnoses Dementia F03.90 Syncope R55 Primary hypertension I10 Hypertension type: primary hypertension Seizure disorder G40.909 Hypothyroidism, unspecified type E03.9 Hypothyroidism type: unspecified Patient incapable of making informed decisions Z78.9 History of colon cancer Z85.038 Vertebral artery stenosis I65.09 (3) Hypertension Hypertension type: primary hypertension Qualified Code(s): I10 - Essential (primary) hypertension (5) Hypothyroidism Hypothyroidism type: unspecified Qualified Code(s): E03.9 - Hypothyroidism, unspecified
--- NOTE | 2023-04-07 15:41 | Hospitalist Progress Note ---
Date of Service April 07, 2023 Assessment & Plan (1) Dementia: Plan: Agitation now resolved, not needing prn meds for over a month. Seroquel dosage uptitrated throughout her stay-remains redirectable and cooperative Psychiatry has reevaluated the patient and determined that there is no indication for inpatient psychiatric treatment at this time. -continue quetiapine 75 mg am, 100mg pm -Awaiting placement, would benefit from a closed unit to be able to ambulate in safe environment -Continue supportive care (2) Syncope: Plan: Occurred during bowel movement getting up quickly from bed and running to toilet with loose bowels on floor in early Octiber Likely orthostatic hypotension as cause. Head CT and EKG unremarkable. No recurrence. (3) Hypertension: Plan: Lisinopril dosage uptitrated on February 20. Amlodipine also uptitrated BPs now controlled renal function normal on labs 04/02 (4) Seizure disorder: Plan: Stable. Continue keppra (5) Hypothyroidism: Plan: Stable. Continue Synthroid replacement therapy TSH 5 in 01/2023 but likely questionable compliance due to dementia with meds at home Plan to recheck TSH in a couple of months (6) Patient incapable of making informed decisions: Plan: Patient without capacity for decision making (7) History of colon cancer: Plan: s/p resection in the past . Stable. No intervention necessary at this time Continue to monitor bowel function (8) Vertebral artery stenosis: Plan: Stable. Continue aspirin and statin therapy Plan Will look to discharge to [facility] dementia lockdown unit when arrangements are finalized. Numerous referrals have been made and pt here with prolonged stay due to inability to find vermin exterminator placement Admission and Anticipated Discharge Date Admission Date: January 23, 2023 Subjective no acute issues, pt sleeping Physical Exam Constitutional: WD/WN, vitals as above no acute distress Respiratory: normal respiratory effort Results & Data Results & Data Vital Signs (Past 12 Hours) Vital Signs Temp Pulse Resp BP Pulse Ox O2 Del Method 04/07/23 07:25 36.5 C 77 18 163/76 H 95 Room Air PG Care Time/CCT Total # of Minutes Spent Total Time Spent with Patient: Total time spent is greater than 50% in coordination of care (as documented) at patient's floor/unit and/or counseling patient: Coding Level of Care Code 46292 SUB INP/OBS CARE 1/25MIN Diagnoses Dementia F03.90 Syncope R55 Primary hypertension I10 Hypertension type: primary hypertension Seizure disorder G40.909 Hypothyroidism, unspecified type E03.9 Hypothyroidism type: unspecified Patient incapable of making informed decisions Z78.9 History of colon cancer Z85.038 Vertebral artery stenosis I65.09 (3) Hypertension Hypertension type: primary hypertension Qualified Code(s): I10 - Essential (primary) hypertension (5) Hypothyroidism Hypothyroidism type: unspecified Qualified Code(s): E03.9 - Hypothyroidism, unspecified
--- NOTE | 2023-04-08 13:01 | Hospitalist Progress Note ---
Date of Service April 08, 2023 Assessment & Plan (1) Dementia: Plan: Agitation now resolved, not needing prn meds for over a month. Seroquel dosage uptitrated throughout her stay-remains redirectable and cooperative Psychiatry has reevaluated the patient and determined that there is no indication for inpatient psychiatric treatment at this time. -continue quetiapine 75 mg am, 100mg pm -Awaiting placement, would benefit from a closed unit to be able to ambulate in safe environment -Continue supportive care (2) Syncope: Plan: Occurred during bowel movement getting up quickly from bed and running to toilet with loose bowels on floor in early Octiber Likely orthostatic hypotension as cause. Head CT and EKG unremarkable. No recurrence. (3) Hypertension: Plan: Lisinopril dosage uptitrated on February 20. Amlodipine also uptitrated BPs now controlled renal function normal on labs 04/02 (4) Seizure disorder: Plan: Stable. Continue keppra (5) Hypothyroidism: Plan: Stable. Continue Synthroid replacement therapy TSH 5 in 01/2023 but likely questionable compliance due to dementia with meds at home Plan to recheck TSH in a couple of months (6) Patient incapable of making informed decisions: Plan: Patient without capacity for decision making (7) History of colon cancer: Plan: s/p resection in the past . Stable. No intervention necessary at this time Continue to monitor bowel function (8) Vertebral artery stenosis: Plan: Stable. Continue aspirin and statin therapy Plan Will look to discharge to SNF dementia lockdown unit when arrangements are finalized. Numerous referrals have been made and pt here with prolonged stay due to inability to find supervisor intermediates placement Admission and Anticipated Discharge Date Admission Date: January 23, 2023 Subjective patient sleeping, did not disturb her, no acute issues noted by RN Physical Exam Constitutional: WD/WN, vitals as above no acute distress Results & Data Results & Data Vital Signs (Past 12 Hours) Vital Signs Temp Pulse Resp BP Pulse Ox O2 Del Method 04/08/23 07:02 36.6 C 86 16 158/79 H 97 Room Air PG Care Time/CCT Total # of Minutes Spent Total Time Spent with Patient: Total time spent is greater than 50% in coordination of care (as documented) at patient's floor/unit and/or counseling patient: Coding Level of Care Code 09043 SUB INP/OBS CARE 1/25MIN Diagnoses Dementia F03.90 Syncope R55 Primary hypertension I10 Hypertension type: primary hypertension Seizure disorder G40.909 Hypothyroidism, unspecified type E03.9 Hypothyroidism type: unspecified Patient incapable of making informed decisions Z78.9 History of colon cancer Z85.038 Vertebral artery stenosis I65.09 (3) Hypertension Hypertension type: primary hypertension Qualified Code(s): I10 - Essential (primary) hypertension (5) Hypothyroidism Hypothyroidism type: unspecified Qualified Code(s): E03.9 - Hypothyroidism, unspecified
--- NOTE | 2023-04-09 08:19 | Hospitalist Progress Note ---
Date of Service April 09, 2023 Assessment & Plan (1) Dementia: Plan: Agitation now resolved, not needing prn meds for over a month. Seroquel dosage uptitrated throughout her stay-remains redirectable and cooperative Psychiatry has reevaluated the patient and determined that there is no indication for inpatient psychiatric treatment at this time. -continue quetiapine 75 mg am, 100mg pm -Awaiting placement, would benefit from a closed unit to be able to ambulate in safe environment -Continue supportive care no new changes (2) Syncope: Plan: Occurred during bowel movement getting up quickly from bed and running to toilet with loose bowels on floor in early Octiber Likely orthostatic hypotension as cause. Head CT and EKG unremarkable. No recurrence. (3) Hypertension: Plan: Lisinopril dosage uptitrated on February 20. Amlodipine also uptitrated BPs now controlled renal function normal on labs 04/02 (4) Seizure disorder: Plan: Stable. Continue keppra (5) Hypothyroidism: Plan: Stable. Continue Synthroid replacement therapy TSH 5 in 01/2023 but likely questionable compliance due to dementia with meds at home Plan to recheck TSH in a couple of months (6) Patient incapable of making informed decisions: Plan: Patient without capacity for decision making (7) History of colon cancer: Plan: s/p resection in the past . Stable. No intervention necessary at this time Continue to monitor bowel function (8) Vertebral artery stenosis: Plan: Stable. Continue aspirin and statin therapy Plan Will look to discharge to SNF dementia lockdown unit when arrangements are finalized. Numerous referrals have been made and pt here with prolonged stay due to inability to find halfway placement Admission and Anticipated Discharge Date Admission Date: January 23, 2023 Subjective pt is pleasantly confused, she has not focal complaints. Physical Exam Physical Exam: pt is pleasant cardiac exam is regular lungs are clear Results & Data Results & Data Vital Signs (Past 12 Hours) Vital Signs Temp Pulse Resp BP Pulse Ox O2 Del Method 04/09/23 07:14 97.7 F 74 16 119/65 94 Room Air PG Care Time/CCT Total # of Minutes Spent Total Time Spent with Patient: Total time spent is greater than 50% in coordination of care (as documented) at patient's floor/unit and/or counseling patient: Coding Level of Care Code 34386 SUB INP/OBS CARE 1/25MIN Diagnoses Dementia F03.90 Syncope R55 Primary hypertension I10 Hypertension type: primary hypertension Seizure disorder G40.909 Hypothyroidism, unspecified type E03.9 Hypothyroidism type: unspecified Patient incapable of making informed decisions Z78.9 History of colon cancer Z85.038 Vertebral artery stenosis I65.09 (3) Hypertension Hypertension type: primary hypertension Qualified Code(s): I10 - Essential (primary) hypertension (5) Hypothyroidism Hypothyroidism type: unspecified Qualified Code(s): E03.9 - Hypothyroidism, unspecified
--- NOTE | 2023-04-10 17:45 | Hospitalist Progress Note ---
Date of Service April 10, 2023 Assessment & Plan (1) Dementia: Plan: Agitation now resolved, not needing prn meds for over a month. Seroquel dosage uptitrated throughout her stay-remains redirectable and cooperative Psychiatry has reevaluated the patient and determined that there is no indication for inpatient psychiatric treatment at this time. -continue quetiapine 75 mg am, 100mg pm -Awaiting placement, would benefit from a closed unit to be able to ambulate in safe environment -Continue supportive care no new changes (2) Syncope: Plan: Occurred during bowel movement getting up quickly from bed and running to toilet with loose bowels on floor in early Octiber Likely orthostatic hypotension as cause. Head CT and EKG unremarkable. No recurrence. (3) Hypertension: Plan: Lisinopril dosage uptitrated on February 20. Amlodipine also uptitrated BPs now controlled renal function normal on labs 04/02 (4) Seizure disorder: Plan: Stable. Continue keppra (5) Hypothyroidism: Plan: Stable. Continue Synthroid replacement therapy TSH 5 in 01/2023 but likely questionable compliance due to dementia with meds at home Plan to recheck TSH in a couple of months (6) Patient incapable of making informed decisions: Plan: Patient without capacity for decision making (7) History of colon cancer: Plan: s/p resection in the past . Stable. No intervention necessary at this time Continue to monitor bowel function (8) Vertebral artery stenosis: Plan: Stable. Continue aspirin and statin therapy Plan Will look to discharge to [facility] dementia lockdown unit when arrangements are finalized. Numerous referrals have been made and pt here with prolonged stay due to inability to find care home placement Admission and Anticipated Discharge Date Admission Date: January 23, 2023 Subjective pt is pleasantly confused, she has not focal complaints. no new changes 04/10/23 Physical Exam Physical Exam: pt is pleasant cardiac exam is regular lungs are clear Results & Data Results & Data Vital Signs (Past 12 Hours) Vital Signs Temp Pulse Resp BP Pulse Ox O2 Del Method 04/10/23 07:59 97.5 F L 82 16 163/78 H 98 Room Air PG Care Time/CCT Total # of Minutes Spent Total Time Spent with Patient: Total time spent is greater than 50% in coordination of care (as documented) at patient's floor/unit and/or counseling patient: Coding Level of Care Code 27458 SUB INP/OBS CARE Diagnoses Dementia F03.90 Syncope R55 Primary hypertension I10 Hypertension type: primary hypertension Seizure disorder G40.909 Hypothyroidism, unspecified type E03.9 Hypothyroidism type: unspecified Patient incapable of making informed decisions Z78.9 History of colon cancer Z85.038 Vertebral artery stenosis I65.09 (3) Hypertension Hypertension type: primary hypertension Qualified Code(s): I10 - Essential (primary) hypertension (5) Hypothyroidism Hypothyroidism type: unspecified Qualified Code(s): E03.9 - Hypothyroidism, unspecified
--- NOTE | 2023-04-11 15:42 | Hospitalist Progress Note ---
Date of Service April 11, 2023 Assessment & Plan (1) Dementia: Plan: Agitation now resolved, not needing prn meds for over a month. Seroquel dosage uptitrated throughout her stay-remains redirectable and cooperative Psychiatry has reevaluated the patient and determined that there is no indication for inpatient psychiatric treatment at this time. -continue quetiapine 75 mg am, 100mg pm -Awaiting placement, would benefit from a closed unit to be able to ambulate in safe environment -Continue supportive care no new changes (2) Syncope: Plan: Occurred during bowel movement getting up quickly from bed and running to toilet with loose bowels on floor in early February Likely orthostatic hypotension as cause. Head CT and EKG unremarkable. No recurrence. (3) Hypertension: Plan: Lisinopril dosage uptitrated on February 20. Amlodipine also uptitrated BPs now controlled renal function normal on labs 04/02 (4) Seizure disorder: Plan: Stable. Continue keppra (5) Hypothyroidism: Plan: Stable. Continue Synthroid replacement therapy TSH 5 in 01/2023 but likely questionable compliance due to dementia with meds at home Plan to recheck TSH in a couple of months (6) Patient incapable of making informed decisions: Plan: Patient without capacity for decision making (7) History of colon cancer: Plan: s/p resection in the past . Stable. No intervention necessary at this time Continue to monitor bowel function (8) Vertebral artery stenosis: Plan: Stable. Continue aspirin and statin therapy Plan Will look to discharge to [facility] dementia lockdown unit when arrangements are finalized. Numerous referrals have been made and pt here with prolonged stay due to inability to find snf placement Admission and Anticipated Discharge Date Admission Date: January 23, 2023 Subjective Patient denies chest pain or shortness of breath. Review of Systems Review of Systems: All systems reviewed & are unremarkable except as noted in Subjective Physical Exam Physical Exam: general: Awake, conversant Heart: S1, S2/regular rate and rhythm, no murmur rubs or gallops Lungs: Clear to auscultation bilaterally. Normal effort Abdomen: Soft/nontender/nondistended. No hepatosplenomegaly Extremities: No clubbing/cyanosis. No edema Behavior: Appropriate, cooperative Results & Data Results & Data Vital Signs (Past 12 Hours) Vital Signs Temp Pulse Resp BP Pulse Ox O2 Del Method 04/11/23 07:47 36.6 C 67 16 121/69 95 Room Air PG Care Time/CCT Total # of Minutes Spent Total Time Spent with Patient: Total time spent is greater than 50% in coordination of care (as documented) at patient's floor/unit and/or counseling patient: Coding Level of Care Code 55915 SUB INP/OBS CARE 2/35MIN Diagnoses Dementia F03.90 Syncope R55 Primary hypertension I10 Hypertension type: primary hypertension Seizure disorder G40.909 Hypothyroidism, unspecified type E03.9 Hypothyroidism type: unspecified Patient incapable of making informed decisions Z78.9 History of colon cancer Z85.038 Vertebral artery stenosis I65.09 (3) Hypertension Hypertension type: primary hypertension Qualified Code(s): I10 - Essential (primary) hypertension (5) Hypothyroidism Hypothyroidism type: unspecified Qualified Code(s): E03.9 - Hypothyroidism, unspecified
--- NOTE | 2023-04-12 14:22 | Hospitalist Progress Note ---
Date of Service April 12, 2023 Assessment & Plan (1) Dementia: Plan: Agitation now resolved, not needing prn meds for over a month. Seroquel dosage uptitrated throughout her stay-remains redirectable and cooperative Psychiatry has reevaluated the patient and determined that there is no indication for inpatient psychiatric treatment at this time. -continue quetiapine 75 mg am, 100mg pm -Awaiting placement, would benefit from a closed unit to be able to ambulate in safe environment -Continue supportive care no new changes (2) Syncope: Plan: Occurred during bowel movement getting up quickly from bed and running to toilet with loose bowels on floor in early February Likely orthostatic hypotension as cause. Head CT and EKG unremarkable. No recurrence. (3) Hypertension: Plan: Lisinopril dosage uptitrated on February 20. Amlodipine also uptitrated BPs now controlled renal function normal on labs 04/02 (4) Seizure disorder: Plan: Stable. Continue keppra (5) Hypothyroidism: Plan: Stable. Continue Synthroid replacement therapy TSH 5 in 01/2023 but likely questionable compliance due to dementia with meds at home Plan to recheck TSH in a couple of months (6) Patient incapable of making informed decisions: Plan: Patient without capacity for decision making (7) History of colon cancer: Plan: s/p resection in the past . Stable. No intervention necessary at this time Continue to monitor bowel function (8) Vertebral artery stenosis: Plan: Stable. Continue aspirin and statin therapy Plan Will look to discharge to [facility] dementia lockdown unit when arrangements are finalized. Numerous referrals have been made and pt here with prolonged stay due to inability to find [facility] placement Admission and Anticipated Discharge Date Admission Date: January 23, 2023 Subjective patient feels well. Denies chest pain or shortness of breath Review of Systems Review of Systems: All systems reviewed & are unremarkable except as noted in Subjective Physical Exam Physical Exam: general: Awake, conversant Heart: S1, S2/regular rate and rhythm, no murmur rubs or gallops Lungs: Clear to auscultation bilaterally. Normal effort Abdomen: Soft/nontender/nondistended. No hepatosplenomegaly Extremities: No clubbing/cyanosis. No edema Behavior: Appropriate, cooperative Results & Data Results & Data Vital Signs (Past 12 Hours) Vital Signs Temp Pulse Resp BP Pulse Ox O2 Del Method 04/12/23 08:43 36.8 C 78 20 134/70 95 Room Air PG Care Time/CCT Total # of Minutes Spent Total Time Spent with Patient: Total time spent is greater than 50% in coordination of care (as documented) at patient's floor/unit and/or counseling patient: Coding Level of Care Code 58237 SUB INP/OBS CARE 2/35MIN Diagnoses Dementia F03.90 Syncope R55 Primary hypertension I10 Hypertension type: primary hypertension Seizure disorder G40.909 Hypothyroidism, unspecified type E03.9 Hypothyroidism type: unspecified Patient incapable of making informed decisions Z78.9 History of colon cancer Z85.038 Vertebral artery stenosis I65.09 (3) Hypertension Hypertension type: primary hypertension Qualified Code(s): I10 - Essential (primary) hypertension (5) Hypothyroidism Hypothyroidism type: unspecified Qualified Code(s): E03.9 - Hypothyroidism, unspecified
--- NOTE | 2023-04-13 15:15 | Hospitalist Progress Note ---
Date of Service April 13, 2023 Assessment & Plan (1) Dementia: Plan: Agitation now resolved, not needing prn meds for over a month. Seroquel dosage uptitrated throughout her stay-remains redirectable and cooperative Psychiatry has reevaluated the patient and determined that there is no indication for inpatient psychiatric treatment at this time. -continue quetiapine 75 mg am, 100mg pm -Awaiting placement, would benefit from a closed unit to be able to ambulate in safe environment -Continue supportive care no new changes (2) Syncope: Plan: Occurred during bowel movement getting up quickly from bed and running to toilet with loose bowels on floor in early February Likely orthostatic hypotension as cause. Head CT and EKG unremarkable. No recurrence. (3) Hypertension: Plan: Lisinopril dosage uptitrated on February 20. Amlodipine also uptitrated BPs now controlled renal function normal on labs 04/02 (4) Seizure disorder: Plan: Stable. Continue keppra (5) Hypothyroidism: Plan: Stable. Continue Synthroid replacement therapy TSH 5 in 01/2023 but likely questionable compliance due to dementia with meds at home Plan to recheck TSH in a couple of months (6) Patient incapable of making informed decisions: Plan: Patient without capacity for decision making (7) History of colon cancer: Plan: s/p resection in the past . Stable. No intervention necessary at this time Continue to monitor bowel function (8) Vertebral artery stenosis: Plan: Stable. Continue aspirin and statin therapy Plan Will look to discharge to [facility] dementia lockdown unit when arrangements are finalized. Numerous referrals have been made and pt here with prolonged stay due to inability to find correction placement Admission and Anticipated Discharge Date Admission Date: January 23, 2023 Subjective patient does not have any new complaints. Denies chest pain or shortness of breath Review of Systems Review of Systems: All systems reviewed & are unremarkable except as noted in Subjective Physical Exam Physical Exam: general: Awake, conversant Heart: S1, S2/regular rate and rhythm, no murmur rubs or gallops Lungs: Clear to auscultation bilaterally. Normal effort Abdomen: Soft/nontender/nondistended. No hepatosplenomegaly Extremities: No clubbing/cyanosis. No edema Behavior: Appropriate, cooperative Results & Data Results & Data Vital Signs (Past 12 Hours) Vital Signs O2 Del Method 04/13/23 08:32 Room Air PG Care Time/CCT Total # of Minutes Spent Total Time Spent with Patient: Total time spent is greater than 50% in coordination of care (as documented) at patient's floor/unit and/or counseling patient: Coding Level of Care Code 65869 SUB INP/OBS CARE 2/35MIN Diagnoses Dementia F03.90 Syncope R55 Primary hypertension I10 Hypertension type: primary hypertension Seizure disorder G40.909 Hypothyroidism, unspecified type E03.9 Hypothyroidism type: unspecified Patient incapable of making informed decisions Z78.9 History of colon cancer Z85.038 Vertebral artery stenosis I65.09 (3) Hypertension Hypertension type: primary hypertension Qualified Code(s): I10 - Essential (primary) hypertension (5) Hypothyroidism Hypothyroidism type: unspecified Qualified Code(s): E03.9 - Hypothyroidism, unspecified
--- NOTE | 2023-04-14 15:52 | Hospitalist Progress Note ---
Date of Service April 14, 2023 Assessment & Plan (1) Dementia: Plan: Agitation now resolved, not needing prn meds for over a month. Seroquel dosage uptitrated throughout her stay-remains redirectable and cooperative Psychiatry has reevaluated the patient and determined that there is no indication for inpatient psychiatric treatment at this time. -continue quetiapine 75 mg am, 100mg pm -Awaiting placement, would benefit from a closed unit to be able to ambulate in safe environment -Continue supportive care no new changes (2) Syncope: Plan: Occurred during bowel movement getting up quickly from bed and running to toilet with loose bowels on floor in early February Likely orthostatic hypotension as cause. Head CT and EKG unremarkable. No recurrence. (3) Hypertension: Plan: Lisinopril dosage uptitrated on February 20. Amlodipine also uptitrated BPs now controlled renal function normal on labs 04/02 (4) Seizure disorder: Plan: Stable. Continue keppra (5) Hypothyroidism: Plan: Stable. Continue Synthroid replacement therapy TSH 5 in 01/2023 but likely questionable compliance due to dementia with meds at home Plan to recheck TSH in a couple of months (6) Patient incapable of making informed decisions: Plan: Patient without capacity for decision making (7) History of colon cancer: Plan: s/p resection in the past . Stable. No intervention necessary at this time Continue to monitor bowel function (8) Vertebral artery stenosis: Plan: Stable. Continue aspirin and statin therapy Plan Will look to discharge to [facility] dementia lockdown unit when arrangements are finalized. Numerous referrals have been made and pt here with prolonged stay due to inability to find alf placement Admission and Anticipated Discharge Date Admission Date: January 23, 2023 Subjective patient feels well. Denies chest pain or shortness of breath. Review of Systems Review of Systems: All systems reviewed & are unremarkable except as noted in Subjective Physical Exam Physical Exam: general: Awake, conversant Heart: S1, S2/regular rate and rhythm, no murmur rubs or gallops Lungs: Clear to auscultation bilaterally. Normal effort Abdomen: Soft/nontender/nondistended. No hepatosplenomegaly Extremities: No clubbing/cyanosis. No edema Behavior: Appropriate, cooperative PG Care Time/CCT Total # of Minutes Spent Total Time Spent with Patient: Total time spent is greater than 50% in coordination of care (as documented) at patient's floor/unit and/or counseling patient: Coding Level of Care Code 74121 SUB INP/OBS CARE MIN Diagnoses Dementia F03.90 Syncope R55 Primary hypertension I10 Hypertension type: primary hypertension Seizure disorder G40.909 Hypothyroidism, unspecified type E03.9 Hypothyroidism type: unspecified Patient incapable of making informed decisions Z78.9 History of colon cancer Z85.038 Vertebral artery stenosis I65.09 (3) Hypertension Hypertension type: primary hypertension Qualified Code(s): I10 - Essential (primary) hypertension (5) Hypothyroidism Hypothyroidism type: unspecified Qualified Code(s): E03.9 - Hypothyroidism, unspecified
[2023-04-15] MEDS: bisacodyL 10 MG SUPP PR PRN (05:45)
[2023-04-15] MEDS: MAGNESIUM HYDROXIDE SUSP 30 ML UDC PO PRN (05:48)
[2023-04-15] MEDS: POLYETHYLENE (MIRALAX) 17 GM PACK PO PRN (06:38)
[2023-04-15] MEDS: bisacodyL 10 MG SUPP PR ONE (07:23)
--- NOTE | 2023-04-15 14:07 | Hospitalist Progress Note ---
Date of Service April 15, 2023 Assessment & Plan (1) Dementia: Plan: Agitation now resolved, not needing prn meds for over a month. Seroquel dosage uptitrated throughout her stay-remains redirectable and cooperative Psychiatry has reevaluated the patient and determined that there is no indication for inpatient psychiatric treatment at this time. -continue quetiapine 75 mg am, 100mg pm -Awaiting placement, would benefit from a closed unit to be able to ambulate in safe environment -Continue supportive care no new changes (2) Syncope: Plan: Occurred during bowel movement getting up quickly from bed and running to toilet with loose bowels on floor in early February Likely orthostatic hypotension as cause. Head CT and EKG unremarkable. No recurrence. (3) Hypertension: Plan: Lisinopril dosage uptitrated on February 20. Amlodipine also uptitrated BPs now controlled renal function normal on labs 04/02 (4) Seizure disorder: Plan: Stable. Continue keppra (5) Hypothyroidism: Plan: Stable. Continue Synthroid replacement therapy TSH 5 in 01/2023 but likely questionable compliance due to dementia with meds at home Plan to recheck TSH in a couple of months (6) Patient incapable of making informed decisions: Plan: Patient without capacity for decision making (7) History of colon cancer: Plan: s/p resection in the past . Stable. No intervention necessary at this time Continue to monitor bowel function (8) Vertebral artery stenosis: Plan: Stable. Continue aspirin and statin therapy Plan Will look to discharge to [facility] dementia lockdown unit when arrangements are finalized. Numerous referrals have been made and pt here with prolonged stay due to inability to find shelter placement Admission and Anticipated Discharge Date Admission Date: January 23, 2023 Subjective Patient feels well. Denies chest pain or shortness of breath. Review of Systems Review of Systems: All systems reviewed & are unremarkable except as noted in Subjective Physical Exam Physical Exam: general: Sleeping, arousable Heart: S1, S2/regular rate and rhythm, no murmur rubs or gallops Lungs: Clear to auscultation bilaterally. Normal effort Abdomen: Soft/nontender/nondistended. No hepatosplenomegaly Extremities: No clubbing/cyanosis. No edema Behavior: Appropriate, cooperative Results & Data Results & Data Vital Signs (Past 12 Hours) Vital Signs Temp Pulse Resp BP Pulse Ox O2 Del Method 04/15/23 09:42 36.5 C 74 16 97/56 L 93 Room Air PG Care Time/CCT Total # of Minutes Spent Total Time Spent with Patient: Total time spent is greater than 50% in coordination of care (as documented) at patient's floor/unit and/or counseling patient: Coding Level of Care Code 13509 SUB INP/OBS CARE 2/35MIN Diagnoses Dementia F03.90 Syncope R55 Primary hypertension I10 Hypertension type: primary hypertension Seizure disorder G40.909 Hypothyroidism, unspecified type E03.9 Hypothyroidism type: unspecified Patient incapable of making informed decisions Z78.9 History of colon cancer Z85.038 Vertebral artery stenosis I65.09 (3) Hypertension Hypertension type: primary hypertension Qualified Code(s): I10 - Essential (primary) hypertension (5) Hypothyroidism Hypothyroidism type: unspecified Qualified Code(s): E03.9 - Hypothyroidism, unspecified
[2023-04-16] MEDS: SENNA 8.6 MG TAB PO PRN (08:04)
--- NOTE | 2023-04-16 15:52 | Hospitalist Progress Note ---
Date of Service April 16, 2023 Assessment & Plan (1) Dementia: Plan: Agitation now resolved, not needing prn meds for over a month. Seroquel dosage uptitrated throughout her stay-remains redirectable and cooperative Psychiatry has reevaluated the patient and determined that there is no indication for inpatient psychiatric treatment at this time. -continue quetiapine 75 mg am, 100mg pm -Awaiting placement, would benefit from a closed unit to be able to ambulate in safe environment -Continue supportive care no new changes (2) Syncope: Plan: Occurred during bowel movement getting up quickly from bed and running to toilet with loose bowels on floor in early February Likely orthostatic hypotension as cause. Head CT and EKG unremarkable. No recurrence. (3) Hypertension: Plan: Lisinopril dosage uptitrated on February 20. Amlodipine also uptitrated BPs now controlled renal function normal on labs 04/02 (4) Seizure disorder: Plan: Stable. Continue keppra (5) Hypothyroidism: Plan: Stable. Continue Synthroid replacement therapy TSH 5 in 01/2023 but likely questionable compliance due to dementia with meds at home Plan to recheck TSH in a couple of months (6) Patient incapable of making informed decisions: Plan: Patient without capacity for decision making (7) History of colon cancer: Plan: s/p resection in the past . Stable. No intervention necessary at this time Continue to monitor bowel function (8) Vertebral artery stenosis: Plan: Stable. Continue aspirin and statin therapy Plan Will look to discharge to [facility] dementia lockdown unit when arrangements are finalized. Numerous referrals have been made and pt here with prolonged stay due to inability to find [facility] placement Admission and Anticipated Discharge Date Admission Date: January 23, 2023 Subjective No complaints. Review of Systems Review of Systems: All systems reviewed & are unremarkable except as noted in Subjective Physical Exam Physical Exam: general: Sleeping, arousable Heart: S1, S2/regular rate and rhythm, no murmur rubs or gallops Lungs: Clear to auscultation bilaterally. Normal effort Abdomen: Soft/nontender/nondistended. No hepatosplenomegaly Extremities: No clubbing/cyanosis. No edema Behavior: Appropriate, cooperative Results & Data Results & Data Vital Signs (Past 12 Hours) Vital Signs Temp Pulse Resp BP Pulse Ox O2 Del Method 04/16/23 15:08 36.6 C 86 18 152/70 H 96 Room Air PG Care Time/CCT Total # of Minutes Spent Total Time Spent with Patient: Total time spent is greater than 50% in coordination of care (as documented) at patient's floor/unit and/or counseling patient: Coding Level of Care Code 78817 SUB INP/OBS CARE 2/35MIN Diagnoses Dementia F03.90 Syncope R55 Primary hypertension I10 Hypertension type: primary hypertension Seizure disorder G40.909 Hypothyroidism, unspecified type E03.9 Hypothyroidism type: unspecified Patient incapable of making informed decisions Z78.9 History of colon cancer Z85.038 Vertebral artery stenosis I65.09 (3) Hypertension Hypertension type: primary hypertension Qualified Code(s): I10 - Essential (primary) hypertension (5) Hypothyroidism Hypothyroidism type: unspecified Qualified Code(s): E03.9 - Hypothyroidism, unspecified
--- NOTE | 2023-04-17 16:33 | Hospitalist Progress Note ---
Date of Service April 17, 2023 Assessment & Plan (1) Dementia: Plan: Agitation now resolved, not needing prn meds for over a month. Seroquel dosage uptitrated throughout her stay-remains redirectable and cooperative Psychiatry has reevaluated the patient and determined that there is no indication for inpatient psychiatric treatment at this time. -continue quetiapine 75 mg am, 100mg pm -Awaiting placement, would benefit from a closed unit to be able to ambulate in safe environment -Continue supportive care no new changes (2) Syncope: Plan: Occurred during bowel movement getting up quickly from bed and running to toilet with loose bowels on floor in early February Likely orthostatic hypotension as cause. Head CT and EKG unremarkable. No recurrence. (3) Hypertension: Plan: Lisinopril dosage uptitrated on February 20. Amlodipine also uptitrated BPs now controlled renal function normal on labs 04/02 (4) Seizure disorder: Plan: Stable. Continue keppra (5) Hypothyroidism: Plan: Stable. Continue Synthroid replacement therapy TSH 5 in 01/2023 but likely questionable compliance due to dementia with meds at home Plan to recheck TSH in a couple of months (6) Patient incapable of making informed decisions: Plan: Patient without capacity for decision making (7) History of colon cancer: Plan: s/p resection in the past . Stable. No intervention necessary at this time Continue to monitor bowel function (8) Vertebral artery stenosis: Plan: Stable. Continue aspirin and statin therapy Plan Will look to discharge to [facility] dementia lockdown unit when arrangements are finalized. Numerous referrals have been made and pt here with prolonged stay due to inability to find retirement placement Admission and Anticipated Discharge Date Admission Date: January 23, 2023 Subjective patient feels well. No complaints today. Review of Systems Review of Systems: All systems reviewed & are unremarkable except as noted in Subjective Physical Exam Physical Exam: general: Awake, conversant, sitting in the bedside chair, eating Heart: S1, S2/regular rate and rhythm, no murmur rubs or gallops Lungs: Clear to auscultation bilaterally. Normal effort Abdomen: Soft/nontender/nondistended. No hepatosplenomegaly Extremities: No clubbing/cyanosis. No edema Behavior: Appropriate, cooperative Results & Data Results & Data Vital Signs (Past 12 Hours) Vital Signs Temp Pulse Resp BP Pulse Ox O2 Del Method 04/17/23 08:07 36.7 C 71 16 160/70 H 98 Room Air PG Care Time/CCT Total # of Minutes Spent Total Time Spent with Patient: Total time spent is greater than 50% in coordination of care (as documented) at patient's floor/unit and/or counseling patient: Coding Level of Care Code 81420 SUB INP/OBS CARE 2/35MIN Diagnoses Dementia F03.90 Syncope R55 Primary hypertension I10 Hypertension type: primary hypertension Seizure disorder G40.909 Hypothyroidism, unspecified type E03.9 Hypothyroidism type: unspecified Patient incapable of making informed decisions Z78.9 History of colon cancer Z85.038 Vertebral artery stenosis I65.09 (3) Hypertension Hypertension type: primary hypertension Qualified Code(s): I10 - Essential (primary) hypertension (5) Hypothyroidism Hypothyroidism type: unspecified Qualified Code(s): E03.9 - Hypothyroidism, unspecified
[2023-04-17 20:36] LABS: BUN Creatinine Ratio 24.3 (10-20); Calcium 8.9 mg/dl (8.6-10.3); Creatinine Clr Calc Pharmacy 61.6 ml/min; Est GFR (African American) 92.9 ml/min; Est GFR (Non-African American) 80.1 ml/min; Potassium 4.3 mmol/L (3.5-5.1)
[2023-04-17 22:55] LABS: Basophils # (auto) 0.05 K/uL (0.00-0.20); Basophils % (auto) 0.6 %; Eosinophils # (auto) 0.18 K/uL (0.00-0.50); Eosinophils % (auto) 2.2 %; Hematocrit (blood only) 40.7 % (37.0-47.0); Hemoglobin 13.8 g/dl (12.0-16.0); Immature Granulocytes # (auto) 0.02 K/uL (0.01-0.20); Immature Granulocytes % (auto) 0.2 %; Lymphocytes # (auto) 2.15 K/uL (1.20-3.40); Lymphocytes % (auto) 26.2 %; Mean Corpuscular Hemoglobin 33.4 pg (25.0-34.0); Mean Corpuscular Hgb Conc 33.9 g/dL (32.0-36.0); Mean Corpuscular Volume 98.5 fL (80.0-100.0); Mean Platelet Volume 9.5 fL (9.4-12.4); Monocytes # (auto) 0.83 K/uL (0.11-0.59); Monocytes % (auto) 10.1 %; Neutrophils # (auto) 4.99 K/uL (1.40-6.50); Neutrophils % (auto) 60.7 %; Platelet Count 234 K/uL (130-400); RDW Coefficient of Variation 11.9 % (11.5-14.5); RDW Standard Deviation 43.2 fL (36.4-46.3); Red Blood Count 4.13 M/uL (4.20-5.40); White Blood Count 8.22 K/ul (4.8-10.8)
--- NOTE | 2023-04-18 14:02 | Hospitalist Progress Note ---
Date of Service April 18, 2023 Assessment & Plan (1) Dementia: Plan: Agitation now resolved, not needing prn meds for over a month. Seroquel dosage uptitrated throughout her stay-remains redirectable and cooperative Psychiatry has reevaluated the patient and determined that there is no indication for inpatient psychiatric treatment at this time. -continue quetiapine 75 mg am, 100mg pm -Awaiting placement, would benefit from a closed unit to be able to ambulate in safe environment -Continue supportive care no new changes (2) Syncope: Plan: Occurred during bowel movement getting up quickly from bed and running to toilet with loose bowels on floor in early February Likely orthostatic hypotension as cause. Head CT and EKG unremarkable. No recurrence. (3) Hypertension: Plan: Lisinopril dosage uptitrated on February 20. Amlodipine also uptitrated BPs now controlled renal function normal on labs 04/17 (4) Seizure disorder: Plan: Stable. Continue keppra (5) Hypothyroidism: Plan: Stable. Continue Synthroid replacement therapy TSH 5 in 01/2023 but likely questionable compliance due to dementia with meds at home Plan to recheck TSH in a couple of months (6) Patient incapable of making informed decisions: Plan: Patient without capacity for decision making (7) History of colon cancer: Plan: s/p resection in the past . Stable. No intervention necessary at this time Continue to monitor bowel function (8) Vertebral artery stenosis: Plan: Stable. Continue aspirin and statin therapy Plan Will look to discharge to [facility] dementia lockdown unit when arrangements are finalized. Numerous referrals have been made and pt here with prolonged stay due to inability to find half-way placement Admission and Anticipated Discharge Date Admission Date: January 23, 2023 Subjective patient feels well. Denies chest pain or shortness of breath. Review of Systems Review of Systems: All systems reviewed & are unremarkable except as noted in Subjective Physical Exam Physical Exam: general: Awake, conversant Heart: S1, S2/regular rate and rhythm, no murmur rubs or gallops Lungs: Clear to auscultation bilaterally. Normal effort Abdomen: Soft/nontender/nondistended. No hepatosplenomegaly Extremities: No clubbing/cyanosis. No edema Behavior: Appropriate, cooperative Results & Data Results & Data Vital Signs (Past 12 Hours) Vital Signs Temp Pulse Resp BP Pulse Ox O2 Del Method 04/18/23 08:20 36.7 C 73 16 155/78 H 95 Room Air Laboratory Results Abnormal lab results 04/17/23 Range/Units 20:03 RBC 4.13 L (4.20-5.40) M/uL [place] # (Auto) 0.83 H (0.11-0.59) K/uL BUN/Creatinine Ratio 24.3 H (10-20) Glucose 104 H (70-99(Fasting)) mg/dl PG Care Time/CCT Total # of Minutes Spent Total Time Spent with Patient: Total time spent is greater than 50% in coordination of care (as documented) at patient's floor/unit and/or counseling patient: Coding Level of Care Code 88100 SUB INP/OBS CARE 2/35MIN Diagnoses Dementia F03.90 Syncope R55 Primary hypertension I10 Hypertension type: primary hypertension Seizure disorder G40.909 Hypothyroidism, unspecified type E03.9 Hypothyroidism type: unspecified Patient incapable of making informed decisions Z78.9 History of colon cancer Z85.038 Vertebral artery stenosis I65.09 (3) Hypertension Hypertension type: primary hypertension Qualified Code(s): I10 - Essential (primary) hypertension (5) Hypothyroidism Hypothyroidism type: unspecified Qualified Code(s): E03.9 - Hypothyroidism, unspecified
--- NOTE | 2023-04-19 13:43 | Hospitalist Progress Note ---
Date of Service April 19, 2023 Assessment & Plan (1) Dementia: Plan: Agitation now resolved, not needing prn meds for over a month. Seroquel dosage uptitrated throughout her stay-remains redirectable and cooperative Psychiatry has reevaluated the patient and determined that there is no indication for inpatient psychiatric treatment at this time. -continue quetiapine 75 mg am, 100mg pm -Awaiting placement, would benefit from a closed unit to be able to ambulate in safe environment -Continue supportive care no new changes (2) Syncope: Plan: Occurred during bowel movement getting up quickly from bed and running to toilet with loose bowels on floor in early February Likely orthostatic hypotension as cause. Head CT and EKG unremarkable. No recurrence. (3) Hypertension: Plan: Lisinopril dosage uptitrated on February 20. Amlodipine also uptitrated BPs now controlled renal function normal on labs 04/17 (4) Seizure disorder: Plan: Stable. Continue keppra (5) Hypothyroidism: Plan: Stable. Continue Synthroid replacement therapy TSH 5 in 01/2023 but likely questionable compliance due to dementia with meds at home Plan to recheck TSH in a couple of months (6) Patient incapable of making informed decisions: Plan: Patient without capacity for decision making (7) History of colon cancer: Plan: s/p resection in the past . Stable. No intervention necessary at this time Continue to monitor bowel function (8) Vertebral artery stenosis: Plan: Stable. Continue aspirin and statin therapy Plan Will look to discharge to [facility] dementia lockdown unit when arrangements are finalized. Numerous referrals have been made and pt here with prolonged stay due to inability to find [facility] placement Admission and Anticipated Discharge Date Admission Date: January 23, 2023 Subjective no complaints today Review of Systems Review of Systems: All systems reviewed & are unremarkable except as noted in Subjective Physical Exam Physical Exam: general: Awake, conversant Heart: S1, S2/regular rate and rhythm, no murmur rubs or gallops Lungs: Clear to auscultation bilaterally. Normal effort Abdomen: Soft/nontender/nondistended. No hepatosplenomegaly Extremities: No clubbing/cyanosis. No edema Behavior: Appropriate, cooperative Results & Data Results & Data Vital Signs (Past 12 Hours) Vital Signs Temp Pulse BP Pulse Ox O2 Del Method 04/19/23 07:20 36.8 C 70 122/74 93 Room Air PG Care Time/CCT Total # of Minutes Spent Total Time Spent with Patient: Total time spent is greater than 50% in coordination of care (as documented) at patient's floor/unit and/or counseling patient: Coding Level of Care Code 04051 SUB INP/OBS CARE 2/35MIN Diagnoses Dementia F03.90 Syncope R55 Primary hypertension I10 Hypertension type: primary hypertension Seizure disorder G40.909 Hypothyroidism, unspecified type E03.9 Hypothyroidism type: unspecified Patient incapable of making informed decisions Z78.9 History of colon cancer Z85.038 Vertebral artery stenosis I65.09 (3) Hypertension Hypertension type: primary hypertension Qualified Code(s): I10 - Essential (primary) hypertension (5) Hypothyroidism Hypothyroidism type: unspecified Qualified Code(s): E03.9 - Hypothyroidism, unspecified
--- NOTE | 2023-04-20 12:50 | Hospitalist Progress Note ---
Date of Service April 20, 2023 Assessment & Plan (1) Dementia: Plan: Agitation now resolved, not needing prn meds for over 2 months. Seroquel dosage uptitrated throughout her stay-remains redirectable and cooperative Psychiatry has reevaluated the patient and determined that there is no indication for inpatient psychiatric treatment at this time. -continue quetiapine 75 mg am, 100mg pm -Awaiting placement, would benefit from a closed unit to be able to ambulate in safe environment -Continue supportive care no new changes (2) Syncope: Plan: Occurred during bowel movement getting up quickly from bed and running to toilet with loose bowels on floor in early February Likely orthostatic hypotension as cause. Head CT and EKG unremarkable. No recurrence. (3) Hypertension: Plan: Lisinopril dosage uptitrated on February 20. Amlodipine also uptitrated BPs now controlled renal function normal on labs 04/17 (4) Seizure disorder: Plan: Stable. Continue keppra (5) Hypothyroidism: Plan: Stable. Continue Synthroid replacement therapy TSH 5 in 01/2023 but likely questionable compliance due to dementia with meds at home Plan to recheck TSH in a couple of months (6) Patient incapable of making informed decisions: Plan: Patient without capacity for decision making (7) History of colon cancer: Plan: s/p resection in the past . Stable. No intervention necessary at this time Continue to monitor bowel function (8) Vertebral artery stenosis: Plan: Stable. Continue aspirin and statin therapy Plan Will look to discharge to [facility] dementia lockdown unit when arrangements are finalized. Numerous referrals have been made and pt here with prolonged stay due to inability to find senior care placement Admission and Anticipated Discharge Date Admission Date: January 23, 2023 Subjective No complaints. Relays she is annoyed by the [employer] "busybody" always following her around. Denies pain, swelling. Reports good appetite Physical Exam Constitutional: WD/WN, vitals as above no acute distress Respiratory: normal respiratory effort, lungs clear to auscultation Cardiovascular: RRR, no murmur, no edema Neurologic: moves all extremities; no focal motor deficits Psychiatric: Orientation: alert and oriented to person Results & Data Results & Data Vital Signs (Past 12 Hours) Vital Signs Temp Pulse Resp BP Pulse Ox O2 Del Method 04/20/23 07:25 36.8 C 70 16 124/69 96 Room Air PG Care Time/CCT Total # of Minutes Spent Total Time Spent with Patient: Total time spent is greater than 50% in coordination of care (as documented) at patient's floor/unit and/or counseling patient: Coding Level of Care Code 70541 SUB INP/OBS CARE /25MIN Diagnoses Dementia F03.90 Syncope R55 Primary hypertension I10 Hypertension type: primary hypertension Seizure disorder G40.909 Hypothyroidism, unspecified type E03.9 Hypothyroidism type: unspecified Patient incapable of making informed decisions Z78.9 History of colon cancer Z85.038 Vertebral artery stenosis I65.09 (3) Hypertension Hypertension type: primary hypertension Qualified Code(s): I10 - Essential (primary) hypertension (5) Hypothyroidism Hypothyroidism type: unspecified Qualified Code(s): E03.9 - Hypothyroidism, unspecified
--- NOTE | 2023-04-21 16:08 | Hospitalist Progress Note ---
Date of Service April 21, 2023 Assessment & Plan (1) Dementia: Plan: Agitation now resolved, not needing prn meds for over 2 months. Seroquel dosage uptitrated throughout her stay-remains redirectable and cooperative Psychiatry has reevaluated the patient and determined that there is no indication for inpatient psychiatric treatment at this time. -continue quetiapine 75 mg am, 100mg pm -Awaiting placement, would benefit from a closed unit to be able to ambulate in safe environment -Continue supportive care no new changes (2) Syncope: Plan: Occurred during bowel movement getting up quickly from bed and running to toilet with loose bowels on floor in early February Likely orthostatic hypotension as cause. Head CT and EKG unremarkable. No recurrence. (3) Hypertension: Plan: Lisinopril dosage uptitrated on February 20. Amlodipine also uptitrated BPs now controlled renal function normal on labs 04/17 (4) Seizure disorder: Plan: Stable. Continue keppra (5) Hypothyroidism: Plan: Stable. Continue Synthroid replacement therapy TSH 5 in 01/2023 but likely questionable compliance due to dementia with meds at home Plan to recheck TSH in a couple of months (6) Patient incapable of making informed decisions: Plan: Patient without capacity for decision making (7) History of colon cancer: Plan: s/p resection in the past . Stable. No intervention necessary at this time Continue to monitor bowel function (8) Vertebral artery stenosis: Plan: Stable. Continue aspirin and statin therapy Plan Will look to discharge to [facility] dementia lockdown unit when arrangements are finalized. Numerous referrals have been made and pt here with prolonged stay due to inability to find correction placement Admission and Anticipated Discharge Date Admission Date: January 23, 2023 Subjective Pt sleeping in the afternoon and I did not wake her. Physical Exam Constitutional: WD/WN, vitals as above no acute distress Respiratory: normal respiratory effort Results & Data Results & Data Vital Signs (Past 12 Hours) Vital Signs Temp Pulse Resp BP Pulse Ox O2 Del Method 04/21/23 14:45 36.7 C 74 17 117/68 95 Room Air 04/21/23 07:01 36.5 C 68 16 129/73 90 Room Air PG Care Time/CCT Total # of Minutes Spent Total Time Spent with Patient: Total time spent is greater than 50% in coordination of care (as documented) at patient's floor/unit and/or counseling patient: Coding Level of Care Code 85799 SUB INP/OBS CARE Diagnoses Dementia F03.90 Syncope R55 Primary hypertension I10 Hypertension type: primary hypertension Seizure disorder G40.909 Hypothyroidism, unspecified type E03.9 Hypothyroidism type: unspecified Patient incapable of making informed decisions Z78.9 History of colon cancer Z85.038 Vertebral artery stenosis I65.09 (3) Hypertension Hypertension type: primary hypertension Qualified Code(s): I10 - Essential (primary) hypertension (5) Hypothyroidism Hypothyroidism type: unspecified Qualified Code(s): E03.9 - Hypothyroidism, unspecified
--- NOTE | 2023-04-22 17:59 | Hospitalist Progress Note ---
Date of Service April 22, 2023 Assessment & Plan (1) Dementia: Plan: Agitation now resolved, not needing prn meds for over 2 months. Seroquel dosage uptitrated throughout her stay-remains redirectable and cooperative Psychiatry has reevaluated the patient and determined that there is no indication for inpatient psychiatric treatment at this time. -continue quetiapine 75 mg am, 100mg pm -Awaiting placement, would benefit from a closed unit to be able to ambulate in safe environment -Continue supportive care no new changes (2) Syncope: Plan: Occurred during bowel movement getting up quickly from bed and running to toilet with loose bowels on floor in early February Likely orthostatic hypotension as cause. Head CT and EKG unremarkable. No recurrence. (3) Hypertension: Plan: Lisinopril dosage uptitrated on February 20. Amlodipine also uptitrated BPs now controlled renal function normal on labs 04/17 (4) Seizure disorder: Plan: Stable. Continue keppra (5) Hypothyroidism: Plan: Stable. Continue Synthroid replacement therapy TSH 5 in 01/2023 but likely questionable compliance due to dementia with meds at home Plan to recheck TSH in a couple of months (6) Patient incapable of making informed decisions: Plan: Patient without capacity for decision making (7) History of colon cancer: Plan: s/p resection in the past . Stable. No intervention necessary at this time Continue to monitor bowel function (8) Vertebral artery stenosis: Plan: Stable. Continue aspirin and statin therapy Plan Will look to discharge to [facility] dementia lockdown unit when arrangements are finalized. Numerous referrals have been made and pt here with prolonged stay due to inability to find residential placement Admission and Anticipated Discharge Date Admission Date: January 23, 2023 Subjective no acute issues Physical Exam Constitutional: well developed; no acute distress Respiratory: normal respiratory effort Results & Data Results & Data Vital Signs (Past 12 Hours) Vital Signs Temp Pulse Resp BP Pulse Ox O2 Del Method 04/22/23 14:50 36.4 C L 68 16 138/75 95 Room Air 04/22/23 07:42 36.0 C L 68 15 147/78 H 99 Room Air PG Care Time/CCT Total # of Minutes Spent Total Time Spent with Patient: Total time spent is greater than 50% in coordination of care (as documented) at patient's floor/unit and/or counseling patient: Coding Level of Care Code 07711 SUB INP/OBS CARE 06/11MIN Diagnoses Dementia F03.90 Syncope R55 Primary hypertension I10 Hypertension type: primary hypertension Seizure disorder G40.909 Hypothyroidism, unspecified type E03.9 Hypothyroidism type: unspecified Patient incapable of making informed decisions Z78.9 History of colon cancer Z85.038 Vertebral artery stenosis I65.09 (3) Hypertension Hypertension type: primary hypertension Qualified Code(s): I10 - Essential (primary) hypertension (5) Hypothyroidism Hypothyroidism type: unspecified Qualified Code(s): E03.9 - Hypothyroidism, unspecified
--- NOTE | 2023-04-23 12:30 | Hospitalist Progress Note ---
Date of Service April 23, 2023 Assessment & Plan (1) Dementia: Plan: Agitation now resolved, not needing prn meds for over 2 months. Seroquel dosage uptitrated throughout her stay-remains redirectable and cooperative Psychiatry has reevaluated the patient and determined that there is no indication for inpatient psychiatric treatment at this time. -continue quetiapine 75 mg am, 100mg pm -Awaiting placement, would benefit from a closed unit to be able to ambulate in safe environment -Continue supportive care no new changes (2) Syncope: Plan: Occurred during bowel movement getting up quickly from bed and running to toilet with loose bowels on floor in early February Likely orthostatic hypotension as cause. Head CT and EKG unremarkable. No recurrence. (3) Hypertension: Plan: Lisinopril dosage uptitrated on February 20. Amlodipine also uptitrated BPs now controlled renal function normal on labs 04/17 (4) Seizure disorder: Plan: Stable. Continue keppra (5) Hypothyroidism: Plan: Stable. Continue Synthroid replacement therapy TSH 5 in 01/2023 but likely questionable compliance due to dementia with meds at home Plan to recheck TSH in a couple of months (6) Patient incapable of making informed decisions: Plan: Patient without capacity for decision making (7) History of colon cancer: Plan: s/p resection in the past . Stable. No intervention necessary at this time Continue to monitor bowel function (8) Vertebral artery stenosis: Plan: Stable. Continue aspirin and statin therapy Plan Will look to discharge to [facility] dementia lockdown unit when arrangements are finalized. Numerous referrals have been made and pt here with prolonged stay due to inability to find nursing home placement Admission and Anticipated Discharge Date Admission Date: January 23, 2023 Subjective pt awake, alert, pleasantly confused. Asks if I see the "mob, down there outside." Eating lunch. Physical Exam Constitutional: WD/WN, vitals as above no acute distress Respiratory: normal respiratory effort, lungs clear to auscultation Cardiovascular: RRR, no murmur, no edema Results & Data Results & Data Vital Signs (Past 12 Hours) Vital Signs Temp Pulse Resp BP Pulse Ox O2 Del Method 04/23/23 07:42 36.4 C L 69 16 135/80 96 Room Air PG Care Time/CCT Total # of Minutes Spent Total Time Spent with Patient: Total time spent is greater than 50% in coordination of care (as documented) at patient's floor/unit and/or counseling patient: Coding Level of Care Code 67904 SUB INP/OBS CARE Diagnoses Dementia F03.90 Syncope R55 Primary hypertension I10 Hypertension type: primary hypertension Seizure disorder G40.909 Hypothyroidism, unspecified type E03.9 Hypothyroidism type: unspecified Patient incapable of making informed decisions Z78.9 History of colon cancer Z85.038 Vertebral artery stenosis I65.09 (3) Hypertension Hypertension type: primary hypertension Qualified Code(s): I10 - Essential (primary) hypertension (5) Hypothyroidism Hypothyroidism type: unspecified Qualified Code(s): E03.9 - Hypothyroidism, unspecified
--- NOTE | 2023-04-24 17:09 | Hospitalist Progress Note ---
Date of Service April 24, 2023 Assessment & Plan (1) Dementia: Plan: Agitation now resolved, not needing prn meds for over 2 months. Seroquel dosage uptitrated throughout her stay-remains redirectable and cooperative Psychiatry has reevaluated the patient and determined that there is no indication for inpatient psychiatric treatment at this time. -continue quetiapine 75 mg am, 100mg pm -Awaiting placement, would benefit from a closed unit to be able to ambulate in safe environment -Continue supportive care no new changes (2) Syncope: Plan: Occurred during bowel movement getting up quickly from bed and running to toilet with loose bowels on floor in early February Likely orthostatic hypotension as cause. Head CT and EKG unremarkable. No recurrence. (3) Hypertension: Plan: Lisinopril dosage uptitrated on February 20. Amlodipine also uptitrated BPs now controlled renal function normal on labs 04/17 (4) Seizure disorder: Plan: Stable. Continue keppra (5) Hypothyroidism: Plan: Stable. Continue Synthroid replacement therapy TSH 5 in 01/2023 but likely questionable compliance due to dementia with meds at home Plan to recheck TSH in a couple of months (6) Patient incapable of making informed decisions: Plan: Patient without capacity for decision making (7) History of colon cancer: Plan: s/p resection in the past . Stable. No intervention necessary at this time Continue to monitor bowel function (8) Vertebral artery stenosis: Plan: Stable. Continue aspirin and statin therapy Plan Will look to discharge to [facility] dementia lockdown unit when arrangements are finalized. Numerous referrals have been made and pt here with prolonged stay due to inability to find long-term placement Admission and Anticipated Discharge Date Admission Date: January 23, 2023 Subjective No acute issues Physical Exam Constitutional: WD/WN, vitals as above no acute distress Results & Data Results & Data Vital Signs (Past 12 Hours) Vital Signs Temp Pulse Resp BP Pulse Ox O2 Del Method 04/24/23 07:40 36.4 C L 64 17 157/77 H 96 Room Air PG Care Time/CCT Total # of Minutes Spent Total Time Spent with Patient: Total time spent is greater than 50% in coordination of care (as documented) at patient's floor/unit and/or counseling patient: Coding Level of Care Code 31305 SUB INP/OBS CARE 25MIN Diagnoses Dementia F03.90 Syncope R55 Primary hypertension I10 Hypertension type: primary hypertension Seizure disorder G40.909 Hypothyroidism, unspecified type E03.9 Hypothyroidism type: unspecified Patient incapable of making informed decisions Z78.9 History of colon cancer Z85.038 Vertebral artery stenosis I65.09 (3) Hypertension Hypertension type: primary hypertension Qualified Code(s): I10 - Essential (primary) hypertension (5) Hypothyroidism Hypothyroidism type: unspecified Qualified Code(s): E03.9 - Hypothyroidism, unspecified
--- NOTE | 2023-04-25 14:26 | Hospitalist Progress Note ---
Date of Service April 25, 2023 Assessment & Plan (1) Dementia: Plan: Agitation now resolved, not needing prn meds for over 2 months. Seroquel dosage uptitrated throughout her stay-remains redirectable and cooperative Psychiatry has reevaluated the patient and determined that there is no indication for inpatient psychiatric treatment at this time. -continue quetiapine 75 mg am, 100mg pm -Awaiting placement, would benefit from a closed unit to be able to ambulate in safe environment -Continue supportive care no new changes (2) Syncope: Plan: Occurred during bowel movement getting up quickly from bed and running to toilet with loose bowels on floor in early February Likely orthostatic hypotension as cause. Head CT and EKG unremarkable. No recurrence. (3) Hypertension: Plan: Lisinopril dosage uptitrated on February 20. Amlodipine also uptitrated BPs now controlled renal function normal on labs 04/17 (4) Seizure disorder: Plan: Stable. Continue keppra (5) Hypothyroidism: Plan: Stable. Continue Synthroid replacement therapy TSH 5 in 01/2023 but likely questionable compliance due to dementia with meds at home Plan to recheck TSH in a couple of months (6) Patient incapable of making informed decisions: Plan: Patient without capacity for decision making (7) History of colon cancer: Plan: s/p resection in the past . Stable. No intervention necessary at this time Continue to monitor bowel function (8) Vertebral artery stenosis: Plan: Stable. Continue aspirin and statin therapy Plan Will look to discharge to [facility] dementia lockdown unit when arrangements are finalized. Numerous referrals have been made and pt here with prolonged stay due to inability to find [facility] placement Admission and Anticipated Discharge Date Admission Date: January 23, 2023 Subjective No acute issues sleeping Physical Exam Constitutional: WD/WN, vitals as above Results & Data Results & Data Vital Signs (Past 12 Hours) Vital Signs Temp Pulse Resp BP Pulse Ox O2 Del Method 04/25/23 06:58 36.8 C 63 18 168/84 H 98 Room Air PG Care Time/CCT Total # of Minutes Spent Total Time Spent with Patient: Total time spent is greater than 50% in coordination of care (as documented) at patient's floor/unit and/or counseling patient: Coding Level of Care Code 27732 SUB INP/OBS CARE 1/25MIN Diagnoses Dementia F03.90 Syncope R55 Primary hypertension I10 Hypertension type: primary hypertension Seizure disorder G40.909 Hypothyroidism, unspecified type E03.9 Hypothyroidism type: unspecified Patient incapable of making informed decisions Z78.9 History of colon cancer Z85.038 Vertebral artery stenosis I65.09 (3) Hypertension Hypertension type: primary hypertension Qualified Code(s): I10 - Essential (primary) hypertension (5) Hypothyroidism Hypothyroidism type: unspecified Qualified Code(s): E03.9 - Hypothyroidism, unspecified
--- NOTE | 2023-04-26 12:53 | Hospitalist Progress Note ---
Date of Service April 26, 2023 Assessment & Plan (1) Dementia: Plan: Agitation now resolved, not needing prn meds for over 2 months. Seroquel dosage uptitrated throughout her stay-remains redirectable and cooperative Psychiatry has reevaluated the patient and determined that there is no indication for inpatient psychiatric treatment at this time. -continue quetiapine 75 mg am, 100mg pm -Awaiting placement, would benefit from a closed unit to be able to ambulate in safe environment -Continue supportive care no new changes (2) Syncope: Plan: Occurred during bowel movement getting up quickly from bed and running to toilet with loose bowels on floor in early February Likely orthostatic hypotension as cause. Head CT and EKG unremarkable. No recurrence. (3) Hypertension: Plan: Lisinopril dosage uptitrated on February 20. Amlodipine also uptitrated BPs now controlled renal function normal on labs 04/17 (4) Seizure disorder: Plan: Stable. Continue keppra (5) Hypothyroidism: Plan: Stable. Continue Synthroid replacement therapy TSH 5 in 01/2023 but likely questionable compliance due to dementia with meds at home Plan to recheck TSH in a couple of months (6) Patient incapable of making informed decisions: Plan: Patient without capacity for decision making (7) History of colon cancer: Plan: s/p resection in the past . Stable. No intervention necessary at this time Continue to monitor bowel function (8) Vertebral artery stenosis: Plan: Stable. Continue aspirin and statin therapy Plan Will look to discharge to [facility] dementia lockdown unit when arrangements are finalized. Numerous referrals have been made and pt here with prolonged stay due to inability to find prison placement ENSURE MEDS ARE RENEWED EVERY 30 DAYS-good now through the end of the year Admission and Anticipated Discharge Date Admission Date: January 23, 2023 Subjective No acute issues sleeping Physical Exam Constitutional: WD/WN, vitals as above no acute distress Results & Data Results & Data Vital Signs (Past 12 Hours) Vital Signs Temp Pulse Resp BP Pulse Ox O2 Del Method 04/26/23 07:31 36.7 C 68 18 111/65 96 Room Air PG Care Time/CCT Total # of Minutes Spent Total Time Spent with Patient: Total time spent is greater than 50% in coordination of care (as documented) at patient's floor/unit and/or counseling patient: Coding Level of Care Code 53652 SUB INP/OBS CARE 06/11MIN Diagnoses Dementia F03.90 Syncope R55 Primary hypertension I10 Hypertension type: primary hypertension Seizure disorder G40.909 Hypothyroidism, unspecified type E03.9 Hypothyroidism type: unspecified Patient incapable of making informed decisions Z78.9 History of colon cancer Z85.038 Vertebral artery stenosis I65.09 (3) Hypertension Hypertension type: primary hypertension Qualified Code(s): I10 - Essential (primary) hypertension (5) Hypothyroidism Hypothyroidism type: unspecified Qualified Code(s): E03.9 - Hypothyroidism, unspecified
[2023-04-27] MEDS ORDERED: BENZOCAINE 20% (ORAJEL) 11.9 GM TUBE MT PRN (05:05)
--- NOTE | 2023-04-27 14:58 | Hospitalist Progress Note ---
Date of Service April 27, 2023 Assessment & Plan (1) Dementia: Plan: Agitation now resolved. She has not needed prn meds for over 2 months. Seroquel dosage uptitrated throughout her stay. She remains redirectable and cooperative Psychiatry has reevaluated the patient and determined that there is no indication for inpatient psychiatric treatment at this time. (2) Syncope: Plan: Occurred this hospitalization when getting up quickly from bed and running to toilet in early February. Likely orthostatic hypotension as cause. Head CT and EKG unremarkable. No recurrence. (3) Hypertension: Plan: Lisinopril dosage uptitrated on February 20. Amlodipine also uptitrated this admission. BPs now controlled (4) Seizure disorder: Plan: Stable. Continue keppra (5) Hypothyroidism: Plan: Stable. Continue Synthroid replacement therapy . TSH 5 in 01/2023 but likely questionable compliance due to dementia with meds at home. Needs to recheck TSH in a couple of months (6) Patient incapable of making informed decisions: Plan: Patient without capacity for decision making (7) History of colon cancer: Plan: s/p resection in the past . Stable. No intervention necessary at this time. (8) Vertebral artery stenosis: Plan: Stable. Continue aspirin and statin therapy Plan Will look to discharge to [facility] dementia lockdown unit when arrangements are finalized. Numerous referrals have been made and pt here with prolonged stay due to inability to find [facility] placement Admission and Anticipated Discharge Date Admission Date: January 23, 2023 Subjective Alert. Pleasant. Oriented to name only. No new problems Review of Systems 2 Review of Systems: The patient is unable to reliably answer any questions regarding review of systems Physical Exam 2 Physical Exam: General-alert but oriented x 1 only. No fever HEENT-head atraumatic and normocephalic, pupils equal and reactive to light, extraocular muscles intact Neck-no lymphadenopathy or thyromegaly, trachea midline Chest-clear to auscultation. No rales, wheezing or rhonchi Cardiac-regular rate and rhythm, normal S1 and S2 Abdomen-normal bowel sounds, nontender, no hepatosplenomegaly Extremities-no cyanosis, clubbing, or edema Neuro-cranial nerves II through XII intact, motor and sensory function within normal limits, strength symmetrical, no focal deficits Psych-normal affect, normal mood Results & Data Results & Data Vital Signs (Past 12 Hours) Vital Signs Temp Pulse Resp BP Pulse Ox O2 Del Method 04/27/23 07:54 36.5 C 68 16 148/77 H 97 Room Air Laboratory Results 04/17/23 20:03 04/17/23 20:03 PG Care Time/CCT Total # of Minutes Spent Total Time Spent with Patient: Total time spent is greater than 50% in coordination of care (as documented) at patient's floor/unit and/or counseling patient: Coding Level of Care Code 09190 SUB INP/OBS CARE 2/35MIN Diagnoses Dementia F03.90 Syncope R55 Primary hypertension I10 Hypertension type: primary hypertension Seizure disorder G40.909 Hypothyroidism, unspecified type E03.9 Hypothyroidism type: unspecified Patient incapable of making informed decisions Z78.9 History of colon cancer Z85.038 Vertebral artery stenosis I65.09 (3) Hypertension Hypertension type: primary hypertension Qualified Code(s): I10 - Essential (primary) hypertension (5) Hypothyroidism Hypothyroidism type: unspecified Qualified Code(s): E03.9 - Hypothyroidism, unspecified
--- NOTE | 2023-04-28 12:23 | Hospitalist Progress Note ---
Date of Service April 28, 2023 Assessment & Plan (1) Dementia: Plan: Agitation now resolved. She has not needed prn meds for over 2 months. Seroquel dosage uptitrated throughout her stay. She remains redirectable and cooperative Psychiatry has reevaluated the patient and determined that there is no indication for inpatient psychiatric treatment at this time. (2) Syncope: Plan: Occurred this hospitalization when getting up quickly from bed and running to toilet in early February. Likely orthostatic hypotension as cause. Head CT and EKG unremarkable. No recurrence. (3) Hypertension: Plan: Lisinopril dosage uptitrated on February 20. Amlodipine also uptitrated this admission. BPs now controlled (4) Seizure disorder: Plan: Stable. Continue keppra (5) Hypothyroidism: Plan: Stable. Continue Synthroid replacement therapy . TSH 5 in 01/2023 but likely questionable compliance due to dementia with meds at home. Needs to recheck TSH in a couple of months (6) Patient incapable of making informed decisions: Plan: Patient without capacity for decision making (7) History of colon cancer: Plan: s/p resection in the past . Stable. No intervention necessary at this time. (8) Vertebral artery stenosis: Plan: Stable. Continue aspirin and statin therapy Plan Will look to discharge to [facility] dementia lockdown unit when arrangements are finalized. Numerous referrals have been made and pt here with prolonged stay due to inability to find [facility] placement Admission and Anticipated Discharge Date Admission Date: January 23, 2023 Subjective Medically stable. No new problems. She is sad this morning because she says she has lost her and cannot find him. Review of Systems 2 Review of Systems: The patient is unable to reliably answer any questions regarding review of systems Physical Exam 2 Physical Exam: General-alert but oriented x 1 only. No fever HEENT-head atraumatic and normocephalic, pupils equal and reactive to light, extraocular muscles intact Neck-no lymphadenopathy or thyromegaly, trachea midline Chest-clear to auscultation. No rales, wheezing or rhonchi Cardiac-regular rate and rhythm, normal S1 and S2 Abdomen-normal bowel sounds, nontender, no hepatosplenomegaly Extremities-no cyanosis, clubbing, or edema Neuro-cranial nerves II through XII intact, motor and sensory function within normal limits, strength symmetrical, no focal deficits Psych-normal affect, normal mood Results & Data Results & Data Vital Signs (Past 12 Hours) Vital Signs Temp Pulse Resp BP Pulse Ox O2 Del Method 04/28/23 07:55 36.7 C 63 18 128/70 92 Room Air Laboratory Results 04/17/23 20:03 04/17/23 20:03 PG Care Time/CCT Total # of Minutes Spent Total Time Spent with Patient: Total time spent is greater than 50% in coordination of care (as documented) at patient's floor/unit and/or counseling patient: Coding Level of Care Code 84074 SUB INP/OBS CARE 2/35MIN Diagnoses Dementia F03.90 Syncope R55 Primary hypertension I10 Hypertension type: primary hypertension Seizure disorder G40.909 Hypothyroidism, unspecified type E03.9 Hypothyroidism type: unspecified Patient incapable of making informed decisions Z78.9 History of colon cancer Z85.038 Vertebral artery stenosis I65.09 (3) Hypertension Hypertension type: primary hypertension Qualified Code(s): I10 - Essential (primary) hypertension (5) Hypothyroidism Hypothyroidism type: unspecified Qualified Code(s): E03.9 - Hypothyroidism, unspecified
--- NOTE | 2023-04-29 11:40 | Hospitalist Progress Note ---
Date of Service April 29, 2023 Assessment & Plan (1) Dementia: Plan: Agitation now resolved. She has not needed prn meds for over 2 months. Seroquel dosage uptitrated throughout her stay. She remains redirectable and cooperative Psychiatry has reevaluated the patient and determined that there is no indication for inpatient psychiatric treatment at this time. (2) Syncope: Plan: Occurred this hospitalization when getting up quickly from bed and running to toilet in early February. Likely orthostatic hypotension as cause. Head CT and EKG unremarkable. No recurrence. (3) Hypertension: Plan: Lisinopril dosage uptitrated on February 20. Amlodipine also uptitrated this admission. BPs now controlled (4) Seizure disorder: Plan: Stable. Continue keppra (5) Hypothyroidism: Plan: Stable. Continue Synthroid replacement therapy . TSH 5 in 01/2023 but likely questionable compliance due to dementia with meds at home. Needs to recheck TSH in a couple of months (6) Patient incapable of making informed decisions: Plan: Patient without capacity for decision making (7) History of colon cancer: Plan: s/p resection in the past . Stable. No intervention necessary at this time. (8) Vertebral artery stenosis: Plan: Stable. Continue aspirin and statin therapy Plan Will look to discharge to [facility] dementia lockdown unit when arrangements are finalized. Numerous referrals have been made and pt here with prolonged stay due to inability to find custodial placement Admission and Anticipated Discharge Date Admission Date: January 23, 2023 Subjective Alert. Oriented to name only. No new problems. Review of Systems 2 Review of Systems: The patient is unable to reliably answer any questions regarding review of systems Physical Exam 2 Physical Exam: General-alert but oriented x 1 only. No fever HEENT-head atraumatic and normocephalic, pupils equal and reactive to light, extraocular muscles intact Neck-no lymphadenopathy or thyromegaly, trachea midline Chest-clear to auscultation. No rales, wheezing or rhonchi Cardiac-regular rate and rhythm, normal S1 and S2 Abdomen-normal bowel sounds, nontender, no hepatosplenomegaly Extremities-no cyanosis, clubbing, or edema Neuro-cranial nerves II through XII intact, motor and sensory function within normal limits, strength symmetrical, no focal deficits Psych-normal affect, normal mood Results & Data Results & Data Vital Signs (Past 12 Hours) Vital Signs Temp Pulse Resp BP Pulse Ox O2 Del Method 04/29/23 08:18 36.8 C 74 18 151/76 H 96 Room Air Laboratory Results 04/17/23 20:03 04/17/23 20:03 PG Care Time/CCT Total # of Minutes Spent Total Time Spent with Patient: Total time spent is greater than 50% in coordination of care (as documented) at patient's floor/unit and/or counseling patient: Coding Level of Care Code 22391 SUB INP/OBS CARE 2/35MIN Diagnoses Dementia F03.90 Syncope R55 Primary hypertension I10 Hypertension type: primary hypertension Seizure disorder G40.909 Hypothyroidism, unspecified type E03.9 Hypothyroidism type: unspecified Patient incapable of making informed decisions Z78.9 History of colon cancer Z85.038 Vertebral artery stenosis I65.09 (3) Hypertension Hypertension type: primary hypertension Qualified Code(s): I10 - Essential (primary) hypertension (5) Hypothyroidism Hypothyroidism type: unspecified Qualified Code(s): E03.9 - Hypothyroidism, unspecified
--- NOTE | 2023-04-30 12:33 | Hospitalist Progress Note ---
Date of Service April 30, 2023 Assessment & Plan (1) Dementia: Plan: Agitation now resolved. She has not needed prn meds for over 2 months. Seroquel dosage uptitrated throughout her stay. She remains redirectable and cooperative Psychiatry has reevaluated the patient and determined that there is no indication for inpatient psychiatric treatment at this time. (2) Syncope: Plan: Occurred this hospitalization when getting up quickly from bed and running to toilet in early February. Likely orthostatic hypotension as cause. Head CT and EKG unremarkable. No recurrence. (3) Hypertension: Plan: Lisinopril dosage uptitrated on February 20. Amlodipine also uptitrated this admission. BPs now controlled (4) Seizure disorder: Plan: Stable. Continue keppra (5) Hypothyroidism: Plan: Stable. Continue Synthroid replacement therapy . TSH 5 in 01/2023 but likely questionable compliance due to dementia with meds at home. Needs to recheck TSH in a couple of months (6) Patient incapable of making informed decisions: Plan: Patient without capacity for decision making (7) History of colon cancer: Plan: s/p resection in the past . Stable. No intervention necessary at this time. (8) Vertebral artery stenosis: Plan: Stable. Continue aspirin and statin therapy Plan Will look to discharge to [facility] dementia lockdown unit when arrangements are finalized. Numerous referrals have been made and pt here with prolonged stay due to inability to find [place] [facility] Admission and Anticipated Discharge Date Admission Date: January 23, 2023 Subjective No new problems. Vital signs stable Review of Systems 2 Review of Systems: The patient is unable to reliably answer any questions regarding review of systems Physical Exam 2 Physical Exam: General-alert but oriented x 1 only. No fever HEENT-head atraumatic and normocephalic, pupils equal and reactive to light, extraocular muscles intact Neck-no lymphadenopathy or thyromegaly, trachea midline Chest-clear to auscultation. No rales, wheezing or rhonchi Cardiac-regular rate and rhythm, normal S1 and S2 Abdomen-normal bowel sounds, nontender, no hepatosplenomegaly Extremities-no cyanosis, clubbing, or edema Neuro-cranial nerves II through XII intact, motor and sensory function within normal limits, strength symmetrical, no focal deficits Psych-normal affect, normal mood Results & Data Results & Data Laboratory Results 04/17/23 20:03 04/17/23 20:03 PG Care Time/CCT Total # of Minutes Spent Total Time Spent with Patient: Total time spent is greater than 50% in coordination of care (as documented) at patient's floor/unit and/or counseling patient: Coding Level of Care Code 47392 SUB INP/OBS CARE 2/35MIN Diagnoses Dementia F03.90 Syncope R55 Primary hypertension I10 Hypertension type: primary hypertension Seizure disorder G40.909 Hypothyroidism, unspecified type E03.9 Hypothyroidism type: unspecified Patient incapable of making informed decisions Z78.9 History of colon cancer Z85.038 Vertebral artery stenosis I65.09 (3) Hypertension Hypertension type: primary hypertension Qualified Code(s): I10 - Essential (primary) hypertension (5) Hypothyroidism Hypothyroidism type: unspecified Qualified Code(s): E03.9 - Hypothyroidism, unspecified
--- NOTE | 2023-05-01 11:20 | Hospitalist Progress Note ---
Date of Service May 01, 2023 Assessment & Plan (1) Dementia: Plan: Agitation now resolved. She has not needed prn meds for over 2 months. Seroquel dosage uptitrated throughout her stay. She remains redirectable and cooperative Psychiatry has reevaluated the patient and determined that there is no indication for inpatient psychiatric treatment at this time. (2) Syncope: Plan: Occurred this hospitalization when getting up quickly from bed and running to toilet in early February. Likely orthostatic hypotension as cause. Head CT and EKG unremarkable. No recurrence. (3) Hypertension: Plan: Lisinopril dosage uptitrated on February 20. Amlodipine also uptitrated this admission. BPs now controlled (4) Seizure disorder: Plan: Stable. Continue keppra (5) Hypothyroidism: Plan: Stable. Continue Synthroid replacement therapy . TSH 5 in 01/2023 but likely questionable compliance due to dementia with meds at home. Needs to recheck TSH in a couple of months (6) Patient incapable of making informed decisions: Plan: Patient without capacity for decision making (7) History of colon cancer: Plan: s/p resection in the past . Stable. No intervention necessary at this time. (8) Vertebral artery stenosis: Plan: Stable. Continue aspirin and statin therapy Plan Will look to discharge to [facility] dementia lockdown unit when arrangements are finalized. Numerous referrals have been made and pt here with prolonged stay due to inability to find long-term placement Admission and Anticipated Discharge Date Admission Date: January 23, 2023 Subjective Ambulating in the hallway with her son. No new problems Review of Systems 2 Review of Systems: The patient is unable to reliably answer any questions regarding review of systems Physical Exam 2 Physical Exam: General-alert but oriented x 1 only. No fever HEENT-head atraumatic and normocephalic, pupils equal and reactive to light, extraocular muscles intact Neck-no lymphadenopathy or thyromegaly, trachea midline Chest-clear to auscultation. No rales, wheezing or rhonchi Cardiac-regular rate and rhythm, normal S1 and S2 Abdomen-normal bowel sounds, nontender, no hepatosplenomegaly Extremities-no cyanosis, clubbing, or edema Neuro-cranial nerves II through XII intact, motor and sensory function within normal limits, strength symmetrical, no focal deficits Psych-normal affect, normal mood Results & Data Results & Data Vital Signs (Past 12 Hours) Vital Signs Temp Pulse Resp BP Pulse Ox O2 Del Method 05/01/23 08:04 36.4 C L 66 20 158/75 H 96 Room Air Laboratory Results 04/17/23 20:03 04/17/23 20:03 PG Care Time/CCT Total # of Minutes Spent Total Time Spent with Patient: Total time spent is greater than 50% in coordination of care (as documented) at patient's floor/unit and/or counseling patient: Coding Level of Care Code 68564 SUB INP/OBS CARE 2/35MIN Diagnoses Dementia F03.90 Syncope R55 Primary hypertension I10 Hypertension type: primary hypertension Seizure disorder G40.909 Hypothyroidism, unspecified type E03.9 Hypothyroidism type: unspecified Patient incapable of making informed decisions Z78.9 History of colon cancer Z85.038 Vertebral artery stenosis I65.09 (3) Hypertension Hypertension type: primary hypertension Qualified Code(s): I10 - Essential (primary) hypertension (5) Hypothyroidism Hypothyroidism type: unspecified Qualified Code(s): E03.9 - Hypothyroidism, unspecified
--- NOTE | 2023-05-02 12:24 | Hospitalist Progress Note ---
Date of Service May 02, 2023 Assessment & Plan (1) Dementia: Plan: Agitation now resolved. She has not needed prn meds for over 2 months. Seroquel dosage uptitrated throughout her stay. She remains redirectable and cooperative Psychiatry has reevaluated the patient and determined that there is no indication for inpatient psychiatric treatment at this time. (2) Syncope: Plan: Occurred this hospitalization when getting up quickly from bed and running to toilet in early February. Likely orthostatic hypotension as cause. Head CT and EKG unremarkable. No recurrence. (3) Hypertension: Plan: Lisinopril dosage uptitrated on February 20. Amlodipine also uptitrated this admission. BPs now controlled (4) Seizure disorder: Plan: Stable. Continue keppra (5) Hypothyroidism: Plan: Stable. Continue Synthroid replacement therapy . TSH 5 in 01/2023 but likely questionable compliance due to dementia with meds at home. Needs to recheck TSH in a couple of months (6) Patient incapable of making informed decisions: Plan: Patient without capacity for decision making (7) History of colon cancer: Plan: s/p resection in the past . Stable. No intervention necessary at this time. (8) Vertebral artery stenosis: Plan: Stable. Continue aspirin and statin therapy Plan Anticipate discharge to SNF dementia lockdown unit when arrangements are finalized. Numerous referrals have been made and pt here with prolonged stay due to inability to find custodial placement Admission and Anticipated Discharge Date Admission Date: January 23, 2023 Subjective Alert and oriented. No new problems. Review of Systems 2 Review of Systems: The patient is unable to reliably answer any questions regarding review of systems Physical Exam 2 Physical Exam: General-alert but oriented x 1 only. No fever HEENT-head atraumatic and normocephalic, pupils equal and reactive to light, extraocular muscles intact Neck-no lymphadenopathy or thyromegaly, trachea midline Chest-clear to auscultation. No rales, wheezing or rhonchi Cardiac-regular rate and rhythm, normal S1 and S2 Abdomen-normal bowel sounds, nontender, no hepatosplenomegaly Extremities-no cyanosis, clubbing, or edema Neuro-cranial nerves II through XII intact, motor and sensory function within normal limits, strength symmetrical, no focal deficits Psych-normal affect, normal mood Results & Data Results & Data Vital Signs (Past 12 Hours) Vital Signs Temp Pulse Resp BP Pulse Ox O2 Del Method 05/02/23 07:50 36.6 C 68 18 123/75 95 Room Air Laboratory Results 04/17/23 20:03 04/17/23 20:03 PG Care Time/CCT Total # of Minutes Spent Total Time Spent with Patient: Total time spent is greater than 50% in coordination of care (as documented) at patient's floor/unit and/or counseling patient: Coding Level of Care Code 59229 SUB INP/OBS CARE 2/35MIN Diagnoses Dementia F03.90 Syncope R55 Primary hypertension I10 Hypertension type: primary hypertension Seizure disorder G40.909 Hypothyroidism, unspecified type E03.9 Hypothyroidism type: unspecified Patient incapable of making informed decisions Z78.9 History of colon cancer Z85.038 Vertebral artery stenosis I65.09 (3) Hypertension Hypertension type: primary hypertension Qualified Code(s): I10 - Essential (primary) hypertension (5) Hypothyroidism Hypothyroidism type: unspecified Qualified Code(s): E03.9 - Hypothyroidism, unspecified
--- NOTE | 2023-05-03 11:03 | Hospitalist Progress Note ---
Date of Service May 03, 2023 Assessment & Plan (1) Dementia: Plan: Agitation now resolved. She has not needed prn meds for over 2 months. Seroquel dosage uptitrated throughout her stay. She remains redirectable and cooperative Psychiatry has reevaluated the patient and determined that there is no indication for inpatient psychiatric treatment at this time. (2) Syncope: Plan: Occurred this hospitalization when getting up quickly from bed and running to toilet in early February. Likely orthostatic hypotension as cause. Head CT and EKG unremarkable. No recurrence. (3) Hypertension: Plan: Lisinopril dosage uptitrated on February 20. Amlodipine also uptitrated this admission. BPs now controlled (4) Seizure disorder: Plan: Stable. Continue keppra (5) Hypothyroidism: Plan: Stable. Continue Synthroid replacement therapy . TSH 5 in 01/2023 but likely questionable compliance due to dementia with meds at home. Needs to recheck TSH in a couple of months (6) Patient incapable of making informed decisions: Plan: Patient without capacity for decision making (7) History of colon cancer: Plan: s/p resection in the past . Stable. No intervention necessary at this time. (8) Vertebral artery stenosis: Plan: Stable. Continue aspirin and statin therapy Plan Anticipate discharge to SNF dementia lockdown unit when arrangements are finalized. Numerous referrals have been made and pt here with prolonged stay due to inability to find [facility] placement Admission and Anticipated Discharge Date Admission Date: January 23, 2023 Subjective Pleasant. No new problems. Medically stable Review of Systems 2 Review of Systems: The patient is unable to reliably answer any questions regarding review of systems Physical Exam 2 Physical Exam: General-alert but oriented x 1 only. No fever HEENT-head atraumatic and normocephalic, pupils equal and reactive to light, extraocular muscles intact Neck-no lymphadenopathy or thyromegaly, trachea midline Chest-clear to auscultation. No rales, wheezing or rhonchi Cardiac-regular rate and rhythm, normal S1 and S2 Abdomen-normal bowel sounds, nontender, no hepatosplenomegaly Extremities-no cyanosis, clubbing, or edema Neuro-cranial nerves II through XII intact, motor and sensory function within normal limits, strength symmetrical, no focal deficits Psych-normal affect, normal mood Results & Data Results & Data Vital Signs (Past 12 Hours) Vital Signs Temp Pulse Resp BP Pulse Ox O2 Del Method 05/03/23 07:50 36.5 C 67 16 122/60 96 Room Air Laboratory Results 04/17/23 20:03 04/17/23 20:03 PG Care Time/CCT Total # of Minutes Spent Total Time Spent with Patient: Total time spent is greater than 50% in coordination of care (as documented) at patient's floor/unit and/or counseling patient: Coding Level of Care Code 45316 SUB INP/OBS CARE 2/35MIN Diagnoses Dementia F03.90 Syncope R55 Primary hypertension I10 Hypertension type: primary hypertension Seizure disorder G40.909 Hypothyroidism, unspecified type E03.9 Hypothyroidism type: unspecified Patient incapable of making informed decisions Z78.9 History of colon cancer Z85.038 Vertebral artery stenosis I65.09 (3) Hypertension Hypertension type: primary hypertension Qualified Code(s): I10 - Essential (primary) hypertension (5) Hypothyroidism Hypothyroidism type: unspecified Qualified Code(s): E03.9 - Hypothyroidism, unspecified
[2023-05-04] MEDS: SENNA 8.6 MG TAB PO SCH (08:00)
--- NOTE | 2023-05-04 12:58 | Hospitalist Progress Note ---
Date of Service May 04, 2023 Assessment & Plan (1) Dementia: Plan: Agitation now resolved. She has not needed prn meds for over 2 months. Seroquel dosage uptitrated throughout her stay. She remains redirectable and cooperative Psychiatry has reevaluated the patient and determined that there is no indication for inpatient psychiatric treatment at this time. (2) Syncope: Plan: Occurred this hospitalization when getting up quickly from bed and running to toilet in early February. Likely orthostatic hypotension as cause. Head CT and EKG unremarkable. No recurrence. (3) Hypertension: Plan: Lisinopril dosage uptitrated on February 20. Amlodipine also uptitrated this admission. BPs now controlled (4) Seizure disorder: Plan: Stable. Continue keppra (5) Hypothyroidism: Plan: Stable. Continue Synthroid replacement therapy . TSH 5 in 01/2023 but likely questionable compliance due to dementia with meds at home. Needs to recheck TSH in a couple of months (6) Patient incapable of making informed decisions: Plan: Patient without capacity for decision making (7) History of colon cancer: Plan: s/p resection in the past . Stable. No intervention necessary at this time. laxatives for constipation (8) Vertebral artery stenosis: Plan: Stable. Continue aspirin and statin therapy Plan Anticipate discharge to SNF dementia lockdown unit when arrangements are finalized. Numerous referrals have been made and pt here with prolonged stay due to inability to find snf placement Admission and Anticipated Discharge Date Admission Date: January 23, 2023 Subjective No complaints. Was having constipation a couple days ago which is now improving with laxatives Physical Exam Constitutional: WD/WN, vitals as above no acute distress Respiratory: normal respiratory effort, lungs clear to auscultation Cardiovascular: RRR, no murmur, no edema Neurologic: moves all extremities; no focal motor deficits Psychiatric: Orientation: alert and oriented to person Results & Data Results & Data Vital Signs (Past 12 Hours) Vital Signs Temp Pulse Resp BP Pulse Ox O2 Del Method 05/04/23 06:59 36.7 C 68 16 128/68 96 Room Air PG Care Time/CCT Total # of Minutes Spent Total Time Spent with Patient: Total time spent is greater than 50% in coordination of care (as documented) at patient's floor/unit and/or counseling patient: Coding Level of Care Code 43135 SUB INP/OBS CARE 1/25MIN Diagnoses Dementia F03.90 Syncope R55 Primary hypertension I10 Hypertension type: primary hypertension Seizure disorder G40.909 Hypothyroidism, unspecified type E03.9 Hypothyroidism type: unspecified Patient incapable of making informed decisions Z78.9 History of colon cancer Z85.038 Vertebral artery stenosis I65.09 (3) Hypertension Hypertension type: primary hypertension Qualified Code(s): I10 - Essential (primary) hypertension (5) Hypothyroidism Hypothyroidism type: unspecified Qualified Code(s): E03.9 - Hypothyroidism, unspecified
--- NOTE | 2023-05-05 11:47 | Hospitalist Progress Note ---
Date of Service May 05, 2023 Assessment & Plan (1) Dementia: Plan: Agitation now resolved. She has not needed prn meds for over 2 months. Seroquel dosage uptitrated throughout her stay. She remains redirectable and cooperative Psychiatry has reevaluated the patient and determined that there is no indication for inpatient psychiatric treatment at this time. (2) Syncope: Plan: Occurred this hospitalization when getting up quickly from bed and running to toilet in early February. Likely orthostatic hypotension as cause. Head CT and EKG unremarkable. No recurrence. (3) Hypertension: Plan: Lisinopril dosage uptitrated on February 20. Amlodipine also uptitrated this admission. BPs now controlled (4) Seizure disorder: Plan: Stable. Continue keppra (5) Hypothyroidism: Plan: Stable. Continue Synthroid replacement therapy . TSH 5 in 01/2023 but likely questionable compliance due to dementia with meds at home. Needs to recheck TSH in a couple of months (6) Patient incapable of making informed decisions: Plan: Patient without capacity for decision making (7) History of colon cancer: Plan: s/p resection in the past . Stable. No intervention necessary at this time. laxatives for constipation (8) Vertebral artery stenosis: Plan: Stable. Continue aspirin and statin therapy Plan Anticipate discharge to SNF dementia lockdown unit when arrangements are finalized. Numerous referrals have been made and pt here with prolonged stay due to inability to find [facility] placement Admission and Anticipated Discharge Date Admission Date: January 23, 2023 Subjective Says she feels "funny" today but can't explain why. Denies pain, SOB, CP, nausea, sore throat, or headache. She is eating lunch when I saw her Physical Exam Constitutional: WD/WN, vitals as above no acute distress Respiratory: normal respiratory effort Psychiatric: Orientation: alert and oriented to person Results & Data Results & Data Vital Signs (Past 12 Hours) Vital Signs Temp Pulse Resp BP Pulse Ox O2 Del Method 05/05/23 06:00 36.8 C 66 18 129/78 96 Room Air PG Care Time/CCT Total # of Minutes Spent Total Time Spent with Patient: Total time spent is greater than 50% in coordination of care (as documented) at patient's floor/unit and/or counseling patient: Coding Level of Care Code 94975 SUB INP/OBS CARE 1/25MIN Diagnoses Dementia F03.90 Syncope R55 Primary hypertension I10 Hypertension type: primary hypertension Seizure disorder G40.909 Hypothyroidism, unspecified type E03.9 Hypothyroidism type: unspecified Patient incapable of making informed decisions Z78.9 History of colon cancer Z85.038 Vertebral artery stenosis I65.09 (3) Hypertension Hypertension type: primary hypertension Qualified Code(s): I10 - Essential (primary) hypertension (5) Hypothyroidism Hypothyroidism type: unspecified Qualified Code(s): E03.9 - Hypothyroidism, unspecified
--- NOTE | 2023-05-06 17:06 | Hospitalist Progress Note ---
Date of Service May 06, 2023 Assessment & Plan (1) Dementia: Plan: Agitation now resolved. She has not needed prn meds for over 2 months. Seroquel dosage uptitrated throughout her stay. She remains redirectable and cooperative Psychiatry has reevaluated the patient and determined that there is no indication for inpatient psychiatric treatment at this time. (2) Syncope: Plan: Occurred this hospitalization when getting up quickly from bed and running to toilet in early February. Likely orthostatic hypotension as cause. Head CT and EKG unremarkable. No recurrence. (3) Hypertension: Plan: Lisinopril dosage uptitrated on February 20. Amlodipine also uptitrated this admission. BPs now controlled (4) Seizure disorder: Plan: Stable. Continue keppra (5) Hypothyroidism: Plan: Stable. Continue Synthroid replacement therapy . TSH 5 in 01/2023 but likely questionable compliance due to dementia with meds at home. Needs to recheck TSH in a couple of months (6) Patient incapable of making informed decisions: Plan: Patient without capacity for decision making (7) History of colon cancer: Plan: s/p resection in the past . Stable. No intervention necessary at this time. laxatives for constipation (8) Vertebral artery stenosis: Plan: Stable. Continue aspirin and statin therapy Plan Anticipate discharge to SNF dementia lockdown unit when arrangements are finalized. Numerous referrals have been made and pt here with prolonged stay due to inability to find nursing home placement Admission and Anticipated Discharge Date Admission Date: January 23, 2023 Subjective Pt denies any problems. When asked if she needed anything, she said "a new outfit." Physical Exam Constitutional: WD/WN, vitals as above no acute distress Psychiatric: Orientation: alert and oriented to person Results & Data Results & Data Vital Signs (Past 12 Hours) Vital Signs Temp Pulse Resp BP Pulse Ox O2 Del Method 05/06/23 11:50 36.6 C 76 16 115/68 95 Room Air PG Care Time/CCT Total # of Minutes Spent Total Time Spent with Patient: Total time spent is greater than 50% in coordination of care (as documented) at patient's floor/unit and/or counseling patient: Coding Level of Care Code 48474 SUB INP/OBS CARE 1/25MIN Diagnoses Dementia F03.90 Syncope R55 Primary hypertension I10 Hypertension type: primary hypertension Seizure disorder G40.909 Hypothyroidism, unspecified type E03.9 Hypothyroidism type: unspecified Patient incapable of making informed decisions Z78.9 History of colon cancer Z85.038 Vertebral artery stenosis I65.09 (3) Hypertension Hypertension type: primary hypertension Qualified Code(s): I10 - Essential (primary) hypertension (5) Hypothyroidism Hypothyroidism type: unspecified Qualified Code(s): E03.9 - Hypothyroidism, unspecified
--- NOTE | 2023-05-07 16:45 | Hospitalist Progress Note ---
Date of Service May 07, 2023 Assessment & Plan (1) Dementia: Plan: Agitation now resolved. She has not needed prn meds for over 2 months. Seroquel dosage uptitrated throughout her stay. She remains redirectable and cooperative Psychiatry has reevaluated the patient and determined that there is no indication for inpatient psychiatric treatment at this time. (2) Syncope: Plan: Occurred this hospitalization when getting up quickly from bed and running to toilet in early February. Likely orthostatic hypotension as cause. Head CT and EKG unremarkable. No recurrence. (3) Hypertension: Plan: Lisinopril dosage uptitrated on February 20. Amlodipine also uptitrated this admission. BPs now controlled (4) Seizure disorder: Plan: Stable. Continue keppra (5) Hypothyroidism: Plan: Stable. Continue Synthroid replacement therapy . TSH 5 in 01/2023 but likely questionable compliance due to dementia with meds at home. Needs to recheck TSH in a couple of months (6) Patient incapable of making informed decisions: Plan: Patient without capacity for decision making (7) History of colon cancer: Plan: s/p resection in the past . Stable. No intervention necessary at this time. laxatives for constipation (8) Vertebral artery stenosis: Plan: Stable. Continue aspirin and statin therapy Plan Anticipate discharge to SNF dementia lockdown unit when arrangements are finalized. Numerous referrals have been made and pt here with prolonged stay due to [facility] to find [facility] placement Admission and Anticipated Discharge Date Admission Date: January 23, 2023 Subjective No acute issues Physical Exam Constitutional: WD/WN, vitals as above no acute distress Results & Data Results & Data Vital Signs (Past 12 Hours) Vital Signs Temp Pulse Resp BP Pulse Ox O2 Del Method 05/07/23 15:36 36.5 C 80 16 166/69 H 96 Room Air PG Care Time/CCT Total # of Minutes Spent Total Time Spent with Patient: Total time spent is greater than 50% in coordination of care (as documented) at patient's floor/unit and/or counseling patient: Coding Level of Care Code 64923 SUB INP/OBS CARE 1/25MIN Diagnoses Dementia F03.90 Syncope R55 Primary hypertension I10 Hypertension type: primary hypertension Seizure disorder G40.909 Hypothyroidism, unspecified type E03.9 Hypothyroidism type: unspecified Patient incapable of making informed decisions Z78.9 History of colon cancer Z85.038 Vertebral artery stenosis I65.09 (3) Hypertension Hypertension type: primary hypertension Qualified Code(s): I10 - Essential (primary) hypertension (5) Hypothyroidism Hypothyroidism type: unspecified Qualified Code(s): E03.9 - Hypothyroidism, unspecified
--- NOTE | 2023-05-08 16:51 | Hospitalist Progress Note ---
Date of Service May 08, 2023 Assessment & Plan (1) Dementia: Plan: Agitation now resolved. She has not needed prn meds for over 2 months. Seroquel dosage uptitrated throughout her stay. She remains redirectable and cooperative Psychiatry has reevaluated the patient and determined that there is no indication for inpatient psychiatric treatment at this time. (2) Syncope: Plan: Occurred this hospitalization when getting up quickly from bed and running to toilet in early February. Likely orthostatic hypotension as cause. Head CT and EKG unremarkable. No recurrence. (3) Hypertension: Plan: Lisinopril dosage uptitrated on February 20. Amlodipine also uptitrated this admission. BPs now controlled (4) Seizure disorder: Plan: Stable. Continue keppra (5) Hypothyroidism: Plan: Stable. Continue Synthroid replacement therapy . TSH 5 in 01/2023 but likely questionable compliance due to dementia with meds at home. Needs to recheck TSH in a couple of months (6) Patient incapable of making informed decisions: Plan: Patient without capacity for decision making (7) History of colon cancer: Plan: s/p resection in the past . Stable. No intervention necessary at this time. laxatives for constipation (8) Vertebral artery stenosis: Plan: Stable. Continue aspirin and statin therapy Plan Anticipate discharge to SNF dementia lockdown unit when arrangements are finalized. Numerous referrals have been made and pt here with prolonged stay due to inability to find care home placement Admission and Anticipated Discharge Date Admission Date: January 23, 2023 Subjective No acute issues Physical Exam Constitutional: WD/WN, vitals as above no acute distress Results & Data Results & Data Vital Signs (Past 12 Hours) Vital Signs Temp Pulse Resp BP Pulse Ox O2 Del Method 05/08/23 07:59 36.7 C 67 16 138/75 95 Room Air 05/08/23 07:42 Room Air PG Care Time/CCT Total # of Minutes Spent Total Time Spent with Patient: Total time spent is greater than 50% in coordination of care (as documented) at patient's floor/unit and/or counseling patient: Coding Level of Care Code 68404 SUB INP/OBS CARE 125MIN Diagnoses Dementia F03.90 Syncope R55 Primary hypertension I10 Hypertension type: primary hypertension Seizure disorder G40.909 Hypothyroidism, unspecified type E03.9 Hypothyroidism type: unspecified Patient incapable of making informed decisions Z78.9 History of colon cancer Z85.038 Vertebral artery stenosis I65.09 (3) Hypertension Hypertension type: primary hypertension Qualified Code(s): I10 - Essential (primary) hypertension (5) Hypothyroidism Hypothyroidism type: unspecified Qualified Code(s): E03.9 - Hypothyroidism, unspecified
--- NOTE | 2023-05-09 16:35 | Hospitalist Progress Note ---
Date of Service May 09, 2023 Assessment & Plan (1) Dementia: Plan: Agitation now resolved. She has not needed prn meds for over 3 months. Seroquel dosage uptitrated throughout her stay. She remains redirectable and cooperative Psychiatry has reevaluated the patient and determined that there is no indication for inpatient psychiatric treatment at this time. (2) Syncope: Plan: Occurred this hospitalization when getting up quickly from bed and running to toilet in early February. Likely orthostatic hypotension as cause. Head CT and EKG unremarkable. No recurrence. (3) Hypertension: Plan: Lisinopril dosage uptitrated on February 20. Amlodipine also uptitrated this admission. BPs now controlled (4) Seizure disorder: Plan: Stable. Continue keppra (5) Hypothyroidism: Plan: Stable. Continue Synthroid replacement therapy . TSH 5 in 01/2023 but likely questionable compliance due to dementia with meds at home. Needs to recheck TSH in a couple of months (6) Patient incapable of making informed decisions: Plan: Patient without capacity for decision making (7) History of colon cancer: Plan: s/p resection in the past . Stable. No intervention necessary at this time. laxatives for constipation (8) Vertebral artery stenosis: Plan: Stable. Continue aspirin and statin therapy Plan Anticipate discharge to SNF dementia lockdown unit when arrangements are finalized. Numerous referrals have been made and pt here with prolonged stay due to inability to find long-term placement Admission and Anticipated Discharge Date Admission Date: January 23, 2023 Subjective Pt taking a nap but wakes up easily. No complaints Physical Exam Constitutional: WD/WN, vitals as above no acute distress Respiratory: normal respiratory effort Neurologic: moves all extremities; no focal motor deficits Psychiatric: Orientation: alert and oriented to person Results & Data Results & Data Vital Signs (Past 12 Hours) Vital Signs Temp Pulse Resp BP Pulse Ox O2 Del Method 05/09/23 15:33 Room Air 05/09/23 07:07 36.5 C 72 17 100/63 94 Room Air PG Care Time/CCT Total # of Minutes Spent Total Time Spent with Patient: Total time spent is greater than 50% in coordination of care (as documented) at patient's floor/unit and/or counseling patient: Coding Level of Care Code 67381 SUB INP/OBS CARE 1/25MIN Diagnoses Dementia F03.90 Syncope R55 Primary hypertension I10 Hypertension type: primary hypertension Seizure disorder G40.909 Hypothyroidism, unspecified type E03.9 Hypothyroidism type: unspecified Patient incapable of making informed decisions Z78.9 History of colon cancer Z85.038 Vertebral artery stenosis I65.09 (3) Hypertension Hypertension type: primary hypertension Qualified Code(s): I10 - Essential (primary) hypertension (5) Hypothyroidism Hypothyroidism type: unspecified Qualified Code(s): E03.9 - Hypothyroidism, unspecified
[2023-05-09] MEDS: ACETAMINOPHEN 325 MG TAB PO PRN (23:49)
--- NOTE | 2023-05-10 12:34 | Hospitalist Progress Note ---
Date of Service May 10, 2023 Assessment & Plan (1) Dementia: Plan: Agitation now resolved. She has not needed prn meds for over 3 months. Seroquel dosage uptitrated throughout her stay. She remains redirectable and cooperative Psychiatry has reevaluated the patient and determined that there is no indication for inpatient psychiatric treatment at this time. B12 level less than 400 (211) in January therefore recommend replacement in the setting of dementia. Start cyanocobalamin 500 mcg p.o. daily. Used to and is awaiting placement. (2) Syncope: Plan: Occurred this hospitalization when getting up quickly from bed and running to toilet in early February. Likely orthostatic hypotension as cause. Head CT and EKG unremarkable. No recurrence. Reason for notes continually uptitrating antihypertensives. (3) Hypertension: Plan: Lisinopril dosage uptitrated on February 20. Amlodipine also uptitrated this admission. BPs now controlled (4) Seizure disorder: Plan: Stable. Continue keppra (5) Hypothyroidism: Plan: Stable. Continue Synthroid replacement therapy . TSH 5 in 01/2023 but likely questionable compliance due to dementia with meds at home. Will recheck TSH tomorrow as it has been a couple of months and possibly overtreating given concern for compliance prehospitalization. (6) Patient incapable of making informed decisions: Plan: Patient without capacity for decision making (7) History of colon cancer: Plan: s/p resection in the past . Stable. No intervention necessary at this time. laxatives for constipation (8) Vertebral artery stenosis: Plan: Stable. Continue aspirin and statin therapy Plan Anticipate discharge to [facility] dementia lockdown unit when arrangements are finalized. 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 She denies any pain at this time. Reports having a bowel movement today. She feels tired all the time although this is not a new symptom for her. Awaiting rehab at this time. Review of Systems Review of Systems: All systems reviewed & are unremarkable except as noted in HPI & below Physical Exam Constitutional: WD/WN, vitals as above Respiratory: normal respiratory effort, lungs clear to auscultation Cardiovascular: RRR, no murmur, no edema Gastrointestinal (Abdomen): normal bowel sounds, soft, nontender, no hepatosplenomegaly Results & Data Results & Data Vital Signs (Past 12 Hours) Vital Signs Temp Pulse Resp BP Pulse Ox O2 Del Method 05/10/23 07:37 36.5 C 72 17 170/82 H 97 Room Air PG Care Time/CCT Total # of Minutes Spent Total Time Spent with Patient: Total time spent is greater than 50% in coordination of care (as documented) at patient's floor/unit and/or counseling patient: Coding Level of Care Code 78047 SUB INP/OBS CARE 06/11MIN Diagnoses Dementia F03.90 Syncope R55 Primary hypertension I10 Hypertension type: primary hypertension Seizure disorder G40.909 Hypothyroidism, unspecified type E03.9 Hypothyroidism type: unspecified Patient incapable of making informed decisions Z78.9 History of colon cancer Z85.038 Vertebral artery stenosis I65.09 (3) Hypertension Hypertension type: primary hypertension Qualified Code(s): I10 - Essential (primary) hypertension (5) Hypothyroidism Hypothyroidism type: unspecified Qualified Code(s): E03.9 - Hypothyroidism, unspecified
[2023-05-11] MEDS: CYANOCOBALAMIN (B-12) 500 MCG TABLET PO SCH (08:59)
--- NOTE | 2023-05-12 00:43 | Hospitalist Progress Note ---
Date of Service May 11, 2023 Assessment & Plan (1) Dementia: Plan: Agitation now resolved. She has not needed prn meds for over 3 months. Seroquel dosage uptitrated throughout her stay - suspect this is the reason she is tired during the day and could consider less sedating anti-psychotic in the morning but given stability will continue current medications currently. She remains redirectable and cooperative Psychiatry has reevaluated the patient and determined that there is no indication for inpatient psychiatric treatment at this time. B12 level less than 400 (211) in January therefore recommend replacement in the setting of dementia. Started cyanocobalamin 500 mcg p.o. daily. Medically stable and is awaiting placement. (2) Syncope: Plan: Occurred this hospitalization when getting up quickly from bed and running to toilet in early February. Likely orthostatic hypotension as cause. Head CT and EKG unremarkable. No recurrence. Reason for not continually up titrating antihypertensives. (3) Hypertension: Plan: Lisinopril dosage uptitrated on February 20. Amlodipine also uptitrated this admission. BPs now controlled (4) Seizure disorder: Plan: Stable. Continue keppra (5) Hypothyroidism: Plan: Stable. Continue Synthroid replacement therapy . TSH 5 in 01/2023 but likely questionable compliance due to dementia with meds at home. TSH now 1.353 Continue levothyroxine 100 mcg PO daily (6) Patient incapable of making informed decisions: Plan: Patient without capacity for decision making (7) History of colon cancer: Plan: s/p resection in the past . Stable. No intervention necessary at this time. laxatives for constipation (8) Vertebral artery stenosis: Plan: Stable. Continue aspirin and statin therapy Plan VTE prophylaxis - patient is mobile without any acute medical condition requiring VTE prophylaxis therefore chemical VTE prophylaxis not warranted at this time, encourage patient to be out of bed as much as possible Diet - regular Disposition - continued admission pending placement, she is medically stable for discharge at this time Anticipate discharge to [facility] dementia lockdown unit when arrangements are finalized. Numerous referrals have been made and pt here with prolonged stay due to inability to find [facility] placement Admission and Anticipated Discharge Date Admission Date: January 23, 2023 Subjective No acute concern or questions from the patient. Medically stable for discharge pending placement at this time. Physical Exam Constitutional: WD/WN, vitals as above Respiratory: normal respiratory effort, lungs clear to auscultation Cardiovascular: RRR, no murmur, no edema Gastrointestinal (Abdomen): normal bowel sounds, soft, nontender, no hepatosplenomegaly Results & Data Results & Data Vital Signs (Past 12 Hours) Vital Signs Temp Pulse Resp BP Pulse Ox O2 Del Method 05/11/23 21:50 Room Air 05/11/23 14:31 36.4 C L 81 16 138/72 98 Room Air PG Care Time/CCT Total # of Minutes Spent Total Time Spent with Patient: Total time spent is greater than 50% in coordination of care (as documented) at patient's floor/unit and/or counseling patient: Coding Level of Care Code 06499 SUB INP/OBS CARE 06/11MIN Diagnoses Dementia F03.90 Syncope R55 Primary hypertension I10 Hypertension type: primary hypertension Seizure disorder G40.909 Hypothyroidism, unspecified type E03.9 Hypothyroidism type: unspecified Patient incapable of making informed decisions Z78.9 History of colon cancer Z85.038 Vertebral artery stenosis I65.09 (3) Hypertension Hypertension type: primary hypertension Qualified Code(s): I10 - Essential (primary) hypertension (5) Hypothyroidism Hypothyroidism type: unspecified Qualified Code(s): E03.9 - Hypothyroidism, unspecified
--- NOTE | 2023-05-12 11:40 | Hospitalist Progress Note ---
Date of Service May 12, 2023 Assessment & Plan (1) Dementia: Plan: With severe agitation during hospitalization, now improved No medication as needed doses needed and several weeks Tired throughout the day, is on Seroquel which may be the cause B12 repletion continues Psychiatry seen, no indication for inpatient treatment at this time (2) Syncope: Plan: Occurred this hospitalization when getting up quickly from bed and running to toilet in early February. Likely orthostatic hypotension as cause. Head CT and EKG unremarkable. No recurrence. Antihypertensive uptitration cautious due to history of this (3) Hypertension: Plan: Lisinopril dosage uptitrated on February 20. Amlodipine also uptitrated this admission. BPs now controlled (4) Seizure disorder: Plan: Stable. Continue keppra (5) Hypothyroidism: Plan: Stable. Continue Synthroid replacement therapy . TSH 5 in 01/2023 but likely questionable compliance due to dementia with meds at home. TSH now 1.353 Continue levothyroxine 100 mcg PO daily (6) Patient incapable of making informed decisions: Plan: Patient without capacity for decision making (7) History of colon cancer: Plan: s/p resection in the past . Stable. No intervention necessary at this time. laxatives for constipation (8) Vertebral artery stenosis: Plan: Stable. Continue aspirin and statin therapy Plan VTE prophylaxis - patient is mobile without any acute medical condition requiring VTE prophylaxis therefore chemical VTE prophylaxis not warranted at this time, encourage patient to be out of bed as much as possible Diet - regular Disposition - continued admission pending placement, she is medically stable for discharge at this time [facility] when arrangements are finalized. 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 Sleeping comfortably at time of morning assessment. Physical Exam Physical Exam: General: Sleeping comfortably. NAD. Cooperative. HEENT: Atraumatic, normocephalic. Pulm: Symmetrical chest rise. No increased work of breathing. No respiratory distress. Results & Data Results & Data Vital Signs (Past 12 Hours) Vital Signs Temp Pulse Resp BP Pulse Ox O2 Del Method 05/12/23 07:16 36.7 C 74 16 129/79 96 Room Air PG Care Time/CCT Total # of Minutes Spent Total Time Spent with Patient: Total time spent is greater than 50% in coordination of care (as documented) at patient's floor/unit and/or counseling patient: Coding Level of Care Code 65599 SUB INP/OBS CARE 06/11MIN Diagnoses Dementia F03.90 Syncope R55 Primary hypertension I10 Hypertension type: primary hypertension Seizure disorder G40.909 Hypothyroidism, unspecified type E03.9 Hypothyroidism type: unspecified Patient incapable of making informed decisions Z78.9 History of colon cancer Z85.038 Vertebral artery stenosis I65.09 (3) Hypertension Hypertension type: primary hypertension Qualified Code(s): I10 - Essential (primary) hypertension (5) Hypothyroidism Hypothyroidism type: unspecified Qualified Code(s): E03.9 - Hypothyroidism, unspecified
--- NOTE | 2023-05-13 16:55 | Hospitalist Progress Note ---
Date of Service May 13, 2023 Assessment & Plan (1) Dementia: Plan: With severe agitation during hospitalization, now improved No medication as needed doses needed and several weeks Tired throughout the day, is on Seroquel which may be the cause B12 repletion continues Psychiatry seen, no indication for inpatient treatment at this time Melatonin added for day/night reversal sx (2) Syncope: Plan: Occurred this hospitalization when getting up quickly from bed and running to toilet in early February. Likely orthostatic hypotension as cause. Head CT and EKG unremarkable. No recurrence. Antihypertensive uptitration cautious due to history of this (3) Hypertension: Plan: Lisinopril dosage uptitrated on February 20. Amlodipine also uptitrated this admission. BPs now controlled (4) Seizure disorder: Plan: Stable. Continue keppra (5) Hypothyroidism: Plan: Stable. Continue Synthroid replacement therapy . TSH 5 in 01/2023 but likely questionable compliance due to dementia with meds at home. TSH now 1.353 Continue levothyroxine 100 mcg PO daily (6) Patient incapable of making informed decisions: Plan: Patient without capacity for decision making (7) History of colon cancer: Plan: s/p resection in the past . Stable. No intervention necessary at this time. laxatives for constipation (8) Vertebral artery stenosis: Plan: Stable. Continue aspirin and statin therapy Plan VTE prophylaxis - patient is mobile without any acute medical condition requiring VTE prophylaxis therefore chemical VTE prophylaxis not warranted at this time, encourage patient to be out of bed as much as possible Diet - regular Disposition - continued admission pending placement, she is medically stable for discharge at this time Anticipate discharge to [facility] dementia lockdown unit when arrangements are finalized. Numerous referrals have been made and pt here with prolonged stay due to inability to find residential placement Admission and Anticipated Discharge Date Admission Date: January 23, 2023 Subjective Sitting up at bedside. Pleasant, cooperative. Reports she did not sleep well, otherwise no questions or concerns. No pain. Would like to try melatonin tonight Physical Exam Physical Exam: General: Oriented to name, sitting comfortably in bed HEENT: Atraumatic, normocephalic. Vision and hearing grossly intact Pulm: CTAB A&P. -wheezes, -rales, -rhonchi. Symmetrical chest rise. No increased work of breathing. No respiratory distress. Cardiac: RRR, -mrg. Radial pulses intact and symmetrical. Abdominal: Nontender, nondistended, soft. BS present. Results & Data Results & Data Vital Signs (Past 12 Hours) Vital Signs Temp Pulse Resp BP Pulse Ox O2 Del Method 05/13/23 14:40 36.6 C 72 16 115/72 95 Room Air 05/13/23 07:33 36.5 C 68 16 112/70 95 Room Air PG Care Time/CCT Total # of Minutes Spent Total Time Spent with Patient: Total time spent is greater than 50% in coordination of care (as documented) at patient's floor/unit and/or counseling patient: Coding Level of Care Code 27983 SUB INP/OBS CARE 06/11MIN Diagnoses Dementia F03.90 Syncope R55 Primary hypertension I10 Hypertension type: primary hypertension Seizure disorder G40.909 Hypothyroidism, unspecified type E03.9 Hypothyroidism type: unspecified Patient incapable of making informed decisions Z78.9 History of colon cancer Z85.038 Vertebral artery stenosis I65.09 (3) Hypertension Hypertension type: primary hypertension Qualified Code(s): I10 - Essential (primary) hypertension (5) Hypothyroidism Hypothyroidism type: unspecified Qualified Code(s): E03.9 - Hypothyroidism, unspecified
[2023-05-13] MEDS: MELATONIN 3 MG TAB PO PRN (20:23)
--- NOTE | 2023-05-14 21:17 | Hospitalist Progress Note ---
Date of Service May 14, 2023 Assessment & Plan (1) Dementia: Plan: With severe agitation during hospitalization, now improved No medication as needed doses needed and several weeks Tired throughout the day, is on Seroquel which may be the cause B12 repletion continues Psychiatry seen, no indication for inpatient treatment at this time Melatonin added for day/night reversal sx (2) Syncope: Plan: Occurred this hospitalization when getting up quickly from bed and running to toilet in early February. Likely orthostatic hypotension as cause. Head CT and EKG unremarkable. No recurrence. Antihypertensive uptitration cautious due to history of this (3) Hypertension: Plan: Lisinopril dosage uptitrated on February 20. Amlodipine also uptitrated this admission. BPs now controlled (4) Seizure disorder: Plan: Stable. Continue keppra (5) Hypothyroidism: Plan: Stable. Continue Synthroid replacement therapy . TSH 5 in 01/2023 but likely questionable compliance due to dementia with meds at home. TSH now 1.353 Continue levothyroxine 100 mcg PO daily (6) Patient incapable of making informed decisions: Plan: Patient without capacity for decision making (7) History of colon cancer: Plan: s/p resection in the past . Stable. No intervention necessary at this time. laxatives for constipation (8) Vertebral artery stenosis: Plan: Stable. Continue aspirin and statin therapy Plan VTE prophylaxis - patient is mobile without any acute medical condition requiring VTE prophylaxis therefore chemical VTE prophylaxis not warranted at this time, encourage patient to be out of bed as much as possible Diet - regular Disposition - continued admission pending placement, she is medically stable for discharge at this time Anticipate discharge to [facility] dementia lockdown unit when arrangements are finalized. Numerous referrals have been made and pt here with prolonged stay due to inability to find intermediate placement Admission and Anticipated Discharge Date Admission Date: January 23, 2023 Subjective 82 yo female is comfortable. Review of Systems Review of Systems: All systems reviewed & are unremarkable except as noted in HPI & below Physical Exam Physical Exam: General-alert. No fevers, no chills HEENT-head atraumatic and normocephalic Chest-clear to auscultation percussion Cardiac-regular rate and rhythm, normal S1 and S2 PG Care Time/CCT Total # of Minutes Spent Total Time Spent with Patient: Total time spent is greater than 50% in coordination of care (as documented) at patient's floor/unit and/or counseling patient: Coding Level of Care Code 32996 SUB INP/OBS CARE Diagnoses Dementia F03.90 Syncope R55 Primary hypertension I10 Hypertension type: primary hypertension Seizure disorder G40.909 Hypothyroidism, unspecified type E03.9 Hypothyroidism type: unspecified Patient incapable of making informed decisions Z78.9 History of colon cancer Z85.038 Vertebral artery stenosis I65.09 (3) Hypertension Hypertension type: primary hypertension Qualified Code(s): I10 - Essential (primary) hypertension (5) Hypothyroidism Hypothyroidism type: unspecified Qualified Code(s): E03.9 - Hypothyroidism, unspecified
--- NOTE | 2023-05-15 21:50 | Hospitalist Progress Note ---
Date of Service May 15, 2023 Assessment & Plan (1) Dementia: Plan: With severe agitation during hospitalization, now improved No medication as needed doses needed and several weeks Tired throughout the day, is on Seroquel which may be the cause B12 repletion continues Psychiatry seen, no indication for inpatient treatment at this time Melatonin added for day/night reversal sx (2) Syncope: Plan: Occurred this hospitalization when getting up quickly from bed and running to toilet in early February. Likely orthostatic hypotension as cause. Head CT and EKG unremarkable. No recurrence. Antihypertensive uptitration cautious due to history of this (3) Hypertension: Plan: Lisinopril dosage uptitrated on February 20. Amlodipine also uptitrated this admission. BPs now controlled (4) Seizure disorder: Plan: Stable. Continue keppra (5) Hypothyroidism: Plan: Stable. Continue Synthroid replacement therapy . TSH 5 in 01/2023 but likely questionable compliance due to dementia with meds at home. TSH now 1.353 Continue levothyroxine 100 mcg PO daily (6) Patient incapable of making informed decisions: Plan: Patient without capacity for decision making (7) History of colon cancer: Plan: s/p resection in the past . Stable. No intervention necessary at this time. laxatives for constipation (8) Vertebral artery stenosis: Plan: Stable. Continue aspirin and statin therapy Plan VTE prophylaxis - patient is mobile without any acute medical condition requiring VTE prophylaxis therefore chemical VTE prophylaxis not warranted at this time, encourage patient to be out of bed as much as possible Diet - regular Disposition - continued admission pending placement, she is medically stable for discharge at this time Anticipate discharge to [facility] dementia lockdown unit when arrangements are finalized. 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 Review of Systems Review of Systems: All systems reviewed & are unremarkable except as noted in HPI & below Physical Exam Physical Exam: General-alert. No fevers, no chills HEENT-head atraumatic and normocephalic Chest-clear to auscultation percussion Cardiac-regular rate and rhythm, normal S1 and S2 Results & Data Results & Data Vital Signs (Past 12 Hours) Vital Signs Temp Pulse Resp BP Pulse Ox O2 Del Method 12/29/23 15:09 36.6 C 70 16 152/72 H 99 Room Air PG Care Time/CCT Total # of Minutes Spent Total Time Spent with Patient: Total time spent is greater than 50% in coordination of care (as documented) at patient's floor/unit and/or counseling patient: Coding Level of Care Code 07995 SUB INP/OBS CARE 06/11MIN Diagnoses Dementia F03.90 Syncope R55 Primary hypertension I10 Hypertension type: primary hypertension Seizure disorder G40.909 Hypothyroidism, unspecified type E03.9 Hypothyroidism type: unspecified Patient incapable of making informed decisions Z78.9 History of colon cancer Z85.038 Vertebral artery stenosis I65.09 (3) Hypertension Hypertension type: primary hypertension Qualified Code(s): I10 - Essential (primary) hypertension (5) Hypothyroidism Hypothyroidism type: unspecified Qualified Code(s): E03.9 - Hypothyroidism, unspecified
--- NOTE | 2023-05-16 15:39 | Hospitalist Progress Note ---
Date of Service May 16, 2023 Assessment & Plan (1) Dementia: Plan: With severe agitation during hospitalization, now improved No medication as needed doses needed and several weeks Tired throughout the day, is on Seroquel which may be the cause B12 repletion continues Psychiatry seen, no indication for inpatient treatment at this time Melatonin added for day/night reversal sx (2) Syncope: Plan: Occurred this hospitalization when getting up quickly from bed and running to toilet in early February. Likely orthostatic hypotension as cause. Head CT and EKG unremarkable. No recurrence. Antihypertensive uptitration cautious due to history of this (3) Hypertension: Plan: Lisinopril dosage uptitrated on February 20. Amlodipine also uptitrated this admission. BPs now controlled (4) Seizure disorder: Plan: Stable. Continue keppra (5) Hypothyroidism: Plan: Stable. Continue Synthroid replacement therapy . TSH 5 in 01/2023 but likely questionable compliance due to dementia with meds at home. TSH now 1.353 Continue levothyroxine 100 mcg PO daily (6) Patient incapable of making informed decisions: Plan: Patient without capacity for decision making (7) History of colon cancer: Plan: s/p resection in the past . Stable. No intervention necessary at this time. laxatives for constipation (8) Vertebral artery stenosis: Plan: Stable. Continue aspirin and statin therapy Plan VTE prophylaxis - patient is mobile without any acute medical condition requiring VTE prophylaxis therefore chemical VTE prophylaxis not warranted at this time, encourage patient to be out of bed as much as possible Diet - regular Disposition - continued admission pending placement, she is medically stable for discharge at this time Anticipate discharge to [facility] dementia lockdown unit when arrangements are finalized. Numerous referrals have been made and pt here with prolonged stay due to inability to find superintendent marine oil terminal placement Admission and Anticipated Discharge Date Admission Date: January 23, 2023 Subjective Patient has no new complaints. Poor historian. Review of Systems Review of Systems: All systems reviewed & are unremarkable except as noted in HPI & below Physical Exam Physical Exam: General-alert. No fevers, no chills HEENT-head atraumatic and normocephalic Chest-clear to auscultation percussion Cardiac-regular rate and rhythm, normal S1 and S2 PG Care Time/CCT Total # of Minutes Spent Total Time Spent with Patient: Total time spent is greater than 50% in coordination of care (as documented) at patient's floor/unit and/or counseling patient: Coding Level of Care Code 25406 SUB INP/OBS CARE Diagnoses Dementia F03.90 Syncope R55 Primary hypertension I10 Hypertension type: primary hypertension Seizure disorder G40.909 Hypothyroidism, unspecified type E03.9 Hypothyroidism type: unspecified Patient incapable of making informed decisions Z78.9 History of colon cancer Z85.038 Vertebral artery stenosis I65.09 (3) Hypertension Hypertension type: primary hypertension Qualified Code(s): I10 - Essential (primary) hypertension (5) Hypothyroidism Hypothyroidism type: unspecified Qualified Code(s): E03.9 - Hypothyroidism, unspecified
--- NOTE | 2023-05-17 10:09 | Hospitalist Progress Note ---
Date of Service May 17, 2023 Assessment & Plan (1) Dementia: Plan: With severe agitation during hospitalization, now improved No medication as needed doses needed and several weeks Tired throughout the day, is on Seroquel which may be the cause B12 repletion continues Psychiatry seen, no indication for inpatient treatment at this time Melatonin added for day/night reversal sx (2) Syncope: Plan: Occurred this hospitalization when getting up quickly from bed and running to toilet in early February. Likely orthostatic hypotension as cause. Head CT and EKG unremarkable. No recurrence. Antihypertensive uptitration cautious due to history of this (3) Hypertension: Plan: Lisinopril dosage uptitrated on February 20. Amlodipine also uptitrated this admission. BPs now controlled (4) Seizure disorder: Plan: Stable. Continue keppra (5) Hypothyroidism: Plan: Stable. Continue Synthroid replacement therapy . TSH 5 in 01/2023 but likely questionable compliance due to dementia with meds at home. TSH now 1.353 Continue levothyroxine 100 mcg PO daily (6) Patient incapable of making informed decisions: Plan: Patient without capacity for decision making (7) History of colon cancer: Plan: s/p resection in the past . Stable. No intervention necessary at this time. laxatives for constipation (8) Vertebral artery stenosis: Plan: Stable. Continue aspirin and statin therapy Plan VTE prophylaxis - patient is mobile without any acute medical condition requiring VTE prophylaxis therefore chemical VTE prophylaxis not warranted at this time, encourage patient to be out of bed as much as possible Diet - regular Disposition - continued admission pending placement, she is medically stable for discharge at this time Anticipate [facility] to [facility] dementia [facility] when arrangements are finalized. Numerous referrals have been made and pt here with prolonged stay due to inability to find art psychotherapist or therapist placement Admission and Anticipated Discharge Date Admission Date: January 23, 2023 Subjective 82 yo female is a poor historian. Has been roaming the halls this morning and redirected back to her room. Review of Systems Review of Systems: All systems reviewed & are unremarkable except as noted in HPI & below Physical Exam Physical Exam: General-alert. No fevers, no chills HEENT-head atraumatic and normocephalic Chest-clear to auscultation percussion Cardiac-regular rate and rhythm, normal S1 and S2 Results & Data Results & Data Vital Signs (Past 12 Hours) Vital Signs Temp Pulse Resp BP Pulse Ox O2 Del Method 05/17/23 07:09 36.6 C 63 16 171/76 H 97 Room Air PG Care Time/CCT Total # of Minutes Spent Total Time Spent with Patient: Total time spent is greater than 50% in coordination of care (as documented) at patient's floor/unit and/or counseling patient: Coding Level of Care Code 80125 SUB INP/OBS CARE 06/11MIN Diagnoses Dementia F03.90 Syncope R55 Primary hypertension I10 Hypertension type: primary hypertension Seizure disorder G40.909 Hypothyroidism, unspecified type E03.9 Hypothyroidism type: unspecified Patient incapable of making informed decisions Z78.9 History of colon cancer Z85.038 Vertebral artery stenosis I65.09 (3) Hypertension Hypertension type: primary hypertension Qualified Code(s): I10 - Essential (primary) hypertension (5) Hypothyroidism Hypothyroidism type: unspecified Qualified Code(s): E03.9 - Hypothyroidism, unspecified
[2023-05-17] MEDS: DOCUSATE SODIUM 100 MG CAP PO SCH (21:42)
[2023-05-18] MEDS: LEVOTHYROXINE SODIUM 100 MCG TABLET PO SCH (06:10)
[2023-05-18] MEDS: amLODIPine BESYLATE 5 MG TAB PO SCH (10:15)
[2023-05-18] MEDS: lisinopril 20 MG TAB PO SCH (10:15)
[2023-05-18] MEDS: ASPIRIN/ALUM/MAGNES/CAL CARB 325 MG TAB PO SCH (10:16)
--- NOTE | 2023-05-18 12:06 | Hospitalist Progress Note ---
Date of Service May 18, 2023 Assessment & Plan (1) Dementia: Plan: With severe agitation during hospitalization, now improved Tired throughout the day, is on Seroquel which may be the cause B12 repletion continues Psychiatry seen, no indication for inpatient treatment at this time Melatonin added for day/night reversal sx (2) Syncope: Plan: Occurred this hospitalization when getting up quickly from bed and running to toilet in early February. Likely orthostatic hypotension as cause. Head CT and EKG unremarkable. No recurrence. Antihypertensive uptitration cautious due to history of this (3) Hypertension: Plan: Lisinopril dosage uptitrated on February 20. Amlodipine also uptitrated this admission. BPs now controlled (4) Seizure disorder: Plan: Stable. Continue keppra (5) Hypothyroidism: Plan: Stable. Continue Synthroid replacement therapy . TSH 5 in 01/2023 but likely questionable compliance due to dementia with meds at home. TSH 05/11: 1.353 Continue levothyroxine 100 mcg PO daily (6) Patient incapable of making informed decisions: Plan: Patient without capacity for decision making (7) History of colon cancer: Plan: s/p resection in the past . Stable. No intervention necessary at this time. laxatives for constipation (8) Vertebral artery stenosis: Plan: Stable. Continue aspirin and statin therapy Plan VTE prophylaxis - patient is mobile without any acute medical condition requiring VTE prophylaxis therefore chemical VTE prophylaxis not warranted at this time, encourage patient to be out of bed as much as possible Disposition - continued admission pending placement, she is medically stable for discharge at this time Anticipate discharge to [facility] dementia lockdown unit when arrangements are finalized. Numerous referrals have been made and pt here with prolonged stay due to inability to find keno terminal operator placement Admission and Anticipated Discharge Date Admission Date: January 23, 2023 Supervising Physician Co-Signing Physician Notes Attending Attestation - Chart reviewed, care plan d/w JEREMY Colmenares. I agree w/ the keita components of her documentation. Awaiting placement - this has proved very, very difficult. Appreciate social work efforts. Lasha Brar MD Subjective Patient seen lying in bed, reports feeling tired today. No physical complaints. continues to be confused. Review of Systems Review of Systems: All systems reviewed & are unremarkable except as noted in Subjective Physical Exam Physical Exam: General: WN/WD, lying in bed, VS as above Resp: normal respiratory effort, lungs clear to auscultation CV: RRR, no murmur, Abd: normal bowel sounds, non tender, no hepatosplenomegaly Results & Data Results & Data Vital Signs (Past 12 Hours) Vital Signs Temp Pulse Resp BP Pulse Ox O2 Del Method 05/18/23 10:06 36.5 C 64 16 151/76 H 94 Room Air PG Care Time/CCT Total # of Minutes Spent Total Time Spent with Patient: Total time spent is greater than 50% in coordination of care (as documented) at patient's floor/unit and/or counseling patient: Coding Level of Care Code 86874 SUB INP/OBS CARE 06/11MIN Diagnoses Dementia F03.90 Syncope R55 Primary hypertension I10 Hypertension type: primary hypertension Seizure disorder G40.909 Hypothyroidism, unspecified type E03.9 Hypothyroidism type: unspecified Patient incapable of making informed decisions Z78.9 History of colon cancer Z85.038 Vertebral artery stenosis I65.09 (3) Hypertension Hypertension type: primary hypertension Qualified Code(s): I10 - Essential (primary) hypertension (5) Hypothyroidism Hypothyroidism type: unspecified Qualified Code(s): E03.9 - Hypothyroidism, unspecified
--- NOTE | 2023-05-19 17:52 | Hospitalist Progress Note ---
Date of Service May 19, 2023 Assessment & Plan (1) Dementia: Plan: With severe agitation during hospitalization, now improved Tired throughout the day, is on Seroquel which may be the cause B12 repletion continues Psychiatry seen, no indication for inpatient treatment at this time Melatonin added for day/night reversal sx (2) Syncope: Plan: Occurred this hospitalization when getting up quickly from bed and running to toilet in early February. Likely orthostatic hypotension as cause. Head CT and EKG unremarkable. No recurrence. Antihypertensive uptitration cautious due to history of this (3) Hypertension: Plan: Lisinopril dosage uptitrated on February 20. Amlodipine also uptitrated this admission. BPs now controlled (4) Seizure disorder: Plan: Stable. Continue keppra (5) Hypothyroidism: Plan: Stable. Continue Synthroid replacement therapy . TSH 5 in 01/2023 but likely questionable compliance due to dementia with meds at home. TSH 05/11: 1.353 Continue levothyroxine 100 mcg PO daily (6) Patient incapable of making informed decisions: Plan: Patient without capacity for decision making (7) History of colon cancer: Plan: s/p resection in the past . Stable. No intervention necessary at this time. laxatives for constipation (8) Vertebral artery stenosis: Plan: Stable. Continue aspirin and statin therapy Plan VTE prophylaxis - patient is mobile without any acute medical condition requiring VTE prophylaxis therefore chemical VTE prophylaxis not warranted at this time, encourage patient to be out of bed as much as possible Disposition - continued admission pending placement, she is medically stable for discharge at this time Anticipate discharge to [facility] dementia lockdown unit when arrangements are finalized. Numerous referrals have been made and pt here with prolonged stay due to inability to find superintendent marine oil terminal placement Admission and Anticipated Discharge Date Admission Date: January 23, 2023 Supervising Physician Co-Signing Physician Notes Attending Attestation - Chart reviewed, care plan d/w JEREMY Colmenares. I agree w/ the keita components of her documentation. Lasha Brar MD Subjective Patient lying in bed, no acute complaints. Plans to nap soon. Physical Exam Physical Exam: General: lying in bed, VS as above Resp: normal respiratory effort, lungs clear to auscultation CV: RRR, no murmur, Abd: normal bowel sounds, non tender, no hepatosplenomegaly Results & Data Results & Data Vital Signs (Past 12 Hours) Vital Signs Pulse Resp BP Pulse Ox O2 Del Method 05/19/23 08:13 71 16 124/70 94 Room Air PG Care Time/CCT Total # of Minutes Spent Total Time Spent with Patient: Total time spent is greater than 50% in coordination of care (as documented) at patient's floor/unit and/or counseling patient: Coding Level of Care Code 38690 SUB INP/OBS CARE 06/11MIN Diagnoses Dementia F03.90 Syncope R55 Primary hypertension I10 Hypertension type: primary hypertension Seizure disorder G40.909 Hypothyroidism, unspecified type E03.9 Hypothyroidism type: unspecified Patient incapable of making informed decisions Z78.9 History of colon cancer Z85.038 Vertebral artery stenosis I65.09 (3) Hypertension Hypertension type: primary hypertension Qualified Code(s): I10 - Essential (primary) hypertension (5) Hypothyroidism Hypothyroidism type: unspecified Qualified Code(s): E03.9 - Hypothyroidism, unspecified
--- NOTE | 2023-05-20 12:54 | Hospitalist Progress Note ---
Date of Service May 20, 2023 Assessment & Plan (1) Dementia: Plan: With severe agitation during hospitalization, now improved Tired throughout the day, is on Seroquel which may be the cause B12 repletion continues Psychiatry seen, no indication for inpatient treatment at this time Melatonin added for day/night reversal sx (2) Syncope: Plan: Occurred this hospitalization when getting up quickly from bed and running to toilet in early February. Likely orthostatic hypotension as cause. Head CT and EKG unremarkable. No recurrence. Antihypertensive uptitration cautious due to history of this (3) Hypertension: Plan: Lisinopril dosage uptitrated on February 20. Amlodipine also uptitrated this admission. BPs now controlled (4) Seizure disorder: Plan: Stable. Continue keppra (5) Hypothyroidism: Plan: Stable. Continue Synthroid replacement therapy . TSH 5 in 01/2023 but likely questionable compliance due to dementia with meds at home. TSH 05/11: 1.353 Continue levothyroxine 100 mcg PO daily (6) Patient incapable of making informed decisions: Plan: Patient without capacity for decision making (7) History of colon cancer: Plan: s/p resection in the past . Stable. No intervention necessary at this time. laxatives for constipation (8) Vertebral artery stenosis: Plan: Stable. Continue aspirin and statin therapy Plan VTE prophylaxis - patient is mobile without any acute medical condition requiring VTE prophylaxis therefore chemical VTE prophylaxis not warranted at this time, encourage patient to be out of bed as much as possible Disposition - continued admission pending placement, she is medically stable for discharge at this time Anticipate discharge to [facility] dementia lockdown unit when arrangements are finalized. Numerous referrals have been made and pt here with prolonged stay due to inability to find ply cutter placement Admission and Anticipated Discharge Date Admission Date: January 23, 2023 Supervising Physician Co-Signing Physician Notes Attending Attestation - Chart reviewed, care plan d/w JEREMY Colmenares. I agree w/ the keita components of her documentation. Lasha Brar MD Subjective Patient seen sitting up in the chair, eating lunch. No acute complaints, denies headache. Review of Systems Review of Systems: All systems reviewed & are unremarkable except as noted in Subjective Physical Exam Physical Exam: General:sitting up in the chair, VS as above Resp: normal respiratory effort, lungs clear to auscultation CV: RRR, no murmur, Results & Data Results & Data Vital Signs (Past 12 Hours) Vital Signs Temp Pulse Resp BP Pulse Ox O2 Del Method 05/20/23 08:29 Room Air 05/20/23 07:40 36.5 C 75 16 130/78 96 Room Air PG Care Time/CCT Total # of Minutes Spent Total Time Spent with Patient: Total time spent is greater than 50% in coordination of care (as documented) at patient's floor/unit and/or counseling patient: Coding Level of Care Code 85754 SUB INP/OBS CARE 06/11MIN Diagnoses Dementia F03.90 Syncope R55 Primary hypertension I10 Hypertension type: primary hypertension Seizure disorder G40.909 Hypothyroidism, unspecified type E03.9 Hypothyroidism type: unspecified Patient incapable of making informed decisions Z78.9 History of colon cancer Z85.038 Vertebral artery stenosis I65.09 (3) Hypertension Hypertension type: primary hypertension Qualified Code(s): I10 - Essential (primary) hypertension (5) Hypothyroidism Hypothyroidism type: unspecified Qualified Code(s): E03.9 - Hypothyroidism, unspecified
[2023-05-20] MEDS: OLANZapine 10 MG/2.1 ML SDV IM STA (17:42)
--- NOTE | 2023-05-21 14:25 | Hospitalist Progress Note ---
Date of Service May 21, 2023 Assessment & Plan (1) Dementia: Plan: With severe agitation during hospitalization, now improved Tired throughout the day, is on Seroquel which may be the cause B12 repletion continues Psychiatry seen, no indication for inpatient treatment at this time Melatonin added for day/night reversal sx Agitation 1/3 requiring IM Zyprexa. - Improved since - Will check UA - If agitation continues consider adding AM seroquel (2) Syncope: Plan: Occurred this hospitalization when getting up quickly from bed and running to toilet in early February. Likely orthostatic hypotension as cause. Head CT and EKG unremarkable. No recurrence. Antihypertensive uptitration cautious due to history of this (3) Hypertension: Plan: Lisinopril dosage uptitrated on February 20. Amlodipine also uptitrated this admission. BPs now controlled (4) Seizure disorder: Plan: Stable. Continue keppra (5) Hypothyroidism: Plan: Stable. Continue Synthroid replacement therapy . TSH 5 in 01/2023 but likely questionable compliance due to dementia with meds at home. TSH 05/11: 1.353 Continue levothyroxine 100 mcg PO daily (6) Patient incapable of making informed decisions: Plan: Patient without capacity for decision making (7) History of colon cancer: Plan: s/p resection in the past . Stable. No intervention necessary at this time. laxatives for constipation (8) Vertebral artery stenosis: Plan: Stable. Continue aspirin and statin therapy Plan VTE prophylaxis - patient is mobile without any acute medical condition requiring VTE prophylaxis therefore chemical VTE prophylaxis not warranted at this time, encourage patient to be out of bed as much as possible Disposition - continued admission pending placement, she is medically stable for discharge at this time Anticipate discharge to [facility] dementia lockdown unit when arrangements are finalized. Numerous referrals have been made and pt here with prolonged stay due to inability to find skilled nursing placement Admission and Anticipated Discharge Date Admission Date: January 23, 2023 Supervising Physician Co-Signing Physician Notes Attending Attestation - Chart reviewed, care plan d/w JEREMY Colmenares. I agree w/ the keita components of her documentation. Lasha Brar MD Subjective Patient seen sitting up in the chair, reports probably going to take a nap soon. Denies any physical complaints per nursing, has not had any further roaming or combativeness after episode last night. Review of Systems Review of Systems: All systems reviewed & are unremarkable except as noted in Subjective Physical Exam Physical Exam: General:sitting up in the chair, VS as above Resp: normal respiratory effort, lungs clear to auscultation CV: RRR, no murmur, Results & Data Results & Data Vital Signs (Past 12 Hours) Vital Signs Temp Pulse Resp BP Pulse Ox O2 Del Method 05/21/23 06:55 36.6 C 59 L 18 165/79 H 97 Room Air PG Care Time/CCT Total # of Minutes Spent Total Time Spent with Patient: Total time spent is greater than 50% in coordination of care (as documented) at patient's floor/unit and/or counseling patient: Coding Level of Care Code 20766 SUB INP/OBS CARE 2/35MIN Diagnoses Dementia F03.90 Syncope R55 Primary hypertension I10 Hypertension type: primary hypertension Seizure disorder G40.909 Hypothyroidism, unspecified type E03.9 Hypothyroidism type: unspecified Patient incapable of making informed decisions Z78.9 History of colon cancer Z85.038 Vertebral artery stenosis I65.09 (3) Hypertension Hypertension type: primary hypertension Qualified Code(s): I10 - Essential (primary) hypertension (5) Hypothyroidism Hypothyroidism type: unspecified Qualified Code(s): E03.9 - Hypothyroidism, unspecified
--- NOTE | 2023-05-22 13:40 | Hospitalist Progress Note ---
Date of Service May 22, 2023 Assessment & Plan (1) Dementia: Plan: With severe agitation during hospitalization, now improved Tired throughout the day, is on Seroquel which may be the cause B12 repletion continues Psychiatry seen, no indication for inpatient treatment at this time Melatonin added for day/night reversal sx Agitation 1/3 requiring IM Zyprexa. - No further issues since - Will check UA - has not been collected yet as patient removes hat from toilet before voiding. - If agitation continues consider adding AM Seroquel (2) Syncope: Plan: Occurred this hospitalization when getting up quickly from bed and running to toilet in early February. Likely orthostatic hypotension as cause. Head CT and EKG unremarkable. No recurrence. Antihypertensive uptitration cautious due to history of this (3) Hypertension: Plan: Lisinopril dosage uptitrated on February 20. Amlodipine also uptitrated this ad mission. BPs now controlled (4) Seizure disorder: Plan: Stable. Continue keppra (5) Hypothyroidism: Plan: Stable. Continue Synthroid replacement therapy . TSH 5 in 01/2023 but likely questionable compliance due to dementia with meds at home. TSH 05/11: 1.353 Continue levothyroxine 100 mcg PO daily (6) Patient incapable of making informed decisions: Plan: Patient without capacity for decision making (7) History of colon cancer: Plan: s/p resection in the past . Stable. No intervention necessary at this time. laxatives for constipation (8) Vertebral artery stenosis: Plan: Stable. Continue aspirin and statin therapy Plan VTE prophylaxis - patient is mobile without any acute medical condition requiring VTE prophylaxis therefore chemical VTE prophylaxis not warranted at this time Disposition - continued admission pending placement, she is medically stable for discharge at this time Anticipate discharge to [facility] dementia lockdown unit when arrangements are finalized. 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 I agree w/ the keita components of her documentation. Lasha Brar MD Subjective Patient sitting up in the chair sleeping upon entering the room. Reports feeling tired. Denies having any pain. Per nursing, at baseline behavior. Has not required 1:1 supervision, has not been wandering the halls. Review of Systems Review of Systems: All systems reviewed & are unremarkable except as noted in Subjective Physical Exam Physical Exam: General:sitting up in the chair, VS as above Resp: normal respiratory effort, lungs clear to auscultation CV: RRR, no murmur, Results & Data Results & Data Vital Signs (Past 12 Hours) Vital Signs Temp Pulse Resp BP Pulse Ox O2 Del Method 05/22/23 08:00 36.5 C 67 16 114/70 97 Room Air PG Care Time/CCT Total # of Minutes Spent Total Time Spent with Patient: Total time spent is greater than 50% in coordination of care (as documented) at patient's floor/unit and/or counseling patient: Coding Level of Care Code 29529 SUB INP/OBS CARE 06/11MIN Diagnoses Dementia F03.90 Syncope R55 Primary hypertension I10 Hypertension type: primary hypertension Seizure disorder G40.909 Hypothyroidism, unspecified type E03.9 Hypothyroidism type: unspecified Patient incapable of making informed decisions Z78.9 History of colon cancer Z85.038 Vertebral artery stenosis I65.09 (3) Hypertension Hypertension type: primary hypertension Qualified Code(s): I10 - Essential (primary) hypertension (5) Hypothyroidism Hypothyroidism type: unspecified Qualified Code(s): E03.9 - Hypothyroidism, unspecified
--- NOTE | 2023-05-23 12:08 | Hospitalist Progress Note ---
Date of Service May 23, 2023 Assessment & Plan (1) Dementia: Plan: With severe agitation during hospitalization, now improved Tired throughout the day, is on Seroquel which may be the cause B12 repletion continues Psychiatry seen, no indication for inpatient treatment at this time Melatonin added for day/night reversal sx Agitation 1/3 requiring IM Zyprexa. - No further issues since - Will check UA - has not been collected yet as patient removes hat from toilet before voiding. - If agitation continues consider adding AM Seroquel (2) Syncope: Plan: Occurred this hospitalization when getting up quickly from bed and running to toilet in early February. Likely orthostatic hypotension as cause. Head CT and EKG unremarkable. No recurrence. Antihypertensive uptitration cautious due to history of this (3) Hypertension: Plan: Lisinopril dosage uptitrated on February 20. Amlodipine also uptitrated this ad mission. BPs now controlled (4) Seizure disorder: Plan: Stable. Continue keppra (5) Hypothyroidism: Plan: Stable. Continue Synthroid replacement therapy . TSH 5 in 01/2023 but likely questionable compliance due to dementia with meds at home. TSH 05/11: 1.353 Continue levothyroxine 100 mcg PO daily (6) Patient incapable of making informed decisions: Plan: Patient without capacity for decision making (7) History of colon cancer: Plan: s/p resection in the past . Stable. No intervention necessary at this time. laxatives for constipation (8) Vertebral artery stenosis: Plan: Stable. Continue aspirin and statin therapy Plan VTE prophylaxis - patient is mobile without any acute medical condition requiring VTE prophylaxis therefore chemical VTE prophylaxis not warranted at this time Disposition - continued admission pending placement, she is medically stable for discharge at this time Anticipate discharge to [facility] dementia lockdown unit when arrangements are finalized. Numerous referrals have been made and pt here with prolonged stay due to inability to find technician terminal and repeater placement Admission and Anticipated Discharge Date Admission Date: January 23, 2023 Supervising Physician Co-Signing Physician Notes Attending Attestation - Chart reviewed, care plan d/w JEREMY Colmenares. I agree w/ the keita components of her documentation. Case management attempting to arrange meeting between the case management dept and the pt's son to discuss disposition. Lasha Brar MD Subjective patient seen lying in bed, tells me she is ready to take a nap. patient refused her p.m. medications last night, she has no recollection of this. Tells me she slept well, however per nursing she did not sleep for most of the night. no acute complaints Review of Systems Review of Systems: Unobtainable due to cognitive status Physical Exam Physical Exam: General: lying in bed, VS as above Resp: normal respiratory effort, lungs clear to auscultation CV: RRR, no murmur, Results & Data Results & Data Vital Signs (Past 12 Hours) Vital Signs Temp Pulse Resp BP Pulse Ox O2 Del Method 05/23/23 08:29 36.6 C 72 16 171/83 H 95 Room Air PG Care Time/CCT Total # of Minutes Spent Total Time Spent with Patient: Total time spent is greater than 50% in coordination of care (as documented) at patient's floor/unit and/or counseling patient: Coding Level of Care Code 19989 SUB INP/OBS CARE 1/25MIN Diagnoses Dementia F03.90 Syncope R55 Primary hypertension I10 Hypertension type: primary hypertension Seizure disorder G40.909 Hypothyroidism, unspecified type E03.9 Hypothyroidism type: unspecified Patient incapable of making informed decisions Z78.9 History of colon cancer Z85.038 Vertebral artery stenosis I65.09 (3) Hypertension Hypertension type: primary hypertension Qualified Code(s): I10 - Essential (primary) hypertension (5) Hypothyroidism Hypothyroidism type: unspecified Qualified Code(s): E03.9 - Hypothyroidism, unspecified
[2023-05-23] MEDS: OLANZapine 10 MG/2.1 ML SDV IM STA (15:09)
[2023-05-24] MEDS: QUEtiapine FUMARATE 25 MG TABLET PO SCH (07:11)
--- NOTE | 2023-05-24 15:35 | Hospitalist Progress Note ---
Date of Service May 24, 2023 Assessment & Plan (1) Dementia: Plan: With severe agitation during hospitalization, now improved Tired throughout the day, is on Seroquel which may be the cause B12 repletion continues Psychiatry seen, no indication for inpatient treatment at this time Melatonin added for day/night reversal sx Agitation 05/20 &05/23 requiring IM Zyprexa. - Will check UA - has not been collected yet as patient removes hat from toilet before voiding. -Will add 25mg Seroquel qAM (2) Syncope: Plan: Occurred this hospitalization when getting up quickly from bed and running to toilet in early February. Likely orthostatic hypotension as cause. Head CT and EKG unremarkable. No recurrence. Antihypertensive uptitration cautious due to history of this (3) Hypertension: Plan: Lisinopril dosage uptitrated on February 20. Amlodipine also uptitrated this admission. BPs now controlled (4) Seizure disorder: Plan: Stable. Continue keppra (5) Hypothyroidism: Plan: Stable. Continue Synthroid replacement therapy . TSH 5 in 01/2023 but likely questionable compliance due to dementia with meds at home. TSH 05/11: 1.353 Continue levothyroxine 100 mcg PO daily (6) Patient incapable of making informed decisions: Plan: Patient without capacity for decision making (7) History of colon cancer: Plan: s/p resection in the past . Stable. No intervention necessary at this time. laxatives for constipation (8) Vertebral artery stenosis: Plan: Stable. Continue aspirin and statin therapy Plan VTE prophylaxis - patient is mobile without any acute medical condition requiring VTE prophylaxis therefore chemical VTE prophylaxis not warranted at this time Disposition - continued admission pending placement, she is medically stable for discharge at this time Anticipate [facility] to [facility] lock[facility] when arrangements are finalized. Numerous referrals have been made and pt here with prolonged stay due to inability to find usp placement Admission and Anticipated Discharge Date Admission Date: January 23, 2023 Supervising Physician Co-Signing Physician Notes Attending Attestation - Chart reviewed, care plan d/w JEREMY Colmenares. I agree w/ the keita components of her documentation. Agree with addition of AM seroquel 25mg due to propensity for occasional daytime agitation. Lasha Brar MD Subjective Patient seen ambulating in the hallway looking for somewhere to put her clothes, was easily redirected to her room. Complaining of left hip pain but does not want medications for this. Review of Systems Review of Systems: All systems reviewed & are unremarkable except as noted in Subjective Physical Exam Physical Exam: General: lying in bed, VS as above Resp: normal respiratory effort, lungs clear to auscultation CV: RRR, no murmur, Results & Data Results & Data Vital Signs (Past 12 Hours) Vital Signs Temp Pulse Resp BP Pulse Ox O2 Del Method 05/24/23 08:25 36.3 C L 72 16 179/82 H 96 Room Air PG Care Time/CCT Total # of Minutes Spent Total Time Spent with Patient: Total time spent is greater than 50% in coordination of care (as documented) at patient's floor/unit and/or counseling patient: Coding Level of Care Code 97722 SUB INP/OBS CARE 06/11MIN Diagnoses Dementia F03.90 Syncope R55 Primary hypertension I10 Hypertension type: primary hypertension Seizure disorder G40.909 Hypothyroidism, unspecified type E03.9 Hypothyroidism type: unspecified Patient incapable of making informed decisions Z78.9 History of colon cancer Z85.038 Vertebral artery stenosis I65.09 (3) Hypertension Hypertension type: primary hypertension Qualified Code(s): I10 - Essential (primary) hypertension (5) Hypothyroidism Hypothyroidism type: unspecified Qualified Code(s): E03.9 - Hypothyroidism, unspecified
--- NOTE | 2023-05-25 12:40 | Hospitalist Progress Note ---
Date of Service May 25, 2023 Assessment & Plan (1) Dementia: Plan: With severe agitation during hospitalization, now improved Tired throughout the day, is on Seroquel which may be the cause B12 repletion continues Psychiatry seen, no indication for inpatient treatment at this time Melatonin added for day/night reversal sx Agitation 05/20 &05/23 requiring IM Zyprexa. - Will check UA - has not been collected yet as patient removes hat from toilet before voiding. -Continue 25mg Seroquel qAM (2) Syncope: Plan: Occurred this hospitalization when getting up quickly from bed and running to toilet in early February. Likely orthostatic hypotension as cause. Head CT and EKG unremarkable. No recurrence. Antihypertensive uptitration cautious due to history of this (3) Hypertension: Plan: Lisinopril dosage uptitrated on February 20. Amlodipine also uptitrated this admission. BPs now controlled (4) Seizure disorder: Plan: Stable. Continue keppra (5) Hypothyroidism: Plan: Stable. Continue Synthroid replacement therapy . TSH 5 in 01/2023 but likely questionable compliance due to dementia with meds at home. TSH 05/11: 1.353 Continue levothyroxine 100 mcg PO daily (6) Patient incapable of making informed decisions: Plan: Patient without capacity for decision making (7) History of colon cancer: Plan: s/p resection in the past . Stable. No intervention necessary at this time. laxatives for constipation (8) Vertebral artery stenosis: Plan: Stable. Continue aspirin and statin therapy Plan VTE prophylaxis - patient is mobile without any acute medical condition requiring VTE prophylaxis therefore chemical VTE prophylaxis not warranted at this time Disposition - continued admission pending placement, she is medically stable for discharge at this time Anticipate discharge to [facility] dementia lockdown unit when arrangements are finalized. Numerous referrals have been made and pt here with prolonged stay due to inability to find long-term placement Admission and Anticipated Discharge Date Admission Date: January 23, 2023 Supervising Physician Co-Signing Physician Notes Attending Attestation - Chart reviewed, care plan d/w JEREMY Colmenares. I agree w/ the keita components of her documentation. Meeting date/time with pt's son is still being determined. Tolerating seroquel 25mg qam + 100mg qam. Moving her bowels. Has not had blood work in quite some time - suggest routine CBC, BMP, mag in the next few days. Lasha Brar MD Subjective Patient ambulating in room, asking for a snack. Oriented to self only. Redirected to chair and given applesauce. No acute physical concerns. Review of Systems Review of Systems: Unobtainable due to cognitive status Physical Exam Physical Exam: General: sitting in chair VS as above Resp: normal respiratory effort, lungs clear to auscultation CV: RRR, no murmur, Results & Data Results & Data Vital Signs (Past 12 Hours) Vital Signs Temp Pulse Resp BP Pulse Ox O2 Del Method 05/25/23 07:38 36.4 C L 68 16 139/82 95 Room Air PG Care Time/CCT Total # of Minutes Spent Total Time Spent with Patient: Total time spent is greater than 50% in coordination of care (as documented) at patient's floor/unit and/or counseling patient: Coding Level of Care Code 25466 SUB INP/OBS CARE 06/11MIN Diagnoses Dementia F03.90 Syncope R55 Primary hypertension I10 Hypertension type: primary hypertension Seizure disorder G40.909 Hypothyroidism, unspecified type E03.9 Hypothyroidism type: unspecified Patient incapable of making informed decisions Z78.9 History of colon cancer Z85.038 Vertebral artery stenosis I65.09 (3) Hypertension Hypertension type: primary hypertension Qualified Code(s): I10 - Essential (primary) hypertension (5) Hypothyroidism Hypothyroidism type: unspecified Qualified Code(s): E03.9 - Hypothyroidism, unspecified
--- NOTE | 2023-05-26 17:22 | Hospitalist Progress Note ---
Date of Service May 26, 2023 Assessment & Plan (1) Dementia: Plan: With severe agitation during hospitalization, now improved Tired throughout the day, is on Seroquel which may be the cause B12 repletion continues Psychiatry seen, no indication for inpatient treatment at this time Melatonin added for day/night reversal sx Agitation 05/20 &05/23 requiring IM Zyprexa. - Will check UA - has not been collected yet as patient removes hat from toilet before voiding. -Continue 25mg Seroquel qAM (2) Syncope: Plan: Occurred this hospitalization when getting up quickly from bed and running to toilet in early February. Likely orthostatic hypotension as cause. Head CT and EKG unremarkable. No recurrence. Antihypertensive uptitration cautious due to history of this (3) Hypertension: Plan: Lisinopril dosage uptitrated on February 20. Amlodipine also uptitrated this admission. BPs now controlled (4) Seizure disorder: Plan: Stable. Continue keppra (5) Hypothyroidism: Plan: Stable. Continue Synthroid replacement therapy . TSH 5 in 01/2023 but likely questionable compliance due to dementia with meds at home. TSH 05/11: 1.353 Continue levothyroxine 100 mcg PO daily (6) Patient incapable of making informed decisions: Plan: Patient without capacity for decision making (7) History of colon cancer: Plan: s/p resection in the past . Stable. No intervention necessary at this time. laxatives for constipation (8) Vertebral artery stenosis: Plan: Stable. Continue aspirin and statin therapy Plan VTE prophylaxis - patient is mobile without any acute medical condition requiring VTE prophylaxis therefore chemical VTE prophylaxis not warranted at this time Disposition - continued admission pending placement, she is medically stable for discharge at this time Anticipate discharge to [facility] dementia lockdown unit when arrangements are finalized. 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 Denies chest pain or shortness of breath. Review of Systems Review of Systems: All systems reviewed & are unremarkable except as noted in Subjective Physical Exam Physical Exam: general: Awake, conversant Heart: S1, S2/regular rate and rhythm, no murmur rubs or gallops Lungs: Clear to auscultation bilaterally. Normal effort Abdomen: Soft/nontender/nondistended. No hepatosplenomegaly Extremities: No clubbing/cyanosis. No edema Behavior: Appropriate, cooperative Results & Data Results & Data Vital Signs (Past 12 Hours) Vital Signs Temp Pulse Resp BP Pulse Ox O2 Del Method 05/26/23 07:46 36.6 C 70 16 134/82 95 Room Air PG Care Time/CCT Total # of Minutes Spent Total Time Spent with Patient: Total time spent is greater than 50% in coordination of care (as documented) at patient's floor/unit and/or counseling patient: Coding Level of Care Code 58383 SUB INP/OBS CARE 2/35MIN Diagnoses Dementia F03.90 Syncope R55 Primary hypertension I10 Hypertension type: primary hypertension Seizure disorder G40.909 Hypothyroidism, unspecified type E03.9 Hypothyroidism type: unspecified Patient incapable of making informed decisions Z78.9 History of colon cancer Z85.038 Vertebral artery stenosis I65.09 (3) Hypertension Hypertension type: primary hypertension Qualified Code(s): I10 - Essential (primary) hypertension (5) Hypothyroidism Hypothyroidism type: unspecified Qualified Code(s): E03.9 - Hypothyroidism, unspecified
[2023-05-27] MEDS ORDERED: BENZOCAINE 20% (ORAJEL) 11.9 GM TUBE MT PRN (05:59)
--- NOTE | 2023-05-27 08:08 | Hospitalist Progress Note ---
Date of Service May 27, 2023 Assessment & Plan (1) Dementia: Plan: With severe agitation during hospitalization, now improved Tired throughout the day, is on Seroquel which may be the cause B12 repletion continues Psychiatry seen, no indication for inpatient treatment at this time Melatonin added for day/night reversal sx Agitation 05/20 &05/23 requiring IM Zyprexa. - Will check UA - has not been collected yet as patient removes hat from toilet before voiding. Remains w/ UA pending but can collect as able Continue added AM seroquel 25mg with 100mg HS (2) Syncope: Plan: Occurred this hospitalization when getting up quickly from bed and running to toilet in early February. Likely orthostatic hypotension as cause. Head CT and EKG unremarkable. No recurrence. Antihypertensive uptitration cautious due to history of this -- currently BP 137/74 (3) Hypertension: Plan: Lisinopril dosage uptitrated on February 20. Amlodipine also uptitrated this admission. BPs now controlled 137/74 as above (4) Seizure disorder: Plan: Stable. Continue keppra (5) Hypothyroidism: Plan: Stable. Continue Synthroid replacement therapy . TSH 5 in 01/2023 but likely questionable compliance due to dementia with meds at home. TSH 05/11: 1.353 Continue levothyroxine 100 mcg PO daily (6) Patient incapable of making informed decisions: Plan: Patient without capacity for decision making (7) History of colon cancer: Plan: s/p resection in the past . Stable. No intervention necessary at this time. laxatives for constipation (8) Vertebral artery stenosis: Plan: Stable. Continue aspirin and statin therapy Plan VTE prophylaxis - patient is mobile without any acute medical condition requiring VTE prophylaxis therefore chemical VTE prophylaxis not warranted at this time Disposition - continued admission pending placement, she is medically stable for discharge at this time Anticipate discharge to [facility] dementia lockdown unit when arrangements are finalized. Numerous referrals have been made and pt here with prolonged stay due to inability to find director long term care placement Admission and Anticipated Discharge Date Admission Date: January 23, 2023 Subjective no acute events, stable on meds ongoing search for placement Physical Exam Physical Exam: General- WN/WD female, resting in bed, NAD HEENT: head normocephalic, atraumatic, mmm, trachea midline Resp: even/unlabored, on room air CV: RRR, no significant m/r/g or edema GI: +BS, soft/NT MSK/Neuro: nonfocal Psych: alert to person/place, dementia at baseline PG Care Time/CCT Total # of Minutes Spent Total Time Spent with Patient: Total time spent is greater than 50% in coordination of care (as documented) at patient's floor/unit and/or counseling patient: Coding Level of Care Code 26069 SUB INP/OBS CARE 06/11MIN Diagnoses Dementia F03.90 Syncope R55 Primary hypertension I10 Hypertension type: primary hypertension Seizure disorder G40.909 Hypothyroidism, unspecified type E03.9 Hypothyroidism type: unspecified Patient incapable of making informed decisions Z78.9 History of colon cancer Z85.038 Vertebral artery stenosis I65.09 (3) Hypertension Hypertension type: primary hypertension Qualified Code(s): I10 - Essential (primary) hypertension (5) Hypothyroidism Hypothyroidism type: unspecified Qualified Code(s): E03.9 - Hypothyroidism, unspecified
[2023-05-27] MEDS: ACETAMINOPHEN 325 MG TAB PO PRN (17:49)
[2023-05-27] MEDS: OLANZapine 10 MG/2.1 ML SDV IM STA (19:10)
--- NOTE | 2023-05-28 07:39 | Hospitalist Progress Note ---
Date of Service May 28, 2023 Assessment & Plan (1) Dementia: Plan: Needing placement, does not have capacity for decision making. Patient w/ severe agitation during hospitalization, now improved and remaining stable Tired throughout the day, is on Seroquel which may be the cause B12 repletion continues Psychiatry seen, no indication for inpatient treatment at this time Melatonin added for day/night reversal sx Agitation 05/20 &05/23 requiring IM Zyprexa and added seroquel 25mg QAM (per prior recs, was also on this prior to admit) which is continued with her 100mg HS dose UA ordered given agitation however not yet collected. No acute increased agitat ions/fevers. can collect as able/sooner if any concerns for developing infection (2) Syncope: Plan: Occurred this hospitalization when getting up quickly from bed and running to toilet in early February. Likely orthostatic hypotension as cause. Head CT and EKG unremarkable. No recurrence. Antihypertensive uptitration cautious due to history of this -- currently BP 148/84 (3) Hypertension: Plan: Lisinopril dosage uptitrated on February 20. Amlodipine also uptitrated this admission. BPs now controlled as above (4) Seizure disorder: Plan: Stable. Continue keppra (5) Hypothyroidism: Plan: Stable. Continue Synthroid replacement therapy . TSH 5 in 01/2023 but likely questionable compliance due to dementia with meds at home. TSH 05/11: 1.353 Continue levothyroxine 100 mcg PO daily (6) Patient incapable of making informed decisions: Plan: Patient without capacity for decision making (7) History of colon cancer: Plan: s/p resection in the past . Stable. No intervention necessary at this time. laxatives for constipation (8) Vertebral artery stenosis: Plan: Stable. Continue aspirin and statin therapy Plan VTE prophylaxis - patient is mobile without any acute medical condition requiring VTE prophylaxis therefore chemical VTE prophylaxis not warranted at this time Disposition - continued admission pending placement, she is medically stable for discharge at this time Anticipate discharge to SNF dementia lockdown unit when arrangements are finalized. 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 resting most of the day, ambulating in the halls at other times with staff. case management with ongoing search for placement. no issues reported by nursing staff Physical Exam Physical Exam: General- WN/WD female, resting in bed, NAD HEENT: head normocephalic, atraumatic, mmm, trachea midline Resp: even/unlabored, on room air CV: RRR, no significant m/r/g or edema GI: +BS, soft/NT MSK/Neuro: nonfocal Psych: alert to person/place, dementia at baseline Results & Data Results & Data Vital Signs (Past 12 Hours) Vital Signs O2 Del Method 05/28/23 07:33 Room Air PG Care Time/CCT Total # of Minutes Spent Total Time Spent with Patient: Total time spent is greater than 50% in coordination of care (as documented) at patient's floor/unit and/or counseling patient: Coding Level of Care Code 06987 SUB INP/OBS CARE 1/25MIN Diagnoses Dementia F03.90 Syncope R55 Primary hypertension I10 Hypertension type: primary hypertension Seizure disorder G40.909 Hypothyroidism, unspecified type E03.9 Hypothyroidism type: unspecified Patient incapable of making informed decisions Z78.9 History of colon cancer Z85.038 Vertebral artery stenosis I65.09 (3) Hypertension Hypertension type: primary hypertension Qualified Code(s): I10 - Essential (primary) hypertension (5) Hypothyroidism Hypothyroidism type: unspecified Qualified Code(s): E03.9 - Hypothyroidism, unspecified
--- NOTE | 2023-05-29 07:36 | Hospitalist Progress Note ---
Date of Service May 29, 2023 Assessment & Plan (1) Dementia: Plan: Needing placement, does not have capacity for decision making. Patient w/ severe agitation during hospitalization, now improved and remaining stable Tired throughout the day, is on Seroquel which may be the cause B12 repletion continues Psychiatry seen, no indication for inpatient treatment at this time Melatonin added for day/night reversal sx Agitation 05/20 &05/23 requiring IM Zyprexa and added seroquel 25mg QAM (per prior recs, was also on this prior to admit) which is continued with her 100mg HS dose UA ordered given agitation however not yet collected. No acute increased agitat ions/fevers. can collect as able/sooner if any concerns for developing infection Appears at baseline 05/29. Ongoing placement issues, family meeting w/ CM today to discuss. (2) Syncope: Plan: Occurred this hospitalization when getting up quickly from bed and running to toilet in early February. Likely orthostatic hypotension as cause. Head CT and EKG unremarkable. No recurrence. Antihypertensive uptitration cautious due to history of this -- currently BP 117/67 (3) Hypertension: Plan: Lisinopril dosage uptitrated on February 20. Amlodipine also uptitrated this admission. BPs now controlled as above (4) Seizure disorder: Plan: Stable. Continue keppra (5) Hypothyroidism: Plan: Stable. Continue Synthroid replacement therapy . TSH 5 in 01/2023 but likely questionable compliance due to dementia with meds at home. TSH 05/11: 1.353 Continue levothyroxine 100 mcg PO daily (6) Patient incapable of making informed decisions: Plan: Patient without capacity for decision making (7) History of colon cancer: Plan: s/p resection in the past . Stable. No intervention necessary at this time. laxatives for constipation (8) Vertebral artery stenosis: Plan: Stable. Continue aspirin and statin therapy Plan VTE prophylaxis - patient is mobile without any acute medical condition requiring VTE prophylaxis therefore chemical VTE prophylaxis not warranted at this time Disposition - continued admission pending placement, she is medically stable for discharge at this time Anticipate discharge to [facility] dementia lockdown unit when arrangements are finalized. 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 reports ok appetite. no issues. wanting to know if her kody got something for breakfast. discussed kody not here, reassurance provided. no fever/chills, chest pain/shortness of breath or abdominal pain reported. ongoing working on placement w/ CM. They are having family meeting today to discuss placement/finances questions/concerns addressed at this time. Physical Exam Physical Exam: General- WN/WD female, resting in bed, NAD HEENT: head normocephalic, atraumatic, mmm, trachea midline Resp: even/unlabored, on room air CV: RRR, no significant m/r/g or edema GI: +BS, soft/NT MSK/Neuro: nonfocal Psych: alert to person/place, dementia at baseline PG Care Time/CCT Total # of Minutes Spent Total Time Spent with Patient: Total time spent is greater than 50% in coordination of care (as documented) at patient's floor/unit and/or counseling patient: Coding Level of Care Code 75107 SUB INP/OBS CARE 2/35MIN Diagnoses Dementia F03.90 Syncope R55 Primary hypertension I10 Hypertension type: primary hypertension Seizure disorder G40.909 Hypothyroidism, unspecified type E03.9 Hypothyroidism type: unspecified Patient incapable of making informed decisions Z78.9 History of colon cancer Z85.038 Vertebral artery stenosis I65.09 (3) Hypertension Hypertension type: primary hypertension Qualified Code(s): I10 - Essential (primary) hypertension (5) Hypothyroidism Hypothyroidism type: unspecified Qualified Code(s): E03.9 - Hypothyroidism, unspecified
--- NOTE | 2023-05-30 07:47 | Hospitalist Progress Note ---
Date of Service May 30, 2023 Assessment & Plan (1) Dementia: Plan: Needing placement, does not have capacity for decision making. Patient w/ severe agitation during hospitalization, now improved and remaining stable Tired throughout the day, is on Seroquel which may be the cause B12 repletion continues Psychiatry seen, no indication for inpatient treatment at this time Melatonin added for day/night reversal sx Agitation 05/20 &05/23 requiring IM Zyprexa and added seroquel 25mg QAM (per prior recs, was also on this prior to admit) which is continued with her 100mg HS dose noting declined AM seroquel 05/30 initially, RN going to reattempt but had been stable during encounter/pleasant/cooperative Family meeting 05/29 w additional facilities/referrals being sent by CM. Hopefully bed in the next week UA ordered given agitation however not yet collected. No acute increased agitations/fevers. can collect as able/sooner if any concerns for developing infection. She denied any urinary incontinence/frequency or burning 05/30 Appears at baseline 05/30. Did not take meds this am but good appetite, requesting crackers. +LARGE BM overnight 05/29 (2) Syncope: Plan: Occurred this hospitalization when getting up quickly from bed and running to toilet in early February. Likely orthostatic hypotension as cause. Head CT and EKG unremarkable. No recurrence. Antihypertensive uptitration cautious due to history of this -- currently BP 104/64 (3) Hypertension: Plan: Lisinopril dosage uptitrated on February 20. Amlodipine also uptitrated this admission. BPs now controlled as above (4) Seizure disorder: Plan: Stable. Continue keppra (5) Hypothyroidism: Plan: Stable. Continue Synthroid replacement therapy . TSH 5 in 01/2023 but likely questionable compliance due to dementia with meds at home. TSH 05/11: 1.353 Continue levothyroxine 100 mcg PO daily (6) Patient incapable of making informed decisions: Plan: Patient without capacity for decision making (7) History of colon cancer: Plan: s/p resection in the past . Stable. No intervention necessary at this time. laxatives for constipation (8) Vertebral artery stenosis: Plan: Stable. Continue aspirin and statin therapy Plan VTE prophylaxis - patient is mobile without any acute medical condition requiring VTE prophylaxis therefore chemical VTE prophylaxis not warranted at this time Disposition - continued admission pending placement, she is medically stable for discharge at this time Anticipate discharge to SNF dementia lockdown unit when arrangements are finalized. 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 declined AM meds but nursing working on getting them into her. she wants something "hard and thin" from the kitchen. Provided crackers but she isn't sure that's what she's looking for. Had large BM overnight. No fever/chills, chest pain/shortness of breath, belly pain, urinary problems at this time When asked if able to get her anything she notes "a million dollars". Meeting went well last night, possible bed this upcoming week. Physical Exam Physical Exam: General- WN/WD female, sitting up at the side of the bed talking to nursing, requesting food item/crackers, NAD, pleasant during encounter HEENT: head normocephalic, atraumatic, mmm, trachea midline Resp: even/unlabored, on room air CV: RRR, no significant m/r/g or edema GI: +BS, soft/NT MSK/Neuro: nonfocal Psych: alert to person/place, dementia at baseline requesting for a million dollars when asked if able to get her anything PG Care Time/CCT Total # of Minutes Spent Total Time Spent with Patient: Total time spent is greater than 50% in coordination of care (as documented) at patient's floor/unit and/or counseling patient: Coding Level of Care Code 33678 SUB INP/OBS CARE 06/11MIN Diagnoses Dementia F03.90 Syncope R55 Primary hypertension I10 Hypertension type: primary hypertension Seizure disorder G40.909 Hypothyroidism, unspecified type E03.9 Hypothyroidism type: unspecified Patient incapable of making informed decisions Z78.9 History of colon cancer Z85.038 Vertebral artery stenosis I65.09 (3) Hypertension Hypertension type: primary hypertension Qualified Code(s): I10 - Essential (primary) hypertension (5) Hypothyroidism Hypothyroidism type: unspecified Qualified Code(s): E03.9 - Hypothyroidism, unspecified
--- NOTE | 2023-05-31 08:00 | Hospitalist Progress Note ---
Date of Service May 31, 2023 Assessment & Plan (1) Dementia: Plan: Needing placement, does not have capacity for decision making. Patient w/ severe agitation during hospitalization, now improved and remaining stable Tired throughout the day, is on Seroquel which may be the cause B12 repletion continues Psychiatry seen, no indication for inpatient treatment at this time Melatonin added for day/night reversal sx Agitation 05/20 &05/23 requiring IM Zyprexa and added seroquel 25mg QAM (per prior recs, was also on this prior to admit) which is continued with her 100mg HS dose -noting declined AM seroquel 05/30 initially, RN attempted again later in AM w/ s uccess UA ordered given agitation however not yet collected. No acute increased agitations/fevers. can collect as able/sooner if any concerns for developing infection. She denied any urinary incontinence/frequency or burning 05/31 Appears at baseline 05/30-05/31. Large BM overnight 05/29 held stool softeners/laxatives but has some distension (nontender) and continued Family meeting 05/29 w additional facilities/referrals being sent by CM. Hopefully bed this upcoming week (2) Syncope: Plan: Occurred this hospitalization when getting up quickly from bed and running to toilet in early February. Likely orthostatic hypotension as cause. Head CT and EKG unremarkable. No recurrence. Antihypertensive uptitration cautious due to history of this -- currently BP 147/80 (3) Hypertension: Plan: Lisinopril dosage uptitrated on February 20. Amlodipine also uptitrated this admission. BPs now controlled as above (4) Seizure disorder: Plan: Stable. Continue keppra (5) Hypothyroidism: Plan: Stable. Continue Synthroid replacement therapy . TSH 5 in 01/2023 but likely questionable compliance due to dementia with meds at home. TSH 05/11: 1.353 Continue levothyroxine 100 mcg PO daily (6) Patient incapable of making informed decisions: Plan: Patient without capacity for decision making (7) History of colon cancer: Plan: s/p resection in the past . Stable. No intervention necessary at this time. laxatives for constipation (8) Vertebral artery stenosis: Plan: Stable. Continue aspirin and statin therapy Plan VTE prophylaxis - patient is mobile without any acute medical condition requiring VTE prophylaxis therefore chemical VTE prophylaxis not warranted at this time Disposition - continued admission pending placement, she is medically stable for discharge at this time Anticipate discharge to SNF dementia lockdown unit when arrangements are finalized. 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 doesn't remember this. sleeping in bed but easily awoken, reports feeling alright but "sleepy from all the drugs they give me". No pain or issues to report at present, still wants a million dollars. Did get her some scratch off tickets to keep preoccupied and made jokes about having to split if she wins. She smiled and laughed, seems in decent spirits. Support provided. Physical Exam Physical Exam: General- WN/WD female, resting in bed but easily awoken to name, NAD HEENT: head normocephalic, atraumatic, mmm, trachea midline Resp: even/unlabored, on room air CV: RRR, no significant m/r/g or edema GI: +BS, +distension but nontender MSK/Neuro: nonfocal Psych: alert to person/place, dementia at baseline, cooperative with care Results & Data Results & Data Vital Signs (Past 12 Hours) Vital Signs Temp Pulse Resp BP Pulse Ox O2 Del Method 05/31/23 07:15 36.5 C 68 16 147/80 H 96 Room Air PG Care Time/CCT Total # of Minutes Spent Total Time Spent with Patient: Total time spent is greater than 50% in coordination of care (as documented) at patient's floor/unit and/or counseling patient: Coding Level of Care Code 99510 SUB INP/OBS CARE 06/11MIN Diagnoses Dementia F03.90 Syncope R55 Primary hypertension I10 Hypertension type: primary hypertension Seizure disorder G40.909 Hypothyroidism, unspecified type E03.9 Hypothyroidism type: unspecified Patient incapable of making informed decisions Z78.9 History of colon cancer Z85.038 Vertebral artery stenosis I65.09 (3) Hypertension Hypertension type: primary hypertension Qualified Code(s): I10 - Essential (primary) hypertension (5) Hypothyroidism Hypothyroidism type: unspecified Qualified Code(s): E03.9 - Hypothyroidism, unspecified
--- NOTE | 2023-06-01 07:48 | Hospitalist Progress Note ---
Date of Service June 01, 2023 Assessment & Plan (1) Dementia: Plan: Needing placement, does not have capacity for decision making. Patient w/ severe agitation during hospitalization, now improved and remaining stable Tired throughout the day, is on Seroquel which may be the cause B12 repletion continues Psychiatry seen, no indication for inpatient treatment at this time Melatonin added for day/night reversal sx Agitation 05/20 &05/23 requiring IM Zyprexa and added seroquel 25mg QAM (per prior recs, was also on this prior to admit) which is continued with her 100mg HS dose -noting declined AM seroquel 05/30 initially, RN attempted again later in AM w/ s uccess UA ordered given agitation however not yet collected. No acute increased agitations/fevers. can collect as able/sooner if any concerns for developing infection. She denied any urinary incontinence/frequency or burning 06/01 Appears at baseline 05/30-06/01. Large BM overnight 05/29 held stool softeners/laxatives but has some distension (nontender) and continued. ADDITIONAL LARGE BM OVERNIGHT, senna placed to prn and can continue colace BID btu consider changing to prn if continued BMs Family meeting 05/29 w additional facilities/referrals being sent by CM. Hopefully bed this upcoming week (2) Syncope: Plan: Occurred this hospitalization when getting up quickly from bed and running to toilet in early February. Likely orthostatic hypotension as cause. Head CT and EKG unremarkable. No recurrence. Antihypertensive uptitration cautious due to history of this -- currently BP 148/81 (3) Hypertension: Plan: Lisinopril dosage uptitrated on February 20. Amlodipine also uptitrated this admission. BPs now controlled as above (4) Seizure disorder: Plan: Stable. Continue keppra (5) Hypothyroidism: Plan: Stable. Continue Synthroid replacement therapy . TSH 5 in 01/2023 but likely questionable compliance due to dementia with meds at home. TSH 05/11: 1.353 Continue levothyroxine 100 mcg PO daily (6) Patient incapable of making informed decisions: Plan: Patient without capacity for decision making (7) History of colon cancer: Plan: s/p resection in the past . Stable. No intervention necessary at this time. laxatives for constipation (8) Vertebral artery stenosis: Plan: Stable. Continue aspirin and statin therapy Plan VTE prophylaxis - patient is mobile without any acute medical condition requiring VTE prophylaxis therefore chemical VTE prophylaxis not warranted at this time Disposition - continued admission pending placement, she is medically stable for discharge at this time Anticipate discharge to [facility] dementia lockdown unit when arrangements are finalized. 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 Had large BM overnight. Backing down on bowel regimen for now and will make senna prn, can continue colace BID but likely able to back that down as well. May be having bowel movements and not telling anyone (balled up stool in paper gowns over past weekend x 1 found by nursing). Appearing comfortable,, no acute issues to report. Physical Exam Physical Exam: General- WN/WD female, resting in bed but easily awoken to name, NAD HEENT: head normocephalic, atraumatic, mmm, trachea midline Resp: even/unlabored, on room air CV: RRR, no significant m/r/g or edema GI: +BS, LESS DISTENSION, nontender MSK/Neuro: nonfocal Psych: alert to person/place, dementia at baseline, cooperative with care Results & Data Results & Data Vital Signs (Past 12 Hours) Vital Signs Temp Pulse Resp BP Pulse Ox O2 Del Method 06/01/23 07:33 36.7 C 69 16 148/81 H 97 Room Air PG Care Time/CCT Total # of Minutes Spent Total Time Spent with Patient: Total time spent is greater than 50% in coordination of care (as documented) at patient's floor/unit and/or counseling patient: Coding Level of Care Code 43186 SUB INP/OBS CARE 06/11MIN Diagnoses Dementia F03.90 Syncope R55 Primary hypertension I10 Hypertension type: primary hypertension Seizure disorder G40.909 Hypothyroidism, unspecified type E03.9 Hypothyroidism type: unspecified Patient incapable of making informed decisions Z78.9 History of colon cancer Z85.038 Vertebral artery stenosis I65.09 (3) Hypertension Hypertension type: primary hypertension Qualified Code(s): I10 - Essential (primary) hypertension (5) Hypothyroidism Hypothyroidism type: unspecified Qualified Code(s): E03.9 - Hypothyroidism, unspecified
[2023-06-01] MEDS ORDERED: SENNA 8.6 MG TAB PO PRN (09:05)
--- NOTE | 2023-06-02 13:04 | Hospitalist Progress Note ---
Date of Service June 02, 2023 Assessment & Plan (1) Dementia: Plan: Needing placement, does not have capacity for decision making. Patient w/ severe agitation during hospitalization, now improved and remaining stable Tired throughout the day, is on Seroquel which may be the cause B12 repletion continues Psychiatry seen, no indication for inpatient treatment at this time Melatonin added for day/night reversal sx Agitation 05/20 &05/23 requiring IM Zyprexa and added seroquel 25mg QAM (per prior recs, was also on this prior to admit) which is continued with her 100mg HS dose Large BM 05/29 & 05/30 senna placed to prn and can continue colace BID but consi natalie changing to prn if continued BMs (2) Syncope: Plan: Occurred this hospitalization when getting up quickly from bed and running to toilet in early February. Likely orthostatic hypotension as cause. Head CT and EKG unremarkable. No recurrence. (3) Hypertension: Plan: Lisinopril dosage uptitrated on February 20. Amlodipine also uptitrated this admission. BPs now controlled (4) Seizure disorder: Plan: Stable. Continue keppra (5) Hypothyroidism: Plan: Stable. Continue Synthroid replacement therapy TSH 05/11: 1.353 Continue levothyroxine 100 mcg daily (6) Patient incapable of making informed decisions: Plan: Patient without capacity for decision making Family meeting 05/29 w additional facilities/referrals being sent by CM. Hopefully bed this upcoming week (7) History of colon cancer: Plan: s/p resection in the past . Stable. No intervention necessary at this time. laxatives for constipation (8) Vertebral artery stenosis: Plan: Stable. Continue aspirin and statin therapy Plan VTE prophylaxis - patient is mobile without any acute medical condition requiring VTE prophylaxis therefore chemical VTE prophylaxis not warranted at this time Disposition - continued admission pending placement, she is medically stable for discharge at this time Anticipate discharge to SNF dementia lockdown unit when arrangements are finalized. Admission and Anticipated Discharge Date Admission Date: January 23, 2023 Supervising Physician Co-Signing Physician Notes Attending Attestation - Chart reviewed, care plan d/w JEREMY Colmenares. I agree w/ the keita components of her documentation. Lasha Brar MD Subjective Patient seen sitting at side of bed. Continues to be pleasantly confused. No acute concerns at this time. Think she is going to take a nap soon Review of Systems Review of Systems: All systems reviewed & are unremarkable except as noted in Subjective Physical Exam Physical Exam: General: NAD, sitting at the side of the bed, VS as above Resp: normal respiratory effort, lungs clear to auscultation CV: RRR, no murmur, Neuro: Alert to self Results & Data Results & Data Vital Signs (Past 12 Hours) Vital Signs Temp Pulse Resp BP Pulse Ox O2 Del Method 06/02/23 06:42 36.8 C 75 16 159/75 H 97 Room Air PG Care Time/CCT Total # of Minutes Spent Total Time Spent with Patient: Total time spent is greater than 50% in coordination of care (as documented) at patient's floor/unit and/or counseling patient: Coding Level of Care Code 45657 SUB INP/OBS CARE 06/11MIN Diagnoses Dementia F03.90 Syncope R55 Primary hypertension I10 Hypertension type: primary hypertension Seizure disorder G40.909 Hypothyroidism, unspecified type E03.9 Hypothyroidism type: unspecified Patient incapable of making informed decisions Z78.9 History of colon cancer Z85.038 Vertebral artery stenosis I65.09 (3) Hypertension Hypertension type: primary hypertension Qualified Code(s): I10 - Essential (primary) hypertension (5) Hypothyroidism Hypothyroidism type: unspecified Qualified Code(s): E03.9 - Hypothyroidism, unspecified
--- NOTE | 2023-06-03 10:25 | Hospitalist Progress Note ---
Date of Service June 03, 2023 Assessment & Plan (1) Dementia: Plan: Needing placement, does not have capacity for decision making. Patient w/ severe agitation during hospitalization, now improved and remaining stable Tired throughout the day, is on Seroquel which may be the cause B12 repletion continues Psychiatry seen, no indication for inpatient treatment at this time Melatonin added for day/night reversal sx Agitation 05/20 &05/23 requiring IM Zyprexa and added seroquel 25mg QAM (per prior recs, was also on this prior to admit) which is continued with her 100mg HS dose -05/30 senna placed to prn (2) Syncope: Plan: Occurred this hospitalization when getting up quickly from bed and running to toilet in early February. Likely orthostatic hypotension as cause. Head CT and EKG unremarkable. No recurrence. (3) Hypertension: Plan: Lisinopril dosage uptitrated on February 20. Amlodipine also uptitrated this admission. BPs now controlled (4) Seizure disorder: Plan: Stable. Continue keppra (5) Hypothyroidism: Plan: Stable. Continue Synthroid replacement therapy TSH 05/11: 1.353 Continue levothyroxine 100 mcg daily (6) Patient incapable of making informed decisions: Plan: Patient without capacity for decision making Family meeting 05/29 additional facilities/referrals being sent by CM. Hopefully bed this upcoming week (7) History of colon cancer: Plan: s/p resection in the past . Stable. No intervention necessary at this time. laxatives for constipation (8) Vertebral artery stenosis: Plan: Stable. Continue aspirin and statin therapy Plan VTE prophylaxis - patient is mobile without any acute medical condition requiring VTE prophylaxis therefore chemical VTE prophylaxis not warranted at this time Disposition - continued admission pending placement, she is medically stable for discharge at this time Anticipate discharge to SNF dementia lockdown unit when arrangements are finalized. Admission and Anticipated Discharge Date Admission Date: January 23, 2023 Supervising Physician Co-Signing Physician Notes Attending Attestation - Chart reviewed, care plan d/w JEREMY Colmenares. I agree w/ the keita components of her documentation. Awaiting disposition/placement. Appreciate case management assistance. Lasha Brar MD Subjective Patient ambulating independently in room, currently making her bed. Denies acute concerns. States she has been moving her bowels. Denies pain. Review of Systems Review of Systems: All systems reviewed & are unremarkable except as noted in Subjective Physical Exam Physical Exam: General: NAD, ambulating in room, making bed, VS as above Resp: normal respiratory effort, lungs clear to auscultation CV: RRR, no murmur, Neuro: Alert to self Results & Data Results & Data Vital Signs (Past 12 Hours) Vital Signs Temp Pulse Resp BP Pulse Ox O2 Del Method 06/03/23 07:04 36.5 C 70 18 149/73 H 94 Room Air PG Care Time/CCT Total # of Minutes Spent Total Time Spent with Patient: Total time spent is greater than 50% in coordination of care (as documented) at patient's floor/unit and/or counseling patient: Coding Level of Care Code 64645 SUB INP/OBS CARE 06/11MIN Diagnoses Dementia F03.90 Syncope R55 Primary hypertension I10 Hypertension type: primary hypertension Seizure disorder G40.909 Hypothyroidism, unspecified type E03.9 Hypothyroidism type: unspecified Patient incapable of making informed decisions Z78.9 History of colon cancer Z85.038 Vertebral artery stenosis I65.09 (3) Hypertension Hypertension type: primary hypertension Qualified Code(s): I10 - Essential (primary) hypertension (5) Hypothyroidism Hypothyroidism type: unspecified Qualified Code(s): E03.9 - Hypothyroidism, unspecified
--- NOTE | 2023-06-04 14:20 | Hospitalist Progress Note ---
Date of Service June 04, 2023 Assessment & Plan (1) Dementia: Plan: Needing placement, does not have capacity for decision making. Patient w/ severe agitation during hospitalization, now improved and remaining stable Tired throughout the day, is on Seroquel which may be the cause B12 repletion continues Psychiatry seen, no indication for inpatient treatment at this time Melatonin added for day/night reversal sx Agitation 05/20 &05/23 requiring IM Zyprexa and added seroquel 25mg QAM (per prior recs, was also on this prior to admit) which is continued with her 100mg HS dose -05/30 senna placed to prn (2) Syncope: Plan: Occurred this hospitalization when getting up quickly from bed and running to toilet in early February. Likely orthostatic hypotension as cause. Head CT and EKG unremarkable. No recurrence. (3) Hypertension: Plan: Lisinopril dosage uptitrated on February 20. Amlodipine also uptitrated this admission. BPs now controlled (4) Seizure disorder: Plan: Stable. Continue keppra (5) Hypothyroidism: Plan: Stable. Continue Synthroid replacement therapy TSH 05/11: 1.353 Continue levothyroxine 100 mcg daily (6) Patient incapable of making informed decisions: Plan: Patient without capacity for decision making Family meeting 05/29 additional facilities/referrals being sent by CM. (7) History of colon cancer: Plan: s/p resection in the past . Stable. No intervention necessary at this time. laxatives for constipation (8) Vertebral artery stenosis: Plan: Stable. Continue aspirin and statin therapy Plan VTE prophylaxis - patient is mobile without any acute medical condition requiring VTE prophylaxis therefore chemical VTE prophylaxis not warranted at this time Disposition - continued admission pending placement, she is medically stable for discharge at this time Anticipate discharge to SNF dementia lockdown unit when arrangements are finalized. Admission and Anticipated Discharge Date Admission Date: January 23, 2023 Supervising Physician Co-Signing Physician Notes Attending Attestation - Chart reviewed, care plan d/w JEREMY Colmenares. I agree w/ the keita components of her documentation. Awaiting disposition/placement. No recent behavioral disturbance. Lasha Brar MD Subjective Patient siting in the chair in her room. She reports feeling lousy today, did not sleep well last night. Not having any pain. Review of Systems Review of Systems: Unobtainable due to cognitive status Physical Exam Physical Exam: General: NAD, sitting up in the chair , VS as above Resp: normal respiratory effort, lungs clear to auscultation CV: RRR, no murmur, Neuro: Alert to self Extemities: no edema Results & Data Results & Data Vital Signs (Past 12 Hours) Vital Signs Temp Pulse Resp BP Pulse Ox O2 Del Method 06/04/23 08:02 36.5 C 69 16 148/74 H 95 Room Air PG Care Time/CCT Total # of Minutes Spent Total Time Spent with Patient: Total time spent is greater than 50% in coordination of care (as documented) at patient's floor/unit and/or counseling patient: Coding Level of Care Code 95705 SUB INP/OBS CARE 06/11MIN Diagnoses Dementia F03.90 Syncope R55 Primary hypertension I10 Hypertension type: primary hypertension Seizure disorder G40.909 Hypothyroidism, unspecified type E03.9 Hypothyroidism type: unspecified Patient incapable of making informed decisions Z78.9 History of colon cancer Z85.038 Vertebral artery stenosis I65.09 (3) Hypertension Hypertension type: primary hypertension Qualified Code(s): I10 - Essential (primary) hypertension (5) Hypothyroidism Hypothyroidism type: unspecified Qualified Code(s): E03.9 - Hypothyroidism, unspecified
--- NOTE | 2023-06-05 13:43 | Hospitalist Progress Note ---
Date of Service June 05, 2023 Assessment & Plan (1) Dementia: Plan: Needing placement, does not have capacity for decision making. Patient w/ severe agitation during hospitalization, now improved and remaining stable Tired throughout the day, is on Seroquel which may be the cause B12 repletion continues Psychiatry seen, no indication for inpatient treatment at this time Melatonin added for day/night reversal sx Agitation 05/20 &05/23 requiring IM Zyprexa and added seroquel 25mg QAM (per prior recs, was also on this prior to admit) which is continued with her 100mg HS dose -05/30 senna placed to prn (2) Syncope: Plan: Occurred this hospitalization when getting up quickly from bed and running to toilet in early February. Likely orthostatic hypotension as cause. Head CT and EKG unremarkable. No recurrence. (3) Hypertension: Plan: Lisinopril dosage uptitrated on February 20. Amlodipine also uptitrated this admission. BPs stable (4) Seizure disorder: Plan: Stable. Continue keppra (5) Hypothyroidism: Plan: Stable. Continue Synthroid replacement therapy TSH 05/11: 1.353 Continue levothyroxine 100 mcg daily (6) Patient incapable of making informed decisions: Plan: Patient without capacity for decision making Family meeting 05/29 additional facilities/referrals being sent by CM. (7) History of colon cancer: Plan: s/p resection in the past . Stable. No intervention necessary at this time. laxatives for constipation (8) Vertebral artery stenosis: Plan: Stable. Continue aspirin and statin therapy Plan VTE prophylaxis - patient is mobile without any acute medical condition requiring VTE prophylaxis therefore chemical VTE prophylaxis not warranted at this time Disposition - continued admission pending placement, she is medically stable for discharge at this time Admission and Anticipated Discharge Date Admission Date: January 23, 2023 Supervising Physician Co-Signing Physician Notes Attending Attestation - Chart reviewed, care plan d/w JEREMY Colmenares. I agree w/ the keita components of her documentation. Lasha Brar MD Subjective Siiting at the side of the bed, eating lunch. More alert than yesterday. No acute complaints. Review of Systems Review of Systems: All systems reviewed & are unremarkable except as noted in Subjective Physical Exam Physical Exam: General: NAD, sitting on the side of the bed eating lunch , VS as above Resp: normal respiratory effort, lungs clear to auscultation CV: RRR, no murmur, Neuro: Alert to self Extemities: no edema Results & Data Results & Data Vital Signs (Past 12 Hours) Vital Signs Temp Pulse Resp BP Pulse Ox O2 Del Method 06/05/23 07:59 36.4 C L 71 18 145/80 H 95 Room Air PG Care Time/CCT Total # of Minutes Spent Total Time Spent with Patient: Total time spent is greater than 50% in coordination of care (as documented) at patient's floor/unit and/or counseling patient: Coding Level of Care Code 97490 SUB INP/OBS CARE 06/11MIN Diagnoses Dementia F03.90 Syncope R55 Primary hypertension I10 Hypertension type: primary hypertension Seizure disorder G40.909 Hypothyroidism, unspecified type E03.9 Hypothyroidism type: unspecified Patient incapable of making informed decisions Z78.9 History of colon cancer Z85.038 Vertebral artery stenosis I65.09 (3) Hypertension Hypertension type: primary hypertension Qualified Code(s): I10 - Essential (primary) hypertension (5) Hypothyroidism Hypothyroidism type: unspecified Qualified Code(s): E03.9 - Hypothyroidism, unspecified
--- NOTE | 2023-06-06 13:21 | Hospitalist Progress Note ---
Date of Service June 06, 2023 Assessment & Plan (1) Dementia: Plan: Needing placement, does not have capacity for decision making. Patient w/ severe agitation during hospitalization, now improved and remaining stable Tired throughout the day, is on Seroquel which may be the cause B12 repletion continues Psychiatry seen, no indication for inpatient treatment at this time Melatonin added for day/night reversal sx Agitation 05/20 &05/23 requiring IM Zyprexa and added seroquel 25mg QAM (per prior recs, was also on this prior to admit) which is continued with her 100mg HS dose -05/30 senna placed to prn (2) Syncope: Plan: Occurred this hospitalization when getting up quickly from bed and running to toilet in early February. Likely orthostatic hypotension as cause. Head CT and EKG unremarkable. No recurrence. (3) Hypertension: Plan: Lisinopril dosage uptitrated on February 20. Amlodipine also uptitrated this admission. BPs stable (4) Seizure disorder: Plan: Stable. Continue keppra (5) Hypothyroidism: Plan: Stable. Continue Synthroid replacement therapy TSH 05/11: 1.353 Continue levothyroxine 100 mcg daily (6) Patient incapable of making informed decisions: Plan: Patient without capacity for decision making Family meeting 05/29 additional facilities/referrals being sent by CM. (7) History of colon cancer: Plan: s/p resection in the past . Stable. No intervention necessary at this time. laxatives for constipation (8) Vertebral artery stenosis: Plan: Stable. Continue aspirin and statin therapy Plan VTE prophylaxis - patient is mobile without any acute medical condition requiring VTE prophylaxis therefore chemical VTE prophylaxis not warranted at this time Disposition - continued admission pending placement, she is medically stable for discharge at this time Admission and Anticipated Discharge Date Admission Date: January 23, 2023 Supervising Physician Co-Signing Physician Notes Attending Attestation - Chart reviewed, care plan d/w JEREMY Colmenares. I agree w/ the keita components of her documentation. Lasha Brar MD Subjective Patient resting in bed, quite tired today. Review of Systems Review of Systems: All systems reviewed & are unremarkable except as noted in Subjective Physical Exam Physical Exam: Resting in bed. Breathing unlabored. No acute distress. Results & Data Results & Data Vital Signs (Past 12 Hours) Vital Signs Temp Pulse Resp BP Pulse Ox O2 Del Method 06/06/23 08:00 36.4 C L 73 16 146/81 H 94 Room Air PG Care Time/CCT Total # of Minutes Spent Total Time Spent with Patient: Total time spent is greater than 50% in coordination of care (as documented) at patient's floor/unit and/or counseling patient: Coding Level of Care Code 85074 SUB INP/OBS CARE 06/11MIN Diagnoses Dementia F03.90 Syncope R55 Primary hypertension I10 Hypertension type: primary hypertension Seizure disorder G40.909 Hypothyroidism, unspecified type E03.9 Hypothyroidism type: unspecified Patient incapable of making informed decisions Z78.9 History of colon cancer Z85.038 Vertebral artery stenosis I65.09 (3) Hypertension Hypertension type: primary hypertension Qualified Code(s): I10 - Essential (primary) hypertension (5) Hypothyroidism Hypothyroidism type: unspecified Qualified Code(s): E03.9 - Hypothyroidism, unspecified
--- NOTE | 2023-06-07 10:59 | Hospitalist Progress Note ---
Date of Service June 07, 2023 Assessment & Plan (1) Dementia: Plan: Needing placement, does not have capacity for decision making. Patient w/ severe agitation during hospitalization, now improved and remaining stable Tired throughout the day, is on Seroquel which may be the cause B12 repletion continues Psychiatry seen, no indication for inpatient treatment at this time Melatonin added for day/night reversal sx Agitation 05/20 &05/23 requiring IM Zyprexa and added seroquel 25mg QAM (per prior recs, was also on this prior to admit) which is continued with her 100mg HS dose -05/30 senna placed to prn (2) Syncope: Plan: Occurred this hospitalization when getting up quickly from bed and running to toilet in early February. Likely orthostatic hypotension as cause. Head CT and EKG unremarkable. No recurrence. (3) Hypertension: Plan: Lisinopril dosage uptitrated on February 20. Amlodipine also uptitrated this admission. BPs stable (4) Seizure disorder: Plan: Stable. Continue keppra (5) Hypothyroidism: Plan: Stable. Continue Synthroid replacement therapy TSH 05/11: 1.353 Continue levothyroxine 100 mcg daily (6) Patient incapable of making informed decisions: Plan: Patient without capacity for decision making Family meeting 05/29 additional facilities/referrals being sent by CM. (7) History of colon cancer: Plan: s/p resection in the past . Stable. No intervention necessary at this time. laxatives for constipation (8) Vertebral artery stenosis: Plan: Stable. Continue aspirin and statin therapy Plan VTE prophylaxis - patient is mobile without any acute medical condition requiring VTE prophylaxis therefore chemical VTE prophylaxis not warranted at this time Disposition - continued admission pending placement, she is medically stable for discharge at this time. Case management following Admission and Anticipated Discharge Date Admission Date: January 23, 2023 Supervising Physician Co-Signing Physician Notes Attending Attestation - Chart reviewed, care plan d/w JEREMY Colmenares. I agree w/ the keita components of her documentation. Lasha Brar MD Subjective Patient seen sitting in the chair. No acute complaints. Asking for something to drink, tessie juancarlos provided. Review of Systems Review of Systems: All systems reviewed & are unremarkable except as noted in Subjective Physical Exam Physical Exam: General: NAD, VS as above Resp: normal respiratory effort, lungs clear to auscultation CV: RRR, no murmur, Extremities: Moves all extremities, Results & Data Results & Data Vital Signs (Past 12 Hours) Vital Signs Temp Pulse Resp BP Pulse Ox O2 Del Method 06/07/23 07:26 36.7 C 76 16 149/76 H 98 Room Air PG Care Time/CCT Total # of Minutes Spent Total Time Spent with Patient: Total time spent is greater than 50% in coordination of care (as documented) at patient's floor/unit and/or counseling patient: Coding Level of Care Code 80246 SUB INP/OBS CARE 06/11MIN Diagnoses Dementia F03.90 Syncope R55 Primary hypertension I10 Hypertension type: primary hypertension Seizure disorder G40.909 Hypothyroidism, unspecified type E03.9 Hypothyroidism type: unspecified Patient incapable of making informed decisions Z78.9 History of colon cancer Z85.038 Vertebral artery stenosis I65.09 (3) Hypertension Hypertension type: primary hypertension Qualified Code(s): I10 - Essential (primary) hypertension (5) Hypothyroidism Hypothyroidism type: unspecified Qualified Code(s): E03.9 - Hypothyroidism, unspecified
--- NOTE | 2023-06-08 12:30 | Hospitalist Progress Note ---
Date of Service June 08, 2023 Assessment & Plan (1) Dementia: Plan: Needing placement, does not have capacity for decision making. Patient w/ severe agitation during hospitalization, now improved and remaining stable Tired throughout the day, is on Seroquel which may be the cause B12 repletion continues Psychiatry seen, no indication for inpatient treatment at this time Melatonin added for day/night reversal sx Agitation 05/20 &05/23 requiring IM Zyprexa and added seroquel 25mg QAM (per prior recs, was also on this prior to admit) which is continued with her 100mg HS dose -05/30 senna placed to prn (2) Syncope: Plan: Occurred this hospitalization when getting up quickly from bed and running to toilet in early February. Likely orthostatic hypotension as cause. Head CT and EKG unremarkable. No recurrence. (3) Hypertension: Plan: Lisinopril dosage uptitrated on February 20. Amlodipine also uptitrated this admission. BPs stable (4) Seizure disorder: Plan: Stable. Continue keppra (5) Hypothyroidism: Plan: Stable. Continue Synthroid replacement therapy TSH 05/11: 1.353 Continue levothyroxine 100 mcg daily (6) Patient incapable of making informed decisions: Plan: Patient without capacity for decision making Family meeting 05/29 additional facilities/referrals being sent by CM. (7) History of colon cancer: Plan: s/p resection in the past . Stable. No intervention necessary at this time. laxatives for constipation (8) Vertebral artery stenosis: Plan: Stable. Continue aspirin and statin therapy Plan VTE prophylaxis - patient is mobile without any acute medical condition requiring VTE prophylaxis therefore chemical VTE prophylaxis not warranted at this time Disposition - continued admission pending placement, she is medically stable for discharge at this time. Case management following Patient sonJuan updated by phone Admission and Anticipated Discharge Date Admission Date: January 23, 2023 Supervising Physician Co-Signing Physician Notes Attending Attestation - Chart reviewed, care plan d/w JEREMY Colmenares. I agree w/ the keita components of her documentation. Pt has not had routine labs in 6+ weeks - would recommend routine cbc, bmp, and mag for stability. Lasha Brar MD Subjective Patient ambulating in room states she is looking for her keys so she can go to where the jets come. easily able to be redirected.n No acute complaints Review of Systems Review of Systems: All systems reviewed & are unremarkable except as noted in Subjective Physical Exam Physical Exam: General: NAD, VS as above Resp: normal respiratory effort CV: RRR Extremities: Moves all extremities, Results & Data Results & Data Vital Signs (Past 12 Hours) Vital Signs Temp Pulse Resp BP Pulse Ox O2 Del Method 06/08/23 07:05 36.8 C 73 16 148/78 H 97 Room Air PG Care Time/CCT Total # of Minutes Spent Total Time Spent with Patient: Total time spent is greater than 50% in coordination of care (as documented) at patient's floor/unit and/or counseling patient: Coding Level of Care Code 10620 SUB INP/OBS CARE 06/11MIN Diagnoses Dementia F03.90 Syncope R55 Primary hypertension I10 Hypertension type: primary hypertension Seizure disorder G40.909 Hypothyroidism, unspecified type E03.9 Hypothyroidism type: unspecified Patient incapable of making informed decisions Z78.9 History of colon cancer Z85.038 Vertebral artery stenosis I65.09 (3) Hypertension Hypertension type: primary hypertension Qualified Code(s): I10 - Essential (primary) hypertension (5) Hypothyroidism Hypothyroidism type: unspecified Qualified Code(s): E03.9 - Hypothyroidism, unspecified
--- NOTE | 2023-06-09 08:22 | Hospitalist Progress Note ---
Date of Service June 09, 2023 Assessment & Plan (1) Dementia: Plan: Needing placement, does not have capacity for decision making. Patient w/ severe agitation during hospitalization, now improved and remaining stable Tired throughout the day, is on Seroquel which may be the cause B12 repletion continues Psychiatry seen, no indication for inpatient treatment at this time Melatonin added for day/night reversal sx Agitation 05/20 &05/23 requiring IM Zyprexa and added seroquel 25mg QAM (per prior recs, was also on this prior to admit) which is continued with her 100mg HS dose -05/30 senna placed to prn (2) Syncope: Plan: Occurred this hospitalization when getting up quickly from bed and running to toilet in early February. Likely orthostatic hypotension as cause. Head CT and EKG unremarkable. No recurrence. (3) Hypertension: Plan: Lisinopril dosage uptitrated on February 20. Amlodipine also uptitrated this admission. BPs stable (4) Seizure disorder: Plan: Stable. Continue keppra (5) Hypothyroidism: Plan: Stable. Continue Synthroid replacement therapy TSH 05/11: 1.353 Continue levothyroxine 100 mcg daily (6) Patient incapable of making informed decisions: Plan: Patient without capacity for decision making Family meeting 05/29 additional facilities/referrals being sent by CM. (7) History of colon cancer: Plan: s/p resection in the past . Stable. No intervention necessary at this time. laxatives for constipation (8) Vertebral artery stenosis: Plan: Stable. Continue aspirin and statin therapy Plan VTE prophylaxis - patient is mobile without any acute medical condition requiring VTE prophylaxis therefore chemical VTE prophylaxis not warranted at this time Disposition - continued admission pending placement, she is medically stable for discharge at this time. Case management following Patient son, Juan updated by phone prior. will touch base later in the week as well Admission and Anticipated Discharge Date Admission Date: January 23, 2023 Supervising Physician Co-Signing Physician Notes The patient was not seen by me. The chart was reviewed. Case discussed with JEREMY Hoang. Agree with assessment and plan Subjective patient evaluated this morning, sitting up having breakfast. possible japanese toast tomorrow as sick of eggs but will let us know, reports "has to think about it". no acute issues, mood stable awaiting placement Physical Exam Physical Exam: General- WN/WD female, sitting up at side of bed eating breakfast, NAD HEENT: head normocephalic, atraumatic, mmm, trachea midline Resp: even/unlabored, on room air CV: RRR, no significant m/r/g or edema GI: +BS, soft, nontender MSK/Neuro: nonfocal Psych: alert to person/place, dementia at baseline, cooperative with care Results & Data Results & Data Vital Signs (Past 12 Hours) Vital Signs O2 Del Method 06/08/23 21:10 Room Air PG Care Time/CCT Total # of Minutes Spent Total Time Spent with Patient: Total time spent is greater than 50% in coordination of care (as documented) at patient's floor/unit and/or counseling patient: Coding Level of Care Code 91053 SUB INP/OBS CARE 06/11MIN Diagnoses Dementia F03.90 Syncope R55 Primary hypertension I10 Hypertension type: primary hypertension Seizure disorder G40.909 Hypothyroidism, unspecified type E03.9 Hypothyroidism type: unspecified Patient incapable of making informed decisions Z78.9 History of colon cancer Z85.038 Vertebral artery stenosis I65.09 (3) Hypertension Hypertension type: primary hypertension Qualified Code(s): I10 - Essential (primary) hypertension (5) Hypothyroidism Hypothyroidism type: unspecified Qualified Code(s): E03.9 - Hypothyroidism, unspecified
--- NOTE | 2023-06-10 08:51 | Hospitalist Progress Note ---
Date of Service June 10, 2023 Assessment & Plan (1) Dementia: Plan: Needing placement, does not have capacity for decision making. Patient w/ severe agitation during hospitalization, now improved and remaining stable Tired throughout the day, is on Seroquel which may be the cause B12 repletion continues Psychiatry seen, no indication for inpatient treatment at this time Melatonin added for day/night reversal sx Agitation 05/20 &05/23 requiring IM Zyprexa and added seroquel 25mg QAM (per prior recs, was also on this prior to admit) which is continued with her 100mg HS dose -05/30 senna placed to prn (last BM recorded 06/08- monitor) (2) Syncope: Plan: Occurred this hospitalization when getting up quickly from bed and running to toilet in early February. Likely orthostatic hypotension as cause. Head CT and EKG unremarkable. No recurrence. (3) Hypertension: Plan: Lisinopril dosage uptitrated on February 20. Amlodipine also uptitrated this admission. BPs now controlled 138/81 in hospital setting (4) Seizure disorder: Plan: Stable. Continue keppra (5) Hypothyroidism: Plan: Stable. Continue Synthroid replacement therapy TSH 05/11: 1.353 Continue levothyroxine 100 mcg daily (6) Patient incapable of making informed decisions: Plan: Patient without capacity for decision making Family meeting 05/29 additional facilities/referrals being sent by CM. CM continued search for placement. Medically stable for dc for weeks/months (7) History of colon cancer: Plan: s/p resection in the past . Stable. No intervention necessary at this time. laxatives for constipation moving her bowels (8) Vertebral artery stenosis: Plan: Stable. Continue aspirin and statin therapy Plan VTE prophylaxis - patient is mobile without any acute medical condition requiring VTE prophylaxis therefore chemical VTE prophylaxis not warranted at this time Disposition - continued admission pending placement, she is medically stable for discharge at this time Anticipate discharge to [facility] dementia lockdown unit when arrangements are finalized. Admission and Anticipated Discharge Date Admission Date: January 23, 2023 Supervising Physician Co-Signing Physician Notes The patient was not seen by me. The chart was reviewed. Case discussed with JEREMY Hoang. Agree with assessment and plan Subjective eval this morning, no acute distress. sitting up in chair having breakfast. pleasant/cooperative with exam no questions/concerns at this time (except to win a million dollars) continues to await placement at present time Physical Exam Physical Exam: General- WN/WD female, sitting up in recliner, dressed, NAD HEENT: head normocephalic, atraumatic, mmm, trachea midline Resp: even/unlabored, on room air CV: RRR, no significant m/r/g or edema GI: +BS, soft, nontender MSK/Neuro: nonfocal Psych: alert to person/place, dementia at baseline, cooperative with care Results & Data Results & Data Vital Signs (Past 12 Hours) Vital Signs Temp Pulse Resp BP Pulse Ox O2 Del Method 06/10/23 07:42 36.9 C 65 18 138/81 97 Room Air PG Care Time/CCT Total # of Minutes Spent Total Time Spent with Patient: Total time spent is greater than 50% in coordination of care (as documented) at patient's floor/unit and/or counseling patient: Coding Level of Care Code 26574 SUB INP/OBS CARE 06/11MIN Diagnoses Dementia F03.90 Syncope R55 Primary hypertension I10 Hypertension type: primary hypertension Seizure disorder G40.909 Hypothyroidism, unspecified type E03.9 Hypothyroidism type: unspecified Patient incapable of making informed decisions Z78.9 History of colon cancer Z85.038 Vertebral artery stenosis I65.09 (3) Hypertension Hypertension type: primary hypertension Qualified Code(s): I10 - Essential (primary) hypertension (5) Hypothyroidism Hypothyroidism type: unspecified Qualified Code(s): E03.9 - Hypothyroidism, unspecified
--- NOTE | 2023-06-11 07:56 | Hospitalist Progress Note ---
Date of Service June 11, 2023 Assessment & Plan (1) Dementia: Plan: Needing placement, does not have capacity for decision making. Patient w/ severe agitation during hospitalization, now improved and remaining stable Tired throughout the day, is on Seroquel which may be the cause B12 repletion continues Psychiatry seen, no indication for inpatient treatment at this time Melatonin added for day/night reversal sx Agitation 05/20 &05/23 requiring IM Zyprexa and added seroquel 25mg QAM (per prior recs, was also on this prior to admit) which is continued with her 100mg HS dose -05/30 senna placed to prn (last BM recorded 06/08- monitor - if not moving will ask rn to admin prn senna for today) (2) Syncope: Plan: Occurred this hospitalization when getting up quickly from bed and running to toilet in early February. Likely orthostatic hypotension as cause. Head CT and EKG unremarkable. No recurrence. (3) Hypertension: Plan: Lisinopril dosage uptitrated on February 20. Amlodipine also uptitrated this admission. BPs now controlled 138/81 in hospital setting (4) Seizure disorder: Plan: Stable. Continue keppra (5) Hypothyroidism: Plan: Stable. Continue Synthroid replacement therapy TSH 05/11: 1.353 Continue levothyroxine 100 mcg daily (6) Patient incapable of making informed decisions: Plan: Patient without capacity for decision making Family meeting 05/29 additional facilities/referrals being sent by CM. CM continued search for placement. Medically stable for dc for weeks/months (7) History of colon cancer: Plan: s/p resection in the past . Stable. No intervention necessary at this time. laxatives for constipation moving her bowels (8) Vertebral artery stenosis: Plan: Stable. Continue aspirin and statin therapy Plan VTE prophylaxis - patient is mobile without any acute medical condition requiring VTE prophylaxis therefore chemical VTE prophylaxis not warranted at this time Disposition - continued admission pending placement, she is medically stable for discharge at this time Anticipate discharge to [facility] dementia lockdown unit when arrangements are finaliz ed. Admission and Anticipated Discharge Date Admission Date: January 23, 2023 Supervising Physician Co-Signing Physician Notes The patient was not seen by me. The chart was reviewed. Case discussed with JEREMY Hoang. Agree with assessment and plan Subjective Eval this morning, sitting up in recliner, no acute distress. No acute events. again, continues to wait placement. Physical Exam Physical Exam: General- WN/WD female, sitting up in recliner, dressed, NAD HEENT: head normocephalic, atraumatic, mmm, trachea midline Resp: even/unlabored, on room air CV: RRR, no significant m/r/g or edema GI: +BS, soft, nontender MSK/Neuro: nonfocal Psych: alert to person/place, dementia at baseline, cooperative with care Results & Data Results & Data Vital Signs (Past 12 Hours) Vital Signs Temp Pulse Resp BP Pulse Ox O2 Del Method 06/11/23 07:44 36.9 C 71 18 140/86 96 Room Air PG Care Time/CCT Total # of Minutes Spent Total Time Spent with Patient: Total time spent is greater than 50% in coordination of care (as documented) at patient's floor/unit and/or counseling patient: Coding Level of Care Code 36883 SUB INP/OBS CARE 06/11MIN Diagnoses Dementia F03.90 Syncope R55 Primary hypertension I10 Hypertension type: primary hypertension Seizure disorder G40.909 Hypothyroidism, unspecified type E03.9 Hypothyroidism type: unspecified Patient incapable of making informed decisions Z78.9 History of colon cancer Z85.038 Vertebral artery stenosis I65.09 (3) Hypertension Hypertension type: primary hypertension Qualified Code(s): I10 - Essential (primary) hypertension (5) Hypothyroidism Hypothyroidism type: unspecified Qualified Code(s): E03.9 - Hypothyroidism, unspecified
--- NOTE | 2023-06-12 08:05 | Hospitalist Progress Note ---
Date of Service June 12, 2023 Assessment & Plan (1) Dementia: Plan: Needing placement, does not have capacity for decision making. Patient w/ severe agitation during hospitalization, now improved and remaining stable Tired throughout the day, is on Seroquel which may be the cause B12 repletion continues Psychiatry seen, no indication for inpatient treatment at this time Melatonin added for day/night reversal sx Agitation 05/20 &05/23 requiring IM Zyprexa and added seroquel 25mg QAM (per prior recs, was also on this prior to admit) which is continued with her 100mg HS dose -05/30 senna placed to prn (last BM recorded 06/08- monitor - if not moving will ask rn to admin prn senna for today) Doing ok, little sleepy this morning. Tired of being in the hospital but taking pills as ordered. Ongoing search for bed. Consideration to decrease AM seroquel to 12.5mg 06/13 (2) Syncope: Plan: Occurred this hospitalization when getting up quickly from bed and running to toilet in early February. Likely orthostatic hypotension as cause. Head CT and EKG unremarkable. No recurrence. (3) Hypertension: Plan: Lisinopril dosage uptitrated on February 20. Amlodipine also uptitrated this admission. BPs now controlled 138/79 in hospital setting (4) Seizure disorder: Plan: Stable. Continue keppra (5) Hypothyroidism: Plan: Stable. Continue Synthroid replacement therapy TSH 05/11: 1.353 Continue levothyroxine 100 mcg daily (6) Patient incapable of making informed decisions: Plan: Patient without capacity for decision making Family meeting 05/29 w additional facilities/referrals being sent by CM. CM continued search for placement. Medically stable for dc for weeks/months (7) History of colon cancer: Plan: s/p resection in the past . Stable. No intervention necessary at this time. laxatives for constipation moving her bowels (8) Vertebral artery stenosis: Plan: Stable. Continue aspirin and statin therapy Plan VTE prophylaxis - patient is mobile without any acute medical condition requiring VTE prophylaxis therefore chemical VTE prophylaxis not warranted at this time Disposition - continued admission pending placement, she is medically stable for discharge at this time Anticipate discharge to SNF dementia lockdown unit when arrangements are finalized. 06/12, still stable, little sleepy but took AM meds. Remains on AM seroquel for mood, ?decrease dose to 12.5mg if any ongoing issues. Admission and Anticipated Discharge Date Admission Date: January 23, 2023 Subjective eval this morning, sitting up at side of the bed. said she "needs some gumption" sleepy but reporting to need a nap. Physical Exam Physical Exam: General- WN/WD female, sitting up in recliner, dressed, NAD but fatigued appearing and reporting needing to take a nap HEENT: head normocephalic, atraumatic, mmm, trachea midline Resp: even/unlabored, on room air CV: RRR, no significant m/r/g or edema GI: +BS, soft, nontender MSK/Neuro: nonfocal Psych: alert to person/place, dementia at baseline, cooperative with care Results & Data Results & Data Vital Signs (Past 12 Hours) Vital Signs Temp Pulse Resp BP Pulse Ox O2 Del Method 06/12/23 07:08 36.4 C L 68 16 138/79 93 Room Air 06/11/23 23:30 36.4 C L 69 16 148/71 H 95 Room Air PG Care Time/CCT Total # of Minutes Spent Total Time Spent with Patient: Total time spent is greater than 50% in coordination of care (as documented) at patient's floor/unit and/or counseling patient: Coding Level of Care Code 69197 SUB INP/OBS CARE 06/11MIN Diagnoses Dementia F03.90 Syncope R55 Primary hypertension I10 Hypertension type: primary hypertension Seizure disorder G40.909 Hypothyroidism, unspecified type E03.9 Hypothyroidism type: unspecified Patient incapable of making informed decisions Z78.9 History of colon cancer Z85.038 Vertebral artery stenosis I65.09 (3) Hypertension Hypertension type: primary hypertension Qualified Code(s): I10 - Essential (primary) hypertension (5) Hypothyroidism Hypothyroidism type: unspecified Qualified Code(s): E03.9 - Hypothyroidism, unspecified
--- NOTE | 2023-06-13 07:56 | Hospitalist Progress Note ---
Date of Service June 13, 2023 Assessment & Plan (1) Dementia: Plan: Needing placement, does not have capacity for decision making. Patient w/ severe agitation during hospitalization, now improved and remaining stable Tired throughout the day, is on Seroquel which may be the cause B12 repletion continues Psychiatry seen, no indication for inpatient treatment at this time Melatonin added for day/night reversal sx Agitation 05/20 &05/23 requiring IM Zyprexa and added seroquel 25mg QAM (per prior recs, was also on this prior to admit) which is continued with her 100mg HS dose 06/13 -- sleepy this morning, moved her bowels but had been a little bit. senna resumed HS and will monitor. Seroquel decreased to 12.5mg for AM dose and can adjust back if needed but will monitor on reduced dose (2) Syncope: Plan: Occurred this hospitalization when getting up quickly from bed and running to toilet in early February. Likely orthostatic hypotension as cause. Head CT and EKG unremarkable. No recurrence. (3) Hypertension: Plan: Lisinopril dosage uptitrated on February 20. Amlodipine also uptitrated this admission. BPs now controlled 129/66 (4) Seizure disorder: Plan: Stable. Continue keppra (5) Hypothyroidism: Plan: Stable. Continue Synthroid replacement therapy TSH 05/11: 1.353 Continue levothyroxine 100 mcg daily (6) Patient incapable of making informed decisions: Plan: Patient without capacity for decision making Family meeting 05/29 w additional facilities/referrals being sent by CM. CM continued search for placement. Medically stable for dc for weeks/months (7) History of colon cancer: Plan: s/p resection in the past . Stable. No intervention necessary at this time. laxatives for constipation moving her bowels (8) Vertebral artery stenosis: Plan: Stable. Continue aspirin and statin therapy Plan VTE prophylaxis - patient is mobile without any acute medical condition requiring VTE prophylaxis therefore chemical VTE prophylaxis not warranted at this time Disposition - continued admission pending placement, she is medically stable for discharge at this time Seroquel decreased for AM dosing and will monitor. Senna resumed HS Anticipate discharge to [facility] dementia lockdown unit when arrangements are finalized. Admission and Anticipated Discharge Date Admission Date: January 23, 2023 Subjective eval this morning, resting in bed, asked for temp turned up in the room (was cold). Just got to bathroom and moved bowels, feeling better. Did not want to take AM meds this morning but discussed decrease seroquel and hopefully not as sleepy and will monitor. Will resume Physical Exam Physical Exam: General- WN/WD female, laying in bed, just got back from bathroom, NAD but fatigued appearing, wanting temperature turned up in her room HEENT: head normocephalic, atraumatic, mmm, trachea midline Resp: even/unlabored, on room air CV: RRR, no significant m/r/g or edema GI: +BS, soft, nontender MSK/Neuro: nonfocal Psych: alert to person/place, dementia at baseline, cooperative with care Results & Data Results & Data Vital Signs (Past 12 Hours) Vital Signs Temp Pulse Resp BP Pulse Ox O2 Del Method 06/12/23 19:57 36.6 C 74 16 147/73 H 96 Room Air PG Care Time/CCT Total # of Minutes Spent Total Time Spent with Patient: Total time spent is greater than 50% in coordination of care (as documented) at patient's floor/unit and/or counseling patient: Coding Level of Care Code 61206 SUB INP/OBS CARE 06/11MIN Diagnoses Dementia F03.90 Syncope R55 Primary hypertension I10 Hypertension type: primary hypertension Seizure disorder G40.909 Hypothyroidism, unspecified type E03.9 Hypothyroidism type: unspecified Patient incapable of making informed decisions Z78.9 History of colon cancer Z85.038 Vertebral artery stenosis I65.09 (3) Hypertension Hypertension type: primary hypertension Qualified Code(s): I10 - Essential (primary) hypertension (5) Hypothyroidism Hypothyroidism type: unspecified Qualified Code(s): E03.9 - Hypothyroidism, unspecified
[2023-06-13] MEDS: QUEtiapine FUMARATE 25 MG TABLET PO SCH (08:37)
[2023-06-13] MEDS: SENNA 8.6 MG TAB PO SCH (19:18)
--- NOTE | 2023-06-14 07:46 | Hospitalist Progress Note ---
Date of Service June 14, 2023 Assessment & Plan (1) Dementia: Plan: Needing placement, does not have capacity for decision making. Patient w/ severe agitation during hospitalization, now improved and remaining stable Tired throughout the day, is on Seroquel which may be the cause B12 repletion continues Psychiatry seen, no indication for inpatient treatment at this time Melatonin added for day/night reversal sx Agitation 05/20 &05/23 requiring IM Zyprexa and added seroquel 25mg QAM (per prior recs, was also on this prior to admit) which is continued with her 100mg HS dose 06/14 Continue decreased dose Seroquel 12.5mg PO QAM for now. - Can monitor/increase if needed but was stable 06/13 and this morning without issues Senna continued daily unless having more frequent BMs can make prn (2) Syncope: Plan: Occurred this hospitalization when getting up quickly from bed and running to toilet in early February. Likely orthostatic hypotension as cause. Head CT and EKG unremarkable. No recurrence. (3) Hypertension: Plan: Lisinopril dosage uptitrated on February 20. Amlodipine also uptitrated this admission. BPs now controlled 145/72 (4) Seizure disorder: Plan: Stable. Continue keppra (5) Hypothyroidism: Plan: Stable. Continue Synthroid replacement therapy TSH 05/11: 1.353 Continue levothyroxine 100 mcg daily (6) Patient incapable of making informed decisions: Plan: Patient without capacity for decision making Family meeting 05/29 w additional facilities/referrals being sent by CM. CM continued search for placement. Medically stable for dc for weeks/months (7) History of colon cancer: Plan: s/p resection in the past . Stable. No intervention necessary at this time. laxatives for constipation moving her bowels (8) Vertebral artery stenosis: Plan: Stable. Continue aspirin and statin therapy Plan VTE prophylaxis - patient is mobile without any acute medical condition requiring VTE prophylaxis therefore chemical VTE prophylaxis not warranted at this time Disposition - continued admission pending placement, she is medically stable for discharge at this time Seroquel decreased for AM dosing and will monitor. Senna resumed HS Anticipate discharge to SN[facility] dementia lockdown unit when arrangements are finalized. Will contact son w/ update Thursday as able Admission and Anticipated Discharge Date Admission Date: January 23, 2023 Subjective Eval this morning, up a little earlier today. Watching hi girls. No acute issues yesterday except initially declining AM medications. No issues today. Appears w/ more energy for today and discussed will continue lower dose AM seroquel and monitor mood. No acute issues, would like "a million dollars". Questions/concerns addressed at this time. Physical Exam Physical Exam: General- WN/WD female, laying in bed, just got back from bathroom, NAD, less fatigued appearing, smiling upon entry/more pleasant today HEENT: head normocephalic, atraumatic, mmm, trachea midline Resp: even/unlabored, on room air CV: RRR, no significant m/r/g or edema GI: +BS, soft, nontender MSK/Neuro: nonfocal Psych: alert to person/place, dementia at baseline, cooperative with care Results & Data Results & Data Vital Signs (Past 12 Hours) Vital Signs O2 Del Method 06/14/23 07:18 Room Air PG Care Time/CCT Total # of Minutes Spent Total Time Spent with Patient: Total time spent is greater than 50% in coordination of care (as documented) at patient's floor/unit and/or counseling patient: Coding Level of Care Code 38426 SUB INP/OBS CARE 06/11MIN Diagnoses Dementia F03.90 Syncope R55 Primary hypertension I10 Hypertension type: primary hypertension Seizure disorder G40.909 Hypothyroidism, unspecified type E03.9 Hypothyroidism type: unspecified Patient incapable of making informed decisions Z78.9 History of colon cancer Z85.038 Vertebral artery stenosis I65.09 (3) Hypertension Hypertension type: primary hypertension Qualified Code(s): I10 - Essential (primary) hypertension (5) Hypothyroidism Hypothyroidism type: unspecified Qualified Code(s): E03.9 - Hypothyroidism, unspecified
--- NOTE | 2023-06-15 07:52 | Hospitalist Progress Note ---
Date of Service June 15, 2023 Assessment & Plan (1) Dementia: Plan: Needing placement, does not have capacity for decision making. Patient w/ severe agitation during hospitalization, now improved and remaining stable Tired throughout the day, is on Seroquel which may be the cause B12 repletion continues Psychiatry seen, no indication for inpatient treatment at this time Melatonin added for day/night reversal sx Agitation 05/20 &05/23 requiring IM Zyprexa and added seroquel 25mg QAM (per prior recs, was also on this prior to admit) which is continued with her 100mg HS dose 06/15 Continue decreased dose Seroquel 12.5mg PO QAM for now. - Can monitor/increase if needed but was stable 06/13 and this morning without issues Senna continued daily unless having more frequent BMs can make prn -- +BM 06/14. If continued moving can make prn 06/16 (2) Syncope: Plan: Occurred this hospitalization when getting up quickly from bed and running to toilet in early February. Likely orthostatic hypotension as cause. Head CT and EKG unremarkable. No recurrence. (3) Hypertension: Plan: Lisinopril dosage uptitrated on February 20. Amlodipine also uptitrated this admission. BPs now controlled 145/72 (4) Seizure disorder: Plan: Stable. Continue keppra (5) Hypothyroidism: Plan: Stable. Continue Synthroid replacement therapy TSH 05/11: 1.353 Continue levothyroxine 100 mcg daily (6) Patient incapable of making informed decisions: Plan: Patient without capacity for decision making Family meeting 05/29 w/ 17 additional facilities/referrals being sent by CM. CM continued search for placement. Medically stable for dc for weeks/months (7) History of colon cancer: Plan: s/p resection in the past . Stable. No intervention necessary at this time. laxatives for constipation moving her bowels 06/14, monitor to change to prn in AM (8) Vertebral artery stenosis: Plan: Stable. Continue aspirin and statin therapy Plan VTE prophylaxis - patient is mobile without any acute medical condition requiring VTE prophylaxis therefore chemical VTE prophylaxis not warranted at this time Disposition - continued admission pending placement, she is medically stable for discharge at this time Seroquel decreased for AM dosing and will monitor. Senna resumed HS Anticipate discharge to SNF dementia lockdown unit when arrangements are finalized. Admission and Anticipated Discharge Date Admission Date: January 23, 2023 Subjective patient resting comfortably this morning, not awoken. tolerating lower dose seroquel without issue and will continue such for now ongoing placement issues. Physical Exam Physical Exam: 82yo female resting in bed, NAD respirations even/unlabored, on tachypnea, 98% on RA CV: RRR, no significant m/r/g GI: +BS, soft/NT Results & Data Results & Data Vital Signs (Past 12 Hours) Vital Signs Temp Pulse Resp BP Pulse Ox O2 Del Method 06/15/23 07:28 36.5 C 69 16 149/77 H 98 Room Air PG Care Time/CCT Total # of Minutes Spent Total Time Spent with Patient: Total time spent is greater than 50% in coordination of care (as documented) at patient's floor/unit and/or counseling patient: Coding Level of Care Code 81665 SUB INP/OBS CARE 1/25MIN Diagnoses Dementia F03.90 Syncope R55 Primary hypertension I10 Hypertension type: primary hypertension Seizure disorder G40.909 Hypothyroidism, unspecified type E03.9 Hypothyroidism type: unspecified Patient incapable of making informed decisions Z78.9 History of colon cancer Z85.038 Vertebral artery stenosis I65.09 (3) Hypertension Hypertension type: primary hypertension Qualified Code(s): I10 - Essential (primary) hypertension (5) Hypothyroidism Hypothyroidism type: unspecified Qualified Code(s): E03.9 - Hypothyroidism, unspecified
[2023-06-16] MEDS ORDERED: SENNA 8.6 MG TAB PO PRN (17:33)
--- NOTE | 2023-06-16 17:37 | Hospitalist Progress Note ---
Date of Service June 16, 2023 Assessment & Plan (1) Dementia: Plan: Needing placement, does not have capacity for decision making. Patient w/ severe agitation during hospitalization, now improved and remaining stable Tired throughout the day, is on Seroquel which may be the cause B12 repletion continues Psychiatry seen, no indication for inpatient treatment at this time Melatonin added for day/night reversal sx -Agitation 05/20 &05/23 requiring IM Zyprexa and added seroquel 25mg QAM along with her 100mg HS dose- decreased dose Seroquel 12.5mg PO QAM for excessive drowsiness on 06/15 (2) Syncope: Plan: Occurred this hospitalization when getting up quickly from bed and running to toilet in early February. Likely orthostatic hypotension as cause. Head CT and EKG unremarkable. No rec urrence. (3) Hypertension: Plan: Lisinopril dosage uptitrated on February 20. Amlodipine also uptitrated this admission. BPs now controlled (4) Seizure disorder: Plan: Stable. Continue keppra (5) Hypothyroidism: Plan: Stable. Continue Synthroid replacement therapy TSH 05/11: 1.353 Continue levothyroxine 100 mcg daily (6) Patient incapable of making informed decisions: Plan: Patient without capacity for decision making Family meeting 05/29 additional facilities/referrals being sent by CM. CM continued search for placement. Medically stable for dc for months (7) History of colon cancer: Plan: s/p resection in the past . Stable. No intervention necessary at this time. now with loose stools due ot laxatives--stop docusate and make senna prn (8) Vertebral artery stenosis: Plan: Stable. Continue aspirin and statin therapy Plan VTE prophylaxis - patient is mobile without any acute medical condition requiring VTE prophylaxis therefore chemical VTE prophylaxis not warranted at this time Disposition - continued admission pending placement, she is medically stable for discharge at this time Admission and Anticipated Discharge Date Admission Date: January 23, 2023 Subjective Pt having multiple episodes of stool incontinence with loose stools since resuming senna 3 days ago. Pt currently in bathroom when I went to see her. Results & Data Results & Data Vital Signs (Past 12 Hours) Vital Signs Temp Pulse Resp BP Pulse Ox O2 Del Method 06/16/23 15:02 36.6 C 76 18 133/91 96 Room Air 06/16/23 08:00 36.7 C 71 16 126/73 95 Room Air PG Care Time/CCT Total # of Minutes Spent Total Time Spent with Patient: Total time spent is greater than 50% in coordination of care (as documented) at patient's floor/unit and/or counseling patient: Coding Level of Care Code None Diagnoses Dementia F03.90 Syncope R55 Primary hypertension I10 Hypertension type: primary hypertension Seizure disorder G40.909 Hypothyroidism, unspecified type E03.9 Hypothyroidism type: unspecified Patient incapable of making informed decisions Z78.9 History of colon cancer Z85.038 Vertebral artery stenosis I65.09 (3) Hypertension Hypertension type: primary hypertension Qualified Code(s): I10 - Essential (primary) hypertension (5) Hypothyroidism Hypothyroidism type: unspecified Qualified Code(s): E03.9 - Hypothyroidism, unspecified
--- NOTE | 2023-06-17 13:37 | Hospitalist Progress Note ---
Date of Service June 17, 2023 Assessment & Plan (1) Dementia: Plan: Needing placement, does not have capacity for decision making. Patient w/ severe agitation during hospitalization, now resolved and remaining stable Tired throughout the day, is on Seroquel which may be the cause-now improved with lowering AM dose to 12.5mg B12 repletion continues Psychiatry seen, no indication for inpatient treatment at this time Melatonin added for day/night reversal sx -Agitation 05/20 &05/23 requiring IM Zyprexa and added seroquel 25mg QAM along with her 100mg HS dose- decreased dose Seroquel 12.5mg PO QAM for excessive drowsiness on 06/15 (2) Syncope: Plan: Occurred this hospitalization when getting up quickly from bed and running to toilet in early February. Likely orthostatic hypotension as cause. Head CT and EKG unremarkable. No recurrence. (3) Hypertension: Plan: Lisinopril dosage uptitrated on February 20. Amlodipine also uptitrated this admission. BPs stable (4) Seizure disorder: Plan: Stable. Continue keppra (5) Hypothyroidism: Plan: Stable. Continue Synthroid replacement therapy TSH 05/11: 1.353 Continue levothyroxine 100 mcg daily (6) Patient incapable of making informed decisions: Plan: Patient without capacity for decision making (7) History of colon cancer: Plan: s/p resection in the past . Stable. No intervention necessary at this time. laxatives for constipation as needed Last colonoscopy in 08/2020 with sessile serrated polyp in transverse colon and two tubular adenomas in descending colon and rectum--> needs outpt GI follow up for surveillance colonoscopy as outpt (8) Vertebral artery stenosis: Plan: Stable. Continue aspirin and statin therapy Plan VTE prophylaxis - patient is mobile without any acute medical condition requiring VTE prophylaxis therefore chemical VTE prophylaxis not warranted at this time Disposition - continued admission pending placement, she is medically stable for discharge at this time. Case management following Likely discharge to [facility] next week of 06/22/23 Patient sonJuan updated by phone on 06/17 Admission and Anticipated Discharge Date Admission Date: January 23, 2023 Subjective Pt has no complaints. Is eating ice cream. Says her loose stools have stopped. Pt denies pain anywhere. I had a nice conversation with her son on the phone today who has plans in place for her to go to [facility] likely next week. Physical Exam Constitutional: WD/WN, vitals as above no acute distress Respiratory: normal respiratory effort, lungs clear to auscultation normal respiratory effort Cardiovascular: RRR, no murmur, no edema Neurologic: no focal motor deficits Psychiatric: Orientation: alert and oriented to person Results & Data Results & Data Vital Signs (Past 12 Hours) Vital Signs Pulse Resp BP 06/17/23 09:04 68 18 136/73 PG Care Time/CCT Total # of Minutes Spent Total Time Spent with Patient: Total time spent is greater than 50% in coordination of care (as documented) at patient's floor/unit and/or counseling patient: Coding Level of Care Code 62922 SUB INP/OBS CARE 06/11MIN Diagnoses Dementia F03.90 Syncope R55 Primary hypertension I10 Hypertension type: primary hypertension Seizure disorder G40.909 Hypothyroidism, unspecified type E03.9 Hypothyroidism type: unspecified Patient incapable of making informed decisions Z78.9 History of colon cancer Z85.038 Vertebral artery stenosis I65.09 (3) Hypertension Hypertension type: primary hypertension Qualified Code(s): I10 - Essential (primary) hypertension (5) Hypothyroidism Hypothyroidism type: unspecified Qualified Code(s): E03.9 - Hypothyroidism, unspecified
--- NOTE | 2023-06-18 16:39 | Hospitalist Progress Note ---
Date of Service June 18, 2023 Assessment & Plan (1) Dementia: Plan: Needing placement, does not have capacity for decision making. Patient w/ severe agitation during hospitalization initially, now resolved and remaining stable for many months Tired throughout the day, is on Seroquel which may be the cause-now improved with lowering AM dose to 12.5mg B12 repletion continues Psychiatry seen, no indication for inpatient treatment at this time Melatonin added for day/night reversal sx -Agitation 05/20 &05/23 requiring IM Zyprexa and added seroquel 25mg QAM along with her 100mg HS dose- decreased dose Seroquel 12.5mg PO QAM for excessive drowsiness on 06/15 (2) Syncope: Plan: Occurred this hospitalization when getting up quickly from bed and running to toilet in early February. Likely orthostatic hypotension as cause. Head CT and EKG unremarkable. No recurrence. (3) Hypertension: Plan: Lisinopril dosage uptitrated on February 20. Amlodipine also uptitrated this admission. BPs stable (4) Seizure disorder: Plan: Stable. Continue keppra (5) Hypothyroidism: Plan: Stable. Continue Synthroid replacement therapy TSH 05/11: 1.353 Continue levothyroxine 100 mcg daily (6) Patient incapable of making informed decisions: Plan: Patient without capacity for decision making (7) History of colon cancer: Plan: s/p resection in the past . Stable. No intervention necessary at this time. laxatives for constipation as needed Last colonoscopy in 08/2020 with sessile serrated polyp in transverse colon and two tubular adenomas in descending colon and rectum--> needs outpt GI follow up for surveillance colonoscopy as outpt (8) Vertebral artery stenosis: Plan: Stable. Continue aspirin and statin therapy Plan VTE prophylaxis - patient is mobile without any acute medical condition requiring VTE prophylaxis therefore chemical VTE prophylaxis not warranted at this time Disposition - continued admission pending placement, she is medically stable for discharge at this time. Case management following Likely discharge to [facility] next week of 06/22/23 Patient son, Juan updated by phone on 06/17 Admission and Anticipated Discharge Date Admission Date: January 23, 2023 Subjective Pt has no complaints except wants to know when she is getting out of the hospital Physical Exam Constitutional: WD/WN, vitals as above no acute distress Respiratory: normal respiratory effort Psychiatric: Orientation: alert and oriented to person Results & Data Results & Data Vital Signs (Past 12 Hours) Vital Signs Temp Pulse Resp BP Pulse Ox O2 Del Method 06/18/23 08:11 36.5 C 69 18 129/71 95 Room Air PG Care Time/CCT Total # of Minutes Spent Total Time Spent with Patient: Total time spent is greater than 50% in coordination of care (as documented) at patient's floor/unit and/or counseling patient: Coding Level of Care Code 32802 SUB INP/OBS CARE 06/11MIN Diagnoses Dementia F03.90 Syncope R55 Primary hypertension I10 Hypertension type: primary hypertension Seizure disorder G40.909 Hypothyroidism, unspecified type E03.9 Hypothyroidism type: unspecified Patient incapable of making informed decisions Z78.9 History of colon cancer Z85.038 Vertebral artery stenosis I65.09 (3) Hypertension Hypertension type: primary hypertension Qualified Code(s): I10 - Essential (primary) hypertension (5) Hypothyroidism Hypothyroidism type: unspecified Qualified Code(s): E03.9 - Hypothyroidism, unspecified
--- NOTE | 2023-06-19 11:49 | Hospitalist Progress Note ---
Date of Service June 19, 2023 Assessment & Plan (1) Dementia: Plan: Needing placement, does not have capacity for decision making. Patient w/ severe agitation during hospitalization initially, now resolved and remaining stable for many months Tired throughout the day, is on Seroquel which may be the cause-now improved with lowering AM dose to 12.5mg B12 repletion continues Psychiatry seen, no indication for inpatient treatment at this time Melatonin added for day/night reversal sx -Agitation 05/20 &05/23 requiring IM Zyprexa and added seroquel 25mg QAM along with her 100mg HS dose- decreased dose Seroquel 12.5mg PO QAM for excessive drowsiness on 06/15 (2) Syncope: Plan: Occurred this hospitalization when getting up quickly from bed and running to toilet in early February. Likely orthostatic hypotension as cause. Head CT and EKG unremarkable. No recurrence. (3) Hypertension: Plan: Lisinopril dosage uptitrated on February 20. Amlodipine also uptitrated this admission. BPs stable (4) Seizure disorder: Plan: Stable. Continue keppra (5) Hypothyroidism: Plan: Stable. Continue Synthroid replacement therapy TSH 05/11: 1.353 Continue levothyroxine 100 mcg daily (6) Patient incapable of making informed decisions: Plan: Patient without capacity for decision making (7) History of colon cancer: Plan: s/p resection in the past . Stable. No intervention necessary at this time. laxatives for constipation as needed Last colonoscopy in 08/2020 with sessile serrated polyp in transverse colon and two tubular adenomas in descending colon and rectum--> needs outpt GI follow up for surveillance colonoscopy as outpt (8) Vertebral artery stenosis: Plan: Stable. Continue aspirin but reduce down to 81mg daily, continue statin therapy Plan VTE prophylaxis - patient is mobile without any acute medical condition requiring VTE prophylaxis therefore chemical VTE prophylaxis not warranted at this time Disposition - continued admission pending placement, she is medically stable for discharge at this time. Case management following Plan is for discharge to [facility] next week on 06/22/23 with her son transporting Patient son, Juan updated by phone on 06/17 Renewed all medications for a month through 07/23/23 Admission and Anticipated Discharge Date Admission Date: January 23, 2023 Subjective Pt eating lunch, no complaints, pleasant. I told her she is leaving here to go to [facility] on Thursday and she was very excited. She wonders why her son hasn't come to visit her. Physical Exam Constitutional: WD/WN, vitals as above no acute distress Respiratory: normal respiratory effort Neurologic: moves all extremities Psychiatric: Orientation: alert and oriented to person Results & Data Results & Data Vital Signs (Past 12 Hours) Vital Signs Temp Pulse Resp BP Pulse Ox O2 Del Method 06/19/23 08:16 36.6 C 68 16 135/70 93 Room Air PG Care Time/CCT Total # of Minutes Spent Total Time Spent with Patient: Total time spent is greater than 50% in coordination of care (as documented) at patient's floor/unit and/or counseling patient: Coding Level of Care Code 39323 SUB INP/OBS CARE 06/11MIN Diagnoses Dementia F03.90 Syncope R55 Primary hypertension I10 Hypertension type: primary hypertension Seizure disorder G40.909 Hypothyroidism, unspecified type E03.9 Hypothyroidism type: unspecified Patient incapable of making informed decisions Z78.9 History of colon cancer Z85.038 Vertebral artery stenosis I65.09 (3) Hypertension Hypertension type: primary hypertension Qualified Code(s): I10 - Essential (primary) hypertension (5) Hypothyroidism Hypothyroidism type: unspecified Qualified Code(s): E03.9 - Hypothyroidism, unspecified
[2023-06-19] MEDS: MELATONIN 3 MG TAB PO SCH (20:08)
[2023-06-20] MEDS: ASPIRIN 81 MG ECTAB PO SCH (09:00)
--- NOTE | 2023-06-20 13:14 | Hospitalist Progress Note ---
Date of Service June 20, 2023 Assessment & Plan (1) Dementia: Plan: Needing placement, does not have capacity for decision making. Patient w/ severe agitation during hospitalization initially, now resolved and remaining stable for many months Tired throughout the day, is on Seroquel which may be the cause-now improved with lowering AM dose to 12.5mg B12 repletion continues Psychiatry seen, no indication for inpatient treatment at this time Melatonin added for day/night reversal sx -Agitation 05/20 &05/23 requiring IM Zyprexa and added seroquel 25mg QAM along with her 100mg HS dose- decreased dose Seroquel 12.5mg PO QAM for excessive drowsiness on 06/15 (2) Syncope: Plan: Occurred this hospitalization when getting up quickly from bed and running to toilet in early February. Likely orthostatic hypotension as cause. Head CT and EKG unremarkable. No recurrence. (3) Hypertension: Plan: Lisinopril dosage uptitrated on February 20. Amlodipine also uptitrated this admission. BPs stable (4) Seizure disorder: Plan: Stable. Continue keppra (5) Hypothyroidism: Plan: Stable. Continue Synthroid replacement therapy TSH 05/11: 1.353 Continue levothyroxine 100 mcg daily (6) Patient incapable of making informed decisions: Plan: Patient without capacity for decision making (7) History of colon cancer: Plan: s/p resection in the past . Stable. No intervention necessary at this time. laxatives for constipation as needed Last colonoscopy in 08/2020 with sessile serrated polyp in transverse colon and two tubular adenomas in descending colon and rectum--> needs outpt GI follow up for surveillance colonoscopy as outpt (8) Vertebral artery stenosis: Plan: Stable. Continue aspirin but reduce down to 81mg daily, continue statin therapy Plan VTE prophylaxis - patient is mobile without any acute medical condition requiring VTE prophylaxis therefore chemical VTE prophylaxis not warranted at this time Disposition - continued admission pending placement, she is medically stable for discharge at this time. Case management following Plan is for discharge to [facility] next week on 06/22/23 with her son transporting Patient son, Juan updated by phone on 06/17 Renewed all medications for a month through 07/23/23 Admission and Anticipated Discharge Date Admission Date: January 23, 2023 Subjective Patient feels well. Denies chest pain or shortness of breath Review of Systems Review of Systems: All systems reviewed & are unremarkable except as noted in Subjective Physical Exam Physical Exam: general: Awake, conversant Heart: S1, S2/regular rate and rhythm, no murmur rubs or gallops Lungs: Clear to auscultation bilaterally. Normal effort Abdomen: Soft/nontender/nondistended. No hepatosplenomegaly Extremities: No clubbing/cyanosis. No edema Behavior: Appropriate, cooperative Results & Data Results & Data Vital Signs (Past 12 Hours) Vital Signs Temp Pulse Resp BP Pulse Ox O2 Del Method 06/20/23 07:32 36.4 C L 65 18 137/67 97 Room Air PG Care Time/CCT Total # of Minutes Spent Total Time Spent with Patient: Total time spent is greater than 50% in coordination of care (as documented) at patient's floor/unit and/or counseling patient: Coding Level of Care Code 55973 SUB INP/OBS CARE 2/35MIN Diagnoses Dementia F03.90 Syncope R55 Primary hypertension I10 Hypertension type: primary hypertension Seizure disorder G40.909 Hypothyroidism, unspecified type E03.9 Hypothyroidism type: unspecified Patient incapable of making informed decisions Z78.9 History of colon cancer Z85.038 Vertebral artery stenosis I65.09 (3) Hypertension Hypertension type: primary hypertension Qualified Code(s): I10 - Essential (primary) hypertension (5) Hypothyroidism Hypothyroidism type: unspecified Qualified Code(s): E03.9 - Hypothyroidism, unspecified
--- NOTE | 2023-06-21 12:32 | Hospitalist Progress Note ---
Date of Service June 21, 2023 Assessment & Plan (1) Dementia: Plan: Needing placement, does not have capacity for decision making. Patient w/ severe agitation during hospitalization initially, now resolved and remaining stable for many months Tired throughout the day, is on Seroquel which may be the cause-now improved with lowering AM dose to 12.5mg B12 repletion continues Psychiatry seen, no indication for inpatient treatment at this time Melatonin added for day/night reversal sx -Agitation 05/20 &05/23 requiring IM Zyprexa and added seroquel 25mg QAM along with her 100mg HS dose- decreased dose Seroquel 12.5mg PO QAM for excessive drowsiness on 06/15 (2) Syncope: Plan: Occurred this hospitalization when getting up quickly from bed and running to toilet in early February. Likely orthostatic hypotension as cause. Head CT and EKG unremarkable. No recurrence. (3) Hypertension: Plan: Lisinopril dosage uptitrated on February 20. Amlodipine also uptitrated this admission. BPs stable (4) Seizure disorder: Plan: Stable. Continue keppra (5) Hypothyroidism: Plan: Stable. Continue Synthroid replacement therapy TSH 05/11: 1.353 Continue levothyroxine 100 mcg daily (6) Patient incapable of making informed decisions: Plan: Patient without capacity for decision making (7) History of colon cancer: Plan: s/p resection in the past . Stable. No intervention necessary at this time. laxatives for constipation as needed Last colonoscopy in 08/2020 with sessile serrated polyp in transverse colon and two tubular adenomas in descending colon and rectum--> needs outpt GI follow up for surveillance colonoscopy as outpt (8) Vertebral artery stenosis: Plan: Stable. Continue aspirin but reduce down to 81mg daily, continue statin therapy Plan VTE prophylaxis - patient is mobile without any acute medical condition requiring VTE prophylaxis therefore chemical VTE prophylaxis not warranted at this time Disposition - continued admission pending placement, she is medically stable for discharge at this time. Case management following Plan is for discharge to [facility] next week on 06/23/23 with her son transporting Patient son, Juan updated by phone on 06/17 Renewed all medications for a month through 07/23/23 Admission and Anticipated Discharge Date Admission Date: January 23, 2023 Subjective Patient feels well. Denies chest pain or shortness of breath Review of Systems Review of Systems: All systems reviewed & are unremarkable except as noted in Subjective Physical Exam Physical Exam: general: Awake, conversant Heart: S1, S2/regular rate and rhythm, no murmur rubs or gallops Lungs: Clear to auscultation bilaterally. Normal effort Abdomen: Soft/nontender/nondistended. No hepatosplenomegaly Extremities: No clubbing/cyanosis. No edema Behavior: Appropriate, cooperative Results & Data Results & Data Vital Signs (Past 12 Hours) Vital Signs Temp Pulse Resp BP Pulse Ox O2 Del Method 06/21/23 07:18 36.6 C 67 16 108/49 L 95 Room Air PG Care Time/CCT Total # of Minutes Spent Total Time Spent with Patient: Total time spent is greater than 50% in coordination of care (as documented) at patient's floor/unit and/or counseling patient: Coding Level of Care Code 03161 SUB INP/OBS CARE 2/35MIN Diagnoses Dementia F03.90 Syncope R55 Primary hypertension I10 Hypertension type: primary hypertension Seizure disorder G40.909 Hypothyroidism, unspecified type E03.9 Hypothyroidism type: unspecified Patient incapable of making informed decisions Z78.9 History of colon cancer Z85.038 Vertebral artery stenosis I65.09 (3) Hypertension Hypertension type: primary hypertension Qualified Code(s): I10 - Essential (primary) hypertension (5) Hypothyroidism Hypothyroidism type: unspecified Qualified Code(s): E03.9 - Hypothyroidism, unspecified
[2023-06-21 16:00] LABS: Appearance Urine Clear (Clear); Bilirubin Urine Negative (Negative); Blood Urine Trace-intact (Negative); Color Urine Yellow; Glucose Urine UA Negative (Negative); Ketones Urine Negative (Negative); Leukocyte Esterase Urine 2+ (Negative); Nitrite Urine Negative (Negative); Protein Urine Negative (Negative); Specific Gravity Urine 1.015 (1.000-1.030); Urobilinogen Urine Negative (Negative); pH Urine 5.5 (4.5-7.5)
[2023-06-21 16:18] LABS: Epithelial Cell Urine 0-5 /lpf (0-5)
[2023-06-21 16:19] LABS: Bacteria Urine Negative (Negative); RBC Urine 0-4 /hpf (0-4)
[2023-06-21] MEDS: MICONAZOLE NITRATE 2% CR 30 GM TUBE EXT SCH (21:26)
--- NOTE | 2023-06-22 15:22 | Hospitalist Progress Note ---
Date of Service June 22, 2023 Assessment & Plan (1) Dementia: Plan: Needing placement, does not have capacity for decision making. Patient w/ severe agitation during hospitalization initially, now resolved and remaining stable for many months Tired throughout the day, is on Seroquel which may be the cause-now improved with lowering AM dose to 12.5mg B12 repletion continues Psychiatry seen, no indication for inpatient treatment at this time Melatonin added for day/night reversal sx -Agitation 05/20 &05/23 requiring IM Zyprexa and added seroquel 25mg QAM along with her 100mg HS dose- decreased dose Seroquel 12.5mg PO QAM for excessive drowsiness on 06/15 (2) Syncope: Plan: Occurred this hospitalization when getting up quickly from bed and running to toilet in early February. Likely orthostatic hypotension as cause. Head CT and EKG unremarkable. No recurrence. (3) Hypertension: Plan: Lisinopril dosage uptitrated on February 20. Amlodipine also uptitrated this admission. BPs stable (4) Seizure disorder: Plan: Stable. Continue keppra (5) Hypothyroidism: Plan: Stable. Continue Synthroid replacement therapy TSH 05/11: 1.353 Continue levothyroxine 100 mcg daily (6) Patient incapable of making informed decisions: Plan: Patient without capacity for decision making (7) History of colon cancer: Plan: s/p resection in the past . Stable. No intervention necessary at this time. laxatives for constipation as needed Last colonoscopy in 08/2020 with sessile serrated polyp in transverse colon and two tubular adenomas in descending colon and rectum--> needs outpt GI follow up for surveillance colonoscopy as outpt (8) Vertebral artery stenosis: Plan: Stable. Continue aspirin but reduce down to 81mg daily, continue statin therapy Plan VTE prophylaxis - patient is mobile without any acute medical condition requiring VTE prophylaxis therefore chemical VTE prophylaxis not warranted at this time Disposition - continued admission pending placement, she is medically stable for discharge at this time. Case management following Plan is for discharge to [facility] tomorrow 06/23/23 with her son transporting Patient son, Juan updated by phone on 06/17 Renewed all medications for a month through 07/23/23 Admission and Anticipated Discharge Date Admission Date: January 23, 2023 Subjective Patient feels well. Denies chest pain. Denies shortness of breath. Last evening, she is complaining of vaginal irritation. Ordered topical vaginal antifungal. She does not remember of any issues with vaginal irritation today. No complaints today. Review of Systems Review of Systems: All systems reviewed & are unremarkable except as noted in Subjective Physical Exam Physical Exam: general: Awake, conversant Heart: S1, S2/regular rate and rhythm, no murmur rubs or gallops Lungs: Clear to auscultation bilaterally. Normal effort Abdomen: Soft/nontender/nondistended. No hepatosplenomegaly Extremities: No clubbing/cyanosis. No edema Behavior: Appropriate, cooperative Results & Data Results & Data Vital Signs (Past 12 Hours) Vital Signs Temp Pulse Resp BP Pulse Ox O2 Del Method 06/22/23 07:27 36.7 C 66 16 157/72 H 97 Room Air PG Care Time/CCT Total # of Minutes Spent Total Time Spent with Patient: Total time spent is greater than 50% in coordination of care (as documented) at patient's floor/unit and/or counseling patient: Coding Level of Care Code 79306 SUB INP/OBS CARE 2/35MIN Diagnoses Dementia F03.90 Syncope R55 Primary hypertension I10 Hypertension type: primary hypertension Seizure disorder G40.909 Hypothyroidism, unspecified type E03.9 Hypothyroidism type: unspecified Patient incapable of making informed decisions Z78.9 History of colon cancer Z85.038 Vertebral artery stenosis I65.09 (3) Hypertension Hypertension type: primary hypertension Qualified Code(s): I10 - Essential (primary) hypertension (5) Hypothyroidism Hypothyroidism type: unspecified Qualified Code(s): E03.9 - Hypothyroidism, unspecified
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
== END 2023-06-23 09:25 | disposition home or self-care (01) | DRG 884 ==
LOC: ED 18:05 → SUATTDRO 22:59 → 3W 22:59 → 2E 02-10 13:32 → 3E 02-11 22:03